=== PATIENT | male | born 1945 | race Caucasian/White ===

== ENCOUNTER 2019-07-27 07:09 | Outpatient (CLI) | payer MEDICARE, SELFPAY ==
[2019-07-27 08:20] LABS: Cholesterol 162 mg/dL (0-200); HDL Direct 44 mg/dL; Triglycerides 95 mg/dL (<150)
[2019-07-27 08:30] LABS: LDL Cholesterol Direct 104 mg/dL
== END 2019-07-27 07:10 | disposition home or self-care (01) ==
PROVIDERS: PCP Internal Medicine; Visit Provider Internal Medicine Cardiovascular Disease
DX: E78.5 Hyperlipidemia, unspecified (principal)
CPT/HCPCS: 36415; 80061

== ENCOUNTER 2019-10-23 09:53 | Outpatient (CLI) | payer MEDICARE, SELFPAY ==
[2019-10-23 10:44] LABS: Alanine Aminotransferase 23 U/L (4-50); Albumin Level 4.2 g/dL (3.5-5.1); Alkaline Phosphatase 78 U/L (38-126); Aspartate Amino Transferase 39 U/L (17-59); Bilirubin,Total 0.5 mg/dL (0.2-1.3); Blood Urea Nitrogen 16 mg/dL (9-20); Calcium 8.9 mg/dL (8.4-10.2); Carbon Dioxide 30 mmol/L (22-30); Chloride 102 mmol/L (98-107); Estimated Glomerular Filt Rate 54; Glucose 103 mg/dL (75-110); Magnesium 2.2 mg/dL (1.6-2.3); Potassium 4.5 mmol/L (3.4-5.0); Sodium 138 mmol/L (137-145)
== END 2019-10-23 09:54 | disposition home or self-care (01) ==
PROVIDERS: PCP Internal Medicine; Visit Provider Internal Medicine Cardiovascular Disease
DX: E78.5 Hyperlipidemia, unspecified (principal)
CPT/HCPCS: 36415; 80053; 83735

== ENCOUNTER 2019-11-17 07:47 | Outpatient (CLI) | payer MEDICARE, SELFPAY ==
[2019-11-17 08:24] LABS: Blood Urea Nitrogen 26 mg/dL (9-20); Calcium 8.9 mg/dL (8.4-10.2); Carbon Dioxide 27 mmol/L (22-30); Chloride 102 mmol/L (98-107); Estimated Glomerular Filt Rate 49; Glucose 110 mg/dL (75-110); Potassium 5.4 mmol/L (3.4-5.0); Sodium 136 mmol/L (137-145)
== END 2019-11-17 07:48 | disposition home or self-care (01) ==
PROVIDERS: PCP Physician Assistant; Visit Provider Physician Assistant
DX: R25.2 Cramp and spasm (principal)
CPT/HCPCS: 36415; 80048

== ENCOUNTER 2020-01-12 08:05 | Outpatient (CLI) | payer MEDICARE, SELFPAY ==
--- NOTE | ~2020-01-12 | XR_ITS ---
EXAMINATION: XR hip BI wo pelvis DATE: 01/12/2020 08:45 INDICATION: Bilateral hip pain. TECHNIQUE: 3 views of right hip and 3 views of left hip were obtained. COMPARISON: Right hip radiographs 09/24/2019, left hip radiographs 05/30/2011 FINDINGS: There are bilateral total hip arthroplasties in near-anatomic alignment. No asymmetric line r wear. No periprosthetic lucency to suggest loosening or infection. No fracture. IMPRESSION: 1. Bilateral total hip arthroplasties in near-anatomic alignment. Reviewed, dictated and finalized at location A.
== END 2020-01-12 08:06 | disposition home or self-care (01) ==
LOC: CHSIMG 08:09
PROVIDERS: PCP Internal Medicine; Visit Provider Orthopaedic Surgery
DX: Z96.643 Presence of artificial hip joint, bilateral (principal)
CPT/HCPCS: 73521

== ENCOUNTER 2020-03-16 08:51 | Outpatient (CLI) | payer MEDICARE, SELFPAY ==
[2020-03-16 10:26] LABS: Free T4 Free Thyroxine 1.12 ng/mL (0.78-2.19)
== END 2020-03-16 08:52 | disposition home or self-care (01) ==
PROVIDERS: PCP Physician Assistant; Visit Provider Physician Assistant
DX: E03.9 Hypothyroidism, unspecified (principal)
CPT/HCPCS: 36415; 84439; 84443

== ENCOUNTER 2020-06-15 09:53 | Outpatient (CLI) | payer MEDICARE, SELFPAY ==
[2020-06-15 10:16] LABS: Anion Gap 5 mmol/L (8-16); Blood Urea Nitrogen 16 mg/dL (9-20); Calcium 9.1 mg/dL (8.4-10.2); Carbon Dioxide 31 mmol/L (22-30); Chloride 102 mmol/L (98-107); Estimated Glomerular Filt Rate 49; Glucose 103 mg/dL (75-110); Magnesium 1.9 mg/dL (1.6-2.3); Potassium 4.4 mmol/L (3.4-5.0); Sodium 138 mmol/L (137-145)
== END 2020-06-15 09:54 | disposition home or self-care (01) ==
PROVIDERS: PCP Physician Assistant; Visit Provider Internal Medicine Cardiovascular Disease
DX: R60.0 Localized edema (principal)
CPT/HCPCS: 36415; 80048; 83735

== ENCOUNTER 2020-07-28 11:14 | Outpatient (CLI) | payer MEDICARE, SELFPAY | END 2020-07-28 11:15 | disposition home or self-care (01) | LOC: ANHCOVIDVC 11:14 | PROVIDERS: PCP Internal Medicine | DX: Z23 Encounter for immunization (principal) | CPT/HCPCS: 0001A; 91300 ==

== ENCOUNTER 2020-08-15 08:54 | Outpatient (CLI) | payer MEDICARE, SELFPAY ==
[2020-08-15 09:30] LABS: Cholesterol 150 mg/dL (0-200); HDL Direct 40 mg/dL; Triglycerides 122 mg/dL (<150)
[2020-08-15 09:40] LABS: LDL Cholesterol Direct 86 mg/dL
== END 2020-08-15 08:55 | disposition home or self-care (01) ==
PROVIDERS: PCP Internal Medicine; Visit Provider Internal Medicine Cardiovascular Disease
DX: E78.5 Hyperlipidemia, unspecified (principal)
CPT/HCPCS: 36415; 80061

== ENCOUNTER 2020-08-18 10:52 | Outpatient (CLI) | payer MEDICARE, SELFPAY | END 2020-08-18 10:53 | disposition home or self-care (01) | LOC: ANHCOVIDVC 10:52 | PROVIDERS: PCP Internal Medicine | DX: Z23 Encounter for immunization (principal) | CPT/HCPCS: 0002A; 91300 ==

== ENCOUNTER 2020-09-16 14:07 | Outpatient (CLI) | payer MEDICARE, SELFPAY ==
--- NOTE | ~2020-09-16 | CT_ITS ---
EXAMINATION: CT chest high resolution wo tn DATE: 09/16/2020 14:32 INDICATION: Cough and dyspnea TECHNIQUE: Computed tomography (CT) of the chest was performed without intravenous contrast. The dose -length product was 906.05 mGy-cm. Automated exposure control and iterative reconstruction technique were employed. COMPARISON: CT dated 03/18/2016 FINDINGS: No significant pleural or pericardial effusion. No thoracic lymphadenopathy. There is ather osclerosis of the aorta and coronary arteries. Heart size is normal. There is left renal atrophy. The re are scattered calcified granulomas. Stable 4 mm benign left fissural nodule, image 73. Scattered g roundglass opacification is noted, likely small airway disease. No new suspicious pulmonary nodules o r masses. Stable sclerotic lesion right fourth rib, consistent with bone island. Mild thoracic spondy losis with accentuated kyphosis. IMPRESSION: 1. Patchy groundglass opacities, likely related to small airway disease. 2: Stable benign-appearing bilateral pulmonary nodules, consistent with granulomatous disease. Reviewed, dictated and finalized at location A. IMPRESSION: 1. Patchy groundglass opacities, likely related to small airway disease. 2: Stable benign-appearing bilateral pulmonary nodules, consistent with granulo matous disease.
== END 2020-09-16 14:08 | disposition home or self-care (01) ==
LOC: ANHIMG 14:14
PROVIDERS: PCP Physician Assistant; Visit Provider Physician Assistant
DX: R05 Cough (principal); R91.8 Other nonspecific abnormal finding of lung field
CPT/HCPCS: 71250

== ENCOUNTER 2021-02-10 06:57 | Outpatient (CLI) | payer MEDICARE, SELFPAY ==
[2021-02-10 08:07] LABS: Anion Gap 6 mmol/L (8-16); Blood Urea Nitrogen 32 mg/dL (9-20); Carbon Dioxide 32 mmol/L (22-30); Chloride 96 mmol/L (98-107); Estimated Glomerular Filt Rate 37; Glucose 120 mg/dL (65-110); Magnesium 2.1 mg/dL (1.6-2.3); Potassium 4.7 mmol/L (3.4-5.0); Sodium 134 mmol/L (137-145)
== END 2021-02-10 06:58 | disposition home or self-care (01) ==
PROVIDERS: PCP Physician Assistant; Visit Provider Internal Medicine Cardiovascular Disease
DX: R60.0 Localized edema (principal)
CPT/HCPCS: 36415; 80048; 83735

== ENCOUNTER 2021-04-11 06:44 | Outpatient (CLI) | payer MEDICARE, SELFPAY ==
[2021-04-11 07:22] LABS: Basophils Percent Auto 0.6 % (0.2-1.2); Eosinophils Absolute Auto 0.2 K/mm3 (0-0.3); Eosinophils Percent Auto 3.4 % (0-4.4); Hematocrit 39.2 % (42.0-52.0); Hemoglobin 12.6 g/dL (14.0-18.0); Immature Granulocyte Absolute 0.03 K/mm3 (0.00-0.031); Immature Granulocyte Percent A 0.6 % (0-0.5); Lymphocytes Absolute Auto 1.11 K/mm3 (0.9-3.2); Lymphocytes Percent Auto 23.5 % (18.3-44.2); Mean Corpuscular HGB Conc 32.1 g/dl (32-36); Mean Corpuscular Hemoglobin 32.9 pg (26-34); Mean Corpuscular Volume 102.3 fl (80-100); Mean Platelet Volume 9.8 fl (7.4-10.4); Monocytes Absolute Auto 0.7 K/mm3 (0.1-0.6); Monocytes Percent Auto 14.8 % (2.6-8.5); Neutrophils Absolute Auto 2.7 K/mm3 (1.3-6.7); Neutrophils Percent Auto 57.1 % (45.5-73.1); Platelet Count Result 175 k/mm3 (150-375); Red Blood Count 3.83 M/mm3 (4.6-6.20); Red Cell Distribution Width 14.5 % (11.5-14.5); White Blood Count 4.7 K/mm3 (4.5-10.0)
[2021-04-11 07:34] LABS: Alanine Aminotransferase 21 U/L (4-50); Albumin Level 4.1 g/dL (3.5-5.1); Alkaline Phosphatase 63 U/L (38-126); Anion Gap 5 mmol/L (8-16); Aspartate Amino Transferase 29 U/L (17-59); Bilirubin,Total 0.6 mg/dL (0.2-1.3); Blood Urea Nitrogen 20 mg/dL (9-20); Carbon Dioxide 31 mmol/L (22-30); Chloride 100 mmol/L (98-107); Cholesterol 172 mg/dL (0-200); Estimated Glomerular Filt Rate 42; Glucose 106 mg/dL (65-110); HDL Direct 37 mg/dL; Magnesium 2.1 mg/dL (1.6-2.3); Potassium 4.4 mmol/L (3.4-5.0); Sodium 136 mmol/L (137-145); Triglycerides 123 mg/dL (<150)
[2021-04-11 07:46] LABS: LDL Cholesterol Direct 98 mg/dL
[2021-04-11 07:49] LABS: Free T4 Free Thyroxine 1.23 ng/mL (0.78-2.19)
[2021-04-11 08:05] LABS: Prostate Specific Antigen 4.1 ng/mL (< OR = 4.0)
[2021-04-11 08:40] LABS: Folic Acid 14.1 ng/mL (2.76->20)
== END 2021-04-11 06:45 | disposition home or self-care (01) ==
LOC: ANHLAB 06:49
PROVIDERS: PCP Physician Assistant; Visit Provider Physician Assistant
DX: R53.83 Other fatigue (principal); E78.5 Hyperlipidemia, unspecified; I10 Essential (primary) hypertension; E03.9 Hypothyroidism, unspecified; Z12.5 Encounter for screening for malignant neoplasm of prostate
CPT/HCPCS: 36415; 80053; 80061; 82607; 82746; 83735; 84153; 84439; 84443; 85025; G0103

== ENCOUNTER 2021-05-12 06:38 | Outpatient (CLI) | payer MEDICARE, SELFPAY ==
[2021-05-12 10:05] LABS: Prostate Specific Antigen 4.9 ng/mL (< OR = 4.0)
== END 2021-05-12 06:39 | disposition home or self-care (01) ==
LOC: ANHLAB 06:43
PROVIDERS: PCP Physician Assistant; Visit Provider Physician Assistant
DX: R97.20 Elevated prostate specific antigen [PSA] (principal)
CPT/HCPCS: 36415; 84153

== ENCOUNTER 2021-05-30 09:44 | Outpatient (CLI) | payer OTHER, SELFPAY ==
[2021-05-30 10:29] LABS: Anion Gap 10 mmol/L (8-16); Blood Urea Nitrogen 30 mg/dL (9-20); Calcium 8.9 mg/dL (8.4-10.2); Carbon Dioxide 28 mmol/L (22-30); Chloride 99 mmol/L (98-107); Estimated Glomerular Filt Rate 37; Glucose 130 mg/dL (65-110); Magnesium 2.3 mg/dL (1.6-2.3); Potassium 4.4 mmol/L (3.4-5.0); Sodium 137 mmol/L (137-145)
== END 2021-05-30 09:45 | disposition home or self-care (01) ==
PROVIDERS: PCP Physician Assistant; Visit Provider Internal Medicine Cardiovascular Disease
DX: R60.0 Localized edema (principal)
CPT/HCPCS: 36415; 80048; 83735

== ENCOUNTER 2021-07-14 11:25 | Outpatient (CLI) | payer OTHER, SELFPAY ==
[2021-07-14 11:52] LABS: Basophils Absolute Auto 0.1 K/mm3 (0.0-0.1); Basophils Percent Auto 0.6 % (0.2-1.2); Eosinophils Absolute Auto 0.1 K/mm3 (0-0.3); Eosinophils Percent Auto 1.4 % (0-4.4); Hematocrit 24.9 % (42.0-52.0); Hemoglobin 8.1 g/dL (14.0-18.0); Immature Granulocyte Absolute 0.14 K/mm3 (0.00-0.031); Immature Granulocyte Percent A 1.4 % (0-0.5); Lymphocytes Absolute Auto 0.86 K/mm3 (0.9-3.2); Lymphocytes Percent Auto 8.5 % (18.3-44.2); Mean Corpuscular HGB Conc 32.5 g/dl (32-36); Mean Corpuscular Hemoglobin 31.8 pg (26-34); Mean Corpuscular Volume 97.6 fl (80-100); Mean Platelet Volume 9.8 fl (7.4-10.4); Monocytes Absolute Auto 1.1 K/mm3 (0.1-0.6); Monocytes Percent Auto 10.9 % (2.6-8.5); Neutrophils Absolute Auto 7.8 K/mm3 (1.3-6.7); Neutrophils Percent Auto 77.2 % (45.5-73.1); Nucleated Red Blood Cells Perc 0.4 % (0.0-0.2); Platelet Count Result 329 k/mm3 (150-375); Red Blood Count 2.55 M/mm3 (4.6-6.20); Red Cell Distribution Width 13.9 % (11.5-14.5); White Blood Count 10.1 K/mm3 (4.5-10.0)
[2021-07-14 12:08] LABS: Lipase 186 U/L (23-300)
[2021-07-14 14:32] LABS: Iron 31 ug/dL (49-181)
[2021-07-14 14:41] LABS: Percent Iron Saturation 10 % (20-50)
== END 2021-07-14 11:26 | disposition home or self-care (01) ==
PROVIDERS: PCP Physician Assistant; Visit Provider Physician Assistant
DX: D64.9 Anemia, unspecified (principal); R10.9 Unspecified abdominal pain
CPT/HCPCS: 36415; 83540; 83550; 83690; 85025

== ENCOUNTER 2021-07-14 14:51 | Inpatient (IN) | payer OTHER, SELFPAY ==
[2021-07-14] VITALS (7 sets, daily range): BP systolic 130–137; BP diastolic 55–80; PULSE 95–105; RESP 18–25; TEMP 36.5–36.8; O2SAT 94–99; BMI 37.5
--- NOTE | ~2021-07-14 | CT_ITS ---
EXAMINATION: CT brain wo con EXAM DATE: 07/17/2021 00:27 INDICATION: altered mental status TECHNIQUE: Spiral CT of the head was performed without contrast. Axial, coronal and sagittal images were reviewed. The dose-length product (DLP) for this examination was 756.67 mGy-cm. The exposure w as tailored according to patient size, and iterative reconstruction (ASIR) was used as additional dos e reduction technique. There is no prior study for comparison. FINDINGS: There is no acute intraparenchymal hemorrhage. No evidence of intraparenchymal brain mass lesion. No evidence of acute infarction. Please note that initial head CT has limited sensitivity f or small or acute infarctions. There is mild to moderate periventricular and subcortical hypodensity, nonspecific but probably related to small vessel ischemic disease. There is ventricular prominence out of proportion to sulci which is suspected most likely central atrophy rather than hydrocephalus. Normal pressure hydrocephalus cannot be excluded (clinical triad ataxia/gait disturbance, dementia, urinary incontinence). There is intracranial carotid arteriosclerosis. There are no extra-axial c ollections. There is no mass effect or midline shift. Patient has had bilateral ocular lens surgery . Soft tissue is unremarkable. The visualized sinuses and mastoid air cells are well aerated. IMPRESSION: 1. No acute intracranial findings. 2. Chronic age related findings. Reviewed, dictated and finalized at location A. H SCIENCE TECHNICAL OFFICER
--- NOTE | ~2021-07-14 | XR_ITS ---
EXAMINATION: XR barium swallow modified DATE: 07/24/2021 15:18 INDICATION: Dysphagia. TECHNIQUE: The patient was given barium-containing material of multiple consistencies to swallow by t wanda speech pathologist while I performed fluoroscopy. Fluoroscopy exposure time was 2.0 minutes. The n umber of fluoroscopy images saved to the PACS was 1. Dose-area product was 3.921 Gy-cm^2. FINDINGS: There is mild vallecular residue. No residual penetration or aspiration. IMPRESSION: 1. No laryngeal penetration or aspiration. 2. Please refer to the speech therapy report for recommendations. Reviewed, dictated and finalized at location A. ESSOR OF BIOLOGY
--- NOTE | ~2021-07-14 | CT_ITS ---
EXAMINATION: CT abdomen pelvis wo con DATE: 07/14/2021 16:26 INDICATION: Epigastric abdominal pain, diminished hemoglobin level. History of ulcer. TECHNIQUE: Computed tomography (CT) of the abdomen and pelvis was performed without intravenous contr ast. Automated exposure control and iterative reconstruction technique were employed. Exam dose: 141 9.00 mGy-cm total exam DLP. COMPARISON: None. FINDINGS: There is mild mosaic attenuation of the included lower lung zones which may be due to obstr uctive airways disease, occlusive vascular disease, acute or subacute infections. There is mild disco id atelectasis or scarring at the lung bases. Small right and minimal left pleural effusions. Heart size is within normal range. Coronary artery calcification. There is 4.5 cm diameter of the ascending aorta and some calcifications at the region of the aortic v alve. Mitral annulus calcification. No hepatic, splenic, pancreatic, adrenal or renal space-occupying mass lesion is evident. There is pr ominent diffuse left renal atrophy. No urinary tract calculus or hydroureteronephrosis. There is thickening of the wall of the gastroduodenal area with surrounding fat infiltration, suggest ing inflammatory change, possibly related to ulcer, less likely perforated tumor; endoscopic correlat ion is recommended. No evidence of appendicitis. There are numerous diverticula of the left and right colon; no evidence of diverticulitis. Normal caliber of the abdominal aorta. No intraperitoneal or retroperitoneal or pelvic mass lesion o r lymphadenopathy or ascites is detected. Status post bilateral total hip arthroplasty, with considerable streak artifact obscuring portions of the pelvis. 2.8 cm wide fat containing umbilical hernia. Degenerative changes of the thoracic and lumbar spine. IMPRESSION: Soft tissue thickening and surrounding fat infiltration of the gastroduodenal area, sugg esting peptic ulcer disease, less likely perforated tumor; consider endoscopic correlation Diverticulosis of the colon; no evidence of diverticulitis Bilateral total hip arthroplasty Reviewed, dictated and finalized at Location A. Reviewed, dictated and finalized at location B. LIATE MANAGER IMPRESSION: Soft tissue thickening and surrounding fat infiltration of the gas troduodenal area, suggesting peptic ulcer disease, less likely perforated tumor ; consider endoscopic correlation Diverticulosis of the colon; no evidence of diverticulitis Bilateral total hip arthroplasty
--- NOTE | ~2021-07-14 | US_ITS ---
EXAMINATION: US renal BI DATE: 07/17/2021 09:18 INDICATION: Acute renal insufficiency TECHNIQUE: Multiple ultrasound grayscale images of the kidneys were obtained. COMPARISON: CT dated 07/14/2021 FINDINGS: The right kidney measures 9.6 x 5.9 x 5.5 cm. The left kidney measures 8.0 x 4.3 x 4.9 with diffuse c ortical thinning. The kidneys demonstrate normal echogenicity. There is no hydronephrosis in either k idney. No stones identified. The bladder is decompressed around a Disla catheter which limits evalua tion. IMPRESSION: 1. Normal right kidney and moderate left renal atrophy without hydronephrosis. Reviewed, dictated and finalized at location A. OR UNDERWRITER
--- NOTE | ~2021-07-14 | XR_ITS ---
EXAMINATION: XR chest 1V portable DATE: 07/19/2021 09:45 INDICATION: Septic shock TECHNIQUE: frontal view of the chest was obtained. COMPARISON: Chest radiograph dated 07/16/2021 FINDINGS: A few small calcified pulmonary nodules consistent with old granulomatous disease. Mild left basilar atelectasis. No pulmonary edema, pleural effusion or pneumothorax. Normal heart size. Enlargement of the central pulmonary arteries consistent with pulmonary arterial hypertension. IMPRESSION: 1. Mild left basilar atelectasis. 2. Enlargement of the central pulmonary arteries consistent with pulmonary arterial hypertension. Reviewed, dictated and finalized at location A. OSIVES MIXER OPERATOR IMPRESSION: 1. Mild left basilar atelectasis. 2. Enlargement of the central pulmonary arteries consistent with pulmonary oralia rial hypertension.
--- NOTE | ~2021-07-14 | XR_ITS ---
EXAMINATION: XR chest 2V DATE: 07/23/2021 13:33 INDICATION: Shortness of breath TECHNIQUE: AP and lateral views of the chest are obtained. COMPARISON: 07/19/2021 FINDINGS: There are stable left basilar airspace opacities. There are small pleural effusions. The ca rdiomediastinal silhouette is normal. There is mild thoracic spondylosis. IMPRESSION: 1. Small pleural effusions. 2. Left basilar airspace opacities, likely atelectasis. Reviewed, dictated and finalized at location F. FACTURING AREA MANAGER
--- NOTE | ~2021-07-14 | XR_ITS ---
EXAMINATION: XR chest 1V portable DATE: 07/16/2021 21:07 INDICATION: Shortness of breath TECHNIQUE: frontal view of the chest was obtained. COMPARISON: Chest radiograph dated 11/03/2018 FINDINGS: Subtle opacities in the bilateral mid lung zones. There is also some perihilar bronchial wall thicken ing. No pleural effusion or pneumothorax. The cardiomediastinal silhouette is within normal limits fo r AP technique. IMPRESSION: 1. Bronchial wall thickening with mild opacities in the bilateral mid lung zones which could represen t bronchitis and developing pneumonia or pulmonary edema. Reviewed, dictated and finalized at location A. RACT ASSOCIATE MANAGER IMPRESSION: 1. Bronchial wall thickening with mild opacities in the bilateral mid lung zone s which could represent bronchitis and developing pneumonia or pulmonary edema.
--- NOTE | 2021-07-14 14:57 | ECG_ITS ---
Measurements Intervals [place] Rate: 104 P: 52 SD: 185 QRS: -61 QRSD: 113 T: 66 QT: 349 QTc: 461 Interpretive Statements SINUS TACHYCARDIA ATRIAL COUPLETS AND ATRIAL PREMATURE COMPLEXES LOW QRS VOLTAGE IN PRECORDIAL LEADS LEFT ANTERIOR FASCICULAR BLOCK BORDERLINE ST-T WAVE ABNORMALITY- HIGH LATERAL LEADS BASELINE ARTIFACT- I, II, III, AVR, AVL, AVF, V1-V6 ABNORMAL ECG Electronically Signed On 07-14-2021 15:21:54 [employer] INFANTRYMAN by Kody Mart D.O.
[2021-07-14 15:21] LABS: Basophils Absolute Auto 0.1 K/mm3 (0.0-0.1); Basophils Percent Auto 0.6 % (0.2-1.2); Eosinophils Absolute Auto 0.1 K/mm3 (0-0.3); Eosinophils Percent Auto 0.8 % (0-4.4); Hematocrit 25.9 % (42.0-52.0); Hemoglobin 8.3 g/dL (14.0-18.0); Immature Granulocyte Absolute 0.15 K/mm3 (0.00-0.031); Immature Granulocyte Percent A 1.4 % (0-0.5); Lymphocytes Absolute Auto 0.83 K/mm3 (0.9-3.2); Lymphocytes Percent Auto 7.5 % (18.3-44.2); Mean Corpuscular Hemoglobin 31.8 pg (26-34); Mean Corpuscular Volume 99.2 fl (80-100); Monocytes Absolute Auto 1.1 K/mm3 (0.1-0.6); Monocytes Percent Auto 10.1 % (2.6-8.5); Neutrophils Absolute Auto 8.8 K/mm3 (1.3-6.7); Neutrophils Percent Auto 79.6 % (45.5-73.1); Nucleated Red Blood Cells Absolute Auto 0.1 K/mm3 (0.0-0.012); Nucleated Red Blood Cells Perc 0.5 % (0.0-0.2); Platelet Count Result 343 k/mm3 (150-375); Red Blood Count 2.61 M/mm3 (4.6-6.20); Red Cell Distribution Width 14.1 % (11.5-14.5); White Blood Count 11.1 K/mm3 (4.5-10.0)
[2021-07-14 15:29] LABS: INR 1.3; Prothrombin Time 15.9 Seconds (11.1-14.7)
[2021-07-14 15:30] LABS: Partial Thromboplastin Time 30.2 SECONDS (22.3-36.8)
[2021-07-14 15:48] LABS: Alanine Aminotransferase 20 U/L (4-50); Albumin Level 3.3 g/dL (3.5-5.1); Alkaline Phosphatase 69 U/L (38-126); Anion Gap 9 mmol/L (8-16); Aspartate Amino Transferase 36 U/L (17-59); Bilirubin,Total 0.4 mg/dL (0.2-1.3); Blood Urea Nitrogen 21 mg/dL (9-20); Calcium 9.1 mg/dL (8.4-10.2); Carbon Dioxide 25 mmol/L (22-30); Chloride 101 mmol/L (98-107); Estimated CRCL calculation 61 ml/min; Estimated Glomerular Filt Rate > 60; Glucose 127 mg/dL (65-110); Lipase 225 U/L (23-300); Potassium 3.9 mmol/L (3.4-5.0); Sodium 135 mmol/L (137-145)
--- NOTE | 2021-07-14 15:57 | ED.RECABL ---
HPI - Recheck/Abnormal Lab/Rx General Chief Complaint: Recheck/Abnormal Lab/Rx Stated Complaint: low hemoglobin Time Seen by Provider: 07/14/21 15:20 Source: patient History of Present Illness HPI narrative: Patient presents with chest pain and epigastric pain reports has had pain for the past 2 days was seen by his primary care doctor I blood work drawn and was told his hemoglobin is low and is referred to the ER for evaluation. Which is primary concern is his chest pain reports a history of peptic ulcer disease and unsure if this is related. Denies any fevers, chills, nausea, vomiting. Related Data Home Medications Medication Instructions Recorded Confirmed aoxluvdy-pjn-wzqla acid 300 1 tablet PO DAILY 04/20/19 07/14/21 mcg-lycopene 600 mcg-lutein 300 mcg tablet Allergies Allergy/AdvReac Type Severity Reaction Status Date / Time Iodinated Contrast Media Allergy Unknown itching Verified 07/14/21 15:14 tramadol Allergy Unknown Itching Verified 07/14/21 15:14 (moderate to severe) Review of Systems Review of Systems: CONSTITUTIONAL: Denies fever, chills, or sweats. EYES: Denies visual changes, redness, or discharge. ENT: Denies rhinorrhea, congestion, sore throat, or otalgia. CARDIOVASCULAR: Denies palpitations, or edema. RESPIRATORY: Denies cough or dyspnea. GASTROINTESTINAL: Denies abdominal pain, nausea, vomiting, or diarrhea. GENITOURINARY: Denies dysuria or hematuria. SKIN: Denies rash or itching. MUSCULOSKELETAL: Denies back pain, joint pain, or myalgia. NEUROLOGIC: Denies headache, numbness, dizziness, or weakness. PSYCHIATRIC: Denies anxiety or depression. All systems reviewed & are unremarkable except as noted in HPI and below [facility] Past Medical History Medical History Arthritis Asthma Surgical History Surgical History History of hip replacement History of left hip replacement History of right hip replacement Family History Family History Mother Carcinoma of colon Sibling Family history of learning disability Father FH myocardial infarction male first degree age known Other Family history of arthritis Family history of cardiovascular disease Social History Social History Smoking status: Never smoker Smokeless tobacco user: chewing tobacco Second hand tobacco smoke exposure: No Alcohol intake: current Drinks per week: 10 Substance use: never Exam Narrative: GENERAL: Well-appearing, well-nourished, and in no acute distress. HEAD: Normocephalic, atraumatic. EYES: PERRLA and EOMI. ENT: Nares clear, no rhinorrhea or epistaxis. Mucous membranes moist. NECK: Supple. No masses. No JVD CHEST: Clear to auscultation. No respiratory distress. No wheezes rales or rhonchi HEART: Regular rate and rhythm. No murmur heard. Normal peripheral pulses. ABDOMEN: Soft, nontender, nondistended, normal active bowel sounds. EXTREMITIES: Normal range of motion. No edema. SKIN: Warm, dry, no rash. NEURO: No focal deficits. Alert and oriented x3. PSYCH: Normal mood and affect. Course Reevaluation(s) Reevaluation #1: Patient is clinically stable vital signs are reassuring given lab abnormalities patient will be admitted to the hospitalist team with cardiology and GI following along. Date: 07/14/21 Time: 17:09 Vital Signs Vital signs: Vital Signs Temperature 36.5 C 07/14/21 14:57 Pulse Rate 99 07/14/21 14:57 Respiratory Rate 18 07/14/21 14:57 Blood Pressure 137/79 07/14/21 14:57 Pulse Oximetry 99 07/14/21 14:57 Temperature 36.5 C 07/14/21 14:57 Pulse Rate 100 07/14/21 18:21 Respiratory Rate 25 H 07/14/21 18:21 Blood Pressure 135/55 L 07/14/21 18:21 Pulse Oximetry 98 07/14/21 18:21 MDM - Recheck/Abnormal Lab/Rx MDM N
[2021-07-14 16:03] LABS: Troponin I 0.043 ng/mL (0.000-0.034)
[2021-07-14] MEDS: LIDOCAINE HCL 2% VISC SOLN 15 ML UDC 20 ML PO (16:07)
[2021-07-14] MEDS: MAG HYDROX/AL HYDROX/SIMETH 30 ML UDC PO (16:07)
[2021-07-14 17:44] LABS: SARS-CoV-2 RNA PCR Negative
[2021-07-14] MEDS: PANTOPRAZOLE SODIUM IV 40 MG VIAL 80 MG IV PUSH (17:49)
[2021-07-14] MEDS: SODIUM CHLORIDE 0.9% IV 1,000 ML 125 ML IV CONT (18:17)
[2021-07-14 18:29] LABS: Troponin I 0.052 ng/mL (0.000-0.034)
--- NOTE | 2021-07-14 21:59 | PM.IMHP ---
H&P: HPI History of Present Illness Date/Time: 07/14/21 21:59 Chief Complaint: Abnormal blood work Narrative: This is a 75-year-old male with past medical history significant for COPD/asthma, type 2 diabetes mellitus, peripheral diabetic neuropathy, hypertension, hypothyroidism, GERD. Patient presents to the emergency room after he went to visit his primary care physician and blood work was abnormal for low hemoglobin upon further questioning patient is states that he had black stools for 3 days or so, denies any bright red blood per rectum or hematemesis or coffee-ground emesis, no nausea, no vomiting, had cramping abdominal pain, patient fell dizzy, lightheaded, short of breath. Preliminary workup was significant for hemoglobin of 8. Patient is being admitted for further evaluation management and treatment. Review of Systems Review of Systems: Black stools, dizziness, shortness of breath. Constitutional: Constitutional: Denies chills, Reports fatigue, Denies fever(s), Denies malaise, Denies night sweats and Denies weakness Eyes: Eyes: Denies change in vision ENT: Denies dysphagia, Denies vertigo, Denies dizziness, Denies nasal congestion, Denies nasal discharge, Denies nasal obstruction and Denies odynophagia Cardiovascular: Cardiovascular: Denies rapid heart rate, Denies pedal edema, Denies claudication, Reports leg ulcers, Denies leg edema, Denies radiating jaw, neck or arm pain, Denies palpitations, Denies dyspnea on exertion and Denies orthopnea Respiratory: Respiratory: Denies cough, Denies dyspnea and Denies wheezing Gastrointestinal: Gastrointestinal: Denies abdominal pain, Reports melena, Denies hematochezia, Denies coffee ground emesis, Denies dyspepsia, Denies heartburn, Denies nausea and Denies vomiting Genitourinary: Genitourinary: Reports no additional male genitourinary complaints, Reports as per HPI and Denies dysuria Musculoskeletal: Musculoskeletal: Denies arthralgias and Denies joint swelling Integumentary/Breasts: Skin/Breast: Denies rash Neurologic: Denies focal weakness and Denies Sensory deficit (Neuro) Psychiatric: Psychiatric: Reports no additional psychiatric complaints and Reports as per HPI Hematologic/Lymphatic: Hematologic/Lymphatic: Reports no additional hematologic/lymphatic complaints and Reports as per HPI Allergic/Immunologic: Allergic/Immunologic: Reports no additional allergic/immunologic complaints and Reports as per HPI [facility] Past Medical History Medical History Arthritis Asthma Surgical History Surgical History History of hip replacement History of left hip replacement History of right hip replacement Family History Family History (Updated 07/14/21 @ 22:52 by Odilia Hernandez RN) Mother Liver cancer Sibling S/P CABG x 3 Father FH myocardial infarction male first degree age known Family history of cardiovascular disease S/P CABG x 4 Sibling Family history of cardiovascular disease Sibling Family history of cardiovascular disease Other Family history of arthritis Social History Social History Smoking status: Never smoker Smokeless tobacco user: chewing tobacco Second hand tobacco smoke exposure: No Additional smoking assessment comments: 55-60 years using chewing tobacco Alcohol intake: former Drinks per week: 21 Substance use: never Last use: hasn't been drinking since May Spiritual care concerns: No Meds Home Medications and Allergies Home Medications Medication Instructions Recorded Confirmed Type imjjpouw-wbf-mdpan acid 300 1 tablet PO DAILY 04/20/19 07/14/21 History mcg-lycopene 600 mcg-lutein 300 mcg tablet albuterol sulfate 90 mcg/actuation 2 puff INHALATION Q4-6H PRN #8.5 g 09/13/20 07/14/21 Rx aerosol inhaler trazodone 50 mg tablet 50 mg PO
[2021-07-14 22:31] LABS: Troponin I 0.063 ng/mL (0.000-0.034)
[2021-07-15] VITALS (18 sets, daily range): BP systolic 91–138; BP diastolic 55–99; PULSE 73–126; RESP 16–22; TEMP 35.8–37.1; O2SAT 92–98
[2021-07-15] MEDS: traZODone HCL 50 MG TABLET PO ×2 (00:56→21:03)
[2021-07-15] MEDS: GABAPENTIN 300 MG CAPSULE 600 MG PO ×4 (00:56→18:13)
--- NOTE | 2021-07-15 03:11 | PC.NURSE ---
This patient, Seferino Cano, was admitted to IMU Room 202-. Patient/family oriented to hospital policies and general routines including ID bracelet, bed and alarms, visiting hours, pain management, procedures, bathroom and other care routines, personal items, smoking policy, room service/diet, and visiting hours. Patient/Family are encouraged to report perceived risks to care and to ask questions if they do not understand what they are told or what they should do.
[2021-07-15] MEDS: LEVOTHYROXINE SODIUM 50 MCG TABLET PO (09:31)
[2021-07-15] MEDS: OPTI-GEN TAB 1 TABLET PO (09:31)
[2021-07-15] MEDS: lisinopriL 2.5 MG TABLET PO (09:32)
[2021-07-15] MEDS: PANTOPRAZOLE 40 MG TABLET PO (09:32)
[2021-07-15] MEDS: FENOFIBRATE NANOCRYSTALLIZED 145 MG TABLET PO (09:32)
[2021-07-15] MEDS: METOPROLOL TARTRATE 25 MG TABLET PO ×2 (09:32→21:03)
--- NOTE | 2021-07-15 12:20 | PM.CNCAR ---
Assessment and Plan Assessment and plan (1) Elevated troponin: Code(s): R77.8 - Other specified abnormalities of plasma proteins Status: Acute Assessment and Plan: His troponins are insignificant and at likely secondary to severe anemia. They are not secondary to acute plaque rupture. (2) Paroxysmal atrial flutter: Code(s): I48.92 - Unspecified atrial flutter Status: Acute Assessment and Plan: Currently in sinus rhythm with frequent PACs. Hold Eliquis for now given apparent GI bleed (3) Chronic anticoagulation: Code(s): Z79.01 - terminal supervisor (current) use of anticoagulants Status: Acute Assessment and Plan: Hold Eliquis (4) Acute on chronic diastolic heart failure: Code(s): I50.33 - Acute on chronic diastolic (congestive) heart failure Status: Acute Assessment and Plan: His significant edema above his lower extremity wrapped legs as well as dyspnea and crackles on examination. Will continue metoprolol tartrate 25 mg p.o. b.i.d.. Start furosemide 40 mg IV q.12 hours. Basic metabolic panel morning. (5) Anemia: Code(s): D64.9 - Anemia, unspecified Status: Acute Assessment and Plan: GI workup pending (6) DEMETRI (obstructive sleep apnea): Code(s): G47.33 - Obstructive sleep apnea (adult) (pediatric) Status: Acute Assessment and Plan: Need sleep apnea treatment. A significant portion of his problems are related untreated sleep apnea History of Present Illness History of Present Illness Consult date/time: 07/15/21 12:20 Requesting physician: Armando Rodriguez MD Consult reason: Other (Elevated troponin) Reason For Visit: chest pain Narrative: Reason consultation: Elevated troponin Requesting provider: Dr. Rodriguez Date of service 07/15/2021 History patient is a 75-year-old male patient Dr. Mart who is on vacation at this point. We are covering. The patient was recently admitted due to lower extremity cellulitis at [facility]. He was also diuresing given antibiotics. He was admitted to this hospital because of some epigastric discomfort and abnormal labs. He was found to be significantly anemic. In the process of workup, he had a troponin drawn which was minimally elevated. Cardiology consultation was therefore requested. Patient has been having black stools for at least 3 days. He has epigastric and sternal pain after eating and with eating. He does have dyspnea with most any activity. He denies any syncope, presyncope, palpitations. Does have lower extremity edema and sleeps poorly. He undoubtedly has sleep apnea but this is not being treated. Review of Systems Review of Systems: All systems reviewed & are unremarkable except as noted in HPI and below Constitutional: Constitutional: Reports weakness Eyes: Eyes: Denies blurry vision ENT: Reports Normal hearing present Cardiovascular: Cardiovascular: Denies chest pain and Reports leg edema Respiratory: Respiratory: Reports dyspnea on exertion Gastrointestinal: Gastrointestinal: Reports melena Genitourinary: Genitourinary: Denies dysuria Musculoskeletal: Musculoskeletal: Denies neck pain Integumentary/Breasts: Comments: Bilateral lower extremity cellulitis Neurologic: Denies headache(s) Psychiatric: Psychiatric: Denies anxiety Endocrine: Endocrine: Denies fatigue and Denies flushing Hematologic/Lymphatic: Hematologic/Lymphatic: Denies easy bleeding Allergic/Immunologic: Allergic/Immunologic: Denies GI upset with certain foods and Denies lip swelling PMFSH Past Medical History Medical History (Updated 07/15/21 @ 12:26 by Dawson Lopez MD) Arthritis Asthma Chronic anticoagulation Paroxysmal atrial flutter Surgical History Surgical History History of hip replacement History of left hip replacement History of right hip replacement Family History Family Hi
--- NOTE | 2021-07-15 12:52 | PM.IMPN ---
Progress Note: A&P Assessment and Plan (1) GI bleed: Qualifiers: GI bleed type/associated pathology: unspecified gastrointestinal hemorrhage type Qualified Code(s): K92.2 - Gastrointestinal hemorrhage, unspecified Code(s): K92.2 - Gastrointestinal hemorrhage, unspecified Status: Acute Assessment and Plan: With melena Supportive care Protonix drip GI consult Continue to monitor Serial H&H Baseline hemoglobin 12 last year apparently 8. Monitor H&H transfuse to keep hemoglobin more than 7 CT abdomen was soft tissue thickening and surrounding fat infiltration and out the gastroduodenal area suggesting peptic ulcer disease less likely perforated tumor consider on DOS COVID correlation. Diverticulosis of the colon no evidence of diverticulitis bilateral total hip arthroplasty Eliquis on hold due to GI bleed (2) Anemia: Qualifiers: Anemia type: unspecified type Qualified Code(s): D64.9 - Anemia, unspecified Code(s): D64.9 - Anemia, unspecified Status: Acute Assessment and Plan: Likely secondary to GI bleed Transfuse as needed (3) DEMETRI (obstructive sleep apnea): Code(s): G47.33 - Obstructive sleep apnea (adult) (pediatric) Status: Acute Assessment and Plan: CPAP at nighttime (4) COPD (chronic obstructive pulmonary disease): Code(s): J44.9 - Chronic obstructive pulmonary disease, unspecified Status: Acute Assessment and Plan: Continue home meds No acute exacerbation (5) CKD (chronic kidney disease) stage 3, GFR 30-59 ml/min: Code(s): N18.3 - Chronic kidney disease, stage 3 (moderate) Status: Acute Assessment and Plan: BUN and creatinine at patient's baseline Continue to monitor (6) Edema of both legs: Code(s): R60.0 - Localized edema Status: Acute Assessment and Plan: Bhaskar wraps on Supportive care diuresis started (7) Diastolic dysfunction: Code(s): I51.89 - Other ill-defined heart diseases Status: Acute Assessment and Plan: Patient appears euvolemic Continue to monitor (8) Morbid obesity with BMI of 40.0-44.9, adult: Code(s): E66.01 - Morbid (severe) obesity due to excess calories; Z68.41 - Body mass index [BMI] 40.0-44.9, adult Status: Acute Assessment and Plan: Unchanged (9) Elevated troponin: Code(s): R77.8 - Other specified abnormalities of plasma proteins Status: Acute Assessment and Plan: Mild with flat trajectory Subjective Date/time seen: 07/15/21 12:52 Interval history: HPI:This is a 75-year-old male with past medical history significant for COPD/asthma, type 2 diabetes mellitus, peripheral diabetic neuropathy, hypertension, hypothyroidism, GERD. Patient presents to the emergency room after he went to visit his primary care physician and blood work was abnormal for low hemoglobin upon further questioning patient is states that he had black stools for 3 days or so, denies any bright red blood per rectum or hematemesis or coffee-ground emesis, no nausea, no vomiting, had cramping abdominal pain, patient fell dizzy, lightheaded, short of breath. Preliminary workup was significant for hemoglobin of 8. Patient is being admitted for further evaluation management and treatment. 07/15/2021 patient reports pain in his upper abdomen sharp quality. Ongoing since past few days. No nausea or vomiting. Denies any shortness of breath chest pain. He also has lower extremity pain which has been chronic. He regularly sees wound care as outpatient basis and gets his legs wrapped Review of Systems Review of Systems: All systems reviewed & are unremarkable except as noted in HPI and below (HPI) Exam Narrative: GENERAL: The patient is well developed, not in acute distress HEENT: Nonicteric sclerae, PERRLA, EOMI. Oropharynx clear. Moist mucous membranes. Conjunctivae appear well perfused. CHEST: Chest wall is nontender. HEART: R
--- NOTE | 2021-07-15 13:12 | WPDGICN ---
Assessment and Plan Additional Plan GI Consultation Dr. Romero June, This is a 75 year old male patient with a history of COPD, T2DM, neuropathy, PVD with cellulitis, HTN, hypothyroidism, GERD, OA, bilateral THR who now presents for evaluation of melena. Patient is seen at the request of the Hospitalist service to evaluate for same. The patient?s primary care provider is SALMA Lanza. Patient is seen with his , Liliam, present for the entire visit. Patient complains of one week of intermittent epigastric pain that is non-radiating and not related to po or BM. He has poor appetite and has lost 20-30 pounds over three weeks. He denies nausea or vomiting, trouble swallowing, bloating, early satiety, heartburn (on Protonix), diarrhea or constipation, rectal bleeding. Patient denies fever, jaundice, scleral icterus, dark urine, light stool, itching, hot or cold intolerance, chest pain, shortness of breath at rest, hematuria, dysuria, new cough or visual changes, easy bruising, tingling of the skin, bone pain or tremors. No history of endocarditis, rheumatic fever, dental prophylaxis, heart valve surgery, bleeding disorder. Allergies: Iodine, Tramodol Medications: see list but include Eliquis, Aleve and Protonix. No aspirin. Social history: nonsmoker, quit drinking last month. Family history: negative for GI malignancy. Last colonoscopy was five years ago in [place] with polyps. Physical exam: No lower extremity edema, jaundice, spider angioma, palmar erythema. Skull is normocephalic atraumatic. Sclera are non-icteric. Oropharynx is clear. Neck is supple without thyromegaly. Lungs are clear. Heart is rate and rhythm regular. S1 and S2 normal. Normal active bowel sounds. Non-tender, non-rigid, non-distended without hepatosplenomegaly or masses. No guarding. Rectal is deferred. Neuro is conscious and alert ?3. Labs: Hgb 8, Hct 26, MCV 99, PTL 343, INR 1.3, LFT's normal. Lipase 225. TT peak 0.063 04/11/2021 B12 382, folate 14, Fe 31, TIBC 315, %sat 10 Imaging: CT with wall thickening in gastroduodenal area c/w ulcer and colonic diverticulosis. Assessment and plan: A. Iron deficiency anemia with melena in patient on Eliquis and Aleve and abnormal imaging-digestive: - CT suggests PUD - No active bleed; follow H+H and transfuse prn - Protonix-> IV BID - IV iron -> po as OP - Consider dose of Epo - No aspirin, NSAIDS or anticoagulants - EGD when stable; would prefer Saturday to give chance for medical optimization and effect of anticoagulants to wear off B. Epigastric pain and weight loss likely due to above. C. GERD: PPI. D. Abnormal imaging-digestive: colonic diverticulosis; observe. E. Personal history of colon polyps: consider colonoscopy per [facility]. The procedure of upper endoscopy, its indications, alternatives of barium studies and risks including perforation, bleeding, infection, reaction to medication as well as the possible need for blood or surgery were discussed with the patient. Patient voices understanding, agrees to proceed and provides informed consent. Thank you very much for allowing me to share in the care of your patient. Sung Romero M.D. (c) [phone] Cc: SALMA Lanza GI Consult Note Consult date/time: 07/15/21 13:12 HPI: Seferino Cano is a 75 year old male [facility] Past Medical History Medical History (Updated 07/15/21 @ 12:26 by Dawson Lopez MD) Arthritis Asthma Chronic anticoagulation Paroxysmal atrial flutter Surgical History Surgical History History of hip replacement History of left hip replacement History of right hip replacement Family History Family History Mother Liver cancer Sibling S/P CABG x 3 Father FH myocardial infarction male first degree age known Family history of cardiovascular disease S/P CABG x 4 Sibling Famil
[2021-07-15] MEDS: traMADol HCL (*CRX) 50 MG TABLET PO (15:28)
[2021-07-15] MEDS: FUROSEMIDE INJ 40 MG/4 ML VIAL IV PUSH (18:13)
[2021-07-15] MEDS: ALBUTEROL SULFATE (*SP) AEROSOL 1 PUFF 2 PUFF INHALATION (21:27)
[2021-07-16] VITALS (17 sets, daily range): BP systolic 99–152; BP diastolic 53–96; PULSE 54–84; RESP 14–20; TEMP 35.8–36.6; O2SAT 93–98
[2021-07-16 05:02] LABS: Basophils Absolute Auto 0.1 K/mm3 (0.0-0.1); Basophils Percent Auto 0.8 % (0.2-1.2); Eosinophils Absolute Auto 0.4 K/mm3 (0-0.3); Eosinophils Percent Auto 4.5 % (0-4.4); Hematocrit 25.9 % (42.0-52.0); Hemoglobin 7.5 g/dL (14.0-18.0); Immature Granulocyte Absolute 0.11 K/mm3 (0.00-0.031); Immature Granulocyte Percent A 1.4 % (0-0.5); Lymphocytes Absolute Auto 0.89 K/mm3 (0.9-3.2); Lymphocytes Percent Auto 11.4 % (18.3-44.2); Mean Corpuscular Hemoglobin 31.5 pg (26-34); Mean Corpuscular Volume 108.8 fl (80-100); Mean Platelet Volume 10.1 fl (7.4-10.4); Monocytes Percent Auto 12.9 % (2.6-8.5); Neutrophils Absolute Auto 5.4 K/mm3 (1.3-6.7); Nucleated Red Blood Cells Perc 0.3 % (0.0-0.2); Platelet Count Result 250 k/mm3 (150-375); Red Blood Count 2.38 M/mm3 (4.6-6.20); Red Cell Distribution Width 14.6 % (11.5-14.5); White Blood Count 7.8 K/mm3 (4.5-10.0)
[2021-07-16 05:15] LABS: Alanine Aminotransferase 19 U/L (4-50); Albumin Level 3.3 g/dL (3.5-5.1); Alkaline Phosphatase 61 U/L (38-126); Anion Gap 9 mmol/L (8-16); Aspartate Amino Transferase 42 U/L (17-59); Bilirubin,Total 0.5 mg/dL (0.2-1.3); Blood Urea Nitrogen 23 mg/dL (9-20); Calcium 8.1 mg/dL (8.4-10.2); Carbon Dioxide 19 mmol/L (22-30); Chloride 98 mmol/L (98-107); Estimated CRCL calculation 29 ml/min; Estimated Glomerular Filt Rate 26; Glucose 117 mg/dL (65-110); Potassium 3.5 mmol/L (3.4-5.0); Sodium 126 mmol/L (137-145)
[2021-07-16] MEDS: LEVOTHYROXINE SODIUM 50 MCG TABLET PO (05:54)
[2021-07-16] MEDS: OPTI-GEN TAB 1 TABLET PO (08:15)
[2021-07-16] MEDS: GABAPENTIN 300 MG CAPSULE 600 MG PO ×3 (08:15→15:59)
[2021-07-16] MEDS: METOPROLOL TARTRATE 25 MG TABLET PO (08:16)
[2021-07-16] MEDS: FENOFIBRATE NANOCRYSTALLIZED 145 MG TABLET PO (08:16)
[2021-07-16] MEDS: SODIUM CHLORIDE 0.9% IV 1,000 ML 100 ML IV CONT ×2 (08:23→21:22)
--- NOTE | 2021-07-16 08:26 | PM.IMPN ---
Progress Note: A&P Assessment and Plan (1) GI bleed: Qualifiers: GI bleed type/associated pathology: unspecified gastrointestinal hemorrhage type Qualified Code(s): K92.2 - Gastrointestinal hemorrhage, unspecified Code(s): K92.2 - Gastrointestinal hemorrhage, unspecified Status: Acute Assessment and Plan: With melena Supportive care Protonix drip GI consulted Serial H&H Baseline hemoglobin 12 last year apparently 8. Monitor H&H transfuse to keep hemoglobin more than [address] abdomen was soft tissue thickening and surrounding fat infiltration and out the gastroduodenal area suggesting peptic ulcer disease less likely perforated tumor consider on DOS COVID correlation. Diverticulosis of the colon no evidence of diverticulitis bilateral total hip arthroplasty Eliquis on hold due to GI bleed (2) Anemia: Qualifiers: Anemia type: unspecified type Qualified Code(s): D64.9 - Anemia, unspecified Code(s): D64.9 - Anemia, unspecified Status: Acute Assessment and Plan: Likely secondary to GI bleed Transfuse as needed to keep hb > 7 (3) DEMETRI (obstructive sleep apnea): Code(s): G47.33 - Obstructive sleep apnea (adult) (pediatric) Status: Acute Assessment and Plan: CPAP at nighttime (4) COPD (chronic obstructive pulmonary disease): Code(s): J44.9 - Chronic obstructive pulmonary disease, unspecified Status: Acute Assessment and Plan: Continue home meds No acute exacerbation (5) CKD (chronic kidney disease) stage 3, GFR 30-59 ml/min: Code(s): N18.3 - Chronic kidney disease, stage 3 (moderate) Status: Acute Assessment and Plan: BUN and creatinine at patient's baseline on admission. JASON today with cr bumped up to 2.4. will hold lisinopril and lasix. give gentle fluid , recheck bmp in evening, bladder scan. monitor renal function. (6) Edema of both legs: Code(s): R60.0 - Localized edema Status: Acute Assessment and Plan: Bhaskar wraps on Supportive care diuresis started but will hold due to jason (7) Diastolic dysfunction: Code(s): I51.89 - Other ill-defined heart diseases Status: Acute Assessment and Plan: Patient appears euvolemic Continue to monitor (8) Morbid obesity with BMI of 40.0-44.9, adult: Code(s): E66.01 - Morbid (severe) obesity due to excess calories; Z68.41 - Body mass index [BMI] 40.0-44.9, adult Status: Acute Assessment and Plan: Unchanged (9) Elevated troponin: Code(s): R77.8 - Other specified abnormalities of plasma proteins Status: Acute Assessment and Plan: Mild with flat trajectory (10) JASON (acute kidney injury): Code(s): N17.9 - Acute kidney failure, unspecified Status: Acute Assessment and Plan: cr bumped to 2.4. gentle hydration. hold lisinopril and lasix (11) Hyponatremia: Code(s): E87.1 - Hypo-osmolality and hyponatremia Status: Acute Assessment and Plan: na level 127. down from 134 yesterday. will add ns. recheck bmp in evening. Subjective Date/time seen: 07/16/21 08:26 Interval history: HPI:This is a 75-year-old male with past medical history significant for COPD/asthma, type 2 diabetes mellitus, peripheral diabetic neuropathy, hypertension, hypothyroidism, GERD. Patient presents to the emergency room after he went to visit his primary care physician and blood work was abnormal for low hemoglobin upon further questioning patient is states that he had black stools for 3 days or so, denies any bright red blood per rectum or hematemesis or coffee-ground emesis, no nausea, no vomiting, had cramping abdominal pain, patient fell dizzy, lightheaded, short of breath. Preliminary workup was significant for hemoglobin of 8. Patient is being admitted for further evaluation management and treatment. 07/15/2021 patient reports pain in his upper abdomen sharp quality.
[2021-07-16] MEDS: ACETAMINOPHEN 325 MG TABLET 650 MG PO ×2 (08:41→21:21)
--- NOTE | 2021-07-16 10:56 | PM.PNCARD ---
Progress Note: A&P Assessment and Plan (1) Elevated troponin: Code(s): R77.8 - Other specified abnormalities of plasma proteins Status: Acute Assessment and Plan: His troponins are insignificant and at likely secondary to severe anemia. They are not secondary to acute plaque rupture. (2) Paroxysmal atrial flutter: Code(s): I48.92 - Unspecified atrial flutter Status: Acute Assessment and Plan: Currently in sinus rhythm with frequent PACs. 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 Will continue metoprolol tartrate 25 mg p.o. b.i.d.. Holding furosemide because of acute renal failure. Also holding lisinopril (5) Anemia: Code(s): D64.9 - Anemia, unspecified Status: Acute Assessment and Plan: GI workup pending. Plan for endoscopy tomorrow (6) DEMETRI (obstructive sleep apnea): Code(s): G47.33 - Obstructive sleep apnea (adult) (pediatric) Status: Acute Assessment and Plan: Need sleep apnea treatment. A significant portion of his problems are related untreated sleep apnea (7) JASON (acute kidney injury): Code(s): N17.9 - Acute kidney failure, unspecified Status: Acute Assessment and Plan: Holding lisinopril, furosemide. Nephrology to see Subjective Date/time seen: 07/16/21 10:56 Interval history: HPI:This is a 75-year-old male with past medical history significant for COPD/asthma, type 2 diabetes mellitus, peripheral diabetic neuropathy, hypertension, hypothyroidism, GERD. Patient presents to the emergency room after he went to visit his primary care physician and blood work was abnormal for low hemoglobin upon further questioning patient is states that he had black stools for 3 days or so, denies any bright red blood per rectum or hematemesis or coffee-ground emesis, no nausea, no vomiting, had cramping abdominal pain, patient fell dizzy, lightheaded, short of breath. Preliminary workup was significant for hemoglobin of 8. Patient is being admitted for further evaluation management and treatment. Date of service 07/16/2021: He denies any chest pain. No shortness of breath. Swelling seems a little bit better. Review of Systems Review of Systems: All systems reviewed & are unremarkable except as noted in HPI and below Constitutional: Constitutional: Denies fatigue, Denies headache(s) and Reports weakness Eyes: Eyes: Denies blurry vision ENT: Reports Normal hearing present, Denies headache(s), Denies lip swelling and Denies neck pain Cardiovascular: Cardiovascular: Denies chest pain, Reports leg edema and Reports dyspnea on exertion Respiratory: Respiratory: Reports dyspnea on exertion Gastrointestinal: Gastrointestinal: Reports melena Genitourinary: Genitourinary: Denies dysuria Musculoskeletal: Musculoskeletal: Denies neck pain Neurologic: Reports Normal hearing present, Denies headache(s) and Reports weakness Psychiatric: Psychiatric: Denies anxiety Endocrine: Endocrine: Denies fatigue and Denies flushing Hematologic/Lymphatic: Hematologic/Lymphatic: Denies easy bleeding Allergic/Immunologic: Allergic/Immunologic: Denies GI upset with certain foods and Denies lip swelling Exam Narrative: Awake alert. Appears stated age Const: General: comfortable and no acute distress HENMT: General nose exam: Normal nares present and no epistaxis Mouth: Yes moist mucous membranes Eyes: Sclera: sclerae normal Neck: Neck: supple and no JVD Chest: Other: No reproducible chest wall pa
--- NOTE | 2021-07-16 11:40 | WPDGIPROGNO ---
Progress Note: A&P Additional Plan GI Nick 16 Jul 2021 Liliam at bedside. Denies AP, N, V. No BM since admit VSS protuberent. NT Hct 25. MCV 109. Cr 2.5 Assessment and plan: A. Iron deficiency anemia with melena in patient on Eliquis and Aleve and abnormal imaging-digestive: - CT suggests PUD - No active bleed; follow H+H and transfuse prn - Protonix-> IV BID - IV iron -> po as OP - Consider dose of Epo - No aspirin, NSAIDS or anticoagulants - EGD when stable; would prefer Saturday to give chance for medical optimization and effect of anticoagulants to wear off B. Epigastric pain and weight loss likely due to above. C. GERD: PPI. D. Abnormal imaging-digestive: colonic diverticulosis; observe. E. Personal history of colon polyps: consider colonoscopy per [facility]. F. Constipation: gently laxative G. Macrocytosis: - Likely due to alcohol - B12/folate normal 03/2021 - Would re-check B12/folate in am Further recommendations after EGD tomorrow by [facility] Thanks, ABCezar [phone] Subjective Date/time seen: 07/16/21 11:40 Objective Data Vital Signs Vital Signs: Vital Signs - 24 hr 07/15/21 12:00 07/15/21 14:00 07/15/21 14:02 Temperature 36.8 C Pulse Rate 87 81 Respiratory Rate 20 Blood Pressure 99/59 L Pulse Oximetry 92 95 07/15/21 16:00 07/15/21 18:00 07/15/21 20:00 Temperature 36.7 C Pulse Rate 95 77 76 Respiratory Rate 20 Blood Pressure 91/55 L Pulse Oximetry 93 07/15/21 20:02 07/15/21 21:03 07/15/21 21:28 Temperature 36.2 C L Pulse Rate 87 73 Respiratory Rate 22 H Blood Pressure 128/97 H Pulse Oximetry 97 97 07/15/21 23:33 07/15/21 23:35 07/16/21 00:00 Temperature 36.5 C Pulse Rate 126 H 64 Respiratory Rate 22 H Blood Pressure 138/99 H 110/64 Pulse Oximetry 98 07/16/21 03:44 07/16/21 04:00 07/16/21 06:59 Temperature 36.4 C L 36.2 C L Pulse Rate 54 L 60 78 Respiratory Rate 20 20 Blood Pressure 144/94 H 131/88 Pulse Oximetry 98 93 07/16/21 08:00 07/16/21 08:16 Temperature Pulse Rate 68 73 Respiratory Rate Blood Pressure Pulse Oximetry Intake/Output Intake/Output: Intake & Output 07/13/21 07/14/21 07/15/21 07/16/21 23:59 23:59 23:59 23:59 Intake Total 2700 940 Output Total 825 250 Balance 1878 690 Meds/Results Medications: Active Medications Generic Name Dose Route Start Last Admin Trade Name Freq PRN Reason Stop Dose Admin Acetaminophen 650 mg 07/16/21 08:33 07/16/21 08:41 Acetaminophen 325 Mg Tablet PO 650 mg Q6H PRN Administration Mild Pain (1-3) or Fever Albuterol 2 puff 07/15/21 06:50 07/15/21 21:27 Albuterol Sulfate (*Sp) Aerosol 1 Puff INHALATION 2 puff Q4-6H PRN Administration shortness of breath or wheezing Fenofibrate 145 mg 07/15/21 09:00 07/16/21 08:16 Fenofibrate Nanocrystallized 145 Mg Tablet PO 145 mg DAILY MARY Administration Furosemide 40 mg 07/15/21 17:00 07/15/21 18:13 Furosemide Inj 40 Mg/4 Ml Vial IV PUSH 40 mg BID MARY Administration Gabapentin 600 mg 07/15/21 09:00 07/16/21 08:15 Gabapentin 300 Mg Capsule PO 600 mg TID MARY Administration Pantoprazole Sodium 80 mg/ 500 mls @ 50 mls/hr 07/14/21 18:00 07/16/21 11:15 Dextrose IV CONT 07/17/21 17:59 Not Given .Q10H MARY Sodium Chloride 1,000 mls @ 100 mls/hr 07/16/21 08:20 07/16/21 08:23 Normal Saline Iv IV CONT 100 mls/hr .Q10H MARY Administration Levothyroxine Sodium 50 mcg 07/16/21 06:30 07/16/21 05:54 Levothyroxine Sodium 50 Mcg Tablet PO 50 mcg DAILY@0630 MARY Administration Lisinopril 2.5 mg 07/15/21 09:00 07/15/21 09:32 Lisinopril 2.5 Mg Tablet PO 2.5 mg DAILY MARY Administration Metoprolol Tartrate 25 mg 07/15/21 09:00 07/16/21 08:16 Metoprolol Tartrate 25 Mg Tablet PO 25 mg Q12HR MARY Administration Morphine Sulfate 2 mg 07/15/21 13:44 Morphine Sulfate (*Crx) 2 Mg/Ml Inj IV PUSH Q4H PRN
[2021-07-16 12:20] LABS: Hematocrit 21.4 % (42.0-52.0)
[2021-07-16 12:27] LABS: Hemoglobin 6.7 g/dL (14.0-18.0)
[2021-07-16] MEDS: traMADol HCL (*CRX) 50 MG TABLET PO (14:16)
[2021-07-16] MEDS: SODIUM CHLORIDE 0.9% IV 250 ML 30 ML IV CONT (15:32)
[2021-07-16] MEDS: MORPHINE SULFATE (*CRX) 2 MG/ML INJ IV PUSH (15:53)
[2021-07-16 19:08] LABS: Hematocrit 25.9 % (42.0-52.0); Hemoglobin 8.2 g/dL (14.0-18.0)
[2021-07-16 19:25] LABS: Anion Gap 11 mmol/L (8-16); Blood Urea Nitrogen 26 mg/dL (9-20); Carbon Dioxide 20 mmol/L (22-30); Chloride 96 mmol/L (98-107); Estimated CRCL calculation 19 ml/min; Estimated Glomerular Filt Rate 17; Glucose 98 mg/dL (65-110); Potassium 3.8 mmol/L (3.4-5.0); Sodium 127 mmol/L (137-145)
[2021-07-16 21:05] LABS: Alveolar/Arterial O2 Gradient 27.2 mmHg; Base Excess ABG -7.6 mEq/l (+/-2.0); Carboxyhemoglobin 0.3 % THb (0-2.0); Device ROOM AIR; Fractional Inspired Oxygen 21 %; Methemoglobin ABG 0.5 %THb (0-1.5); Oxygen Content ABG 11.6 %vol (16.0-22.0); Oxygen Saturation ABG 94.7 % (95.0-100.0); Oxyhemoglobin 92.8 % THb (90.0-100.0); PCO2 ABG 36.5 mmHg (35.0-45.0); PO2 ABG 78.8 mmHg (80.0-100.0); PO2 FiO2 Ratio Arterial Blood 3.75 %; Reduced Hemoglobin 6.4 %THb (0-5.0); Site Drawn RIGHT BRACHIAL; Total Hemoglobin 8.8 g/dL (12.0-18.0)
[2021-07-17] VITALS (20 sets, daily range): BP systolic 77–146; BP diastolic 31–111; PULSE 54–114; RESP 14–27; TEMP 36–36.7; O2SAT 94–100
--- NOTE | 2021-07-17 03:29 | ECG_ITS ---
Measurements Intervals [place] Rate: 72 P: 52 NH: 194 QRS: -52 QRSD: 121 T: 119 QT: 435 QTc: 478 Interpretive Statements SINUS RHYTHM FREQUENT ATRIAL PREMATURE COMPLEXES INCOMPLETE RIGHT BUNDLE BRANCH BLOCK LEFT ANTERIOR FASCICULAR BLOCK BORDERLINE ST-T WAVE ABNORMALITY- HIGH LATERAL LEADS BASELINE ARTIFACT- I, II, III, AVL, AVF, V1-V6 ABNORMAL ECG Electronically Signed On 07-17-2021 13:00:40 SKILL TRAINING PROGRAM COORDINATOR by Kody Mart D.O.
[2021-07-17 04:39] LABS: Basophils Percent Auto 0.5 % (0.2-1.2); Eosinophils Absolute Auto 0.3 K/mm3 (0-0.3); Eosinophils Percent Auto 3.7 % (0-4.4); Hematocrit 25.9 % (42.0-52.0); Hemoglobin 7.9 g/dL (14.0-18.0); Immature Granulocyte Percent A 1.3 % (0-0.5); Lymphocytes Absolute Auto 1.02 K/mm3 (0.9-3.2); Lymphocytes Percent Auto 13.3 % (18.3-44.2); Mean Corpuscular HGB Conc 30.5 g/dl (32-36); Mean Corpuscular Volume 104.9 fl (80-100); Mean Platelet Volume 10.2 fl (7.4-10.4); Monocytes Absolute Auto 0.8 K/mm3 (0.1-0.6); Monocytes Percent Auto 10.8 % (2.6-8.5); Neutrophils Absolute Auto 5.4 K/mm3 (1.3-6.7); Neutrophils Percent Auto 70.4 % (45.5-73.1); Platelet Count Result 263 k/mm3 (150-375); Red Blood Count 2.47 M/mm3 (4.6-6.20); Red Cell Distribution Width 14.7 % (11.5-14.5); White Blood Count 7.7 K/mm3 (4.5-10.0)
[2021-07-17 04:54] LABS: Alanine Aminotransferase 36 U/L (4-50); Alkaline Phosphatase 66 U/L (38-126); Anion Gap 7 mmol/L (8-16); Aspartate Amino Transferase 125 U/L (17-59); Bilirubin,Total 0.4 mg/dL (0.2-1.3); Blood Urea Nitrogen 28 mg/dL (9-20); Calcium 7.7 mg/dL (8.4-10.2); Carbon Dioxide 20 mmol/L (22-30); Chloride 97 mmol/L (98-107); Estimated CRCL calculation 17 ml/min; Estimated Glomerular Filt Rate 14; Glucose 102 mg/dL (65-110); Magnesium 2.2 mg/dL (1.6-2.3); Potassium 3.8 mmol/L (3.4-5.0); Sodium 124 mmol/L (137-145)
[2021-07-17 05:19] LABS: Troponin I 0.112 ng/mL (0.000-0.034)
[2021-07-17 06:49] LABS: Creatinine Urine 201.5 mg/dL; Sodium Urine Random 11 meq/L
[2021-07-17 06:55] LABS: Urea Random Urine 393 MG/DL
[2021-07-17] MEDS: FENOFIBRATE NANOCRYSTALLIZED 145 MG TABLET PO (08:04)
[2021-07-17] MEDS: OPTI-GEN TAB 1 TABLET PO (08:04)
[2021-07-17] MEDS: GABAPENTIN 300 MG CAPSULE 600 MG PO (08:04)
[2021-07-17] MEDS: METOPROLOL TARTRATE 25 MG TABLET PO ×2 (08:11→21:02)
--- NOTE | 2021-07-17 08:49 | P.CDI_ITS ---
CDI Query Clarification Request -Anemia, unspecified acuity and likely secondary to GI bleed have been documented -07/14 H&H 8.1/24.9 2 H&H 6.7/21.4 07/17 H&H 7.9/25.9 -One unit of blood transfused Please further specify acuity of anemia secondary to GI bleed: * Acute blood loss anemia * Chronic blood loss anemia * Acute on chronic blood loss anemia * Other * Unable to determine
--- NOTE | 2021-07-17 08:49 | WPDCDIQUERY2 ---
CDI Query Clarification Request -Anemia, unspecified acuity and likely secondary to GI bleed have been documented -07/14 H&H 8.1/24.9 2 H&H 6.7/21.4 07/17 H&H 7.9/25.9 -One unit of blood transfused Please further specify acuity of anemia secondary to GI bleed: Acute blood loss anemia Chronic blood loss anemia Acute on chronic blood loss anemia Other Unable to determine
--- NOTE | 2021-07-17 08:59 | PCPTNOTE ---
attempted to see patient for physical therapy evaluation at 900AM. He was leaving the room for a test.
[2021-07-17 10:51] LABS: Base Excess ABG -6.1 mEq/l (+/-2.0); Device ROOM AIR; Fractional Inspired Oxygen 21 %; Modified Allen's Test Pass; Oxygen Saturation ABG 98.6 % (95.0-100.0); PCO2 ABG 30.5 mmHg (35.0-45.0); PO2 ABG 128.3 mmHg (80.0-100.0); PO2 FiO2 Ratio Arterial Blood 6.11 %; Site Drawn LEFT RADIAL; Total Hemoglobin 8.6 g/dL (12.0-18.0)
--- NOTE | 2021-07-17 12:21 | PM.CNNEP ---
Assessment and Plan Assessment and plan (1) JASON (acute kidney injury): Code(s): N17.9 - Acute kidney failure, unspecified Status: Acute Assessment and Plan: several issues/factors: fluctuating hemodynamics anemia/low H&H JUAN FRANCISCO-I and diuretics HEEL SANDER prerenal factors evaluation to date: renal ultrasound c/w CKD; no acute changes urine electrolytes suggest prerenal azotemia CPK pending holding lisinopril and diuretics follow trend of repeat labs and UOP (2) Chronic kidney disease, stage 3: Code(s): N18.30 - Chronic kidney disease, stage 3 unspecified Status: Acute Assessment and Plan: baseline creatinine runs around 1.1 - 1.5mg/dl (but has been as high as 1.8mg/d) presumably due to HTN, vascular disease, and possibly DEMETRI (3) Hyponatremia: Code(s): E87.1 - Hypo-osmolality and hyponatremia Status: Acute Assessment and Plan: most likely due to JASON/ARF prerenal factors likely playing a role as well follow trend of sodium (4) GI bleed: Qualifiers: GI bleed type/associated pathology: unspecified gastrointestinal hemorrhage type Qualified Code(s): K92.2 - Gastrointestinal hemorrhage, unspecified Code(s): K92.2 - Gastrointestinal hemorrhage, unspecified Status: Acute Assessment and Plan: Gastroenterology following EGD planned for today follow H/H PRBC transfusion per protocol (5) Altered mental status: Code(s): R41.82 - Altered mental status, unspecified Status: Acute Assessment and Plan: due to JASON versus hyponatremia or both versus something else(?) CT of head noted follow mentation (6) Atrial fibrillation and flutter: Code(s): I48.91 - Unspecified atrial fibrillation; I48.92 - Unspecified atrial flutter Status: Chronic Assessment and Plan: continue rate control strategy off anticoagulation due to concerns of GI bleed Will continue to follow. History of Present Illness Reason for Consult Consult date: 07/17/21 Reason for consult: acute renal failure (on chronic kidney disease) Chief Complaint Chief complaint: chest pain History of Present Illness Narrative: Most of the information I have obtained is from review of the electronic medical record as well as discussion with the physicians/nurses involved the patient's care S the patient appears to be somewhat confused at the time of my visit. The patient is a 75-year-old male with an extensive past medical history as outlined below who presented to [facility] Emergency room at the behest of his primary care physician after routine blood test demonstrated a low hemoglobin/anemia. Upon further questioning of the patient, he did state that he had noticed black tarry stools for the last 3-4 days prior to his evaluation by his primary care physician. He denies any bright red blood per rectum or hematemesis or coffee-ground emesis. He also denied nausea, vomiting, or diarrhea. He did mention some cramping abdominal pain and has stated that he has had issues and problems with dizziness and lightheadedness in association with some shortness of breath. Workup and evaluation in the emergency room demonstrated the patient to be somewhat hypotensive but in no acute distress. Routine testing demonstrated a hemoglobin of 8.0 Upon further questions, he stated that the abdominal pain that he had was localized to the epigastric area, was nonradiating, and was unrelated to oral intake or bowel movements. He also states that he has had a poor appetite and has lost 20-30 lb over last month or so. Furthermore, he also reported NSAID use in conjunction with his current use of Eliquis. Given these symptoms, he had a CT scan of his abdomen/pelvis which demonstrated soft tissue thickening and surrounding fat infiltration of the gastroduodenal area, suggesting peptic ulcer disease. Given his constellation of symptoms and la
--- NOTE | 2021-07-17 12:21 | P.CONNP_ITS ---
Assessment and Plan Assessment and plan (1) JASON (acute kidney injury): Code(s): N17.9 - Acute kidney failure, unspecified Status: Acute Assessment and Plan: * several issues/factors: * fluctuating hemodynamics * anemia/low H&H * JUAN FRANCISCO-I and diuretics [employer] * prerenal factors * evaluation to date: * renal ultrasound c/w CKD; no acute changes * urine electrolytes suggest prerenal azotemia * CPK pending * holding lisinopril and diuretics * follow trend of repeat labs and UOP (2) Chronic kidney disease, stage 3: Code(s): N18.30 - Chronic kidney disease, stage 3 unspecified Status: Acute Assessment and Plan: * baseline creatinine runs around 1.1 - 1.5mg/dl (but has been as high as 1.8mg/d) * presumably due to HTN, vascular disease, and possibly DEMETRI (3) Hyponatremia: Code(s): E87.1 - Hypo-osmolality and hyponatremia Status: Acute Assessment and Plan: * most likely due to JASON/ARF * prerenal factors likely playing a role as well * follow trend of sodium (4) GI bleed: Qualifiers: GI bleed type/associated pathology: unspecified gastrointestinal hemorrhage type Qualified Code(s): K92.2 - Gastrointestinal hemorrhage, unspecified Code(s): K92.2 - Gastrointestinal hemorrhage, unspecified Status: Acute Assessment and Plan: * Gastroenterology following * EGD planned for today * follow H/H * PRBC transfusion per protocol (5) Altered mental status: Code(s): R41.82 - Altered mental status, unspecified Status: Acute Assessment and Plan: * due to JASON versus hyponatremia or both versus something else(?) * CT of head noted * follow mentation (6) Atrial fibrillation and flutter: Code(s): I48.91 - Unspecified atrial fibrillation; I48.92 - Unspecified atrial flutter Status: Chronic Assessment and Plan: * continue rate control strategy * off anticoagulation due to concerns of GI bleed Will continue to follow. History of Present Illness Reason for Consult Consult date: 07/17/21 Reason for consult: acute renal failure (on chronic kidney disease) Chief Complaint Chief complaint: chest pain History of Present Illness Narrative: Most of the information I have obtained is from review of the electronic medical record as well as discussion with the physicians/nurses involved the patient's care S the patient appears to be somewhat confused at the time of my visit. The patient is a 75-year-old male with an extensive past medical history as outlined below who presented to [facility] Emergency room at the behest of his primary care physician after routine blood test demonstrated a low hemoglobin/anemia. Upon further questioning of the patient, he did state that he had noticed black tarry stools for the last 3-4 days prior to his evaluation by his primary care physician. He denies any bright red blood per rectum or hematemesis or coffee- ground emesis. He also denied nausea, vomiting, or diarrhea. He did mention some cramping abdominal pain and has stated that he has had issues and problems with dizziness and lightheadedness in association with some shortness of breath. Workup and evaluation in the emergency room demonstrated the patient to be somewhat hypotensive but in no acute distress. Routine testing demonstrated a hemoglobin of 8.0 Upon further questions, he stated that the abdominal pain that he had was localized to the epigastric area, was nonradiating, and was unrelated to oral intake or bowel movements.
[2021-07-17 13:00] LABS: Hemoglobin 7.4 g/dL (14.0-18.0)
[2021-07-17] MEDS: SODIUM CHLORIDE 0.9% IV 1,000 ML 60 ML IV CONT (13:01)
[2021-07-17] MEDS: EUCERIN CREAM 120 GM JAR 1 APPLIC TOPICAL ×2 (13:10→18:45)
--- NOTE | 2021-07-17 13:13 | PC.NURSE ---
1315-pt going to GI lab with GI RN. pt was sleeping comfortably.
--- NOTE | 2021-07-17 13:32 | PCPTNOTE ---
Attempted PT Evaluation, Per RN, patient off the floor for testing.
[2021-07-17] MEDS: LACTATED RINGERS 1,000 ML 150 ML IV CONT (13:34)
--- NOTE | 2021-07-17 14:00 | WPDANESEPPF ---
Anes - Initial Pre Proc Eval Procedure: Operation Date: 07/17/21 14:45 Proposed Procedures p Esophagogastroduodenoscopy - Luigi Krueger MD Date/Time: 07/17/21 14:00 Surgeon: Delaney Mariano MD Pre Op Diagnosis: chest pain Patient Data Age: 75 Gender: M Height: 1.73 m Weight: 112.2 kg Last Vital Signs Temp 36.6 C 07/17/21 13:38 Pulse 64 07/17/21 13:38 Resp 20 07/17/21 13:38 BP 137/111 H 07/17/21 13:38 Pulse Ox 98 07/17/21 13:38 Allergies Allergy/AdvReac Type Severity Reaction Status Date / Time Iodinated Contrast Media Allergy Unknown itching Verified 07/17/21 13:36 tramadol Allergy Unknown Itching Verified 07/17/21 13:36 (moderate to severe) Home Medications Medication Instructions Recorded Confirmed Type wyvwtafn-gbs-uatnl acid 300 1 tablet PO DAILY 04/20/19 07/14/21 History mcg-lycopene 600 mcg-lutein 300 mcg tablet albuterol sulfate 90 mcg/actuation 2 puff INHALATION Q4-6H PRN #8.5 g 09/13/20 07/14/21 Rx aerosol inhaler trazodone 50 mg tablet 50 mg PO .QHS #90 tablet 01/10/21 07/14/21 Rx fenofibrate nanocrystallized 145 145 mg PO DAILY #90 tablet 01/25/21 07/14/21 Rx mg tablet furosemide 40 mg tablet 40 mg PO BID #60 tablet 02/02/21 07/14/21 Rx gabapentin 600 mg tablet 600 mg PO TID #90 tablet 05/30/21 07/14/21 Rx metoprolol tartrate 25 mg tablet 25 mg PO BID #60 tablet 05/30/21 07/14/21 Rx apixaban [Eliquis] 5 mg PO BID 07/14/21 07/14/21 History levothyroxine [Euthyrox] 50 mcg PO DAILY 07/14/21 07/14/21 History lisinopril 2.5 mg PO DAILY 07/14/21 07/14/21 History pantoprazole 40 mg tablet,delayed 40 mg PO QAM #90 tablet 07/14/21 07/14/21 Rx release Laboratory Tests 07/16/21 07/16/21 07/16/21 13:13 18:57 18:57 WBC RBC Hgb 8.2 g/dL L g/dL (14.0-18.0) Hct 25.9 % L % (42.0-52.0) MCV MCH MCHC RDW Plt Count MPV Immature Gran % (Auto) Neut % (Auto) Lymph % (Auto) [place] % (Auto) Eos % (Auto) Baso % (Auto) Lymph # (Auto) [place] # (Auto) Eos # (Auto) Baso # (Auto) Abs Immat Gran (auto) Absolute Neuts (auto) Absolute Nucleated RBC Nucleated RBC % Puncture Site ABG pH ABG pCO2 ABG pO2 ABG PO2/FiO2 Ratio ABG HCO3 ABG O2 Saturation ABG O2 Content ABG Base Excess A-a Gradient Oxyhemoglobin Carboxyhemoglobin Methemoglobin Reduced Hemoglobin Total Hemoglobin O2 Delivery Device O2 Liters/Min FiO2 Sodium 127 mmol/L L mmol/L (137-145) Potassium 3.8 mmol/L mmol/L (3.4-5.0) Chloride 96 mmol/L L mmol/L (98-107) Carbon Dioxide 20 mmol/L L mmol/L (22-30) Anion Gap 11 mmol/L mmol/L (8-16) BUN 26 mg/dL H mg/dL (9-20) Creatinine 3.60 mg/dL H mg/dL (0.7-1.3) Estim Creat Clear Calc 19 ml/min ml/min Estimated GFR 17 L (59 - ) Glucose 98 mg/dL mg/dL (65-110) Calcium 8.0 mg/dL L mg/dL (8.4-10.2) Magnesium Total Bilirubin AST ALT Alkaline Phosphatase Troponin I Total Protein Albumin Ur Random Sodium Ur Random Urea Urine Creatinine Blood Type O Positive Antibody Screen Negative Crossmatch See Detail 07/16/21 07/17/21 07/17/21 20:52 04:05 04:05 WBC 7.7 K/mm3 K/mm3 (4.5-10.0) RBC 2.47 M/mm3 L M/mm3 (4.6-6.20) Hgb 7.9 g/dL L g/dL (
[2021-07-17] MEDS: BENZOCAINE (*SP) 60 ML SPRAY CAN (HURRICAINE) 1 SPRAY MUCOUS MEM (14:16)
[2021-07-17 17:18] LABS: Creatinine Urine 172.6 mg/dL
--- NOTE | 2021-07-17 17:29 | PM.IMPN ---
Progress Note: A&P Assessment and Plan (1) GI bleed: Qualifiers: GI bleed type/associated pathology: unspecified gastrointestinal hemorrhage type Qualified Code(s): K92.2 - Gastrointestinal hemorrhage, unspecified Code(s): K92.2 - Gastrointestinal hemorrhage, unspecified Status: Acute Assessment and Plan: Patient presents with anemia and history of melena. He was started on Protonix drip. Serial H&H was performed he was transfused [address] of the abdomen pelvis showed the soft tissues thickening of the gastric duodenal area concerning for peptic ulcer disease. GI was consulted and he underwent EGD today which showed esophageal and gastric ulcers. These are most likely etiologies of his GI bleed and acute blood loss anemia. Will resume Protonix. (2) JASON (acute kidney injury): Code(s): N17.9 - Acute kidney failure, unspecified Status: Acute Assessment and Plan: Cr 1.1 on admission but jumped quickly to 4.2 today. Lisinopril and lasix held. Disla secured. Renal US showing normal right kidney and moderate left renal atrophy without hydronephrosis. IV fluids started. Nephrology consult and workup started. Appreciate thier input. Check total CK given the elevated AST. Check UA. (3) Altered mental status: Code(s): R41.82 - Altered mental status, unspecified Status: Acute Assessment and Plan: Patient is alert but confused. CT of the brain showing no acute findings. TSH and B12 levels were normal last March. Will repeat for tomorrow. Mental status could be related to acute kidney injury. Will check ammonia level as well. (4) Anemia: Qualifiers: Anemia type: unspecified type Qualified Code(s): D64.9 - Anemia, unspecified Code(s): D64.9 - Anemia, unspecified Status: Inactive Assessment and Plan: Hgb 12.6 last March which is probably baseline. hgb 8.1 on admission and dropped to 6.7. Likely Acute blood loss anemia secondary to GI bleed. He does have iron deficiency noted. Patient received 1 unit packed red blood cells on 07/16/2021. Hemoglobin climbed to 7-8 range and has been stable. Continue to monitor. Transfuse as necessary (5) Elevated troponin: Code(s): R77.8 - Other specified abnormalities of plasma proteins Status: Acute Assessment and Plan: Troponin elevated on admission climbing to 0.112 today. No CP per patient. EKG showing PACs, iRBBB, [place] ST-T wave changes in the high lateral leads (no change from EKG on admission). Check Echo. Hold on ASA at this time. Continue metoprolol with parameters. (6) DEMETRI (obstructive sleep apnea): Code(s): G47.33 - Obstructive sleep apnea (adult) (pediatric) Status: Inactive Assessment and Plan: ABG showing 7.39/30/128 on room air. Order CPAP at nighttime. (7) COPD (chronic obstructive pulmonary disease): Code(s): J44.9 - Chronic obstructive pulmonary disease, unspecified Status: Acute Assessment and Plan: Stable. No wheezing. No acute exacerbation. Albuterol available prn (8) CKD (chronic kidney disease) stage 3, GFR 30-59 ml/min: Code(s): N18.3 - Chronic kidney disease, stage 3 (moderate) Status: Inactive Assessment and Plan: Baseline creatinine 1.3-1.8 past 2 years. As above. (9) Edema of both legs: Code(s): R60.0 - Localized edema Status: Acute Assessment and Plan: No SOB but hx unreliable. CXR showing mild opacities c/w edema. Hold diuretics due to JASON. Continue supportive care. Check BNP (10) Diastolic dysfunction: Code(s): I51.89 - Other ill-defined heart diseases Status: Acute Assessment and Plan: Patient appears euvolemic. No Echo listed. Will continue to monitor. Check Echo (11) Hyponatremia: Code(s): E87.1 - Hypo-osmolality and hyponatremia Status: Inactive Assessment and Plan: Na l
[2021-07-17 17:34] LABS: Sodium Urine Random 45 meq/L
[2021-07-17 17:43] LABS: Eosinophil Urine Rare % (None Seen)
[2021-07-17 18:28] LABS: Total Protein Urine Random > 600 mg/dL
[2021-07-17 20:15] LABS: Hematocrit 23.1 % (42.0-52.0); Hemoglobin 7.5 g/dL (14.0-18.0)
[2021-07-17] MEDS: PANTOPRAZOLE SODIUM IV 40 MG VIAL IV PUSH (21:02)
[2021-07-17] MEDS: traZODone HCL 50 MG TABLET PO (21:03)
[2021-07-18] VITALS (26 sets, daily range): BP systolic 76–145; BP diastolic 36–111; PULSE 59–75; RESP 15–23; TEMP 36.4–37.3; O2SAT 90–100
--- NOTE | 2021-07-18 | ECHO_ITS ---
Patient Info Name: Seferino Cano Age: 75 years : 1945 Gender: Male Ht: 68 in Wt: 247 lbs BSA: 2.37 m2 HR: 74 bpm BP: 136 / 71 mmHg Heart Rhythm: Sinus Rhythm Technical Quality: Fair Exam Date: 07/18/2021 7:23 AM Exam Location: [facility] Patient Status: Inpatient Admit Date: 07/15/2021 Staff Ordering Physician: Chace Jordan MD Bull Bucker: Yolie Hutchinson RDCS Attending Provider: Delaney Mariano MD Exam Type: CA echo dop color flow w con Study Info Indications - diast dysfunction Complete two-dimensional, color flow and Doppler transthoracic echocardiogram is performed with contrast to opacify the left ventricle and to improve the deliniation of the left ventricle endocardial borders. Summary 1. Left ventricular chamber dimension is normal. 2. Definity contrast administered improved wall motion interpretation. 3. Left ventricular systolic function is hyperdynamic, estimated at >70%. 4. There is mildly increased left ventricular wall thickness. 5. The left ventricular diastolic function is grade IV diastolic dysfunction. 6. E/e' 20 is elevated. 7. Right ventricular chamber dimension is moderately enlarged. 8. Right ventricular systolic function is mildly reduced. 9. Left atrial chamber dimension is mildly enlarged. 10. There is mild aortic valve sclerosis. 11. The mitral valve has moderately calcified annulus. 12. There is moderate tricuspid valve regurgitation. 13. Moderate pulmonary hypertension, estimated pulmonary arterial systolic pressure is 58 mmHg. Left Ventricle Definity contrast administered improved wall motion interpretation. E/e' 20 is elevated. Left ventricular chamber dimension is normal. Left ventricular systolic function is hyperdynamic, estimated at >70%. There is mildly increased left ventricular wall thickness. The left ventricular diastolic function is grade IV diastolic dysfunction. Right Ventricle Right ventricular chamber dimension is moderately enlarged. Right ventricular systolic function is mildly reduced. Left Atria Left atrial chamber dimension is mildly enlarged. Right Atria Right atrial chamber dimension is normal. Aortic Valve The aortic valve is trileaflet. There is mild aortic valve sclerosis. There is no aortic valve stenosis. There is no aortic valve regurgitation. Pulmonic Valve There is no pulmonic regurgitation. Mitral Valve The mitral valve has moderately calcified annulus. There is no mitral valve stenosis. There is no mitral valve regurgitation. Tricuspid Valve There is moderate tricuspid valve regurgitation. Moderate pulmonary hypertension, estimated pulmonary arterial systolic pressure is 58 mmHg. Pericardium/Pleural There is no pericardial effusion. Inferior Vena Cava Normal inferior vena cava with >50% collapse upon inspiration consistent with normal right atrial pressure, 5 mmHg. Aorta The aortic root size at the sinus of Valsalva is normal. Left Ventricular Outflow Tract Name Value Normal LVOT 2D LVOT Diameter 2.03 cm LVOT Doppler LVOT Peak Gradient 5 mmHg LVOT
[2021-07-18 04:56] LABS: Basophils Percent Auto 0.4 % (0.2-1.2); Eosinophils Absolute Auto 0.2 K/mm3 (0-0.3); Hematocrit 21.5 % (42.0-52.0); Immature Granulocyte Absolute 0.07 K/mm3 (0.00-0.031); Immature Granulocyte Percent A 0.8 % (0-0.5); Lymphocytes Absolute Auto 0.73 K/mm3 (0.9-3.2); Lymphocytes Percent Auto 8.6 % (18.3-44.2); Mean Corpuscular HGB Conc 32.1 g/dl (32-36); Mean Corpuscular Hemoglobin 31.4 pg (26-34); Mean Corpuscular Volume 97.7 fl (80-100); Mean Platelet Volume 9.2 fl (7.4-10.4); Monocytes Absolute Auto 0.8 K/mm3 (0.1-0.6); Monocytes Percent Auto 9.6 % (2.6-8.5); Neutrophils Absolute Auto 6.7 K/mm3 (1.3-6.7); Neutrophils Percent Auto 78.6 % (45.5-73.1); Platelet Count Result 250 k/mm3 (150-375); Red Cell Distribution Width 14.4 % (11.5-14.5); White Blood Count 8.5 K/mm3 (4.5-10.0)
[2021-07-18 05:03] LABS: Ammonia 21 umol/L (9-30)
[2021-07-18 05:04] LABS: Hemoglobin 6.9 g/dL (14.0-18.0)
[2021-07-18 05:10] LABS: Alanine Aminotransferase 29 U/L (4-50); Albumin Level 2.7 g/dL (3.5-5.1); Alkaline Phosphatase 62 U/L (38-126); Anion Gap 9 mmol/L (8-16); Aspartate Amino Transferase 71 U/L (17-59); Bilirubin,Total 0.4 mg/dL (0.2-1.3); Blood Urea Nitrogen 35 mg/dL (9-20); Calcium 7.5 mg/dL (8.4-10.2); Carbon Dioxide 18 mmol/L (22-30); Chloride 98 mmol/L (98-107); Creatine Kinase 887 U/L (55-170); Estimated CRCL calculation 13 ml/min; Estimated Glomerular Filt Rate 10; Glucose 96 mg/dL (65-110); Magnesium 2.1 mg/dL (1.6-2.3); Phosphorus 7.3 mg/dL (2.5-4.5); Potassium 3.8 mmol/L (3.4-5.0); Sodium 125 mmol/L (137-145)
[2021-07-18 05:24] LABS: NT Pro B Type Natriuretic Pept 6370 pg/mL (5-100); Troponin I 0.097 ng/mL (0.000-0.034)
[2021-07-18] MEDS: LEVOTHYROXINE SODIUM 50 MCG TABLET PO (06:24)
[2021-07-18 06:41] LABS: Folic Acid 13.8 ng/mL (2.76->20); Vitamin B12 > 1000.0 pg/mL (239-931)
--- NOTE | 2021-07-18 06:47 | WPDANESPN ---
Anes - Prog Note Post-Op Date/Time: 07/18/21 06:47 Cardiovascular status: normal Respiratory status: normal Airway patency: baseline Mental status: baseline Post-Op hydration status: normal Vital Signs: Last Vital Signs Temp 98 F 07/18/21 04:00 Pulse 74 07/18/21 06:00 Resp 22 H 07/18/21 04:00 BP 136/71 07/18/21 04:00 Pulse Ox 93 07/18/21 04:00 Pain Score (VAS): 0 I/O: Intake & Output 07/17/21 07/17/21 07/18/21 15:59 23:59 07:59 Intake Total 400 750 0 Output Total 150 100 Balance 400 600 -100 Laboratory Tests 07/18/21 04:47 07/18/21 04:47 07/17/21 07/17/21 07/17/21 06:25 06:25 06:25 WBC RBC Hgb Hct MCV MCH MCHC RDW Plt Count MPV Immature Gran % (Auto) Neut % (Auto) Lymph % (Auto) [place] % (Auto) Eos % (Auto) Baso % (Auto) Lymph # (Auto) [place] # (Auto) Eos # (Auto) Baso # (Auto) Abs Immat Gran (auto) Absolute Neuts (auto) Absolute Nucleated RBC Nucleated RBC % Puncture Site ABG pH ABG pCO2 ABG pO2 ABG PO2/FiO2 Ratio ABG HCO3 ABG O2 Saturation ABG O2 Content ABG Base Excess A-a Gradient Oxyhemoglobin Total Hemoglobin O2 Delivery Device O2 Liters/Min FiO2 Sodium Potassium Chloride Carbon Dioxide Anion Gap BUN Creatinine Estim Creat Clear Calc Estimated GFR Glucose Calcium Phosphorus Magnesium Total Bilirubin AST ALT Alkaline Phosphatase Ammonia Total Creatine Kinase Troponin I NT-Pro-B Natriuret Pep Total Protein Albumin Vitamin B12 Folate TSH (Reflex) Urine Color Urine Appearance Urine pH Ur Specific [place] Urine Protein Urine Glucose (UA) Urine Ketones Ur Blood (Man) Urine Nitrate Urine Bilirubin Urine Urobilinogen Leukocyte Esterase Rfl Urine Eosinophils Urine Myoglobin Ur Random Creatinine U Random Total Protein Ur Random Sodium 11 Ur Random Chloride U Random Chloride/Creat Ur Random Urea 393 Urine Creatinine 201.5 Protein/Creat Ratio 2 07/17/21 07/17/21 07/17/21 10:36 12:50 15:30 WBC RBC Hgb 7.4 L Hct 23.0 L MCV MCH MCHC RDW Plt Count MPV Immature Gran % (Auto) Neut % (Auto) Lymph % (Auto) [place] % (Auto) Eos % (Auto) Baso % (Auto) Lymph # (Auto) [place] # (Auto) Eos # (Auto) Baso # (Auto) Abs Immat Gran (auto) Absolute Neuts (auto) Absolute Nucleated RBC Nucleated RBC % Puncture Site Left radial ABG pH 7.390 ABG pCO2 30.5 L ABG pO2 128.3 H ABG PO2/FiO2 Ratio 6.11 ABG HCO3 18.0 L ABG O2 Saturation 98.6 ABG O2 Content 12.0 L ABG Base Excess -6.1 A-a Gradient 500.0 Oxyhemoglobin 97.0 Total Hemoglobin 8.6 L O2 Delivery Device Room air O2 Liters/Min Not Reportable FiO2 21 Sodium Potassium Chloride Carbon Dioxide Anion Gap BUN Creatinine Estim Creat Clear Calc Estimated GFR Glucose Calcium Phosphorus Magnesium Total Bilirubin AST ALT Alkaline Phosphatase Ammonia Total Creatine Kinase Troponin I NT-Pro-B Natriuret Pep Total Protein Albumin Vitamin B12 Folate TSH (Reflex) Urine Color Pending Urine Appearance Pending Urine pH Pending Ur Specific [place] Pending Urine Protein Pending Urine Glucose (UA) Pending Urine Ketones Pending Ur Blood (Man) Pending Urine Nitrate Pending Urine Bilirubin Pending Urine Urobilinogen Pending Leukocyte Esterase Rfl Pending Urine Eosinophils Urine Myoglobin Ur Random Creatinine U Random Total Protein Ur Random Sodium Ur Random Chloride U Random Chloride/Creat Ur Random Urea Urine Creatinine Protein/Creat Ratio 2 07/17/21 07/17/21 07/17/21
--- NOTE | 2021-07-18 07:43 | WPDGIPROGNO ---
Progress Note: A&P Assessment and Plan (1) GI bleed: Qualifiers: GI bleed type/associated pathology: unspecified gastrointestinal hemorrhage type Qualified Code(s): K92.2 - Gastrointestinal hemorrhage, unspecified Code(s): K92.2 - Gastrointestinal hemorrhage, unspecified Status: Acute Assessment and Plan: after transfusion his counts did come up but now have dropped again, from 7.5 last night to 6.9 this morning. We will continue to observe his counts and of course keep him off the anticoagulant (2) JAOSN (acute kidney injury): Code(s): N17.9 - Acute kidney failure, unspecified Status: Acute Assessment and Plan: nephrology has been consulted. Surprisingly his BUN did not increase as much as is creatinine did. (3) Altered mental status: Code(s): R41.82 - Altered mental status, unspecified Status: Acute Assessment and Plan: He is much more lucid today. It took him quite a while to become alert after his procedure yesterday (4) Abdominal pain: Code(s): R10.9 - Unspecified abdominal pain Status: Acute Assessment and Plan: he states that he has pain all the time primarily in the mid abdomen. He points to his mid abdomen indicating that he was diagnosed with an ulcer there 35 years ago treated with goat's milk (5) Gastric ulcer due to nonsteroidal antiinflammatory drug (NSAID) therapy: Code(s): K25.9 - Gastric ulcer, unspecified as acute or chronic, without hemorrhage or perforation; T39.395A - Adverse effect of other nonsteroidal anti-inflammatory drugs [NSAID], initial encounter Status: Acute Assessment and Plan: he had multiple antral ulcers consistent with NSAID use. The large ulcer in pre-pyloric area was likely the source of bleeding although I could not identify a visible vessel or a spot amenable to cautery. This also will take a few months to heal. We will keep him on PPI. Nephrology may want him to have a lower dose. The plan will be to repeat EGD in about 2 months to assess healing, and to keep him off of NSAIDs. I will advance him to full liquid diet. If his counts drop further, we may need to consider repeating EGD. (6) Chronic anticoagulation: Code(s): Z79.01 - long term care administrator (current) use of anticoagulants Status: Acute Assessment and Plan: We will need to keep him off Eliquis for at least 7 more days if agreeable with the team. Subjective Date/time seen: 07/18/21 07:43 the patient is more alert today. He thinks that he had a bowel movement during the night. I did speak to his nurse, Qing, who states that he has NOT had a bowel movement since admission. Nevertheless his blood counts did drop, which is worrisome. He denies abdominal pain. He has at present time undergoing an echocardiogram Review of Systems Review of Systems: All systems reviewed & are unremarkable except as noted in HPI and below Exam Const: General: alert Orientation/consciousness: patient oriented x3 Resp: Auscultation: clear to auscultation bilaterally Cardio: Rhythm: regular rhythm GI: GI Palp: Yes Soft to palpation, No Tenderness to palpation present (GI) and Yes No hepatosplenomegaly present Auscultation: normal bowel sounds Neuro: General: patient oriented x3 Objective Data Vital Signs Vital Signs: Vital Signs - 24 hr 07/17/21 08:00 07/17/21 08:11 07/17/21 08:54 Temperature 36.0 C L Pulse Rate 65 54 L 69 Respiratory Rate 14 Blood Pressure 103/54 L Pulse Oximetry 95 07/17/21 10:00 07/17/21 12:00 07/17/21 13:38 Temperature 36.1 C L 36.6 C Pulse Rate 55 L 54 L 64 Respiratory Rate 16 20 Blood Pressure 146/84 H 137/111 H Pulse Oximetry 97 98 07/17/21 14:00 07/17/21 14:29 07/17/21 14:39 Temperature Pulse Rate 65 62 67 Respiratory Rate 27 H 24 H Blood Pressure 83/47 L 77/31 L Pulse Oximetry 100 100 07/17/21 14:46 07/17/21 15:00 07/17/21 16:00 Temperature
[2021-07-18] MEDS: PERFLUTREN LIPID MICROSPHERES 1.5 ML VIAL DILUTED TO 10 ML TOTAL VOLUME IV PUSH (08:18)
--- NOTE | 2021-07-18 08:20 | IVDEFINITY ---
Prior to administration of IV Definity the patient was educated on the risks and benefits of the imaging enhancing agent including potential adverse side effects. The patient verbalized understanding. Allergies were verified. No exclusion criteria were identified and at least one of the following inclusion criteria were met: 1) physician request, 2) patient technically difficult to image (per the [place] [employer] guidelines of two or more segments not discernable within the apical view), or 3) questionable left ventricular function. ?
[2021-07-18] MEDS: METOPROLOL TARTRATE 25 MG TABLET PO (09:16)
[2021-07-18] MEDS: OPTI-GEN TAB 1 TABLET PO (09:16)
[2021-07-18] MEDS: PANTOPRAZOLE SODIUM IV 40 MG VIAL IV PUSH ×2 (09:16→20:10)
--- NOTE | 2021-07-18 09:17 | PCPTNOTE ---
Per RAND Grigsg, Pts hemoglobin is too low to tolerate therapy at this time. Will check back in the afternoon.
[2021-07-18] MEDS: EUCERIN CREAM 120 GM JAR 1 APPLIC TOPICAL ×2 (09:18→17:51)
[2021-07-18] MEDS: SODIUM CHLORIDE 0.9% IV 250 ML 30 ML IV CONT (10:18)
[2021-07-18] MEDS: TUBING, BLOOD PLUM PUMP TUBING 1 EACH XX (10:18)
[2021-07-18] MEDS: SODIUM CHLORIDE 0.9% IV 1,000 ML 60 ML IV CONT (10:26)
--- NOTE | 2021-07-18 10:30 | PM.PNNEP ---
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 evaluation to date: renal ultrasound c/w CKD; no acute changes urine electrolytes suggest prerenal azotemia CPK elevated but not high enough to cause renal dysfunction holding lisinopril and diuretics follow trend of repeat labs and UOP (2) Chronic kidney disease, stage 3: Code(s): N18.30 - Chronic kidney disease, stage 3 unspecified Status: Acute Assessment and Plan: baseline creatinine runs around 1.1 - 1.5mg/dl (but has been as high as 1.8mg/d) presumably due to HTN, vascular disease, and possibly DEMETRI (3) Hyponatremia: Code(s): E87.1 - Hypo-osmolality and hyponatremia Status: Acute Assessment and Plan: stable if not improved most likely due to JASON/ARF prerenal factors likely playing a role as well follow trend of sodium (4) GI bleed: Qualifiers: GI bleed type/associated pathology: unspecified gastrointestinal hemorrhage type Qualified Code(s): K92.2 - Gastrointestinal hemorrhage, unspecified Code(s): K92.2 - Gastrointestinal hemorrhage, unspecified Status: Acute Assessment and Plan: Gastroenterology following s/p EGD with findings of showed esophageal and gastric ulcers on PPI follow trend H/H PRBC transfusion per protocol (5) Altered mental status: Code(s): R41.82 - Altered mental status, unspecified Status: Acute Assessment and Plan: due to JASON versus hyponatremia or both versus something else(?) CT of head noted follow mentation - seems better (6) Atrial fibrillation and flutter: Code(s): I48.91 - Unspecified atrial fibrillation; I48.92 - Unspecified atrial flutter Status: Chronic Assessment and Plan: continue rate control strategy off anticoagulation due to concerns of GI bleed Will continue to follow. Subjective Date/time seen: 07/18/21 10:30 Seems a bit more awake in comparison to when I saw him yesterday but still appears confused; no apparent distress voiced; he states he is making urine (although his I/Os argue this is minimal); renal function continues to deteriorate with decline in urine output noted as well; PRBC transfusion given AM labs (Hgb 6.9); tolerated EGD yesterday with results noted. Exam Narrative: General: WD/WN male in NAD but confused Heart: normal S1 and S2; no rub Lungs: decreased at bases Abdomen: soft, nontender, nondistended, positive bowel sounds Extremities: no cyanosis or clubbing; JUAN FRANCISCO wraps noted Skin: warm and dry Objective Data Vital Signs Vital Signs: Vital Signs Temp Pulse Resp BP Pulse Ox 07/18/21 10:18 37.1 C 66 18 95/45 L 99 07/18/21 09:16 75 07/18/21 08:00 36.8 C 68 20 130/64 98 07/18/21 06:00 74 07/18/21 04:00 36.6 C 67 22 H 136/71 93 07/18/21 02:00 65 07/18/21 00:00 36.7 C 59 L 20 140/72 94 07/17/21 22:00 60 07/17/21 21:02 65 07/17/21 20:00 36.7 C 66 22 H 142/69 H 97 07/17/21 18:00 64 07/17/21 16:00 36.3 C L 114 H 20 107/47 L 95 07/17/21 15:00 76 19 140/87 94 07/17/21 14:46 64 19 98/50 L 100 07/17/21 14:39 67 24 H 77/31 L 100 07/17/21 14:29 62 27 H 83/47 L 100 07/17/21 14:00 65 07/17/21 13:38 36.6 C 64 20 137/111 H 98 07/17/21 12:00 36.1 C L 54 L 16 146/84 H 97 Intake/Output Intake/Output: Intake & Output 07/15/21 07/16/21 07/17/21 07/18/21 23:59 23:59 23:59 23:59 Intake Total 2700 3747 1350 1000 Output Total 825 1000 250 100 Balance 1875 2747 1100 900 Meds/Results Medications: Active Medications Generic Name Dose Route Start Last Admin Trade Name Freq PRN Reason
--- NOTE | 2021-07-18 10:30 | P.PNNP_ITS ---
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 * prerenal factors * evaluation to date: * renal ultrasound c/w CKD; no acute changes * urine electrolytes suggest prerenal azotemia * CPK elevated but not high enough to cause renal dysfunction * holding lisinopril and diuretics * follow trend of repeat labs and UOP (2) Chronic kidney disease, stage 3: Code(s): N18.30 - Chronic kidney disease, stage 3 unspecified Status: Acute Assessment and Plan: * baseline creatinine runs around 1.1 - 1.5mg/dl (but has been as high as 1.8mg/d) * presumably due to HTN, vascular disease, and possibly DEMETRI (3) Hyponatremia: Code(s): E87.1 - Hypo-osmolality and hyponatremia Status: Acute Assessment and Plan: * stable if not improved * most likely due to JASON/ARF * prerenal factors likely playing a role as well * follow trend of sodium (4) GI bleed: Qualifiers: GI bleed type/associated pathology: unspecified gastrointestinal hemorrhage type Qualified Code(s): K92.2 - Gastrointestinal hemorrhage, unspecified Code(s): K92.2 - Gastrointestinal hemorrhage, unspecified Status: Acute Assessment and Plan: * Gastroenterology following * s/p EGD with findings of showed esophageal and gastric ulcers * on PPI * follow trend H/H * PRBC transfusion per protocol (5) Altered mental status: Code(s): R41.82 - Altered mental status, unspecified Status: Acute Assessment and Plan: * due to JASON versus hyponatremia or both versus something else(?) * CT of head noted * follow mentation - seems better (6) Atrial fibrillation and flutter: Code(s): I48.91 - Unspecified atrial fibrillation; I48.92 - Unspecified atrial flutter Status: Chronic Assessment and Plan: * continue rate control strategy * off anticoagulation due to concerns of GI bleed Will continue to follow. Subjective Date/time seen: 07/18/21 10:30 Seems a bit more awake in comparison to when I saw him yesterday but still appears confused; no apparent distress voiced; he states he is making urine (although his I/Os argue this is minimal); renal function continues to deteriorate with decline in urine output noted as well; PRBC transfusion given AM labs (Hgb 6.9); tolerated EGD yesterday with results noted. Exam Narrative: General: WD/WN male in NAD but confused Heart: normal S1 and S2; no rub Lungs: decreased at bases Abdomen: soft, nontender, nondistended, positive bowel sounds Extremities: no cyanosis or clubbing; JUAN FRANCISCO wraps noted Skin: warm and dry Objective Data Vital Signs Vital Signs: Vital Signs Temp Pulse Resp BP Pulse Ox 07/18/21 10:18 37.1 C 66 18 95/45 L 99 07/18/21 09:16 75 07/18/21 08:00 36.8 C 68 20 130/64 98 07/18/21 06:00 74 07/18/21 04:00 36.6 C 67 22 H 136/71 93 07/18/21 02:00 65 07/18/21 00:00 36.7 C 59 L 20 140/72 94 07/17/21 22:00 60 07/17/21 21:02 65 07/17/21 20:00 36.7 C 66 22 H 142/69 H 97 07/17/21 18:00 64 07/17/21 16:00 36
--- NOTE | 2021-07-18 12:21 | PM.PNCARD ---
Progress Note: A&P Assessment and Plan (1) Gastric ulcer due to nonsteroidal antiinflammatory drug (NSAID) therapy: Code(s): K25.9 - Gastric ulcer, unspecified as acute or chronic, without hemorrhage or perforation; T39.395A - Adverse effect of other nonsteroidal anti-inflammatory drugs [NSAID], initial encounter Status: Acute Assessment and Plan: GI following. (2) GI bleed: Qualifiers: GI bleed type/associated pathology: unspecified gastrointestinal hemorrhage type Qualified Code(s): K92.2 - Gastrointestinal hemorrhage, unspecified Code(s): K92.2 - Gastrointestinal hemorrhage, unspecified Status: Acute Assessment and Plan: GI following. (3) Elevated troponin: Code(s): R77.8 - Other specified abnormalities of plasma proteins Status: Acute Assessment and Plan: Doubt ACS. Probably due to GI bleed and ARF. (4) Paroxysmal atrial flutter: Code(s): I48.92 - Unspecified atrial flutter Status: Acute Assessment and Plan: [id number] 3. Currently in sinus rhythm. Holding Eliquis due to GI bleed. Resume when OK with GI service. (5) JASON (acute kidney injury): Code(s): N17.9 - Acute kidney failure, unspecified Status: Acute Assessment and Plan: Nephrology following. (6) Diastolic dysfunction: Code(s): I51.89 - Other ill-defined heart diseases Status: Acute Assessment and Plan: Stage IV. Chronic. Euvolemic. Diuretics on hold due to ARF. Echo 07/18/21 shows EF >70%, mild LVH, grade IV diastolic dysfunction (E/e' 20), mild LAe, mod RVE/hypokinesis, mod TR. (7) COPD (chronic obstructive pulmonary disease): Code(s): J44.9 - Chronic obstructive pulmonary disease, unspecified Status: Acute (8) Edema of both legs: Code(s): R60.0 - Localized edema Status: Acute Assessment and Plan: Stable. Subjective Date/time seen: 07/18/21 12:21 Patient is arousable, but sleepy. Patient's is at bedside. No chest pain or sob. He is receiving blood transfusion. Exam Const: General: well developed and other (Sleepy) Resp: Auscultation: clear to auscultation bilaterally, no crackles, no rales, no rhonchi and no wheezes Cardio: Jugular venous distension: no JVD Rate: regular rate Rhythm: regular rhythm Heart sounds: no murmurs Peripheral pulses: dorsalis pedis present GI: GI Palp: Yes Soft to palpation Extrem: Right upper extremity: no edema Left upper extremity: no edema Objective Data Vital Signs Vital Signs: Vital Signs - 24 hr 07/17/21 13:38 07/17/21 14:00 07/17/21 14:29 Temperature 98 F Pulse Rate 64 65 62 Respiratory Rate 20 27 H Blood Pressure 137/111 H 83/47 L Pulse Oximetry 98 100 07/17/21 14:39 07/17/21 14:46 07/17/21 15:00 Temperature Pulse Rate 67 64 76 Respiratory Rate 24 H 19 19 Blood Pressure 77/31 L 98/50 L 140/87 Pulse Oximetry 100 100 94 07/17/21 16:00 07/17/21 18:00 07/17/21 20:00 Temperature 97.4 F L 98.1 F Pulse Rate 114 H 64 66 Respiratory Rate 20 22 H Blood Pressure 107/47 L 142/69 H Pulse Oximetry 95 97 07/17/21 21:02 07/17/21 22:00 07/18/21 00:00 Temperature 98.1 F Pulse Rate 65 60 59 L Respiratory Rate 20 Blood Pressure 140/72 Pulse Oximetry 94 07/18/21 02:00 07/18/21 04:00 07/18/21 06:00 Temperature 98 F Pulse Rate 65 67 74 Respiratory Rate 22 H Blood Pressure 136/71 Pulse Oximetry 93 07/18/21 08:00 07/18/21 09:16 07/18/21 10:18 Temperature 98.3 F 98.7 F Pulse Rate 68 75 66 Respiratory Rate 20 18 Blood Pressure 130/64 95/45 L Pulse Oximetry 98 99 07/18/21 10:33 07/18/21 11:33 07/18/21 12:00 Temperature 99.1 F 98.0 F 98.0 F Pulse Rate 65 64 64 Respiratory Rate 16 18 20 Blood Pressure 81/37 L 76/36 L 76/36 L Pulse Oximetry 100 99 97 Intake/Output Intake/Output: Intake & Output 07/15/21 07/16/21 07/17/21 07/18/21 23:59 23:59 23:59 23:59 Intake Total 4824 7702 468
--- NOTE | 2021-07-18 13:04 | PM.IMPN ---
Progress Note: A&P Assessment and Plan (1) Hypotension: Code(s): I95.9 - Hypotension, unspecified Status: Acute Assessment and Plan: Spoke with RN about the low BP. BP has been low for about 2 hours before I was contacted at 144pm. She stated that the patietn was not fluid responsive. He has finished the blood transfusion. Currently on NS. Midodrine ordered and albumin once as well as a fluid bolus. No change otherwise in the patient's condition. Spoke with intensive care unit nurse so he is aware. He will evaluate patient. No PICC line given that he may need HD. (2) GI bleed: Qualifiers: GI bleed type/associated pathology: unspecified gastrointestinal hemorrhage type Qualified Code(s): K92.2 - Gastrointestinal hemorrhage, unspecified Code(s): K92.2 - Gastrointestinal hemorrhage, unspecified Status: Acute Assessment and Plan: Patient presents with anemia and history of melena. He was started on Protonix drip. Serial H&H was performed and he was transfused 1 unit PRBC 07/16. CT of the abdomen pelvis showed the soft tissues thickening of the gastric duodenal area concerning for peptic ulcer disease. GI was consulted and he underwent EGD 07/17 which showed esophageal and gastric ulcers. These are most likely etiologies of his GI bleed and acute blood loss anemia. Continue Protonix. Transfuse as necessary. (3) JASON (acute kidney injury): Code(s): N17.9 - Acute kidney failure, unspecified Status: Acute Assessment and Plan: Cr 1.1 on admission but jumped quickly to 5.5today. Lisinopril and lasix held. Disla secured. Renal US showing normal right kidney and moderate left renal atrophy without hydronephrosis. IV fluids started. TCK 887 but not felt to be the etiology of the JASON. Potassium okay but metabolic acidosis noted. Nephrology consulted and workup started. Appreciate their input. UA pending. Check BCx. Hold on abx. (4) Altered mental status: Code(s): R41.82 - Altered mental status, unspecified Status: Acute Assessment and Plan: Patient is alert but confused. CT of the brain showing no acute findings. Ammonia, TSH, Folate and B12 levels are normal. Mental status could be related to acute kidney injury. Follow. (5) Anemia: Qualifiers: Anemia type: unspecified type Qualified Code(s): D64.9 - Anemia, unspecified Code(s): D64.9 - Anemia, unspecified Status: Inactive Assessment and Plan: Hgb 12.6 last March which is probably baseline. Hgb 8.1 on admission and dropped to 6.7. Acute blood loss anemia secondary to GI bleed. He does have iron deficiency noted. Patient received 1 unit packed red blood cells on 07/16/2021. Hemoglobin climbed to 7-8 range but dropped to 6.9 today. Transfuse 1U PRBC. Continue to monitor. Transfuse as necessary (6) Elevated troponin: Code(s): R77.8 - Other specified abnormalities of plasma proteins Status: Acute Assessment and Plan: Troponin elevated on admission climbing to 0.112 today. No CP per patient. EKG showing PACs, iRBBB, borderline ST-T wave changes in the high lateral leads (no change from EKG on admission). Echo as mentioned below. Hold on ASA at this time. Continue metoprolol with parameters. (7) DEMETRI (obstructive sleep apnea): Code(s): G47.33 - Obstructive sleep apnea (adult) (pediatric) Status: Inactive Assessment and Plan: ABG showing 7.39/30/128 on room air. Continue CPAP at nighttime. (8) COPD (chronic obstructive pulmonary disease): Code(s): J44.9 - Chronic obstructive pulmonary disease, unspecified Status: Acute Assessment and Plan: Stable. No wheezing. No acute exacerbation. Albuterol available prn (9) CKD (chronic kidney disease) stage 3, GFR 30-59 ml/min: Code(s): N18.3 - Chronic kidney disease, stage 3 (moderate) Status: Inactive Assessment and Plan: Baseline creatinine 1.3-1.8
--- NOTE | 2021-07-18 13:21 | PC.NURSE ---
Cheetah preformed at 1321 for hypotension. SVI -4.5%. (not fluid responsive).
--- NOTE | 2021-07-18 13:34 | PCPTNOTE ---
Attempted PT eval, Per RN, patient hypotensive and should be held for today. Will continue to follow as patient can tolerate.
--- NOTE | 2021-07-18 13:46 | PC.NURSE ---
Spoke with Dr. Jordan at 1346 about CHEETAH results and continued hypotension. New orders placed per .
[2021-07-18] MEDS: SODIUM CHLORIDE 0.9% IV 250 ML 100 ML IV CONT (14:09)
[2021-07-18] MEDS: BISACODYL 10 MG SUPPOSITORY RECTAL (14:43)
[2021-07-18] MEDS: ALBUMIN HUMAN 25% 25 GM/100 ML 100 ML IVPB ×2 (15:06→20:10)
--- NOTE | 2021-07-18 15:56 | PC.NURSE ---
Patient transferred to ICU 7 at 1545. Patient oriented to room policies and procedures. All patient's belogings brought with patient to receiving unit. Bedside report given to RAND Howard.
--- NOTE | 2021-07-18 17:20 | WPDPROCEDUR ---
Procedures Central Line Placement Right Femoral: Central Line Date: 07/18/21 Central Line Time: 17:00 Discussed w/ the patient/family/POA,the placement of a central venous catheter, including its clinical necessity/indication & associated potential risks, benifits and alternatives.: Yes The patient/family/POA understand(s) and acknowledge(s) the need to proceed with central venous catheter insertion as an important element of the patient's clinical management.: Yes Time Out Performed: Yes Patient Position: supine Patient placed on monitor/pulse ox: Yes Provider Prep: mask, sterile gown, sterile gloves, Max. sterile barrier precautions, cap and hand hygiene with conventional soap/water or alcohol based hand rub Central line prep: 2% Chlorhexidine scrub Local anesthesia used: lidocaine 1% Amount of anesthesia used (ml): 5 Sterile US Technique with sterile gel/sterile probe covers: Yes Central line lumen inserted: triple Georgian: 7 Length (cm): 20 Post Procedure: sutured in place, good blood return, all ports aspirated, flushed, capped, transparent dressing, antimicrobial product and aseptic technique maintained throughout procedure Post procedure x-ray: other (n/a with femoral placement) Patient tolerated procedure: well Complications: none
[2021-07-18 17:39] LABS: Basophils Percent Auto 0.4 % (0.2-1.2); Eosinophils Absolute Auto 0.1 K/mm3 (0-0.3); Eosinophils Percent Auto 1.6 % (0-4.4); Hematocrit 22.5 % (42.0-52.0); Hemoglobin 7.3 g/dL (14.0-18.0); Immature Granulocyte Absolute 0.06 K/mm3 (0.00-0.031); Immature Granulocyte Percent A 0.7 % (0-0.5); Lymphocytes Absolute Auto 0.81 K/mm3 (0.9-3.2); Lymphocytes Percent Auto 9.7 % (18.3-44.2); Mean Corpuscular HGB Conc 32.4 g/dl (32-36); Mean Corpuscular Hemoglobin 31.3 pg (26-34); Mean Corpuscular Volume 96.6 fl (80-100); Mean Platelet Volume 9.7 fl (7.4-10.4); Monocytes Absolute Auto 0.9 K/mm3 (0.1-0.6); Monocytes Percent Auto 10.8 % (2.6-8.5); Neutrophils Absolute Auto 6.4 K/mm3 (1.3-6.7); Neutrophils Percent Auto 76.8 % (45.5-73.1); Platelet Count Result 239 k/mm3 (150-375); Red Blood Count 2.33 M/mm3 (4.6-6.20); Red Cell Distribution Width 15.8 % (11.5-14.5); White Blood Count 8.4 K/mm3 (4.5-10.0)
[2021-07-18] MEDS: MIDODRINE HCL 10 MG TABLET PO (17:43)
[2021-07-18] MEDS: CENTRAL LINE FLUSH 10 ML IV PUSH ×2 (17:44→18:08)
[2021-07-18 17:49] LABS: Lactic Acid Reflex 0.6 mmol/L (0.7-2.1)
[2021-07-18 17:50] LABS: Ammonia < 9 umol/L (9-30)
[2021-07-18 17:58] LABS: Alanine Aminotransferase 26 U/L (4-50); Albumin Level 2.9 g/dL (3.5-5.1); Alkaline Phosphatase 61 U/L (38-126); Anion Gap 8 mmol/L (8-16); Aspartate Amino Transferase 54 U/L (17-59); Bilirubin,Total 0.8 mg/dL (0.2-1.3); Blood Urea Nitrogen 40 mg/dL (9-20); Calcium 7.2 mg/dL (8.4-10.2); Carbon Dioxide 19 mmol/L (22-30); Chloride 98 mmol/L (98-107); Creatine Kinase 584 U/L (55-170); Estimated CRCL calculation 12 ml/min; Estimated Glomerular Filt Rate 9; Glucose 94 mg/dL (65-110); Magnesium 2.2 mg/dL (1.6-2.3); Phosphorus 7.4 mg/dL (2.5-4.5); Potassium 3.9 mmol/L (3.4-5.0); Sodium 125 mmol/L (137-145)
[2021-07-18 18:02] LABS: INR 1.5; Prothrombin Time 17.7 Seconds (11.1-14.7)
[2021-07-18 18:03] LABS: Partial Thromboplastin Time 36.5 SECONDS (22.3-36.8)
[2021-07-18 18:06] LABS: CRP 13.2 mg/dL (<1.0)
[2021-07-18] MEDS: NOREPINEPHRINE 8 MG/D5W 250 ML 8 MG/250 ML BAG 9.38 MG IV CONT (19:51)
[2021-07-18 23:42] LABS: Add Urine Microscopic? YES; Appearance Urine Cloudy (Clear); Bacteria Urine Trace /hpf; Bilirubin Urine Negative (Negative); Blood Urine 3+ (Negative); Color Urine Yellow (Yellow); Glucose Urine UA Negative (Negative); Ketones Urine Negative (Negative); Leukocyte Esterase Ur 1+ LEU/UL (Negative); Mucus Urine Rare /lpf; Nitrate Urine Negative (Negative); Protein Urine 2+ mg/dL (Negative); RBC Urine 51-75 /hpf (0-2); Specific Grav Ur 1.013 (1.001-1.035); Squamous Epithelial Cell Urine Rare /hpf (Few); Urobilinogen Urine Negative mg/dL (<2.0)
[2021-07-19] VITALS (19 sets, daily range): BP systolic 93–142; BP diastolic 60–98; PULSE 60–119; RESP 15–27; TEMP 36.4–36.8; O2SAT 93–100
[2021-07-19] MEDS: ALBUMIN HUMAN 25% 25 GM/100 ML 100 ML IVPB ×3 (02:41→16:43)
[2021-07-19 04:49] LABS: Basophils Percent Auto 0.2 % (0.2-1.2); Eosinophils Absolute Auto 0.2 K/mm3 (0-0.3); Eosinophils Percent Auto 2.2 % (0-4.4); Hematocrit 24.6 % (42.0-52.0); Hemoglobin 7.9 g/dL (14.0-18.0); Immature Granulocyte Absolute 0.14 K/mm3 (0.00-0.031); Immature Granulocyte Percent A 1.7 % (0-0.5); Lymphocytes Absolute Auto 0.67 K/mm3 (0.9-3.2); Lymphocytes Percent Auto 8.1 % (18.3-44.2); Mean Corpuscular HGB Conc 32.1 g/dl (32-36); Mean Corpuscular Volume 96.5 fl (80-100); Mean Platelet Volume 9.5 fl (7.4-10.4); Monocytes Absolute Auto 0.7 K/mm3 (0.1-0.6); Monocytes Percent Auto 8.4 % (2.6-8.5); Neutrophils Absolute Auto 6.6 K/mm3 (1.3-6.7); Neutrophils Percent Auto 79.4 % (45.5-73.1); Platelet Count Result 263 k/mm3 (150-375); Red Blood Count 2.55 M/mm3 (4.6-6.20); Red Cell Distribution Width 15.9 % (11.5-14.5); White Blood Count 8.3 K/mm3 (4.5-10.0)
[2021-07-19 05:07] LABS: Alanine Aminotransferase 25 U/L (4-50); Albumin Level 3.4 g/dL (3.5-5.1); Alkaline Phosphatase 61 U/L (38-126); Anion Gap 12 mmol/L (8-16); Aspartate Amino Transferase 44 U/L (17-59); Bilirubin,Total 0.7 mg/dL (0.2-1.3); Blood Urea Nitrogen 41 mg/dL (9-20); Calcium 7.4 mg/dL (8.4-10.2); Carbon Dioxide 18 mmol/L (22-30); Chloride 99 mmol/L (98-107); Estimated CRCL calculation 13 ml/min; Estimated Glomerular Filt Rate 11; Glucose 128 mg/dL (65-110); Magnesium 2.2 mg/dL (1.6-2.3); Phosphorus 7.1 mg/dL (2.5-4.5); Potassium 3.7 mmol/L (3.4-5.0); Sodium 129 mmol/L (137-145)
[2021-07-19] MEDS: CENTRAL LINE FLUSH 10 ML IV PUSH ×4 (05:36→21:36)
[2021-07-19] MEDS: LEVOTHYROXINE SODIUM 50 MCG TABLET PO (06:00)
--- NOTE | 2021-07-19 07:36 | PM.PNCARD ---
Progress Note: A&P Assessment and Plan (1) Gastric ulcer due to nonsteroidal antiinflammatory drug (NSAID) therapy: Code(s): K25.9 - Gastric ulcer, unspecified as acute or chronic, without hemorrhage or perforation; T39.395A - Adverse effect of other nonsteroidal anti-inflammatory drugs [NSAID], initial encounter Status: Acute Assessment and Plan: GI following. (2) GI bleed: Qualifiers: GI bleed type/associated pathology: unspecified gastrointestinal hemorrhage type Qualified Code(s): K92.2 - Gastrointestinal hemorrhage, unspecified Code(s): K92.2 - Gastrointestinal hemorrhage, unspecified Status: Acute Assessment and Plan: GI following. (3) Elevated troponin: Code(s): R77.8 - Other specified abnormalities of plasma proteins Status: Acute Assessment and Plan: Doubt ACS. Probably due to GI bleed and ARF. (4) Paroxysmal atrial flutter: Code(s): I48.92 - Unspecified atrial flutter Status: Acute Assessment and Plan: [id number] 3. Currently in sinus rhythm. Holding Eliquis due to GI bleed. Resume when OK with GI service. (5) JASON (acute kidney injury): Code(s): N17.9 - Acute kidney failure, unspecified Status: Acute Assessment and Plan: Nephrology following. (6) Diastolic dysfunction: Code(s): I51.89 - Other ill-defined heart diseases Status: Acute Assessment and Plan: Stage IV. Chronic. Euvolemic. Diuretics on hold due to ARF. Echo 07/18/21 shows EF >70%, mild LVH, grade IV diastolic dysfunction (E/e' 20), mild LAe, mod RVE/hypokinesis, mod TR. (7) COPD (chronic obstructive pulmonary disease): Code(s): J44.9 - Chronic obstructive pulmonary disease, unspecified Status: Acute (8) Edema of both legs: Code(s): R60.0 - Localized edema Status: Acute Assessment and Plan: Stable. (9) Hypotension: Code(s): I95.9 - Hypotension, unspecified Status: Acute Assessment and Plan: Probably related to GI bleed/anemia. On Levophed drip. Followed by co founder and cto. Subjective Date/time seen: 07/19/21 07:36 Has some cough. No chest pains. Exam Const: General: well developed and other (Sleepy) Resp: Auscultation: clear to auscultation bilaterally, no crackles, no rales, no rhonchi and no wheezes Cardio: Jugular venous distension: no JVD Rate: regular rate Rhythm: abnormal rhythm Heart sounds: no murmurs Peripheral pulses: dorsalis pedis present GI: GI Palp: Yes Soft to palpation Extrem: Right upper extremity: no edema Left upper extremity: no edema Objective Data Vital Signs Vital Signs: Vital Signs - 24 hr 07/18/21 08:00 07/18/21 09:16 07/18/21 10:00 Temperature 98.3 F Pulse Rate 67 75 69 Respiratory Rate 20 Blood Pressure 130/64 Pulse Oximetry 98 07/18/21 10:18 07/18/21 10:33 07/18/21 11:33 Temperature 98.7 F 99.1 F 98.0 F Pulse Rate 66 65 64 Respiratory Rate 18 16 18 Blood Pressure 95/45 L 81/37 L 76/36 L Pulse Oximetry 99 100 99 07/18/21 12:00 07/18/21 12:33 07/18/21 14:00 Temperature 98.0 F 97.5 F L Pulse Rate 64 71 68 Respiratory Rate 20 23 H Blood Pressure 76/36 L 89/52 L Pulse Oximetry 97 95 07/18/21 14:06 07/18/21 14:48 07/18/21 15:29 Temperature Pulse Rate Respiratory Rate Blood Pressure 91/46 L 76/40 L 82/48 L Pulse Oximetry 07/18/21 15:31 07/18/21 16:00 07/18/21 18:00 Temperature 98.0 F Pulse Rate 65 70 71 Respiratory Rate 19 Blood Pressure 87/41 L Pulse Oximetry 92 07/18/21 19:51 07/18/21 20:00 07/18/21 20:52 Temperature 98.1 F Pulse Rate 68 66 64 Respiratory Rate 15 Blood Pressure 98/65 L 106/62 145/111 H Pulse Oximetry 94 07/18/21 22:00 07/18/21 22:20 07/18/21 23:40 Temperature Pulse Rate 63 61 60 Respiratory Rate Blood Pressure 99/56 L 101/60 Pulse Oximetry 07/18/21 23:54 07/19/21 00:00 07/19/21 00:39 Temperature 97.6 F Puls
--- NOTE | 2021-07-19 09:01 | WPDCNINT ---
Assessment and Plan Assessment and plan (1) Shock: Code(s): R57.9 - Shock, unspecified Status: Acute Assessment and Plan: Shock could be related to anemia, GI bleed, says infection cardiogenic -unlikely, -on 07/18/2021: Patient was hypotensive with systolic blood pressures in the 70s and 80s -transfer the ICU on 07/18, central line was inserted in the right femoral on the same day and was started on Levophed, will maintain mean arterial pressures greater than 70 mmHg for a systolic greater than 110 mmHg for better end organ perfusion -patient definitely more awake, alert and oriented x3 this morning as compared compared to 07/18. -patient has been started on vanc and Zosyn on 07/18 -07/18: blood and urine cultures have been obtained and pending -patient did drop his hemoglobin to 6.9 05/28/2021 was transfused 1 unit of packed RBCs (2) GI bleed: Qualifiers: GI bleed type/associated pathology: unspecified gastrointestinal hemorrhage type Qualified Code(s): K92.2 - Gastrointestinal hemorrhage, unspecified Code(s): K92.2 - Gastrointestinal hemorrhage, unspecified Status: Acute Assessment and Plan: Patient presents with anemia and history of melena. -hemoglobin dropped to 6.7 on 07/16 and was transfused 1 unit of packed RBCs - EGD on 07/17/2021 which showed multiple esophageal ulcers in the mid esophagus and in the distal esophagus. A single deep chronic ulcer was visualized in the pre-pyloric region. The ulcer was clean based without signs of bleeding. Biopsy was performed. Multiple created benign ulcers were also visualized in the antrum. No ulcers or masses were seen in the bowel more the 2nd portion of the duodenum -on 07/18 patient hemoglobin was 6.9 and was transfused 1 unit of packed RBCs -patient on Protonix IV Q12H -GI is following the patient (3) JASON (acute kidney injury): Code(s): N17.9 - Acute kidney failure, unspecified Status: Acute Assessment and Plan: Acute on chronic kidney disease stage 3 -creatinine on admission was 1.10 and has been increasingly worsening and peaked at 5.90 on 07/18.- - Renal ultrasound 07/17/2021: Shows normal right kidney and moderate left renal atrophy without hydronephrosis. CT brain on 07/17/2021 with no acute intracranial findings -appreciate Nephrology following the patient -patient started on albumin and sodium bicarb infusion (4) Acute on chronic diastolic heart failure: Code(s): I50.33 - Acute on chronic diastolic (congestive) heart failure Status: Acute Assessment and Plan: Patient has grade 4 diastolic dysfunction Echocardiogram [id number]: Showed LV systolic function is hyperdynamic with estimated EF of 70%, LV chamber dimension is normal, patient does have grade 4 diastolic dysfunction, right ventricular systolic function is mildly reduced, moderate tricuspid valve regurg, moderate pulmonary hypertension with RVSP of 58 mmHg -cardiology following the patient -patient currently on Levophed -will monitor respiratory status and chest x-ray -cautious IV fluids (5) Anemia: Code(s): D64.9 - Anemia, unspecified Status: Acute Assessment and Plan: Anemia most likely related to GI bleed, -patient has been transfused 1 unit of packed RBC on 07/16 and in 1 unit of packed RBC on 07/18 -continue to monitor hemoglobin -transfuse as need (6) Elevated troponin: Code(s): R77.8 - Other specified abnormalities of plasma proteins Status: Acute Assessment and Plan: Elevated troponin on admission was slightly thought to be secondary to GI bleed and anemia -the echocardiogram as above -Cardiology following the patient -aspirin is on hold due to GI bleed, -hold metoprolol and the antihypertensive medications due to patient being on pressors (7) Paroxysmal atrial flutter: Code(s): I48.92 - Unspecified atrial flutter Status: Acute Assessment and Plan: Patient in AFib/fl
[2021-07-19] MEDS: SODIUM BICARBONATE 8.4% 150 MEQ in DEXTROSE 5% 1,000 ML 950 ML 50 MEQ IV CONT (09:51)
[2021-07-19] MEDS: EUCERIN CREAM 120 GM JAR 1 APPLIC TOPICAL ×2 (09:52→16:49)
[2021-07-19] MEDS: MIDODRINE HCL 10 MG TABLET PO ×2 (09:52→16:49)
[2021-07-19] MEDS: PANTOPRAZOLE SODIUM IV 40 MG VIAL IV PUSH ×2 (10:48→21:35)
[2021-07-19] MEDS: OPTI-GEN TAB 1 TABLET PO (10:48)
--- NOTE | 2021-07-19 12:38 | PCPTNOTE ---
Attempted PT evaluation this morning: Per medical chart patient had a central line placed in R femoral. Per Jeannine Counts, patient is not able to sit 90 degrees due to the central line placement. Patient not medical stable to participate in skilled therapy at this time. Please reorder once line is removed.
--- NOTE | 2021-07-19 12:58 | P.PNNP_ITS ---
Progress Note: A&P Assessment and Plan (1) JASON (acute kidney injury): Code(s): N17.9 - Acute kidney failure, unspecified Status: Acute Assessment and Plan: * worse today but not surprisng given events in the last 24 hours * several issues/factors: * fluctuating hemodynamics/relative hypotension/shock * anemia/low H&H * JUAN FRANCISCO-I and diuretics [employer] * prerenal factors * evaluation to date: * renal ultrasound c/w CKD; no acute changes * urine electrolytes suggest prerenal azotemia * CPK elevated but not high enough to cause renal dysfunction * holding lisinopril and diuretics * follow trend of repeat labs and UOP (2) Chronic kidney disease, stage 3: Code(s): N18.30 - Chronic kidney disease, stage 3 unspecified Status: Acute Assessment and Plan: * baseline creatinine runs around 1.1 - 1.5mg/dl (but has been as high as 1.8mg/d) * presumably due to HTN, vascular disease, and possibly DEMETRI (3) Shock: Code(s): R57.9 - Shock, unspecified Status: Acute Assessment and Plan: * suspect due issues related to anemia and GI bleed * on vasopressor therapy to maintain MAP * follow culture data - empirically on antibiotics * follow trend of hemodynamics (4) Hyponatremia: Code(s): E87.1 - Hypo-osmolality and hyponatremia Status: Acute Assessment and Plan: * stable if not improving * most likely due to JASON/ARF * prerenal factors likely playing a role as well * follow trend of sodium (5) GI bleed: Qualifiers: GI bleed type/associated pathology: unspecified gastrointestinal hemorrhage type Qualified Code(s): K92.2 - Gastrointestinal hemorrhage, unspecified Code(s): K92.2 - Gastrointestinal hemorrhage, unspecified Status: Acute Assessment and Plan: * Gastroenterology following * s/p EGD with findings of showed esophageal and gastric ulcers * on PPI * follow trend H/H * PRBC transfusion per protocol (6) Altered mental status: Code(s): R41.82 - Altered mental status, unspecified Status: Acute Assessment and Plan: * due to JASON versus hyponatremia or both versus something else(?) * CT of head noted * follow mentation - seems better (7) Atrial fibrillation and flutter: Code(s): I48.91 - Unspecified atrial fibrillation; I48.92 - Unspecified atrial flutter Status: Chronic Assessment and Plan: * continue rate control strategy * off anticoagulation due to concerns of GI bleed Will continue to follow. Subjective Date/time seen: 07/19/21 12:58 Events noted yesterday afternoon -- persistent hypotension unresponsive to IVFs; central line placed and started on vasopressor therapy with subsequent transfer to ICU for closer monitoring; mentation seems to be doing better at this time; renal function/creatinine a bit worse but better urine output noted in the last 24 hours. Exam Narrative: General: WD/WN male in NAD but confused (at times) Heart: normal S1 and S2; no rub Lungs: decreased at bases Abdomen: soft, nontender, nondistended, positive bowel sounds Extremities: no cyanosis or clubbing; trace edema Skin: warm and dry Objective Data Vital Signs Vital Signs: Vital Signs Temp Pulse Resp BP Pulse Ox 07/19/21 12:00 36.8 C 100 23 H 142/75 H 96 07/19/21 10:00 92 20 131/81 96 07/19/21 08:00 36.6 C 95 22 H 9
--- NOTE | 2021-07-19 12:58 | PM.PNNEP ---
Progress Note: A&P Assessment and Plan (1) JASON (acute kidney injury): Code(s): N17.9 - Acute kidney failure, unspecified Status: Acute Assessment and Plan: worse today but not surprisng given events in the last 24 hours several issues/factors: fluctuating hemodynamics/relative hypotension/shock anemia/low H&H JUAN FRANCISCO-I and diuretics [employer] prerenal factors evaluation to date: renal ultrasound c/w CKD; no acute changes urine electrolytes suggest prerenal azotemia CPK elevated but not high enough to cause renal dysfunction holding lisinopril and diuretics follow trend of repeat labs and UOP (2) Chronic kidney disease, stage 3: Code(s): N18.30 - Chronic kidney disease, stage 3 unspecified Status: Acute Assessment and Plan: baseline creatinine runs around 1.1 - 1.5mg/dl (but has been as high as 1.8mg/d) presumably due to HTN, vascular disease, and possibly DEMETRI (3) Shock: Code(s): R57.9 - Shock, unspecified Status: Acute Assessment and Plan: suspect due issues related to anemia and GI bleed on vasopressor therapy to maintain MAP follow culture data - empirically on antibiotics follow trend of hemodynamics (4) Hyponatremia: Code(s): E87.1 - Hypo-osmolality and hyponatremia Status: Acute Assessment and Plan: stable if not improving most likely due to JASON/ARF prerenal factors likely playing a role as well follow trend of sodium (5) GI bleed: Qualifiers: GI bleed type/associated pathology: unspecified gastrointestinal hemorrhage type Qualified Code(s): K92.2 - Gastrointestinal hemorrhage, unspecified Code(s): K92.2 - Gastrointestinal hemorrhage, unspecified Status: Acute Assessment and Plan: Gastroenterology following s/p EGD with findings of showed esophageal and gastric ulcers on PPI follow trend H/H PRBC transfusion per protocol (6) Altered mental status: Code(s): R41.82 - Altered mental status, unspecified Status: Acute Assessment and Plan: due to JASON versus hyponatremia or both versus something else(?) CT of head noted follow mentation - seems better (7) Atrial fibrillation and flutter: Code(s): I48.91 - Unspecified atrial fibrillation; I48.92 - Unspecified atrial flutter Status: Chronic Assessment and Plan: continue rate control strategy off anticoagulation due to concerns of GI bleed Will continue to follow. Subjective Date/time seen: 07/19/21 12:58 Events noted yesterday afternoon -- persistent hypotension unresponsive to IVFs; central line placed and started on vasopressor therapy with subsequent transfer to ICU for closer monitoring; mentation seems to be doing better at this time; renal function/creatinine a bit worse but better urine output noted in the last 24 hours. Exam Narrative: General: WD/WN male in NAD but confused (at times) Heart: normal S1 and S2; no rub Lungs: decreased at bases Abdomen: soft, nontender, nondistended, positive bowel sounds Extremities: no cyanosis or clubbing; trace edema Skin: warm and dry Objective Data Vital Signs Vital Signs: Vital Signs Temp Pulse Resp BP Pulse Ox 07/19/21 12:00 36.8 C 100 23 H 142/75 H 96 07/19/21 10:00 92 20 131/81 96 07/19/21 08:00 36.6 C 95 22 H 95/60 L 93 07/19/21 06:00 104 H 07/19/21 05:57 112 H 134/98 H 07/19/21 04:36 96 126/77 07/19/21 04:00 36.5 C 112 H 16 125/73 100 07/19/21 03:41 103 H 133/72 07/19/21 02:32 116/62 07/19/21 02:00 60 07/19/21 01:37 62 127/65 07/19/21 00:39 63 93/74 L 07/19/21 00:00 36.4 C 61 17 100/67 98 07/18/21 23:54 98 07/18/21 23:40 60 101/60 07/18/21 22:20 61 99/56 L 07/18/21 22:00 63 07/18/21 20:52 64 145/111 H 07/18/21 20:00 36.7 C 66 15 106/62 94 07/18/21 19:51 68 98/65 L Intake/Output I
--- NOTE | 2021-07-19 14:36 | WPDGIPROGNO ---
Progress Note: A&P Assessment and Plan (1) GI bleed: Qualifiers: GI bleed type/associated pathology: unspecified gastrointestinal hemorrhage type Qualified Code(s): K92.2 - Gastrointestinal hemorrhage, unspecified Code(s): K92.2 - Gastrointestinal hemorrhage, unspecified Status: Acute Assessment and Plan: 07/18 after transfusion his counts did come up but now have dropped again, from 7.5 last night to 6.9 this morning. We will continue to observe his counts and of course keep him off the anticoagulant 07/19 The hemoglobin is 7.9 because he received 1 unit of blood. No evidence no active bleeding (2) JASON (acute kidney injury): Code(s): N17.9 - Acute kidney failure, unspecified Status: Acute Assessment and Plan: nephrology has been consulted. Surprisingly his BUN did not increase as much as is creatinine did. creatinine now 5.9 (3) Altered mental status: Code(s): R41.82 - Altered mental status, unspecified Status: Acute Assessment and Plan: 07/18 He is much more lucid today. It took him quite a while to become alert after his procedure yesterday07/19 Apparently he was confused when hypertensive but he is lucid again today (4) Abdominal pain: Code(s): R10.9 - Unspecified abdominal pain Status: Acute Assessment and Plan: he states that he has pain all the time primarily in the mid abdomen. He points to his mid abdomen indicating that he was diagnosed with an ulcer there 35 years ago treated with goat's milk (5) Gastric ulcer due to nonsteroidal antiinflammatory drug (NSAID) therapy: Code(s): K25.9 - Gastric ulcer, unspecified as acute or chronic, without hemorrhage or perforation; T39.395A - Adverse effect of other nonsteroidal anti-inflammatory drugs [NSAID], initial encounter Status: Acute Assessment and Plan: he had multiple antral ulcers consistent with NSAID use. The large ulcer in pre-pyloric area was likely the source of bleeding although I could not identify a visible vessel or a spot amenable to cautery. This also will take a few months to heal. We will keep him on PPI. Nephrology may want him to have a lower dose. The plan will be to repeat EGD in about 2 months to assess healing, and to keep him off of NSAIDs. I will advance him to full liquid diet. If his counts drop further, we may need to consider repeating EGD. (6) Chronic anticoagulation: Code(s): Z79.01 - care home (current) use of anticoagulants Status: Acute Assessment and Plan: We will need to keep him off Eliquis for at least 7 more days if agreeable with the team. (7) Shock: Code(s): R57.9 - Shock, unspecified Status: Acute Assessment and Plan: 07/19 he was found to be hypotensive on the floor. He was transferred to Intensive Care, given a bolus of fluids, he was given intravenous albumin and then started on norepinephrine which continues. Subjective Date/time seen: 07/19/21 14:36 Interval history: 75yo male with hx of COPD/asthma, DM, HTN, and GERD here for anemia and black stools for 3 days. he states he is comfortable. He is having a very difficult time swallowing even pills and clear liquids are comfortable for him to swallow. We found severe erosive esophagitis on endoscopy. So further seems to be no recurrence of bleeding from his gastric ulcers 1 of which was quite large. on 07/18/2021: Patient was hypotensive with systolic blood pressures in the 70s and 80s -transfer the ICU on 07/18, central line was inserted in the right femoral on the same day and was started on Levophed, will maintain mean arterial pressures greater than 70 mmHg for a systolic greater than 110 mmHg for better end organ perfusion -patient definitely more awake, alert and oriented x3 this morning as compared compared to 07/18. -patient has been started on vanc and Zosyn on 07/18 -07/18: blood and urine cultures have been obtained and rickie
--- NOTE | 2021-07-19 14:49 | PM.IMPN ---
Progress Note: A&P Assessment and Plan (1) Hypotension: Code(s): I95.9 - Hypotension, unspecified Status: Acute Assessment and Plan: Patient developed HoTN afternoon of 07/18. RN stated that the patient was not fluid responsive. He had finished the blood transfusion earlier that day. He was given Midodrine, Albumin and a fluid bolus. Some improvement but then dropped again so moved to IVC and central line placed. He was started on Levophed. He has improved pressures and his UOP has improved. 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 (2) GI bleed: Qualifiers: GI bleed type/associated pathology: unspecified gastrointestinal hemorrhage type Qualified Code(s): K92.2 - Gastrointestinal hemorrhage, unspecified Code(s): K92.2 - Gastrointestinal hemorrhage, unspecified Status: Acute Assessment and Plan: Patient presents with anemia and history of melena. He was started on Protonix drip. Serial H&H was performed and he was transfused 1 unit PRBC 07/16. CT of the abdomen pelvis showed the soft tissues thickening of the gastric duodenal area concerning for peptic ulcer disease. GI was consulted and he underwent EGD 07/17 which showed esophageal and gastric ulcers. These are most likely etiologies of his GI bleed and acute blood loss anemia. Continue to hold Eliquis. Continue Protonix. Transfuse as necessary. (3) JASON (acute kidney injury): Code(s): N17.9 - Acute kidney failure, unspecified Status: Acute Assessment and Plan: Cr 1.1 on admission but jumped quickly to 5.9 yesterday. Lisinopril and lasix were held. Disla secured. Renal US showing normal right kidney and moderate left renal atrophy without hydronephrosis (old per ). IV fluids started. TCK 887 but not felt to be the etiology of the JASON. Potassium okay but metabolic nongap acidosis noted. Pressors to ensure adequate renal perfusion. Nephrology consulted and workup started. UA showing WBC and protein. Ueos are rare. UOP much better today at 1865mL so far. Post-ATN diuresis vs AIN. He is on abx but started after urine eos collected. Continue IVF with bicarb. Appreciate Nephrology input. Follow renal function and UOP. (4) Altered mental status: Code(s): R41.82 - Altered mental status, unspecified Status: Acute Assessment and Plan: Patient is alert but confused. CT of the brain showing no acute findings. Ammonia, TSH, Folate and B12 levels are normal. Mental status could be related to acute kidney injury. Symptoms better today. Follow. (5) Anemia: Qualifiers: Anemia type: unspecified type Qualified Code(s): D64.9 - Anemia, unspecified Code(s): D64.9 - Anemia, unspecified Status: Inactive Assessment and Plan: Hgb 12.6 last March which is probably baseline. Hgb 8.1 on admission and dropped to 6.7. Acute blood loss anemia secondary to GI bleed. He does have iron deficiency noted. Patient received 1 unit packed red blood cells on 07/16/21. Hemoglobin climbed to 7-8 range but dropped to 6.9 yesterday so a 2nd unit transfused. hgb up to 7.9 today Continue to monitor. Transfuse as necessary. (6) Elevated troponin: Code(s): R77.8 - Other specified abnormalities of plasma proteins Status: Acute Assessment and Plan: Troponin elevated on admission and peaking at 0.112. No CP per patient. EKG showing PACs, iRBBB, borderline ST-T wave changes in the high lateral leads (no change from EKG on admission). Echo as mentioned below. Hold on ASA at this time. Metoprolol also on hold. Repeat EKG to verify AFib. Cardiology following. (7) DEMETRI (obstructive sleep apnea): Code(s): G47.33 - Obstructive sleep apnea (adult) (pediatric) Status: Inactive Assessment and Plan: ABG showing 7.39/30/128 on room air. Patient intolerant to CPAP. (8) COPD (chronic obstructive pulmonary disease): Code(s): J44.9 - Chronic obstructive pulmonary diseas
--- NOTE | 2021-07-19 16:49 | PCOTNOTE ---
Pt. had femoral line placed. Hold therapy services until safe to resume.
[2021-07-19] MEDS: LIDOCAINE HCL 2% VISC SOLN 15 ML UDC PO (17:33)
[2021-07-19] MEDS: NOREPINEPHRINE 8 MG/D5W 250 ML 8 MG/250 ML BAG 7.5 MG IV CONT (17:33)
[2021-07-19 22:25] LABS: Glucose Point of Care 164 mg/dl (65-105)
[2021-07-20] VITALS (17 sets, daily range): BP systolic 101–133; BP diastolic 61–76; PULSE 66–99; RESP 16–23; TEMP 36.6–36.8; O2SAT 92–96; BMI 39.4
[2021-07-20] MEDS: SODIUM BICARBONATE 8.4% 150 MEQ in DEXTROSE 5% 1,000 ML 950 ML 50 MEQ IV CONT (06:23)
[2021-07-20] MEDS: LEVOTHYROXINE SODIUM 50 MCG TABLET PO (06:24)
[2021-07-20 06:56] LABS: Basophils Percent Auto 0.2 % (0.2-1.2); Eosinophils Absolute Auto 0.1 K/mm3 (0-0.3); Eosinophils Percent Auto 1.2 % (0-4.4); Hemoglobin 8.3 g/dL (14.0-18.0); Immature Granulocyte Absolute 0.08 K/mm3 (0.00-0.031); Immature Granulocyte Percent A 0.7 % (0-0.5); Lymphocytes Percent Auto 4.2 % (18.3-44.2); Mean Corpuscular HGB Conc 33.2 g/dl (32-36); Mean Corpuscular Hemoglobin 30.5 pg (26-34); Mean Corpuscular Volume 91.9 fl (80-100); Mean Platelet Volume 9.4 fl (7.4-10.4); Monocytes Absolute Auto 0.9 K/mm3 (0.1-0.6); Monocytes Percent Auto 7.1 % (2.6-8.5); Neutrophils Absolute Auto 10.4 K/mm3 (1.3-6.7); Neutrophils Percent Auto 86.6 % (45.5-73.1); Platelet Count Result 310 k/mm3 (150-375); Red Blood Count 2.72 M/mm3 (4.6-6.20); Red Cell Distribution Width 15.7 % (11.5-14.5)
--- NOTE | 2021-07-20 07:00 | ECG_ITS ---
Measurements Intervals [place] Rate: 74 P: AR: 0 QRS: -59 QRSD: 121 T: 51 QT: 416 QTc: 462 Interpretive Statements ATRIAL FLUTTER/TACHYCARDIA LEFT ANTERIOR FASCICULAR BLOCK BASELINE ARTIFACT- v4 ABNORMAL ECG Electronically Signed On 07-20-2021 9:51:14 SALES PLANNING ANALYST by Kody Mart D.O.
--- NOTE | 2021-07-20 07:10 | PM.PNCARD ---
Progress Note: A&P Assessment and Plan (1) Gastric ulcer due to nonsteroidal antiinflammatory drug (NSAID) therapy: Code(s): K25.9 - Gastric ulcer, unspecified as acute or chronic, without hemorrhage or perforation; T39.395A - Adverse effect of other nonsteroidal anti-inflammatory drugs [NSAID], initial encounter Status: Acute Assessment and Plan: GI following. (2) GI bleed: Qualifiers: GI bleed type/associated pathology: unspecified gastrointestinal hemorrhage type Qualified Code(s): K92.2 - Gastrointestinal hemorrhage, unspecified Code(s): K92.2 - Gastrointestinal hemorrhage, unspecified Status: Acute Assessment and Plan: GI following. (3) Elevated troponin: Code(s): R77.8 - Other specified abnormalities of plasma proteins Status: Acute Assessment and Plan: Doubt ACS. Probably due to GI bleed and ARF. (4) Paroxysmal atrial flutter: Code(s): I48.92 - Unspecified atrial flutter Status: Acute Assessment and Plan: [id number] 3. Currently back in atrial fib/flutter. Holding Eliquis due to GI bleed. Resume when OK with GI service. (5) JASON (acute kidney injury): Code(s): N17.9 - Acute kidney failure, unspecified Status: Acute Assessment and Plan: Nephrology following. (6) Diastolic dysfunction: Code(s): I51.89 - Other ill-defined heart diseases Status: Acute Assessment and Plan: Stage IV. Chronic. Euvolemic. Diuretics on hold due to ARF. Echo 07/18/21 shows EF >70%, mild LVH, grade IV diastolic dysfunction (E/e' 20), mild LAE, mod RVE/hypokinesis, mod TR. (7) COPD (chronic obstructive pulmonary disease): Code(s): J44.9 - Chronic obstructive pulmonary disease, unspecified Status: Acute (8) Edema of both legs: Code(s): R60.0 - Localized edema Status: Acute Assessment and Plan: Stable. (9) Hypotension: Code(s): I95.9 - Hypotension, unspecified Status: Acute Assessment and Plan: Probably related to GI bleed/anemia. On Levophed drip. Followed by rail bonder. Subjective Date/time seen: 07/20/21 07:10 He is alert and oriented currently but gets confused and pulling off his lines. No chest pain or sob. Has cough. Exam Const: General: well developed and other (Sleepy) Resp: Auscultation: clear to auscultation bilaterally, no crackles, no rales, no rhonchi and no wheezes Cardio: Jugular venous distension: no JVD Rate: tachycardic Rhythm: abnormal rhythm Heart sounds: no murmurs Peripheral pulses: dorsalis pedis present GI: GI Palp: Yes Soft to palpation Extrem: Right upper extremity: no edema Left upper extremity: no edema Objective Data Vital Signs Vital Signs: Vital Signs - 24 hr 07/19/21 08:00 07/19/21 10:00 07/19/21 12:00 Temperature 97.8 F 98.3 F Pulse Rate 95 92 100 Respiratory Rate 22 H 20 23 H Blood Pressure 95/60 L 131/81 142/75 H Pulse Oximetry 93 96 96 07/19/21 14:00 07/19/21 16:00 07/19/21 17:33 Temperature Pulse Rate 86 119 H 110 H Respiratory Rate 17 19 Blood Pressure 125/94 H 108/69 115/78 Pulse Oximetry 94 96 07/19/21 17:46 07/19/21 20:00 07/19/21 22:00 Temperature 98 F Pulse Rate 102 H 64 94 Respiratory Rate 15 Blood Pressure 136/86 Pulse Oximetry 96 07/20/21 00:00 07/20/21 02:00 07/20/21 04:00 Temperature 98.1 F 98.0 F Pulse Rate 91 68 66 Respiratory Rate 16 19 Blood Pressure 126/65 101/66 Pulse Oximetry 96 96 07/20/21 06:00 Temperature Pulse Rate 86 Respiratory Rate Blood Pressure Pulse Oximetry Intake/Output Intake/Output: Intake & Output 07/17/21 07/18/21 07/19/21 07/20/21 23:59 23:59 23:59 23:59 Intake Total 1350 3070 1545 1915 Output Total 179 956 5149 1800 Balance 1100 2760 -1720 115 Meds/Results Medications: Active Medications Generic Name Dose Route Start Last Admin Trade Name Freq PRN Reason Stop Dose Admin Acetaminophen 650 mg
[2021-07-20 07:14] LABS: Lactic Acid Reflex 1.1 mmol/L (0.7-2.1)
[2021-07-20 07:41] LABS: Alanine Aminotransferase 21 U/L (4-50); Albumin Level 3.4 g/dL (3.5-5.1); Alkaline Phosphatase 66 U/L (38-126); Anion Gap 9 mmol/L (8-16); Aspartate Amino Transferase 31 U/L (17-59); Bilirubin,Total 0.7 mg/dL (0.2-1.3); Blood Urea Nitrogen 31 mg/dL (9-20); CRP 12.7 mg/dL (<1.0); Carbon Dioxide 25 mmol/L (22-30); Chloride 104 mmol/L (98-107); Estimated CRCL calculation 27 ml/min; Estimated Glomerular Filt Rate 24; Glucose 143 mg/dL (65-110); Lipase 191 U/L (23-300); Magnesium 2.3 mg/dL (1.6-2.3); Phosphorus 3.8 mg/dL (2.5-4.5); Potassium 3.7 mmol/L (3.4-5.0); Sodium 138 mmol/L (137-145)
[2021-07-20] MEDS: MIDODRINE HCL 10 MG TABLET PO ×3 (09:14→17:09)
[2021-07-20] MEDS: PANTOPRAZOLE SODIUM IV 40 MG VIAL IV PUSH ×2 (09:14→22:21)
[2021-07-20] MEDS: OPTI-GEN TAB 1 TABLET PO (09:14)
[2021-07-20] MEDS: CENTRAL LINE FLUSH 10 ML IV PUSH ×4 (09:14→22:22)
[2021-07-20] MEDS: EUCERIN CREAM 120 GM JAR 1 APPLIC TOPICAL ×2 (09:15→17:10)
--- NOTE | 2021-07-20 12:05 | P.PNNP_ITS ---
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 factors * evaluation to date: * renal ultrasound c/w CKD; no acute changes * urine electrolytes suggest prerenal azotemia * CPK elevated but not high enough to cause renal dysfunction * holding lisinopril and diuretics * follow trend of repeat labs and UOP (2) Chronic kidney disease, stage 3: Code(s): N18.30 - Chronic kidney disease, stage 3 unspecified Status: Acute Assessment and Plan: * baseline creatinine runs around 1.1 - 1.5mg/dl (but has been as high as 1.8mg/d) * presumably due to HTN, vascular disease, and possibly DEMETRI (3) Shock: Code(s): R57.9 - Shock, unspecified Status: Acute Assessment and Plan: * suspect due issues related to anemia and GI bleed * on vasopressor therapy to maintain MAP - wean as tolerated * follow culture data - empirically on antibiotics * follow trend of hemodynamics (4) Hyponatremia: Code(s): E87.1 - Hypo-osmolality and hyponatremia Status: Acute Assessment and Plan: * corrected with supportive therapy * most likely due to JASON/ARF * prerenal factors likely playing a role as well * follow trend of sodium (5) GI bleed: Qualifiers: GI bleed type/associated pathology: unspecified gastrointestinal hemorrh age type Qualified Code(s): K92.2 - Gastrointestinal hemorrhage, unspecified Code(s): K92.2 - Gastrointestinal hemorrhage, unspecified Status: Acute Assessment and Plan: * Gastroenterology following * s/p EGD with findings of showed esophageal and gastric ulcers * on PPI * follow trend H/H * PRBC transfusion per protocol (6) Altered mental status: Code(s): R41.82 - Altered mental status, unspecified Status: Acute Assessment and Plan: * due to JASON versus hyponatremia or both versus something else(?) * CT of head noted * follow mentation - seems better (7) Atrial fibrillation and flutter: Code(s): I48.91 - Unspecified atrial fibrillation; I48.92 - Unspecified atrial flutter Status: Chronic Assessment and Plan: * continue rate control strategy * off anticoagulation due to concerns of GI bleed Will continue to follow. Subjective Date/time seen: 07/20/21 12:05 Remains on low dose levophed at this time; no apparent distress voiced during my visit; H/H relatively stable but still having melanotic stools; creatinine has improved remarkably with an increase in urine output as well; no other acute issues/events overnight or earlier this AM. Exam Narrative: General: WD/WN male in NAD but confused (at times) Heart: normal S1 and S2; no rub Lungs: decreased at bases Abdomen: soft, nontender, nondistended, positive bowel sounds Extremities: no cyanosis or clubbing; trace edema Skin: no rash Objective Data Vital Signs Vital Signs: Vital Signs Temp Pulse Resp BP Pulse Ox 07/20/21 12:00 36.8 C 69 22 H 121/61 92 07/20/21 11:31 78 117/73 07/20/21 10:00 87 07/20/21 09:04 82 123/76 07/20/21 08:00 36.8 C 99 23 H 121/65 96
--- NOTE | 2021-07-20 12:05 | PM.PNNEP ---
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 evaluation to date: renal ultrasound c/w CKD; no acute changes urine electrolytes suggest prerenal azotemia CPK elevated but not high enough to cause renal dysfunction holding lisinopril and diuretics follow trend of repeat labs and UOP (2) Chronic kidney disease, stage 3: Code(s): N18.30 - Chronic kidney disease, stage 3 unspecified Status: Acute Assessment and Plan: baseline creatinine runs around 1.1 - 1.5mg/dl (but has been as high as 1.8mg/d) presumably due to HTN, vascular disease, and possibly DEMETRI (3) Shock: Code(s): R57.9 - Shock, unspecified Status: Acute Assessment and Plan: suspect due issues related to anemia and GI bleed on vasopressor therapy to maintain MAP - wean as tolerated follow culture data - empirically on antibiotics follow trend of hemodynamics (4) Hyponatremia: Code(s): E87.1 - Hypo-osmolality and hyponatremia Status: Acute Assessment and Plan: corrected with supportive therapy most likely due to JASON/ARF prerenal factors likely playing a role as well follow trend of sodium (5) GI bleed: Qualifiers: GI bleed type/associated pathology: unspecified gastrointestinal hemorrhage type Qualified Code(s): K92.2 - Gastrointestinal hemorrhage, unspecified Code(s): K92.2 - Gastrointestinal hemorrhage, unspecified Status: Acute Assessment and Plan: Gastroenterology following s/p EGD with findings of showed esophageal and gastric ulcers on PPI follow trend H/H PRBC transfusion per protocol (6) Altered mental status: Code(s): R41.82 - Altered mental status, unspecified Status: Acute Assessment and Plan: due to JASON versus hyponatremia or both versus something else(?) CT of head noted follow mentation - seems better (7) Atrial fibrillation and flutter: Code(s): I48.91 - Unspecified atrial fibrillation; I48.92 - Unspecified atrial flutter Status: Chronic Assessment and Plan: continue rate control strategy off anticoagulation due to concerns of GI bleed Will continue to follow. Subjective Date/time seen: 07/20/21 12:05 Remains on low dose levophed at this time; no apparent distress voiced during my visit; H/H relatively stable but still having melanotic stools; creatinine has improved remarkably with an increase in urine output as well; no other acute issues/events overnight or earlier this AM. Exam Narrative: General: WD/WN male in NAD but confused (at times) Heart: normal S1 and S2; no rub Lungs: decreased at bases Abdomen: soft, nontender, nondistended, positive bowel sounds Extremities: no cyanosis or clubbing; trace edema Skin: no rash Objective Data Vital Signs Vital Signs: Vital Signs Temp Pulse Resp BP Pulse Ox 07/20/21 12:00 36.8 C 69 22 H 121/61 92 07/20/21 11:31 78 117/73 07/20/21 10:00 87 07/20/21 09:04 82 123/76 07/20/21 08:00 36.8 C 99 23 H 121/65 96 07/20/21 06:00 86 07/20/21 04:00 36.7 C 66 19 101/66 96 07/20/21 02:00 68 07/20/21 00:00 36.7 C 91 16 126/65 96 07/19/21 22:00 94 07/19/21 20:00 36.6 C 64 15 136/86 96 07/19/21 17:46 102 H 07/19/21 17:33 110 H 115/78 07/19/21 16:00 119 H 19 108/69 96 Intake/Output Intake/Output: Intake & Output 07/17/21 07/18/21 07/19/21 07/20/21 23:59 23:59 23:59 23:59 Intake Total 1350 3070 1545 2705 Output Total 350 710 2725 2300 Balance 1100 2760 -1720 405 Meds/Results Medications: Active Medications Generic Name Dose Route Start Last A
[2021-07-20 12:30] LABS: Glucose Point of Care 164 mg/dl (65-105)
--- NOTE | 2021-07-20 12:44 | PCSTNOTE ---
Please refer to the Bedside Swallow Evaluation in the EMR. Please note, silent aspiration cannot be ruled out at bedside.
--- NOTE | 2021-07-20 15:21 | PM.IMPN ---
Progress Note: A&P Assessment and Plan (1) Hypotension: Code(s): I95.9 - Hypotension, unspecified Status: Acute Assessment and Plan: Patient developed HoTN afternoon of 07/18. RN stated that the patient was not fluid responsive. He had finished the blood transfusion earlier that day. He was given Midodrine, Albumin and a fluid bolus. Some improvement but then dropped again so moved to IVC and central line placed. He was started on Levophed. He has improved pressures and his UOP has improved. Appreciate client account specialist input. Start PT/OT once central line removed. (2) GI bleed: Qualifiers: GI bleed type/associated pathology: unspecified gastrointestinal hemorrhage type Qualified Code(s): K92.2 - Gastrointestinal hemorrhage, unspecified Code(s): K92.2 - Gastrointestinal hemorrhage, unspecified Status: Acute Assessment and Plan: Patient presents with anemia and history of melena. He was started on Protonix drip. Serial H&H was performed and he was transfused 1 unit PRBC 07/16. CT of the abdomen pelvis showed the soft tissues thickening of the gastric duodenal area concerning for peptic ulcer disease. GI was consulted and he underwent EGD 07/17 which showed esophageal and gastric ulcers. These are most likely etiologies of his GI bleed and acute blood loss anemia. Still having black stools but suspect this is old blood in the GI tract and not new bleeding. Continue to hold Eliquis. Continue Protonix. Transfuse as necessary. (3) JASON (acute kidney injury): Code(s): N17.9 - Acute kidney failure, unspecified Status: Acute Assessment and Plan: Cr 1.1 on admission but jumped quickly to 5.9 on 07/18. Lisinopril and lasix were held. Disla secured. Renal US showing normal right kidney and moderate left renal atrophy without hydronephrosis (old per ). IV fluids started. TCK 887 but not felt to be the etiology of the JASON. Pressors started to ensure adequate renal perfusion. Nephrology consulted and workup started. UA showing WBC and protein. Ueos are rare. UOP much better today at 3265mL yesterday and 2200mL so far today. Cr down to 2.6 today. Most likely Post-ATN diuresis. He is on abx but started after urine eos collected. Pressors stopped. Continue IVF with bicarb. Appreciate Nephrology input. Follow renal function and UOP. (4) Altered mental status: Code(s): R41.82 - Altered mental status, unspecified Status: Acute Assessment and Plan: Patient is alert but still mildly confused. CT of the brain showing no acute findings. Ammonia, TSH, Folate and B12 levels are normal. Mental status could be related to acute kidney injury. Symptoms better overall. Follow. (5) Anemia: Qualifiers: Anemia type: unspecified type Qualified Code(s): D64.9 - Anemia, unspecified Code(s): D64.9 - Anemia, unspecified Status: Inactive Assessment and Plan: Hgb 12.6 last March which is probably baseline. Hgb 8.1 on admission and dropped to 6.7. Acute blood loss anemia secondary to GI bleed. He does have iron deficiency noted. Patient received 1 unit packed red blood cells on 07/16/21. Hemoglobin climbed to 7-8 range but dropped to 6.9 so a 2nd unit transfused 07/18. Hgb up to 8.3 today probably related to the diuresis. Continue to monitor. Transfuse as necessary. (6) Elevated troponin: Code(s): R77.8 - Other specified abnormalities of plasma proteins Status: Acute Assessment and Plan: Troponin elevated on admission and peaking at 0.112. No CP per patient. EKG showing PACs, iRBBB, borderline ST-T wave changes in the high lateral leads (no change from EKG on admission). Echo as mentioned below. Related to the CHF? or JASON? Hold on ASA at this time. Metoprolol also on hold. EKG verifies AFib. Cardiology following. (7) DEMETRI (obstructive sleep apnea): Code(s): G47.33 - Obstructive sleep apnea (adult) (pediatric) Status: In
--- NOTE | 2021-07-20 16:33 | WPDINTPN ---
Progress Note: A&P Assessment and Plan (1) Shock: Code(s): R57.9 - Shock, unspecified Status: Acute Assessment and Plan: Shock could be related to anemia, GI bleed, possible infection cardiogenic -unlikely, -on 07/18/2021: Patient was hypotensive with systolic blood pressures in the 70s and 80s -transferred the ICU on 07/18, central line was inserted in the right femoral on the same day and was started on Levophed, will maintain mean arterial pressures greater than 70 mmHg for a systolic greater than 110 mmHg for better end organ perfusion -patient definitely more awake, alert and oriented x3 this morning as compared compared to 07/18. -patient has been started on vanc and Zosyn on 07/18 -07/18: blood and urine cultures have been obtained and pending -patient did drop his hemoglobin to 6.9 05/28/2021 was transfused 1 unit of packed RBCs -hemoglobin stable and improved -creatinine much improved with very good urine output (2) GI bleed: Qualifiers: GI bleed type/associated pathology: unspecified gastrointestinal hemorrhage type Qualified Code(s): K92.2 - Gastrointestinal hemorrhage, unspecified Code(s): K92.2 - Gastrointestinal hemorrhage, unspecified Status: Acute Assessment and Plan: Patient presents with anemia and history of melena. -hemoglobin dropped to 6.7 on 07/16 and was transfused 1 unit of packed RBCs - EGD on 07/17/2021 which showed multiple esophageal ulcers in the mid esophagus and in the distal esophagus. A single deep chronic ulcer was visualized in the pre-pyloric region. The ulcer was clean based without signs of bleeding. Biopsy was performed. Multiple created benign ulcers were also visualized in the antrum. No ulcers or masses were seen in the bowel more the 2nd portion of the duodenum -on 07/18 patient hemoglobin was 6.9 and was transfused 1 unit of packed RBCs -patient on Protonix IV Q12H -GI is following the patient -viscous lidocaine was ordered as patient was having pain on swallowing. Now is able to tolerate full liquid diet (3) JASON (acute kidney injury): Code(s): N17.9 - Acute kidney failure, unspecified Status: Acute Assessment and Plan: Acute on chronic kidney disease stage 3 -creatinine on admission was 1.10 and has been increasingly worsening and peaked at 5.90 on 07/18.- - Renal ultrasound 07/17/2021: Shows normal right kidney and moderate left renal atrophy without hydronephrosis. CT brain on 07/17/2021 with no acute intracranial findings -appreciate Nephrology following the patient -continue sodium bicarb infusion today (4) Acute on chronic diastolic heart failure: Code(s): I50.33 - Acute on chronic diastolic (congestive) heart failure Status: Acute Assessment and Plan: Patient has grade 4 diastolic dysfunction Echocardiogram [id number]: Showed LV systolic function is hyperdynamic with estimated EF of 70%, LV chamber dimension is normal, patient does have grade 4 diastolic dysfunction, right ventricular systolic function is mildly reduced, moderate tricuspid valve regurg, moderate pulmonary hypertension with RVSP of 58 mmHg -cardiology following the patient -patient currently on Levophed -will monitor respiratory status and chest x-ray -cautious IV fluids (5) Anemia: Code(s): D64.9 - Anemia, unspecified Status: Acute Assessment and Plan: Anemia most likely related to GI bleed, -patient has been transfused 1 unit of packed RBC on 07/16 and in 1 unit of packed RBC on 07/18 -hemoglobin stable, continue to monitor -transfuse as needed (6) Elevated troponin: Code(s): R77.8 - Other specified abnormalities of plasma proteins Status: Acute Assessment and Plan: Elevated troponin on admission was slightly thought to be secondary to GI bleed and anemia -the echocardiogram as above -Cardiology following the patient -aspirin is on hold due to GI bleed, -hold metoprolol and the antihypertensi
[2021-07-21] VITALS (9 sets, daily range): BP systolic 115–134; BP diastolic 64–74; PULSE 72–109; RESP 18–23; TEMP 36.4–37.1; O2SAT 92–99
[2021-07-21] MEDS: CENTRAL LINE FLUSH 10 ML IV PUSH (06:29)
[2021-07-21] MEDS: LEVOTHYROXINE SODIUM 50 MCG TABLET PO (06:29)
--- NOTE | 2021-07-21 07:17 | WPDGIPROGNO ---
Progress Note: A&P Assessment and Plan (1) GI bleed: Qualifiers: GI bleed type/associated pathology: unspecified gastrointestinal hemorrhage type Qualified Code(s): K92.2 - Gastrointestinal hemorrhage, unspecified Code(s): K92.2 - Gastrointestinal hemorrhage, unspecified Status: Acute Assessment and Plan: 07/18 after transfusion his counts did come up but now have dropped again, from 7.5 last night to 6.9 this morning. We will continue to observe his counts and of course keep him off the anticoagulant 07/19 The hemoglobin is 7.9 because he received 1 unit of blood. No evidence no active bleeding 07/21 He states that he is doing much better. He has only mild discomfort when he swallows full liquids and pills. He is not certain that he is ready to start regular diet as of yet. I encouraged him to continue drinking his nutritional supplements which he states he is receiving (2) JASON (acute kidney injury): Code(s): N17.9 - Acute kidney failure, unspecified Status: Acute Assessment and Plan: nephrology has been consulted. Surprisingly his BUN did not increase as much as is creatinine did. creatinine now down from 5.9 to 2.6. (3) Altered mental status: Code(s): R41.82 - Altered mental status, unspecified Status: Acute Assessment and Plan: 07/18 He is much more lucid today. It took him quite a while to become alert after his procedure yesterday07/19 Apparently he was confused when hypertensive but he is lucid again today 07/21 Alert and oriented today (4) Abdominal pain: Code(s): R10.9 - Unspecified abdominal pain Status: Acute Assessment and Plan: he states that he has pain all the time primarily in the mid abdomen. He points to his mid abdomen indicating that he was diagnosed with an ulcer there 35 years ago treated with goat's milk (5) Gastric ulcer due to nonsteroidal antiinflammatory drug (NSAID) therapy: Code(s): K25.9 - Gastric ulcer, unspecified as acute or chronic, without hemorrhage or perforation; T39.395A - Adverse effect of other nonsteroidal anti-inflammatory drugs [NSAID], initial encounter Status: Acute Assessment and Plan: he had multiple antral ulcers consistent with NSAID use. The large ulcer in pre-pyloric area was likely the source of bleeding although I could not identify a visible vessel or a spot amenable to cautery. This also will take a few months to heal. We will keep him on PPI. Nephrology may want him to have a lower dose. The plan will be to repeat EGD in about 2 months to assess healing, and to keep him off of NSAIDs. I will advance him to full liquid diet. If his counts drop further, we may need to consider repeating EGD. (6) Chronic anticoagulation: Code(s): Z79.01 - snf (current) use of anticoagulants Status: Acute Assessment and Plan: We will need to keep him off Eliquis for at least 7 more days if agreeable with the team. (7) Shock: Code(s): R57.9 - Shock, unspecified Status: Acute Assessment and Plan: 07/19 he was found to be hypotensive on the floor. He was transferred to Intensive Care, given a bolus of fluids, he was given intravenous albumin and then started on norepinephrine which continues. 07/21 blood pressure has been stable, systolics between 103 and 133 Subjective Date/time seen: 07/21/21 07:17 He states his swallowing is much better since we started him on xylocaine viscous. He can still feel it when he swallows and is not yet wanting to eat solid food. No evidence of rebleeding from his ulcers so far. Dr. Garzon will be covering for me from now on until next Saturday Review of Systems Review of Systems: All systems reviewed & are unremarkable except as noted in HPI and below Exam Const: General: alert Nutritional Appearance: obese Orientation/consciousness: patient oriented x3 Resp: Auscultation: clear to ausc
--- NOTE | 2021-07-21 07:58 | PM.PNCARD ---
Progress Note: A&P Assessment and Plan (1) Gastric ulcer due to nonsteroidal antiinflammatory drug (NSAID) therapy: Code(s): K25.9 - Gastric ulcer, unspecified as acute or chronic, without hemorrhage or perforation; T39.395A - Adverse effect of other nonsteroidal anti-inflammatory drugs [NSAID], initial encounter Status: Acute Assessment and Plan: GI following. (2) GI bleed: Qualifiers: GI bleed type/associated pathology: unspecified gastrointestinal hemorrhage type Qualified Code(s): K92.2 - Gastrointestinal hemorrhage, unspecified Code(s): K92.2 - Gastrointestinal hemorrhage, unspecified Status: Acute Assessment and Plan: GI following. (3) Elevated troponin: Code(s): R77.8 - Other specified abnormalities of plasma proteins Status: Acute Assessment and Plan: Doubt ACS. Probably due to GI bleed and ARF. (4) Paroxysmal atrial flutter: Code(s): I48.92 - Unspecified atrial flutter Status: Acute Assessment and Plan: [id number] 3. Currently back in atrial fib/flutter. Holding Eliquis due to GI bleed. Resume when OK with GI service. (5) JASON (acute kidney injury): Code(s): N17.9 - Acute kidney failure, unspecified Status: Acute Assessment and Plan: Nephrology following. (6) Diastolic dysfunction: Code(s): I51.89 - Other ill-defined heart diseases Status: Acute Assessment and Plan: Stage IV. Chronic. Euvolemic. Diuretics on hold due to ARF. Echo 07/18/21 shows EF >70%, mild LVH, grade IV diastolic dysfunction (E/e' 20), mild LAE, mod RVE/hypokinesis, mod TR. (7) COPD (chronic obstructive pulmonary disease): Code(s): J44.9 - Chronic obstructive pulmonary disease, unspecified Status: Acute (8) Edema of both legs: Code(s): R60.0 - Localized edema Status: Acute Assessment and Plan: Stable. (9) Hypotension: Code(s): I95.9 - Hypotension, unspecified Status: Acute Assessment and Plan: Probably related to GI bleed/anemia. On Levophed drip. 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 Subjective Date/time seen: 07/21/21 07:58 Denies chest pain or sob. Less coughing. Exam Const: General: well developed and other (Sleepy) Resp: Auscultation: clear to auscultation bilaterally, no crackles, no rales, no rhonchi and no wheezes Cardio: Jugular venous distension: no JVD Rate: regular rate Rhythm: abnormal rhythm Heart sounds: no murmurs Peripheral pulses: dorsalis pedis present GI: GI Palp: Yes Soft to palpation Extrem: Right upper extremity: no edema Left upper extremity: no edema Objective Data Vital Signs Vital Signs: Vital Signs - 24 hr 07/20/21 08:00 07/20/21 09:04 07/20/21 10:00 Temperature 98.3 F Pulse Rate 99 82 87 Respiratory Rate 23 H Blood Pressure 121/65 123/76 Pulse Oximetry 96 07/20/21 11:31 07/20/21 12:00 07/20/21 12:32 Temperature 98.2 F Pulse Rate 78 72 Respiratory Rate 22 H Blood Pressure 117/73 121/61 116/70 Pulse Oximetry 92 07/20/21 13:03 07/20/21 14:00 07/20/21 16:00 Temperature 98.3 F Pulse Rate 73 81 Respiratory Rate 20 Blood Pressure 103/62 Pulse Oximetry 93 93 07/20/21 18:00 07/20/21 20:00 07/20/21 22:00 Temperature 97.8 F Pulse Rate 71 81 86 Respiratory Rate 20 Blood Pressure 133/62 Pulse Oximetry 93 07/20/21 23:58 07/21/21 00:00 07/21/21 01:56 Temperature 97.6 F Pulse Rate 80 80 72 Respiratory Rate 22 H Blood Pressure 115/64 Pulse Oximetry 98 07/21/21 04:00 07/21/21 06:00 Temperature 98.1 F Pulse Rate 76 72 Respiratory Rate 20 Blood Pressure 116/69 Pulse Oximetry 98 Intake/Output Intake/Output: Intake & Output 07/18/21 07/19/21 07/20/21 07/21/21 23:59 23:59 23:59 23:59 Intake Total 3070 1545 3305 390 Output Total 310 9765 2445 1000 Balance 1705 -1434 089 -436 Meds/Results Medications: Active Medications Generic Name Dose Route S
[2021-07-21] MEDS: PANTOPRAZOLE SODIUM IV 40 MG VIAL IV PUSH ×2 (08:34→21:08)
[2021-07-21] MEDS: EUCERIN CREAM 120 GM JAR 1 APPLIC TOPICAL ×2 (08:34→17:52)
[2021-07-21] MEDS: MIDODRINE HCL 10 MG TABLET PO ×2 (08:34→17:52)
[2021-07-21] MEDS: ACETAMINOPHEN 325 MG TABLET 650 MG PO (08:40)
[2021-07-21] MEDS: OPTI-GEN TAB 1 TABLET PO (08:57)
[2021-07-21] MEDS: LACTATED RINGERS 1,000 ML 50 ML (09:00)
[2021-07-21 09:04] LABS: Glucose Point of Care 126 mg/dl (65-105)
[2021-07-21 09:14] LABS: Basophils Percent Auto 0.4 % (0.2-1.2); Eosinophils Absolute Auto 0.2 K/mm3 (0-0.3); Eosinophils Percent Auto 2.7 % (0-4.4); Hematocrit 25.1 % (42.0-52.0); Immature Granulocyte Absolute 0.06 K/mm3 (0.00-0.031); Immature Granulocyte Percent A 0.7 % (0-0.5); Lymphocytes Absolute Auto 0.71 K/mm3 (0.9-3.2); Lymphocytes Percent Auto 8.3 % (18.3-44.2); Mean Corpuscular HGB Conc 31.9 g/dl (32-36); Mean Corpuscular Hemoglobin 30.3 pg (26-34); Mean Corpuscular Volume 95.1 fl (80-100); Mean Platelet Volume 9.2 fl (7.4-10.4); Monocytes Absolute Auto 0.7 K/mm3 (0.1-0.6); Monocytes Percent Auto 8.2 % (2.6-8.5); Neutrophils Absolute Auto 6.8 K/mm3 (1.3-6.7); Neutrophils Percent Auto 79.7 % (45.5-73.1); Platelet Count Result 295 k/mm3 (150-375); Red Blood Count 2.64 M/mm3 (4.6-6.20); Red Cell Distribution Width 15.7 % (11.5-14.5); White Blood Count 8.6 K/mm3 (4.5-10.0)
[2021-07-21 09:28] LABS: Alanine Aminotransferase 19 U/L (4-50); Albumin Level 3.2 g/dL (3.5-5.1); Alkaline Phosphatase 75 U/L (38-126); Anion Gap 6 mmol/L (8-16); Aspartate Amino Transferase 26 U/L (17-59); Bilirubin,Total 0.7 mg/dL (0.2-1.3); Blood Urea Nitrogen 21 mg/dL (9-20); Calcium 8.1 mg/dL (8.4-10.2); Carbon Dioxide 30 mmol/L (22-30); Chloride 102 mmol/L (98-107); Estimated CRCL calculation 46 ml/min; Estimated Glomerular Filt Rate 45; Glucose 136 mg/dL (65-110); Magnesium 2.2 mg/dL (1.6-2.3); Phosphorus 2.5 mg/dL (2.5-4.5); Potassium 3.5 mmol/L (3.4-5.0); Sodium 138 mmol/L (137-145)
--- NOTE | 2021-07-21 11:46 | PCNFU ---
Nutrition Follow-Up Complete: Swallowing Difficulties as related to noted erosive esophagitis as evidenced by modified diet recommendation. Goal: Adequate Intake of at least 75% of meals/supplement Patient is progressing towards goal. We will continue current goal. Pt current nutrition is Full liquids, Mildly Thick, Level 2 with Ensure compact BID Last recorded weight is 114.6 kg, down from 117.6 kg on admit. Bowel Motility:+BM reported 07/20 Labs Reviewed:Cr 1.5, BUN 21, GFR 45, Glu 136, Hgb 8.0,Hct 25.0 Meds Noted:Synthroid, Protonix, Vancomycin, Ocuvite, Sodium Bicarbonate. Skin: WNL Additional Notes: Patient seen today. He states to tolerating full liquids with Mildly Thick, level 2. Ensure compact BID is providing an additional 220 kcals and 9 gms protein. He did drink his ensure today. Spoke with Dakota Ghosh today regarding diet advancement. He will speak with GI in regards to any diet upgrades. Monitoring: RD will monitor every 3 days.
--- NOTE | 2021-07-21 11:49 | PM.PNNEP ---
Progress Note: A&P Assessment and Plan (1) JASON (acute kidney injury): Code(s): N17.9 - Acute kidney failure, unspecified Status: Acute Assessment and Plan: continues to improve due to several issues/factors: fluctuating hemodynamics/relative hypotension/shock anemia/low H&H JUAN FRANCISCO-I and diuretics COMB TENDER prerenal factors evaluation to date: renal ultrasound c/w CKD; no acute changes urine electrolytes suggest prerenal azotemia CPK elevated but not high enough to cause renal dysfunction holding lisinopril and diuretics follow trend of repeat labs and UOP (2) Chronic kidney disease, stage 3: Code(s): N18.30 - Chronic kidney disease, stage 3 unspecified Status: Acute Assessment and Plan: baseline creatinine runs around 1.1 - 1.5mg/dl (but has been as high as 1.8mg/d) presumably due to HTN, vascular disease, and possibly DEMETRI (3) Shock: Code(s): R57.9 - Shock, unspecified Status: Acute Assessment and Plan: suspect due issues related to anemia and GI bleed on vasopressor therapy to maintain MAP - wean as tolerated follow culture data - empirically on antibiotics follow trend of hemodynamics (4) GI bleed: Qualifiers: GI bleed type/associated pathology: unspecified gastrointestinal hemorrhage type Qualified Code(s): K92.2 - Gastrointestinal hemorrhage, unspecified Code(s): K92.2 - Gastrointestinal hemorrhage, unspecified Status: Acute Assessment and Plan: Gastroenterology following s/p EGD with findings of showed esophageal and gastric ulcers on PPI follow trend H/H PRBC transfusion per protocol (5) Altered mental status: Code(s): R41.82 - Altered mental status, unspecified Status: Acute Assessment and Plan: due to JASON versus hyponatremia or both versus something else(?) CT of head noted follow mentation - seems better (6) Atrial fibrillation and flutter: Code(s): I48.91 - Unspecified atrial fibrillation; I48.92 - Unspecified atrial flutter Status: Chronic Assessment and Plan: continue rate control strategy off anticoagulation due to concerns of GI bleed Will continue to follow. Subjective Date/time seen: 07/21/21 11:49 Mentation continues to improve if not stabilize (presumably back to baseline); remains hemodynamically stable off vasopressor therapy; renal function/creatinine continues to improve as well with reasonably urine output; no apparent distress voiced at this time. Exam Narrative: General: WD/WN male in NAD Heart: normal S1 and S2; no rub Lungs: decreased at bases Abdomen: soft, nontender, nondistended, positive bowel sounds Extremities: no cyanosis or clubbing; trace edema Skin: no nodules Objective Data Vital Signs Vital Signs: Vital Signs - 24 hr 07/20/21 13:03 07/20/21 14:00 07/20/21 16:00 Temperature 36.8 C Pulse Rate 73 81 Respiratory Rate 20 Blood Pressure 103/62 Pulse Oximetry 93 93 07/20/21 18:00 07/20/21 20:00 07/20/21 22:00 Temperature 36.6 C Pulse Rate 71 81 86 Respiratory Rate 20 Blood Pressure 133/62 Pulse Oximetry 93 07/20/21 23:58 07/21/21 00:00 07/21/21 01:56 Temperature 36.4 C Pulse Rate 80 80 72 Respiratory Rate 22 H Blood Pressure 115/64 Pulse Oximetry 98 07/21/21 04:00 07/21/21 06:00 07/21/21 08:00 Temperature 36.7 C Pulse Rate 76 72 81 Respiratory Rate 20 23 H Blood Pressure 116/69 134/72 Pulse Oximetry 98 99 Intake/Output Intake/Output: Intake & Output 07/18/21 07/19/21 07/20/21 07/21/21 23:59 23:59 23:59 23:59 Intake Total 3070 1545 3305 390 Output Total 310 3265 2675 1000 Balance 9229 -9532 630 -136 Meds/Results Medications: Active Medications Generic Name Dose Route Start Last Admin Trade Name Jacey PRN Reason Stop Dose Admin Acetaminophen 650 mg 07/16/21 08:33 07/21/21 08:40 Acetaminophen 325 Mg Tablet PO 650 mg
--- NOTE | 2021-07-21 11:49 | P.PNNP_ITS ---
Progress Note: A&P Assessment and Plan (1) JASON (acute kidney injury): Code(s): N17.9 - Acute kidney failure, unspecified Status: Acute Assessment and Plan: * continues to improve * due to several issues/factors: * fluctuating hemodynamics/relative hypotension/shock * anemia/low H&H * JUAN FRANCISCO-I and diuretics SAW MAN * prerenal factors * evaluation to date: * renal ultrasound c/w CKD; no acute changes * urine electrolytes suggest prerenal azotemia * CPK elevated but not high enough to cause renal dysfunction * holding lisinopril and diuretics * follow trend of repeat labs and UOP (2) Chronic kidney disease, stage 3: Code(s): N18.30 - Chronic kidney disease, stage 3 unspecified Status: Acute Assessment and Plan: * baseline creatinine runs around 1.1 - 1.5mg/dl (but has been as high as 1.8mg/d) * presumably due to HTN, vascular disease, and possibly DEMETRI (3) Shock: Code(s): R57.9 - Shock, unspecified Status: Acute Assessment and Plan: * suspect due issues related to anemia and GI bleed * on vasopressor therapy to maintain MAP - wean as tolerated * follow culture data - empirically on antibiotics * follow trend of hemodynamics (4) GI bleed: Qualifiers: GI bleed type/associated pathology: unspecified gastrointestinal hemorrhage type Qualified Code(s): K92.2 - Gastrointestinal hemorrhage, unspecified Code(s): K92.2 - Gastrointestinal hemorrhage, unspecified Status: Acute Assessment and Plan: * Gastroenterology following * s/p EGD with findings of showed esophageal and gastric ulcers * on PPI * follow trend H/H * PRBC transfusion per protocol (5) Altered mental status: Code(s): R41.82 - Altered mental status, unspecified Status: Acute Assessment and Plan: * due to JASON versus hyponatremia or both versus something else(?) * CT of head noted * follow mentation - seems better (6) Atrial fibrillation and flutter: Code(s): I48.91 - Unspecified atrial fibrillation; I48.92 - Unspecified atrial flutter Status: Chronic Assessment and Plan: * continue rate control strategy * off anticoagulation due to concerns of GI bleed Will continue to follow. Subjective Date/time seen: 07/21/21 11:49 Mentation continues to improve if not stabilize (presumably back to baseline); remains hemodynamically stable off vasopressor therapy; renal function/creatinine continues to improve as well with reasonably urine output; no apparent distress voiced at this time. Exam Narrative: General: WD/WN male in NAD Heart: normal S1 and S2; no rub Lungs: decreased at bases Abdomen: soft, nontender, nondistended, positive bowel sounds Extremities: no cyanosis or clubbing; trace edema Skin: no nodules Objective Data Vital Signs Vital Signs: Vital Signs - 24 hr 07/20/21 13:03 07/20/21 14:00 07/20/21 16:00 Temperature 36.8 C Pulse Rate 73 81 Respiratory Rate 20 Blood Pressure 103/62 Pulse Oximetry 93 93 07/20/21 18:00 07/20/21 20:00 07/20/21 22:00 Temperature 36.6 C Pulse Rate 71 81 86 Respiratory Rate 20 Blood Pressure 133/62 Pulse Oximetry 93 07/20/21 23:58 07/21/21 00:00 07/21/21 01:56 Temperature 36.4 C Pulse Rate 80 80 72
--- NOTE | 2021-07-21 12:01 | WPDINTPN ---
Progress Note: A&P Assessment and Plan (1) Shock: Code(s): R57.9 - Shock, unspecified Status: Acute Assessment and Plan: Shock could be related to anemia, GI bleed, possible infection cardiogenic -unlikely, -on 07/18/2021: Patient was hypotensive with systolic blood pressures in the 70s and 80s -transferred the ICU on 07/18, central line was inserted in the right femoral on the same day and was started on Levophed -patient has been vasopressors since the afternoon of 07/20 -patient definitely more awake, alert and oriented x3 this morning as compared compared to 07/18. -continue vanc and Zosyn on 07/18 for a total of 5 days -07/18: blood and urine cultures have been negative so far -patient did drop his hemoglobin to 6.9 05/28/2021 was transfused 1 unit of packed RBCs -hemoglobin stable, we continues to have some melena -creatinine much improved with very good urine output (2) GI bleed: Qualifiers: GI bleed type/associated pathology: unspecified gastrointestinal hemorrhage type Qualified Code(s): K92.2 - Gastrointestinal hemorrhage, unspecified Code(s): K92.2 - Gastrointestinal hemorrhage, unspecified Status: Acute Assessment and Plan: Patient presents with anemia and history of melena. -hemoglobin dropped to 6.7 on 07/16 and was transfused 1 unit of packed RBCs - EGD on 07/17/2021 which showed multiple esophageal ulcers in the mid esophagus and in the distal esophagus. A single deep chronic ulcer was visualized in the pre-pyloric region. The ulcer was clean based without signs of bleeding. Biopsy was performed. Multiple created benign ulcers were also visualized in the antrum. No ulcers or masses were seen in the bowel more the 2nd portion of the duodenum -on 07/18 patient hemoglobin was 6.9 and was transfused 1 unit of packed RBCs -hemoglobin stable, no patient continues to have melena -patient on Protonix IV Q12H -GI is following the patient -viscous lidocaine was ordered as patient was having pain on swallowing. Now is able to tolerate full liquid diet (3) JASON (acute kidney injury): Code(s): N17.9 - Acute kidney failure, unspecified Status: Acute Assessment and Plan: Acute on chronic kidney disease stage 3 -creatinine on admission was 1.10 and has been increasingly worsening and peaked at 5.90 on 07/18.- - Renal ultrasound 07/17/2021: Shows normal right kidney and moderate left renal atrophy without hydronephrosis. -appreciate Nephrology following the patient -discontinue sodium bicarb infusion -BUN/creatinine have improved significantly, 16/06.5. (4) Acute on chronic diastolic heart failure: Code(s): I50.33 - Acute on chronic diastolic (congestive) heart failure Status: Acute Assessment and Plan: Patient has grade 4 diastolic dysfunction Echocardiogram [id number]: Showed LV systolic function is hyperdynamic with estimated EF of 70%, LV chamber dimension is normal, patient does have grade 4 diastolic dysfunction, right ventricular systolic function is mildly reduced, moderate tricuspid valve regurg, moderate pulmonary hypertension with RVSP of 58 mmHg -cardiology following the patient -off vasopressors -will monitor respiratory status and chest x-ray -cautious IV fluids (5) Anemia: Code(s): D64.9 - Anemia, unspecified Status: Acute Assessment and Plan: Anemia most likely related to GI bleed, -patient has been transfused 1 unit of packed RBC on 07/16 and in 1 unit of packed RBC on 07/18 -hemoglobin stable, continue to monitor -transfuse as needed (6) Elevated troponin: Code(s): R77.8 - Other specified abnormalities of plasma proteins Status: Acute Assessment and Plan: Elevated troponin on admission was slightly thought to be secondary to GI bleed and anemia -the echocardiogram as above -Cardiology following the patient -aspirin is on hold due to GI bleed, -hold metoprolol and the antihypertensive medicatio
--- NOTE | 2021-07-21 14:04 | PC.NURSE ---
This patient, Seferino Cano, was received from ICU on 07/21/21 at 1404. Patient/family oriented to unit policies and routines
--- NOTE | 2021-07-21 14:05 | PM.IMPN ---
Progress Note: A&P Assessment and Plan (1) Hypotension: Code(s): I95.9 - Hypotension, unspecified Status: Acute Assessment and Plan: Patient developed HoTN afternoon of 07/18. RN stated that the patient was not fluid responsive. He had finished the blood transfusion earlier that day. He was given Midodrine, Albumin and a fluid bolus. Some improvement but then dropped again so moved to IVC and central line placed on 07/18. He was started on Levophed. BP and UOP has improved. Pressors able to be weaned off. 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 Central line removed. Start PT/OT (2) JASON (acute kidney injury): Code(s): N17.9 - Acute kidney failure, unspecified Status: Acute Assessment and Plan: Cr 1.1 on admission but jumped quickly to 5.9 on 07/18. Lisinopril and lasix were held. Disla secured. Renal US showing normal right kidney and moderate left renal atrophy without hydronephrosis (old per ). IV fluids started. TCK 887 but not felt to be the etiology of the JASON. Pressors started to ensure adequate renal perfusion. Nephrology consulted and workup started. UA showing WBC and protein. Ueos are rare. UOP much better today at 2575mL yesterday and 1000mL so far today. Cr down to 1.5 today. Most likely ATN from the anemia and HoTN and now with post-ATN diuresis. He is on abx but started after urine eos collected. Pressors stopped. IVF stopped. Appreciate Nephrology input. Follow renal function and UOP. (3) GI bleed: Qualifiers: GI bleed type/associated pathology: unspecified gastrointestinal hemorrhage type Qualified Code(s): K92.2 - Gastrointestinal hemorrhage, unspecified Code(s): K92.2 - Gastrointestinal hemorrhage, unspecified Status: Acute Assessment and Plan: Patient presents with anemia and history of melena. He was started on Protonix drip. Serial H&H was performed and he was transfused 1 unit PRBC 07/16. CT of the abdomen pelvis showed the soft tissue thickening of the gastric duodenal area concerning for peptic ulcer disease. GI was consulted and he underwent EGD 07/17 which showed esophageal and gastric ulcers. This is most likely the etiology of his GI bleed and acute blood loss anemia. Still having black stools but suspect this is old blood in the GI tract and not new bleeding. Hgb stable. Continue to hold Eliquis. Continue Protonix. Transfuse as necessary. (4) Altered mental status: Code(s): R41.82 - Altered mental status, unspecified Status: Acute Assessment and Plan: Patient is alert but still mildly confused. CT of the brain showing no acute findings. Ammonia, TSH, Folate and B12 levels are normal. Mental status could be related to acute kidney injury. Symptoms better overall. Follow. (5) Anemia: Qualifiers: Anemia type: unspecified type Qualified Code(s): D64.9 - Anemia, unspecified Code(s): D64.9 - Anemia, unspecified Status: Inactive Assessment and Plan: Hgb 12.6 last March which is probably baseline. Hgb 8.1 on admission and dropped to 6.7. Acute blood loss anemia secondary to GI bleed. He does have iron deficiency noted. Patient received 1 unit packed red blood cells on 07/16/21. Hemoglobin climbed to 7-8 range but dropped to 6.9 so a 2nd unit transfused 07/18. Hgb up to 8 range and remaining stable. Continue to monitor. Transfuse as necessary. (6) Elevated troponin: Code(s): R77.8 - Other specified abnormalities of plasma proteins Status: Acute Assessment and Plan: Troponin elevated on admission and peaking at 0.112. No CP per patient. EKG showing PACs, iRBBB, borderline ST-T wave changes in the high lateral leads (no change from EKG on admission). Echo as mentioned below. Related to the CHF? or JASON? Hold on ASA at this time. Metoprolol also on hold. EKG verifies AFib. Cardiology following. (7) DEMETRI (obstructive sleep apnea): Code(s): G47.33 - Obstructive sleep apnea (adult
--- NOTE | 2021-07-21 15:31 | PC.NURSE ---
Central line dressing removed on 07/21/21 at 1300. Peripheral IV placed in right hand for new access. Receiving nurse Jazmín yo. Patient transported off the unit at approximately 1340 pm.
[2021-07-21 20:39] LABS: Vancomycin Trough 11.1 ug/mL (10.0-20.0)
[2021-07-22] VITALS (25 sets, daily range): BP systolic 131–154; BP diastolic 68–87; PULSE 76–106; RESP 16–24; TEMP 36.1–36.8; O2SAT 93–100
[2021-07-22 05:47] LABS: Basophils Percent Auto 0.4 % (0.2-1.2); Eosinophils Absolute Auto 0.3 K/mm3 (0-0.3); Eosinophils Percent Auto 3.2 % (0-4.4); Hematocrit 26.5 % (42.0-52.0); Hemoglobin 8.4 g/dL (14.0-18.0); Immature Granulocyte Absolute 0.06 K/mm3 (0.00-0.031); Immature Granulocyte Percent A 0.6 % (0-0.5); Lymphocytes Absolute Auto 0.85 K/mm3 (0.9-3.2); Lymphocytes Percent Auto 9.2 % (18.3-44.2); Mean Corpuscular HGB Conc 31.7 g/dl (32-36); Mean Corpuscular Hemoglobin 30.5 pg (26-34); Mean Corpuscular Volume 96.4 fl (80-100); Mean Platelet Volume 9.4 fl (7.4-10.4); Monocytes Absolute Auto 0.9 K/mm3 (0.1-0.6); Monocytes Percent Auto 9.4 % (2.6-8.5); Neutrophils Absolute Auto 7.1 K/mm3 (1.3-6.7); Neutrophils Percent Auto 77.2 % (45.5-73.1); Platelet Count Result 313 k/mm3 (150-375); Red Blood Count 2.75 M/mm3 (4.6-6.20); Red Cell Distribution Width 15.5 % (11.5-14.5); White Blood Count 9.2 K/mm3 (4.5-10.0)
[2021-07-22] MEDS: LEVOTHYROXINE SODIUM 50 MCG TABLET PO (05:55)
[2021-07-22 06:05] LABS: Alanine Aminotransferase 20 U/L (4-50); Albumin Level 3.2 g/dL (3.5-5.1); Alkaline Phosphatase 87 U/L (38-126); Anion Gap 5 mmol/L (8-16); Aspartate Amino Transferase 28 U/L (17-59); Bilirubin,Total 0.6 mg/dL (0.2-1.3); Blood Urea Nitrogen 16 mg/dL (9-20); Calcium 8.1 mg/dL (8.4-10.2); Carbon Dioxide 31 mmol/L (22-30); Chloride 104 mmol/L (98-107); Estimated CRCL calculation 53 ml/min; Estimated Glomerular Filt Rate 54; Glucose 122 mg/dL (65-110); Phosphorus 2.5 mg/dL (2.5-4.5); Potassium 3.5 mmol/L (3.4-5.0); Sodium 140 mmol/L (137-145)
--- NOTE | 2021-07-22 06:55 | PM.PNCARD ---
Progress Note: A&P Assessment and Plan (1) Gastric ulcer due to nonsteroidal antiinflammatory drug (NSAID) therapy: Code(s): K25.9 - Gastric ulcer, unspecified as acute or chronic, without hemorrhage or perforation; T39.395A - Adverse effect of other nonsteroidal anti-inflammatory drugs [NSAID], initial encounter Status: Acute Assessment and Plan: GI following. (2) GI bleed: Qualifiers: GI bleed type/associated pathology: unspecified gastrointestinal hemorrhage type Qualified Code(s): K92.2 - Gastrointestinal hemorrhage, unspecified Code(s): K92.2 - Gastrointestinal hemorrhage, unspecified Status: Acute Assessment and Plan: GI following. (3) Elevated troponin: Code(s): R77.8 - Other specified abnormalities of plasma proteins Status: Acute Assessment and Plan: Doubt ACS. Probably due to GI bleed and ARF. (4) Paroxysmal atrial flutter: Code(s): I48.92 - Unspecified atrial flutter Status: Acute Assessment and Plan: [id number] 3. Currently back in atrial fib/flutter. Holding Eliquis due to GI bleed. Resume when OK with GI service. Tachycardic. Resume Metoprolol Tartate 25 mg BID. (5) JASON (acute kidney injury): Code(s): N17.9 - Acute kidney failure, unspecified Status: Acute Assessment and Plan: Renal function much improved. Nephrology following. (6) Diastolic dysfunction: Code(s): I51.89 - Other ill-defined heart diseases Status: Acute Assessment and Plan: Stage IV. Chronic. Euvolemic. Diuretics on hold due to ARF. Echo 07/18/21 shows EF >70%, mild LVH, grade IV diastolic dysfunction (E/e' 20), mild LAE, mod RVE/hypokinesis, mod TR. (7) COPD (chronic obstructive pulmonary disease): Code(s): J44.9 - Chronic obstructive pulmonary disease, unspecified Status: Acute (8) Edema of both legs: Code(s): R60.0 - Localized edema Status: Acute Assessment and Plan: Mild. Consider restarting Furosemide but need to monitor kidney function. (9) Hypotension: Code(s): I95.9 - Hypotension, unspecified Status: Acute Assessment and Plan: Resolved. Probably related to GI bleed/anemia. Was on Levophed drip in ICU. Levophed off. BP is now high. Stop Midodrine. Subjective Date/time seen: 07/22/21 06:55 Patient is alert but oriented only to name. He is confused thinking he is at home. No chest pain or sob. Exam Const: General: cooperative and well developed Orientation/consciousness: oriented to person, No oriented to place, No oriented to time and confusion Resp: Auscultation: clear to auscultation bilaterally, no crackles, no rales, no rhonchi and no wheezes Cardio: Jugular venous distension: no JVD Rate: tachycardic Rhythm: abnormal rhythm Heart sounds: no murmurs Peripheral pulses: dorsalis pedis present GI: GI Palp: Yes Soft to palpation Extrem: Right lower extremity: edema Left lower extremity: edema Other: Mild edema of both legs with abrasions and erythema Objective Data Vital Signs Vital Signs: Vital Signs - 24 hr 07/21/21 08:00 07/21/21 14:00 07/21/21 16:00 Temperature 98.5 F Pulse Rate 81 73 109 H Respiratory Rate 23 H 18 Blood Pressure 134/72 125/73 Pulse Oximetry 99 92 07/21/21 18:00 07/21/21 20:00 07/22/21 00:00 Temperature 98.7 F 98.5 F 98.3 F Pulse Rate 75 84 86 Respiratory Rate 18 20 20 Blood Pressure 123/64 134/74 143/68 H Pulse Oximetry 98 95 93 07/22/21 03:28 07/22/21 04:00 07/22/21 04:25 Temperature 97.9 F 97 F L Pulse Rate 105 H 101 H 98 Respiratory Rate 22 H 24 H Blood Pressure 148/70 H 154/87 H Pulse Oximetry 93 99 07/22/21 04:38 07/22/21 04:48 Temperature Pulse Rate 97 99 Respiratory Rate 20 18 Blood Pressure Pulse Oximetry Intake/Output Intake/Output: Intake & Output 07/19/21 07/20/21 07/21/21 07/22/21 23:59 23:59 23:59 23:59 Intake Total 1545 3305 1760 50 Output Total 3265 2
[2021-07-22] MEDS: IPRATROPIUM BR 0.02% INH SOLN 0.5 MG/2.5 ML VIAL INHALATION ×3 (08:38→20:07)
[2021-07-22] MEDS: EUCERIN CREAM 120 GM JAR 1 APPLIC TOPICAL ×2 (08:53→17:36)
[2021-07-22] MEDS: OPTI-GEN TAB 1 TABLET PO (08:53)
[2021-07-22] MEDS: METOPROLOL TARTRATE 25 MG TABLET PO ×2 (08:53→19:56)
[2021-07-22] MEDS: PANTOPRAZOLE SODIUM IV 40 MG VIAL IV PUSH ×2 (08:53→19:55)
--- NOTE | 2021-07-22 12:23 | P.PNNP_ITS ---
Progress Note: A&P Assessment and Plan (1) JASON (acute kidney injury): Code(s): N17.9 - Acute kidney failure, unspecified Status: Acute Assessment and Plan: * resolved/if not back to baseline * due to several issues/factors: * fluctuating hemodynamics/relative hypotension/shock * anemia/low H&H * JUAN FRANCISCO-I and diuretics [employer]CIM[employer] BOSS * prerenal factors * evaluation to date: * renal ultrasound c/w CKD; no acute changes * urine electrolytes suggest prerenal azotemia * CPK elevated but not high enough to cause renal dysfunction * holding lisinopril and diuretics * follow trend of repeat labs and UOP (2) Chronic kidney disease, stage 3: Code(s): N18.30 - Chronic kidney disease, stage 3 unspecified Status: Acute Assessment and Plan: * baseline creatinine runs around 1.1 - 1.5mg/dl (but has been as high as 1.8mg/d) * presumably due to HTN, vascular disease, and possibly DEMETRI (3) Shock: Code(s): R57.9 - Shock, unspecified Status: Resolved Assessment and Plan: * suspect due issues related to anemia and GI bleed * follow trend of hemodynamics (4) GI bleed: Qualifiers: GI bleed type/associated pathology: unspecified gastrointestinal hemorrhage type Qualified Code(s): K92.2 - Gastrointestinal hemorrhage, unspecified Code(s): K92.2 - Gastrointestinal hemorrhage, unspecified Status: Acute Assessment and Plan: * Gastroenterology following * s/p EGD with findings of showed esophageal and gastric ulcers * on PPI * follow trend H/H * PRBC transfusion per protocol (5) Altered mental status: Code(s): R41.82 - Altered mental status, unspecified Status: Acute Assessment and Plan: * doing better as well * due to JASON versus hyponatremia or both versus something else(?) * follow mentation (6) Atrial fibrillation and flutter: Code(s): I48.91 - Unspecified atrial fibrillation; I48.92 - Unspecified atrial flutter Status: Chronic Assessment and Plan: * continue rate control strategy * off anticoagulation due to concerns of GI bleed Will continue to follow. Subjective Date/time seen: 07/22/21 12:23 Transferred out of ICU and remains hemodynamically stable without the need for vasopressor therapy; his mental status continues to wax and wane at this time; H/H relatively stable by AM labs; no apparent issues/events overnight or earlier this morning. Exam Narrative: General: WD/WN male in NAD Heart: normal S1 and S2; no rub Lungs: decreased at bases Abdomen: soft, nontender, nondistended, positive bowel sounds Extremities: no cyanosis or clubbing; trace edema Skin: warm and intact Objective Data Vital Signs Vital Signs: Vital Signs Temp Pulse Resp BP Pulse Ox 07/22/21 12:00 90 07/22/21 09:00 76 16 100 07/22/21 08:53 76 07/22/21 08:52 36.6 C 93 16 131/76 100 07/22/21 08:47 80 18 07/22/21 08:39 81 18 07/22/21 08:37 81 94 07/22/21 08:00 85 07/22/21 04:48 99 18 07/22/21 04:38 97 20 07/22/21 04:25 36.1 C L 98 24 H 154/87 H 99 07/22/21 04:00 101 H 07/22/21 03:28 36.6 C 105 H 22 H 148/70 H 93 07/22/21 00:00 36.8 C 86 20 143/68 H 93 07/21/21 20:00 36.9 C 84 20 134/74 95 02
--- NOTE | 2021-07-22 12:23 | PM.PNNEP ---
Progress Note: A&P Assessment and Plan (1) JASON (acute kidney injury): Code(s): N17.9 - Acute kidney failure, unspecified Status: Acute Assessment and Plan: resolved/if not back to baseline due to several issues/factors: fluctuating hemodynamics/relative hypotension/shock anemia/low H&H JUAN FRANCISCO-I and diuretics [employer] prerenal factors evaluation to date: renal ultrasound c/w CKD; no acute changes urine electrolytes suggest prerenal azotemia CPK elevated but not high enough to cause renal dysfunction holding lisinopril and diuretics follow trend of repeat labs and UOP (2) Chronic kidney disease, stage 3: Code(s): N18.30 - Chronic kidney disease, stage 3 unspecified Status: Acute Assessment and Plan: baseline creatinine runs around 1.1 - 1.5mg/dl (but has been as high as 1.8mg/d) presumably due to HTN, vascular disease, and possibly DEMETRI (3) Shock: Code(s): R57.9 - Shock, unspecified Status: Resolved Assessment and Plan: suspect due issues related to anemia and GI bleed follow trend of hemodynamics (4) GI bleed: Qualifiers: GI bleed type/associated pathology: unspecified gastrointestinal hemorrhage type Qualified Code(s): K92.2 - Gastrointestinal hemorrhage, unspecified Code(s): K92.2 - Gastrointestinal hemorrhage, unspecified Status: Acute Assessment and Plan: Gastroenterology following s/p EGD with findings of showed esophageal and gastric ulcers on PPI follow trend H/H PRBC transfusion per protocol (5) Altered mental status: Code(s): R41.82 - Altered mental status, unspecified Status: Acute Assessment and Plan: doing better as well due to JASON versus hyponatremia or both versus something else(?) follow mentation (6) Atrial fibrillation and flutter: Code(s): I48.91 - Unspecified atrial fibrillation; I48.92 - Unspecified atrial flutter Status: Chronic Assessment and Plan: continue rate control strategy off anticoagulation due to concerns of GI bleed Will continue to follow. Subjective Date/time seen: 07/22/21 12:23 Transferred out of ICU and remains hemodynamically stable without the need for vasopressor therapy; his mental status continues to wax and wane at this time; H/H relatively stable by AM labs; no apparent issues/events overnight or earlier this morning. Exam Narrative: General: WD/WN male in NAD Heart: normal S1 and S2; no rub Lungs: decreased at bases Abdomen: soft, nontender, nondistended, positive bowel sounds Extremities: no cyanosis or clubbing; trace edema Skin: warm and intact Objective Data Vital Signs Vital Signs: Vital Signs Temp Pulse Resp BP Pulse Ox 07/22/21 12:00 90 07/22/21 09:00 76 16 100 07/22/21 08:53 76 07/22/21 08:52 36.6 C 93 16 131/76 100 07/22/21 08:47 80 18 07/22/21 08:39 81 18 07/22/21 08:37 81 94 07/22/21 08:00 85 07/22/21 04:48 99 18 07/22/21 04:38 97 20 07/22/21 04:25 36.1 C L 98 24 H 154/87 H 99 07/22/21 04:00 101 H 07/22/21 03:28 36.6 C 105 H 22 H 148/70 H 93 07/22/21 00:00 36.8 C 86 20 143/68 H 93 07/21/21 20:00 36.9 C 84 20 134/74 95 07/21/21 18:00 37.1 C 75 18 123/64 98 07/21/21 16:00 109 H Intake/Output Intake/Output: Intake & Output 07/19/21 07/20/21 07/21/21 07/22/21 23:59 23:59 23:59 23:59 Intake Total 1545 3305 1760 100 Output Total 3265 2675 1400 400 Balance -1720 630 360 -300 Meds/Results Medications: Active Medications Generic Name Dose Route Start Last Admin Trade Name Freq PRN Reason Stop Dose Admin Acetaminophen 650 mg 07/16/21 08:33 07/21/21 08:40 Acetaminophen 325 Mg Tablet PO 650 mg Q6H PRN Administration Mild Pain (1-3) or Fever Albuterol 2 puff 07/15/21 06:50 07/15/21 21:27 Albuterol Sulfate (*Sp) Aerosol 1 Puff INHALATION 2
--- NOTE | 2021-07-22 12:25 | PM.IMPN ---
Progress Note: A&P Assessment and Plan (1) Hypotension: Code(s): I95.9 - Hypotension, unspecified Status: Acute Assessment and Plan: Interval history:History of hypotension was on vasopressors in ICU. 07/22 Continue to watch BPs. (2) JASON (acute kidney injury): Code(s): N17.9 - Acute kidney failure, unspecified Status: Acute Assessment and Plan: Interval history: Cr 1.1 on admission but jumped quickly to 5.9 on 07/18. Lisinopril and lasix were held. Disla secured. Renal US showing normal right kidney and moderate left renal atrophy without hydronephrosis (old per ). IV fluids started. TCK 887 but not felt to be the etiology of the JASON. Pressors started to ensure adequate renal perfusion. Nephrology consulted and workup started. UA showing WBC and protein. 07/22 Most likely cause beileved to be ATN. Creat improved to 1.3 today.continue to follow BMP (3) GI bleed: Qualifiers: GI bleed type/associated pathology: unspecified gastrointestinal hemorrhage type Qualified Code(s): K92.2 - Gastrointestinal hemorrhage, unspecified Code(s): K92.2 - Gastrointestinal hemorrhage, unspecified Status: Acute Assessment and Plan: Interval history : Patient presents with anemia and history of melena. He was started on Protonix drip. Serial H&H was performed and he was transfused 1 unit PRBC 07/16. CT of the abdomen pelvis showed the soft tissue thickening of the gastric duodenal area concerning for peptic ulcer disease. GI was consulted and he underwent EGD 07/17 which showed esophageal and gastric ulcers. This is most likely the etiology of his GI bleed and acute blood loss anemia. Still having black stools but suspect this is old blood in the GI tract and not new bleeding. Hgb stable. Continue to hold Eliquis. Continue Protonix. Transfuse as necessary. (4) Altered mental status: Code(s): R41.82 - Altered mental status, unspecified Status: Acute Assessment and Plan: Interval history:Patient is alert but still mildly confused. CT of the brain showing no acute findings. Ammonia, TSH, Folate and B12 levels are normal. Mental status could be related to acute kidney injury. 07/22/2021 Continue PT/ OT (5) Anemia: Qualifiers: Anemia type: unspecified type Qualified Code(s): D64.9 - Anemia, unspecified Code(s): D64.9 - Anemia, unspecified Status: Inactive Assessment and Plan: Hgb 12.6 last March which is probably baseline. Hgb 8.1 on admission and dropped to 6.7. Acute blood loss anemia secondary to GI bleed. He does have iron deficiency noted. Patient received 1 unit packed red blood cells on 07/16/21. Hemoglobin climbed to 7-8 range but dropped to 6.9 so a 2nd unit transfused 07/18. Hgb up to 8 range and remaining stable. 06/28// 07/22/2021 Continue to monitor Hb levels (6) Elevated troponin: Code(s): R77.8 - Other specified abnormalities of plasma proteins Status: Acute Assessment and Plan: Interval history: Troponin elevated on admission and peaking at 0.112. No CP per patient. EKG showing PACs, iRBBB, borderline ST-T wave changes in the high lateral leads (no change from EKG on admission). Echo as mentioned below. Related to the CHF? or JASON? Hold on ASA at this time. Metoprolol also on hold. EKG verifies AFib. Cardiology following. (7) DEMETRI (obstructive sleep apnea): Code(s): G47.33 - Obstructive sleep apnea (adult) (pediatric) Status: Inactive Assessment and Plan: Interval history :. Patient intolerant to CPAP. (8) Diastolic CHF: Code(s): I50.30 - Unspecified diastolic (congestive) heart failure Status: Acute Assessment and Plan: Interval history: CXR showing mild opacities c/w edema. BNP 6370. Echo showing EF 70% with Grade IV diastolic dysfunction with RVH and decreased RV systolic function. [place] he has acute on chronic diastolic CHF. Will continu
--- NOTE | 2021-07-22 14:44 | WPDGIPROGNO ---
Progress Note: A&P Assessment and Plan (1) Gastric ulcer due to nonsteroidal antiinflammatory drug (NSAID) therapy: Code(s): K25.9 - Gastric ulcer, unspecified as acute or chronic, without hemorrhage or perforation; T39.395A - Adverse effect of other nonsteroidal anti-inflammatory drugs [NSAID], initial encounter Status: Acute Assessment and Plan: EGD revealed multiple antral ulcers consistent with NSAID use, also large ulcer in pre-pyloric area but did not required intervention. On arrival required blood transfusion and he also was in shock- all resolved. he was transferred to floor continue with protonix bid, advance diet as tolerated hb low but stable mid 8 Dr Krueger is planning to do EGD in 2 months to assess healing (2) GI bleed: Qualifiers: GI bleed type/associated pathology: unspecified gastrointestinal hemorrhage type Qualified Code(s): K92.2 - Gastrointestinal hemorrhage, unspecified Code(s): K92.2 - Gastrointestinal hemorrhage, unspecified Status: Acute Assessment and Plan: from egd findings on ppi (3) Acute on chronic blood loss anemia: Code(s): D62 - Acute posthemorrhagic anemia Status: Acute Assessment and Plan: h/h stable, continue to monitor (4) Chronic anticoagulation: Code(s): Z79.01 - shelter (current) use of anticoagulants Status: Acute Assessment and Plan: hold eliquis for another 7 days (h/o afib) (5) JASON (acute kidney injury): Code(s): N17.9 - Acute kidney failure, unspecified Status: Acute Assessment and Plan: resolved (6) Shock: Code(s): R57.9 - Shock, unspecified Status: Acute Assessment and Plan: resolved (7) Altered mental status: Code(s): R41.82 - Altered mental status, unspecified Status: Acute Assessment and Plan: improved and back to his baseline sitter at bedside (8) Paroxysmal atrial flutter: Code(s): I48.92 - Unspecified atrial flutter Status: Acute Subjective Date/time seen: 07/22/21 14:44 Interval history: he was transferred to floor and no incidents. He is comfortable, denies pain. He has a sitter because normally gets confused. Review of Systems Review of Systems: All systems reviewed & are unremarkable except as noted in HPI and below Exam Const: General: comfortable and no acute distress HENMT: General nose exam: Normal nares present Eyes: Sclera: sclerae normal Neck: Neck: supple Resp: Auscultation: clear to auscultation bilaterally Cardio: Rhythm: abnormal rhythm regularly irregular GI: GI Palp: Yes Soft to palpation, No Tenderness to palpation present (GI) and No Guarding due to palpation present (GI) Auscultation: normal bowel sounds Skin: General skin exam: no rashes or lesions noted Neuro: Speech: normal speech Other: awake and alert x2 Extrem: General: normal to inspection Psych: Affect: Anxious affect present Objective Data Vital Signs Vital Signs: Vital Signs - 24 hr 07/21/21 16:00 07/21/21 18:00 07/21/21 20:00 Temperature 98.7 F 98.5 F Pulse Rate 109 H 75 84 Respiratory Rate 18 20 Blood Pressure 123/64 134/74 Pulse Oximetry 98 95 07/22/21 00:00 07/22/21 03:28 07/22/21 04:00 Temperature 98.3 F 97.9 F Pulse Rate 86 105 H 101 H Respiratory Rate 20 22 H Blood Pressure 143/68 H 148/70 H Pulse Oximetry 93 93 07/22/21 04:25 07/22/21 04:38 07/22/21 04:48 Temperature 97 F L Pulse Rate 98 97 99 Respiratory Rate 24 H 20 18 Blood Pressure 154/87 H Pulse Oximetry 99 07/22/21 08:00 07/22/21 08:37 07/22/21 08:39 Temperature Pulse Rate 85 81 81 Respiratory Rate 18 Blood Pressure Pulse Oximetry 94 07/22/21 08:47 07/22/21 08:52 07/22/21 08:53 Temperature 97.8 F Pulse Rate 80 93 76 Respiratory Rate 18 16 Blood Pressure 131/76 Pulse Oximetry 100 07/22/21 09:00 07/22/21 12:00 07/22/21 13:45 Temperature 98 F Pulse Rate 7
[2021-07-23] VITALS (18 sets, daily range): BP systolic 130–147; BP diastolic 71–81; PULSE 80–102; RESP 16–24; TEMP 36.4–36.8; O2SAT 93–100
[2021-07-23] MEDS: IPRATROPIUM BR 0.02% INH SOLN 0.5 MG/2.5 ML VIAL INHALATION ×4 (01:49→19:44)
[2021-07-23] MEDS: LEVOTHYROXINE SODIUM 50 MCG TABLET PO (05:17)
[2021-07-23 05:51] LABS: Basophils Percent Auto 0.5 % (0.2-1.2); Eosinophils Absolute Auto 0.3 K/mm3 (0-0.3); Eosinophils Percent Auto 3.4 % (0-4.4); Hematocrit 25.9 % (42.0-52.0); Hemoglobin 8.1 g/dL (14.0-18.0); Immature Granulocyte Absolute 0.04 K/mm3 (0.00-0.031); Immature Granulocyte Percent A 0.5 % (0-0.5); Lymphocytes Absolute Auto 0.79 K/mm3 (0.9-3.2); Lymphocytes Percent Auto 10.4 % (18.3-44.2); Mean Corpuscular HGB Conc 31.3 g/dl (32-36); Mean Corpuscular Hemoglobin 30.1 pg (26-34); Mean Corpuscular Volume 96.3 fl (80-100); Mean Platelet Volume 8.9 fl (7.4-10.4); Monocytes Absolute Auto 0.7 K/mm3 (0.1-0.6); Monocytes Percent Auto 9.1 % (2.6-8.5); Neutrophils Absolute Auto 5.8 K/mm3 (1.3-6.7); Neutrophils Percent Auto 76.1 % (45.5-73.1); Platelet Count Result 290 k/mm3 (150-375); Red Blood Count 2.69 M/mm3 (4.6-6.20); Red Cell Distribution Width 15.4 % (11.5-14.5); White Blood Count 7.6 K/mm3 (4.5-10.0)
[2021-07-23 06:01] LABS: Alanine Aminotransferase 19 U/L (4-50); Albumin Level 3.3 g/dL (3.5-5.1); Alkaline Phosphatase 74 U/L (38-126); Anion Gap 5 mmol/L (8-16); Aspartate Amino Transferase 27 U/L (17-59); Bilirubin,Total 0.7 mg/dL (0.2-1.3); Blood Urea Nitrogen 14 mg/dL (9-20); Calcium 8.2 mg/dL (8.4-10.2); Carbon Dioxide 32 mmol/L (22-30); Chloride 104 mmol/L (98-107); Estimated CRCL calculation 53 ml/min; Estimated Glomerular Filt Rate 54; Glucose 119 mg/dL (65-110); Magnesium 1.9 mg/dL (1.6-2.3); Phosphorus 3.1 mg/dL (2.5-4.5); Potassium 3.8 mmol/L (3.4-5.0); Sodium 141 mmol/L (137-145)
--- NOTE | 2021-07-23 07:50 | PM.PNCARD ---
Progress Note: A&P Assessment and Plan (1) Gastric ulcer due to nonsteroidal antiinflammatory drug (NSAID) therapy: Code(s): K25.9 - Gastric ulcer, unspecified as acute or chronic, without hemorrhage or perforation; T39.395A - Adverse effect of other nonsteroidal anti-inflammatory drugs [NSAID], initial encounter Status: Acute Assessment and Plan: GI following. (2) GI bleed: Qualifiers: GI bleed type/associated pathology: unspecified gastrointestinal hemorrhage type Qualified Code(s): K92.2 - Gastrointestinal hemorrhage, unspecified Code(s): K92.2 - Gastrointestinal hemorrhage, unspecified Status: Acute Assessment and Plan: GI following. (3) Elevated troponin: Code(s): R77.8 - Other specified abnormalities of plasma proteins Status: Acute Assessment and Plan: Doubt ACS. Probably due to GI bleed and ARF. (4) Paroxysmal atrial flutter: Code(s): I48.92 - Unspecified atrial flutter Status: Acute Assessment and Plan: [id number] 3. Currently back in atrial fib/flutter. Holding Eliquis due to GI bleed. Resume when OK with GI service. Tachycardia is better controlled on Metoprolol Tartate 25 mg BID. (5) JASON (acute kidney injury): Code(s): N17.9 - Acute kidney failure, unspecified Status: Acute Assessment and Plan: Renal function much improved. Nephrology following. (6) Diastolic dysfunction: Code(s): I51.89 - Other ill-defined heart diseases Status: Acute Assessment and Plan: Stage IV. Chronic. Euvolemic. Diuretics on hold due to ARF. Echo 07/18/21 shows EF >70%, mild LVH, grade IV diastolic dysfunction (E/e' 20), mild LAE, mod RVE/hypokinesis, mod TR. Given sob, probably related to some volume overload and/or COPD. Restart Furosemide 40 mg daily and neb treatments. Monitor kidney function. Obtain CXR. (7) COPD (chronic obstructive pulmonary disease): Code(s): J44.9 - Chronic obstructive pulmonary disease, unspecified Status: Acute (8) Edema of both legs: Code(s): R60.0 - Localized edema Status: Acute Assessment and Plan: Trace. Consider restarting Furosemide but need to monitor kidney function. (9) Hypotension: Code(s): I95.9 - Hypotension, unspecified Status: Acute Assessment and Plan: Resolved. Probably related to GI bleed/anemia. Was on Levophed drip in ICU. Levophed off. BP is now high. Stop Midodrine. Subjective Date/time seen: 07/23/21 07:50 He is currently sob. No chest pains. Less confused today. Exam Const: General: cooperative and well developed Orientation/consciousness: oriented to person, oriented to place, oriented to time and confusion Resp: Auscultation: clear to auscultation bilaterally, no crackles, no rales, no rhonchi and no wheezes Cardio: Jugular venous distension: no JVD Rate: regular rate Rhythm: abnormal rhythm Heart sounds: no murmurs Peripheral pulses: dorsalis pedis present GI: GI Palp: Yes Soft to palpation Extrem: Right lower extremity: edema Left lower extremity: edema Other: Trace edema of both legs with abrasions and erythema Objective Data Vital Signs Vital Signs: Vital Signs - 24 hr 07/22/21 08:00 07/22/21 08:37 07/22/21 08:39 Temperature Pulse Rate 85 81 81 Respiratory Rate 18 Blood Pressure Pulse Oximetry 94 07/22/21 08:47 07/22/21 08:52 07/22/21 08:53 Temperature 97.8 F Pulse Rate 80 93 76 Respiratory Rate 18 16 Blood Pressure 131/76 Pulse Oximetry 100 07/22/21 09:00 07/22/21 12:00 07/22/21 13:45 Temperature 98 F Pulse Rate 76 90 85 Respiratory Rate 16 20 Blood Pressure 135/75 Pulse Oximetry 100 100 07/22/21 14:02 07/22/21 14:10 07/22/21 16:00 Temperature Pulse Rate 95 92 106 H Respiratory Rate 18 18 Blood Pressure Pulse Oximetry 07/22/21 18:05 07/22/21 19:56 07/22/21 20:00 Temperature 97.8 F Pulse Rate 85 85 86 Respiratory
[2021-07-23] MEDS: METOPROLOL TARTRATE 25 MG TABLET PO ×2 (09:04→20:49)
[2021-07-23] MEDS: PANTOPRAZOLE SODIUM IV 40 MG VIAL IV PUSH ×2 (09:09→20:49)
[2021-07-23] MEDS: FUROSEMIDE 40 MG TABLET PO (09:09)
[2021-07-23] MEDS: OPTI-GEN TAB 1 TABLET PO (09:09)
[2021-07-23] MEDS: EUCERIN CREAM 120 GM JAR 1 APPLIC TOPICAL ×2 (09:11→17:45)
--- NOTE | 2021-07-23 10:07 | WPDGIPROGNO ---
Progress Note: A&P Assessment and Plan (1) Gastric ulcer due to nonsteroidal antiinflammatory drug (NSAID) therapy: Code(s): K25.9 - Gastric ulcer, unspecified as acute or chronic, without hemorrhage or perforation; T39.395A - Adverse effect of other nonsteroidal anti-inflammatory drugs [NSAID], initial encounter Status: Acute Assessment and Plan: EGD revealed multiple antral ulcers consistent with NSAID use, also large ulcer in pre-pyloric area but did not require intervention. continue with protonix bid, will advance diet hb low but stable mid 8 EGD in 2 months to assess healing (2) GI bleed: Qualifiers: GI bleed type/associated pathology: unspecified gastrointestinal hemorrhage type Qualified Code(s): K92.2 - Gastrointestinal hemorrhage, unspecified Code(s): K92.2 - Gastrointestinal hemorrhage, unspecified Status: Acute Assessment and Plan: from egd findings resolved continue with ppi (3) Acute on chronic blood loss anemia: Code(s): D62 - Acute posthemorrhagic anemia Status: Acute Assessment and Plan: h/h stable, continue to monitor (4) Chronic anticoagulation: Code(s): Z79.01 - detention (current) use of anticoagulants Status: Acute Assessment and Plan: hold eliquis for another 6 days (h/o afib) (5) JASON (acute kidney injury): Code(s): N17.9 - Acute kidney failure, unspecified Status: Acute Assessment and Plan: resolved, creatinine improved (6) Shock: Code(s): R57.9 - Shock, unspecified Status: Acute Assessment and Plan: resolved (7) Altered mental status: Code(s): R41.82 - Altered mental status, unspecified Status: Acute Assessment and Plan: back to his baseline (8) Paroxysmal atrial flutter: Code(s): I48.92 - Unspecified atrial flutter Status: Acute Subjective Date/time seen: 07/23/21 10:07 Interval history: no report of gib, he is comfortable watching TV Review of Systems Review of Systems: All systems reviewed & are unremarkable except as noted in HPI and below Exam Const: General: comfortable and no acute distress Other: awake and alert but gets confused (baseline) HENMT: General nose exam: Normal nares present Eyes: Sclera: sclerae normal Neck: Neck: supple Resp: Auscultation: clear to auscultation bilaterally Cardio: Rhythm: abnormal rhythm regularly irregular GI: GI Palp: Yes Soft to palpation, No Tenderness to palpation present (GI) and No Guarding due to palpation present (GI) Auscultation: normal bowel sounds Skin: General skin exam: no rashes or lesions noted Neuro: Speech: normal speech Other: awake and alert x2 Extrem: General: normal to inspection Psych: Affect: Anxious affect present Objective Data Vital Signs Vital Signs: Vital Signs - 24 hr 07/22/21 12:00 07/22/21 13:45 07/22/21 14:02 Temperature 98 F Pulse Rate 90 85 95 Respiratory Rate 20 18 Blood Pressure 135/75 Pulse Oximetry 100 07/22/21 14:10 07/22/21 16:00 07/22/21 18:05 Temperature 97.8 F Pulse Rate 92 106 H 85 Respiratory Rate 18 20 Blood Pressure 139/74 Pulse Oximetry 100 07/22/21 19:56 07/22/21 20:00 07/22/21 20:08 Temperature Pulse Rate 85 86 96 Respiratory Rate 18 Blood Pressure Pulse Oximetry 07/22/21 20:17 07/22/21 20:18 07/22/21 21:25 Temperature 97.8 F Pulse Rate 92 92 Respiratory Rate 18 18 Blood Pressure 132/76 Pulse Oximetry 94 98 07/23/21 00:00 07/23/21 01:09 07/23/21 01:50 Temperature 97.6 F Pulse Rate 87 86 89 Respiratory Rate 16 18 Blood Pressure 130/74 Pulse Oximetry 100 07/23/21 01:59 07/23/21 04:00 07/23/21 06:25 Temperature 98.1 F Pulse Rate 94 87 99 Respiratory Rate 18 17 24 H Blood Pressure 132/78 Pulse Oximetry 99 07/23/21 06:36 07/23/21 08:00 07/23/21 08:01 Temperature 97.9 F Pulse Rate 100 87 Respiratory Rate 24 H 18
--- NOTE | 2021-07-23 10:18 | PM.IMPN ---
Progress Note: A&P Assessment and Plan (1) Hypotension: Code(s): I95.9 - Hypotension, unspecified Status: Acute Assessment and Plan: monitor bp ok today (2) JASON (acute kidney injury): Code(s): N17.9 - Acute kidney failure, unspecified Status: Acute Assessment and Plan: monitor labs (3) GI bleed: Qualifiers: GI bleed type/associated pathology: unspecified gastrointestinal hemorrhage type Qualified Code(s): K92.2 - Gastrointestinal hemorrhage, unspecified Code(s): K92.2 - Gastrointestinal hemorrhage, unspecified Status: Acute Assessment and Plan: monitor labs sp egd shows ulcer will need fu gi as outpatient (4) Altered mental status: Code(s): R41.82 - Altered mental status, unspecified Status: Acute Assessment and Plan: improved, monitor (5) Anemia: Qualifiers: Anemia type: unspecified type Qualified Code(s): D64.9 - Anemia, unspecified Code(s): D64.9 - Anemia, unspecified Status: Inactive Assessment and Plan: monitor (6) Elevated troponin: Code(s): R77.8 - Other specified abnormalities of plasma proteins Status: Acute Assessment and Plan: no cp noted, cardiology managing (7) DEMETRI (obstructive sleep apnea): Code(s): G47.33 - Obstructive sleep apnea (adult) (pediatric) Status: Inactive Assessment and Plan: Interval history :. Patient intolerant to CPAP. (8) Diastolic CHF: Code(s): I50.30 - Unspecified diastolic (congestive) heart failure Status: Acute Assessment and Plan: will resume meds when able (9) COPD (chronic obstructive pulmonary disease): Code(s): J44.9 - Chronic obstructive pulmonary disease, unspecified Status: Acute Assessment and Plan: stable and chronic (10) CKD (chronic kidney disease) stage 3, GFR 30-59 ml/min: Code(s): N18.3 - Chronic kidney disease, stage 3 (moderate) Status: Inactive Assessment and Plan: monitor labs (11) Hyponatremia: Code(s): E87.1 - Hypo-osmolality and hyponatremia Status: Inactive Assessment and Plan: labs ok (12) Paroxysmal atrial flutter: Code(s): I48.92 - Unspecified atrial flutter Status: Acute Assessment and Plan: monitor rate Subjective Date/time seen: 07/23/21 10:18 no new complaints no bleeding Interval history: no report of gib, he is comfortable watching TV Exam Narrative: Gen - Anxious appearing Chest - clear CV - irregularly irregular S1/S2. in the 90s Abdo - soft, obese, NT - Disla in situ Ext - no pedal edema Neuro - Alert, oriented x4 Skin - warm and dry. Const: General: cooperative, comfortable, no acute distress, well developed, alert, awake, Physically active and ill appearing chronically Nutritional Appearance: overweight Orientation/consciousness: patient oriented x3 HENMT: Head: normal to inspection, normocephalic and atraumatic Ears: hearing grossly normal bilaterally General nose exam: Normal external nose present Face and sinus: normal facial exam Mouth: Yes Normal oral and palatal mucosa present Eyes: General: appearance normal, both eyes and all related structures Alignment and Position: alignment normal Sclera: sclerae normal Pupils: Equal, round and reactive pupils present EOM: EOMs intact bilaterally Neck: Neck: normal visual inspection, full ROM, no lymphadenopathy, supple and no JVD Thyroid: thyroid normal Lymphatic: no lymphadenopathy noted Resp: Effort & Inspection: normal respiratory effort and able to speak in complete sentences Auscultation: clear to auscultation bilaterally, no crackles, no rales, no rhonchi and no wheezes Cardio: Jugular venous distension: no JVD Rate: regular rate Rhythm: regular rhythm Heart sounds: S1 normal heart sound present and S2 normal heart sound present GI: Inspection: Pa
--- NOTE | 2021-07-23 12:55 | P.PNNP_ITS ---
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 * prerenal factors * evaluation to date: * renal ultrasound c/w CKD; no acute changes * urine electrolytes suggest prerenal azotemia * CPK elevated but not high enough to cause renal dysfunction * holding lisinopril and diuretics * follow trend of repeat labs and UOP (2) Chronic kidney disease, stage 3: Code(s): N18.30 - Chronic kidney disease, stage 3 unspecified Status: Acute Assessment and Plan: * baseline creatinine runs around 1.1 - 1.5mg/dl (but has been as high as 1.8mg/d) * presumably due to HTN, vascular disease, and possibly DEMETRI (3) Shock: Code(s): R57.9 - Shock, unspecified Status: Resolved Assessment and Plan: * suspect due issues related to anemia and GI bleed * follow trend of hemodynamics (4) GI bleed: Qualifiers: GI bleed type/associated pathology: unspecified gastrointestinal hemorrhage type Qualified Code(s): K92.2 - Gastrointestinal hemorrhage, unspecified Code(s): K92.2 - Gastrointestinal hemorrhage, unspecified Status: Acute Assessment and Plan: * Gastroenterology following * s/p EGD with findings of showed esophageal and gastric ulcers * on PPI * follow trend H/H * PRBC transfusion per protocol (5) Altered mental status: Code(s): R41.82 - Altered mental status, unspecified Status: Acute Assessment and Plan: * doing better as well * due to JASON versus hyponatremia or both versus something else(?) * follow mentation (6) Atrial fibrillation and flutter: Code(s): I48.91 - Unspecified atrial fibrillation; I48.92 - Unspecified atrial flutter Status: Chronic Assessment and Plan: * continue rate control strategy * off anticoagulation due to concerns of GI bleed Nothing else to really add at this time -- will continue to follow from a distance. Subjective Date/time seen: 07/23/21 12:55 Appears to be doing reasonably well at the time of my visit; no apparent distress noted; stable hemodynamics and H/H relatively stable; mentation seems back to baseline(?); no other issues/events overnight or earlier this morning. Exam Narrative: General: WD/WN male in NAD Heart: normal S1 and S2; no rub Lungs: decreased at bases Abdomen: soft, nontender, nondistended, positive bowel sounds Extremities: no cyanosis or clubbing; trace edema Skin: warm and intact Objective Data Vital Signs Vital Signs: Vital Signs Temp Pulse Resp BP Pulse Ox 07/23/21 12:00 36.8 C 102 H 18 131/79 100 07/23/21 09:04 88 07/23/21 08:01 93 07/23/21 08:00 36.6 C 87 18 134/81 98 07/23/21 06:36 100 24 H 07/23/21 06:25 99 24 H 07/23/21 04:00 36.7 C 87 17 132/78 99 07/23/21 01:59 94 18 07/23/21 01:50 89 18 07/23/21 01:09 36.4 C 86 16 130/74 100 07/23/21 00:00 87 07/22/21 21:25 36.6 C 92 18 132/76 98 07/22/21 20:18 94 07/22/21 20:17 92 18 07/22/21 20:08
--- NOTE | 2021-07-23 12:55 | PM.PNNEP ---
Progress Note: A&P Assessment and Plan (1) JASON (acute kidney injury): Code(s): N17.9 - Acute kidney failure, unspecified Status: Acute Assessment and Plan: resolved/if not back to baseline due to several issues/factors: fluctuating hemodynamics/relative hypotension/shock anemia/low H&H JUAN FRANCISCO-I and diuretics [employer]MENT [employer]IST prerenal factors evaluation to date: renal ultrasound c/w CKD; no acute changes urine electrolytes suggest prerenal azotemia CPK elevated but not high enough to cause renal dysfunction holding lisinopril and diuretics follow trend of repeat labs and UOP (2) Chronic kidney disease, stage 3: Code(s): N18.30 - Chronic kidney disease, stage 3 unspecified Status: Acute Assessment and Plan: baseline creatinine runs around 1.1 - 1.5mg/dl (but has been as high as 1.8mg/d) presumably due to HTN, vascular disease, and possibly DEMETRI (3) Shock: Code(s): R57.9 - Shock, unspecified Status: Resolved Assessment and Plan: suspect due issues related to anemia and GI bleed follow trend of hemodynamics (4) GI bleed: Qualifiers: GI bleed type/associated pathology: unspecified gastrointestinal hemorrhage type Qualified Code(s): K92.2 - Gastrointestinal hemorrhage, unspecified Code(s): K92.2 - Gastrointestinal hemorrhage, unspecified Status: Acute Assessment and Plan: Gastroenterology following s/p EGD with findings of showed esophageal and gastric ulcers on PPI follow trend H/H PRBC transfusion per protocol (5) Altered mental status: Code(s): R41.82 - Altered mental status, unspecified Status: Acute Assessment and Plan: doing better as well due to JAOSN versus hyponatremia or both versus something else(?) follow mentation (6) Atrial fibrillation and flutter: Code(s): I48.91 - Unspecified atrial fibrillation; I48.92 - Unspecified atrial flutter Status: Chronic Assessment and Plan: continue rate control strategy off anticoagulation due to concerns of GI bleed Nothing else to really add at this time -- will continue to follow from a distance. Subjective Date/time seen: 07/23/21 12:55 Appears to be doing reasonably well at the time of my visit; no apparent distress noted; stable hemodynamics and H/H relatively stable; mentation seems back to baseline(?); no other issues/events overnight or earlier this morning. Exam Narrative: General: WD/WN male in NAD Heart: normal S1 and S2; no rub Lungs: decreased at bases Abdomen: soft, nontender, nondistended, positive bowel sounds Extremities: no cyanosis or clubbing; trace edema Skin: warm and intact Objective Data Vital Signs Vital Signs: Vital Signs Temp Pulse Resp BP Pulse Ox 07/23/21 12:00 36.8 C 102 H 18 131/79 100 07/23/21 09:04 88 07/23/21 08:01 93 07/23/21 08:00 36.6 C 87 18 134/81 98 07/23/21 06:36 100 24 H 07/23/21 06:25 99 24 H 07/23/21 04:00 36.7 C 87 17 132/78 99 07/23/21 01:59 94 18 07/23/21 01:50 89 18 07/23/21 01:09 36.4 C 86 16 130/74 100 07/23/21 00:00 87 07/22/21 21:25 36.6 C 92 18 132/76 98 07/22/21 20:18 94 07/22/21 20:17 92 18 07/22/21 20:08 96 18 07/22/21 20:00 86 07/22/21 19:56 85 07/22/21 18:05 36.6 C 85 20 139/74 100 07/22/21 16:00 106 H 07/22/21 14:10 92 18 07/22/21 14:02 95 18 Intake/Output Intake/Output: Intake & Output 07/20/21 07/21/21 07/22/21 07/23/21 23:59 23:59 23:59 23:59 Intake Total 3305 5577 861 0581 Output Total 2675 1400 850 600 Balance 630 360 -700 450 Meds/Results Medications: Active Medications Generic Name Dose Route Start Last Admin Trade Name Freq PRN Reason Stop Dose Admin Acetaminophen 650 mg 07/16/21 08:33 07/21/21 08:40 Acetaminophen 325 Mg Tablet PO 650 mg Q6H PRN Administration Mild Pain
[2021-07-24] VITALS (19 sets, daily range): BP systolic 109–138; BP diastolic 65–87; PULSE 72–103; RESP 16–20; TEMP 36.2–36.8; O2SAT 87–99
[2021-07-24] MEDS: IPRATROPIUM BR 0.02% INH SOLN 0.5 MG/2.5 ML VIAL INHALATION ×4 (01:50→20:10)
[2021-07-24 05:29] LABS: Basophils Absolute Auto 0.1 K/mm3 (0.0-0.1); Basophils Percent Auto 0.9 % (0.2-1.2); Eosinophils Absolute Auto 0.3 K/mm3 (0-0.3); Eosinophils Percent Auto 4.2 % (0-4.4); Hematocrit 24.9 % (42.0-52.0); Hemoglobin 7.7 g/dL (14.0-18.0); Immature Granulocyte Absolute 0.03 K/mm3 (0.00-0.031); Immature Granulocyte Percent A 0.4 % (0-0.5); Lymphocytes Percent Auto 11.9 % (18.3-44.2); Mean Corpuscular HGB Conc 30.9 g/dl (32-36); Mean Corpuscular Hemoglobin 30.2 pg (26-34); Mean Corpuscular Volume 97.6 fl (80-100); Mean Platelet Volume 8.8 fl (7.4-10.4); Monocytes Absolute Auto 0.7 K/mm3 (0.1-0.6); Monocytes Percent Auto 9.8 % (2.6-8.5); Neutrophils Absolute Auto 4.9 K/mm3 (1.3-6.7); Neutrophils Percent Auto 72.8 % (45.5-73.1); Platelet Count Result 241 k/mm3 (150-375); Red Blood Count 2.55 M/mm3 (4.6-6.20); Red Cell Distribution Width 15.3 % (11.5-14.5); White Blood Count 6.7 K/mm3 (4.5-10.0)
[2021-07-24 05:43] LABS: Alanine Aminotransferase 18 U/L (4-50); Albumin Level 3.2 g/dL (3.5-5.1); Alkaline Phosphatase 70 U/L (38-126); Anion Gap 6 mmol/L (8-16); Aspartate Amino Transferase 33 U/L (17-59); Bilirubin,Total 0.6 mg/dL (0.2-1.3); Blood Urea Nitrogen 14 mg/dL (9-20); Calcium 8.2 mg/dL (8.4-10.2); Carbon Dioxide 34 mmol/L (22-30); Chloride 100 mmol/L (98-107); Estimated CRCL calculation 49 ml/min; Estimated Glomerular Filt Rate 49; Glucose 111 mg/dL (65-110); Magnesium 1.8 mg/dL (1.6-2.3); Phosphorus 3.2 mg/dL (2.5-4.5); Potassium 3.4 mmol/L (3.4-5.0); Sodium 140 mmol/L (137-145)
[2021-07-24] MEDS: LEVOTHYROXINE SODIUM 50 MCG TABLET PO (06:07)
--- NOTE | 2021-07-24 07:35 | PM.PNCARD ---
Progress Note: A&P Assessment and Plan (1) Gastric ulcer due to nonsteroidal antiinflammatory drug (NSAID) therapy: Code(s): K25.9 - Gastric ulcer, unspecified as acute or chronic, without hemorrhage or perforation; T39.395A - Adverse effect of other nonsteroidal anti-inflammatory drugs [NSAID], initial encounter Status: Acute Assessment and Plan: GI following. (2) GI bleed: Qualifiers: GI bleed type/associated pathology: unspecified gastrointestinal hemorrhage type Qualified Code(s): K92.2 - Gastrointestinal hemorrhage, unspecified Code(s): K92.2 - Gastrointestinal hemorrhage, unspecified Status: Acute Assessment and Plan: GI following. (3) Elevated troponin: Code(s): R77.8 - Other specified abnormalities of plasma proteins Status: Acute Assessment and Plan: Doubt ACS. Probably due to GI bleed and ARF. (4) Paroxysmal atrial flutter: Code(s): I48.92 - Unspecified atrial flutter Status: Acute Assessment and Plan: [id number] 3. Currently back in atrial fib/flutter. Holding Eliquis due to GI bleed. Resume when OK with GI service. Tachycardia is better controlled on Metoprolol Tartate 25 mg BID. He should be on DVT prophylaxis with sequential compression devices of legs or Lovenox. (5) JASON (acute kidney injury): Code(s): N17.9 - Acute kidney failure, unspecified Status: Acute Assessment and Plan: Renal function much improved. Nephrology following. (6) Diastolic dysfunction: Code(s): I51.89 - Other ill-defined heart diseases Status: Acute Assessment and Plan: Stage IV. Chronic. Euvolemic. Diuretics on hold due to ARF. Echo 07/18/21 shows EF >70%, mild LVH, grade IV diastolic dysfunction (E/e' 20), mild LAE, mod RVE/hypokinesis, mod TR. Given sob yesterday probably related to some volume overload and/or COPD. Gave one dose of Furosemide 40 mg and he is on neb treatments. SOB resolved. CXR showed small pleural effusions. (7) COPD (chronic obstructive pulmonary disease): Code(s): J44.9 - Chronic obstructive pulmonary disease, unspecified Status: Acute (8) Edema of both legs: Code(s): R60.0 - Localized edema Status: Acute Assessment and Plan: Trace. Consider restarting Furosemide but need to monitor kidney function. (9) Hypotension: Code(s): I95.9 - Hypotension, unspecified Status: Acute Assessment and Plan: Resolved. Probably related to GI bleed/anemia. Was on Levophed drip in ICU. Levophed off. BP is now high. Stop Midodrine. Subjective Date/time seen: 07/24/21 07:35 Denies chest pain or sob this morning. He is confused and alert and oriented x 1. Exam Const: General: cooperative and well developed Orientation/consciousness: oriented to person and confusion Resp: Auscultation: clear to auscultation bilaterally, no crackles, no rales, no rhonchi and no wheezes Cardio: Jugular venous distension: no JVD Rate: regular rate Rhythm: abnormal rhythm Heart sounds: no murmurs Peripheral pulses: dorsalis pedis present GI: GI Palp: Yes Soft to palpation Extrem: Right lower extremity: edema Left lower extremity: edema Other: Trace edema of both legs with abrasions and erythema Objective Data Vital Signs Vital Signs: Vital Signs - 24 hr 07/23/21 08:00 07/23/21 08:01 07/23/21 09:04 Temperature 97.9 F Pulse Rate 87 88 Respiratory Rate 18 Blood Pressure 134/81 Pulse Oximetry 98 93 07/23/21 12:00 07/23/21 13:40 07/23/21 13:48 Temperature 98.2 F Pulse Rate 102 H 89 94 Respiratory Rate 18 20 20 Blood Pressure 131/79 Pulse Oximetry 100 07/23/21 16:00 07/23/21 19:30 07/23/21 19:40 Temperature 97.7 F Pulse Rate 87 80 80 Respiratory Rate 18 20 20 Blood Pressure 132/74 Pulse Oximetry 100 97 07/23/21 20:00 07/23/21 20:49 07/24/21 00:00 Temperature 98.0 F 98.2 F Pulse Rate 88 96 88 Respiratory Rate 17 18 Blo
[2021-07-24] MEDS: PANTOPRAZOLE 40 MG TABLET PO ×2 (08:45→20:00)
[2021-07-24] MEDS: METOPROLOL TARTRATE 25 MG TABLET PO ×2 (08:45→20:00)
[2021-07-24] MEDS: OPTI-GEN TAB 1 TABLET PO (08:45)
[2021-07-24] MEDS: EUCERIN CREAM 120 GM JAR 1 APPLIC TOPICAL ×2 (08:46→17:08)
[2021-07-24] MEDS: FENOFIBRATE NANOCRYSTALLIZED 145 MG TABLET PO (09:15)
[2021-07-24] MEDS: GABAPENTIN 300 MG CAPSULE 600 MG PO ×3 (09:15→17:08)
--- NOTE | 2021-07-24 11:41 | PM.IMPN ---
Progress Note: A&P Assessment and Plan (1) Hypotension: Code(s): I95.9 - Hypotension, unspecified Status: Acute Assessment and Plan: Patient developed HoTN afternoon of 07/18. RN stated that the patient was not fluid responsive. He had finished the blood transfusion earlier that day. He was given Midodrine, Albumin and a fluid bolus. Some improvement but then dropped again so moved to IVC and central line placed on 07/18. He was started on Levophed. BP and UOP has improved. Pressors able to be weaned off. Midodrine has also been stopped. Appreciate aircraft maintenance engineer input. Central line removed. Continue PT/OT. Home in 1-2 days. (2) JASON (acute kidney injury): Code(s): N17.9 - Acute kidney failure, unspecified Status: Acute Assessment and Plan: Cr 1.1 on admission but jumped quickly to 5.9 on 07/18. Lisinopril and lasix were held. Disla secured. Renal US showing normal right kidney and moderate left renal atrophy without hydronephrosis (old per ). IV fluids started. TCK 887 but not felt to be the etiology of the JASON. Pressors started to ensure adequate renal perfusion. UA showing WBC and protein. Ueos are rare. Cr down to 1.4 today. Most likely ATN from the anemia and HoTN and now with post-ATN diuresis. Pressors stopped. IVF stopped. Appreciate Nephrology input. Resolved. Remove Disla (3) GI bleed: Qualifiers: GI bleed type/associated pathology: unspecified gastrointestinal hemorrhage type Qualified Code(s): K92.2 - Gastrointestinal hemorrhage, unspecified Code(s): K92.2 - Gastrointestinal hemorrhage, unspecified Status: Acute Assessment and Plan: Patient presents with anemia and history of melena. He was started on Protonix drip. Serial H&H was performed and he was transfused 1 unit PRBC 07/16. CT of the abdomen pelvis showed the soft tissue thickening of the gastric duodenal area concerning for peptic ulcer disease. GI was consulted and he underwent EGD 07/17 which showed esophageal and gastric ulcers. This is most likely the etiology of his GI bleed and acute blood loss anemia. Hgb stable. Continue to hold Eliquis. Continue Protonix. Transfuse as necessary. Add iron. (4) Altered mental status: Code(s): R41.82 - Altered mental status, unspecified Status: Acute Assessment and Plan: Patient was alert but confused. CT of the brain showing no acute findings. Ammonia, TSH, Folate and B12 levels are normal. Mental status could be related to acute kidney injury. Symptoms better overall. Follow. (5) Anemia: Qualifiers: Anemia type: unspecified type Qualified Code(s): D64.9 - Anemia, unspecified Code(s): D64.9 - Anemia, unspecified Status: Inactive Assessment and Plan: Hgb 12.6 last March which is probably baseline. Hgb 8.1 on admission and dropped to 6.7. Acute blood loss anemia secondary to GI bleed. He does have iron deficiency noted. Patient received 1 unit packed red blood cells on 07/16/21. Hemoglobin climbed to 7-8 range but dropped to 6.9 so a 2nd unit transfused 07/18. Hgb up to 7-8 range and remaining stable. Continue to monitor. Transfuse as necessary. (6) Elevated troponin: Code(s): R77.8 - Other specified abnormalities of plasma proteins Status: Acute Assessment and Plan: Troponin elevated on admission and peaking at 0.112. No CP per patient. EKG showing PACs, iRBBB, borderline ST-T wave changes in the high lateral leads (no change from EKG on admission). Echo as mentioned below. Related to the demand ischemia from the anemia. Cardiology following. (7) DEMETRI (obstructive sleep apnea): Code(s): G47.33 - Obstructive sleep apnea (adult) (pediatric) Status: Inactive Assessment and Plan: ABG showing 7.39/30/128 on room air. Patient intolerant to CPAP. (8) Diastolic CHF: Code(s): I50.30 - Unspecified diastolic (congestive) heart failure Status: Acute
--- NOTE | 2021-07-24 12:05 | PCNFU ---
Nutrition Follow-Up Complete: Swallowing Difficulties as related to noted erosive esophagitis as evidenced by modified diet recommendation. Goal: Adequate Intake of at least 75% of meals/supplement Patient is progressing towards goal. We will continue current goal. Pt current nutrition is Heart Healthy with Mild Thick liquids, Level 2 Last recorded weight is 117.6 kg-stable Bowel Motility:+BM reported 07/24 Labs Reviewed:Glu 111, GFR 49, Cr 1.4,Hct 24.9,Hgb 7.7 Meds Noted:Synthroid, Tricor, Atrovent, Xopenex, Lopressor, Ocuvite, Protonix. Skin: WNL Additional Notes: Patient seen today for nutrition follow up. He is drinking the thickened liquids but not eating any solids foods at this time. Per speech eval on 07/20 recommending Pureed diet order. Diet order has advanced to a heart healthy diet. Ensure compact BID remains providing an additional 220 kcals and 9 gms protein. PO intake was encouraged with patient and spouse. Monitoring: RD will monitor every 3 days.
--- NOTE | 2021-07-24 15:27 | PCSTNOTE ---
Please refer to the Modified Barium Swallow Evaluation in the EMR.
--- NOTE | 2021-07-24 15:47 | WPDGIPROGNO ---
Progress Note: A&P Assessment and Plan (1) Gastric ulcer due to nonsteroidal antiinflammatory drug (NSAID) therapy: Code(s): K25.9 - Gastric ulcer, unspecified as acute or chronic, without hemorrhage or perforation; T39.395A - Adverse effect of other nonsteroidal anti-inflammatory drugs [NSAID], initial encounter Status: Acute Assessment and Plan: EGD with multiple antral ulcers consistent with NSAID use, also large ulcer in pre-pyloric area but did not require intervention. he is using protonix bid and tolerating regular diet hb low but stable home in 1-2 days EGD as outpatient in 2 months to assess healing (2) GI bleed: Qualifiers: GI bleed type/associated pathology: unspecified gastrointestinal hemorrhage type Qualified Code(s): K92.2 - Gastrointestinal hemorrhage, unspecified Code(s): K92.2 - Gastrointestinal hemorrhage, unspecified Status: Acute Assessment and Plan: from egd findings resolved continue with ppi (3) Acute on chronic blood loss anemia: Code(s): D62 - Acute posthemorrhagic anemia Status: Acute Assessment and Plan: h/h stable (4) Chronic anticoagulation: Code(s): Z79.01 - intermodal customer service (current) use of anticoagulants Status: Acute Assessment and Plan: hold eliquis for another 5 days (h/o afib) (5) JASON (acute kidney injury): Code(s): N17.9 - Acute kidney failure, unspecified Status: Acute Assessment and Plan: resolved, creatinine improved (6) Paroxysmal atrial flutter: Code(s): I48.92 - Unspecified atrial flutter Status: Acute Subjective Date/time seen: 07/24/21 15:47 Interval history: tolerating regular diet, no signs of bleeding. Family member at bedside. Review of Systems Review of Systems: All systems reviewed & are unremarkable except as noted in HPI and below Exam Const: General: comfortable and no acute distress Other: awake and alert but gets confused (baseline) HENMT: General nose exam: Normal nares present Eyes: Sclera: sclerae normal Neck: Neck: supple Resp: Auscultation: clear to auscultation bilaterally Cardio: Rhythm: abnormal rhythm regularly irregular GI: GI Palp: Yes Soft to palpation, No Tenderness to palpation present (GI) and No Guarding due to palpation present (GI) Auscultation: normal bowel sounds Skin: General skin exam: no rashes or lesions noted Neuro: Speech: normal speech Other: awake and alert x2 Extrem: General: normal to inspection Psych: Affect: Anxious affect present Objective Data Vital Signs Vital Signs: Vital Signs - 24 hr 07/23/21 16:00 07/23/21 19:30 07/23/21 19:40 Temperature 97.7 F Pulse Rate 87 80 80 Respiratory Rate 18 20 20 Blood Pressure 132/74 Pulse Oximetry 100 97 07/23/21 20:00 07/23/21 20:49 07/24/21 00:00 Temperature 98.0 F 98.2 F Pulse Rate 88 96 88 Respiratory Rate 17 18 Blood Pressure 147/71 H 138/87 Pulse Oximetry 98 99 07/24/21 01:41 07/24/21 01:51 07/24/21 04:00 Temperature 98.0 F Pulse Rate 80 80 103 H Respiratory Rate 20 20 17 Blood Pressure 138/78 Pulse Oximetry 97 99 07/24/21 08:00 07/24/21 08:38 07/24/21 08:39 Temperature Pulse Rate 103 H 72 Respiratory Rate 20 Blood Pressure Pulse Oximetry 95 07/24/21 08:45 07/24/21 08:48 07/24/21 10:03 Temperature 98 F Pulse Rate 78 74 82 Respiratory Rate 20 20 Blood Pressure 109/65 Pulse Oximetry 95 95 07/24/21 12:00 07/24/21 13:45 07/24/21 13:53 Temperature Pulse Rate 90 76 76 Respiratory Rate 20 20 Blood Pressure Pulse Oximetry 07/24/21 14:00 Temperature 98.3 F Pulse Rate 89 Respiratory Rate 20 Blood Pressure 134/76 Pulse Oximetry 99 Intake/Output Intake/Output: Intake & Output 07/21/21 07/22/21 07/23/21 07/24/21 23:59 23:59 23:59 23:59 Intake Total 8433 324 2987 350 Output Total 5621 093 6230 800 Balance 360 700 -550 -450 Meds/Results Medications
[2021-07-24] MEDS: FERROUS SULFATE 324 MG TABLET PO (17:08)
[2021-07-24] MEDS: traZODone HCL 50 MG TABLET PO (20:00)
[2021-07-25] VITALS (16 sets, daily range): BP systolic 110–134; BP diastolic 68–76; PULSE 74–110; RESP 17–20; TEMP 36.2–36.6; O2SAT 93–100
[2021-07-25] MEDS: IPRATROPIUM BR 0.02% INH SOLN 0.5 MG/2.5 ML VIAL INHALATION ×2 (02:20→08:40)
[2021-07-25 05:21] LABS: Hematocrit 26.3 % (42.0-52.0); Hemoglobin 8.2 g/dL (14.0-18.0); Mean Corpuscular HGB Conc 31.2 g/dl (32-36); Mean Corpuscular Hemoglobin 30.7 pg (26-34); Mean Corpuscular Volume 98.5 fl (80-100); Mean Platelet Volume 9.8 fl (7.4-10.4); Platelet Count Result 260 k/mm3 (150-375); Red Blood Count 2.67 M/mm3 (4.6-6.20); Red Cell Distribution Width 15.5 % (11.5-14.5); White Blood Count 6.9 K/mm3 (4.5-10.0)
[2021-07-25 06:01] LABS: Anion Gap 4 mmol/L (8-16); Blood Urea Nitrogen 15 mg/dL (9-20); Calcium 8.1 mg/dL (8.4-10.2); Carbon Dioxide 34 mmol/L (22-30); Chloride 101 mmol/L (98-107); Estimated CRCL calculation 53 ml/min; Estimated Glomerular Filt Rate 54; Glucose 123 mg/dL (65-110); Potassium 3.4 mmol/L (3.4-5.0); Sodium 139 mmol/L (137-145)
[2021-07-25] MEDS: LEVOTHYROXINE SODIUM 50 MCG TABLET PO (06:22)
--- NOTE | 2021-07-25 07:55 | PM.PNCARD ---
Progress Note: A&P Assessment and Plan (1) Gastric ulcer due to nonsteroidal antiinflammatory drug (NSAID) therapy: Code(s): K25.9 - Gastric ulcer, unspecified as acute or chronic, without hemorrhage or perforation; T39.395A - Adverse effect of other nonsteroidal anti-inflammatory drugs [NSAID], initial encounter Status: Acute Assessment and Plan: GI following. (2) GI bleed: Qualifiers: GI bleed type/associated pathology: unspecified gastrointestinal hemorrhage type Qualified Code(s): K92.2 - Gastrointestinal hemorrhage, unspecified Code(s): K92.2 - Gastrointestinal hemorrhage, unspecified Status: Acute Assessment and Plan: GI following. (3) Elevated troponin: Code(s): R77.8 - Other specified abnormalities of plasma proteins Status: Acute Assessment and Plan: Doubt ACS. Probably due to GI bleed and ARF. (4) Paroxysmal atrial flutter: Code(s): I48.92 - Unspecified atrial flutter Status: Acute Assessment and Plan: [id number] 3. Currently back in atrial fib/flutter. Holding Eliquis due to GI bleed. Resume when OK with GI service. Tachycardia is better controlled on Metoprolol Tartate 25 mg BID. On DVT prophylaxis with sequential compression devices of legs. (5) JASON (acute kidney injury): Code(s): N17.9 - Acute kidney failure, unspecified Status: Acute Assessment and Plan: Renal function much improved. Nephrology following. (6) Diastolic dysfunction: Code(s): I51.89 - Other ill-defined heart diseases Status: Acute Assessment and Plan: Stage IV. Chronic. Euvolemic. Diuretics on hold due to ARF. Echo 07/18/21 shows EF >70%, mild LVH, grade IV diastolic dysfunction (E/e' 20), mild LAE, mod RVE/hypokinesis, mod TR. CXR showed small pleural effusions. Will start low dose Furosemide 20 mg PO daily with KCL 20 meq daily. (7) COPD (chronic obstructive pulmonary disease): Code(s): J44.9 - Chronic obstructive pulmonary disease, unspecified Status: Acute (8) Edema of both legs: Code(s): R60.0 - Localized edema Status: Acute Assessment and Plan: Trace. Consider restarting Furosemide but need to monitor kidney function. (9) Hypotension: Code(s): I95.9 - Hypotension, unspecified Status: Acute Assessment and Plan: Resolved. Probably related to GI bleed/anemia. Was on Levophed drip in ICU. Levophed off. BP is now high. Stop Midodrine. Subjective Date/time seen: 07/25/21 07:55 He is alert and oriented today and not confused. No chest pain or sob. Exam Const: General: cooperative, comfortable and well developed Orientation/consciousness: oriented to person, oriented to place and oriented to time Resp: Auscultation: clear to auscultation bilaterally, no crackles, no rales, no rhonchi and no wheezes Cardio: Jugular venous distension: no JVD Rate: regular rate Rhythm: abnormal rhythm Heart sounds: no murmurs Peripheral pulses: dorsalis pedis present GI: GI Palp: Yes Soft to palpation Extrem: Right lower extremity: edema Left lower extremity: edema Other: Trace edema of both legs with abrasions and erythema Objective Data Vital Signs Vital Signs: Vital Signs - 24 hr 07/24/21 08:00 07/24/21 08:38 07/24/21 08:39 Temperature Pulse Rate 103 H 72 Respiratory Rate 20 Blood Pressure Pulse Oximetry 95 07/24/21 08:45 07/24/21 08:48 07/24/21 10:03 Temperature 98 F Pulse Rate 78 74 82 Respiratory Rate 20 20 Blood Pressure 109/65 Pulse Oximetry 95 95 07/24/21 12:00 07/24/21 13:45 07/24/21 13:53 Temperature Pulse Rate 90 76 76 Respiratory Rate 20 20 Blood Pressure Pulse Oximetry 07/24/21 14:00 07/24/21 16:00 07/24/21 18:00 Temperature 98.3 F 97.4 F L Pulse Rate 89 74 90 Respiratory Rate 20 18 Blood Pressure 134/76 131/70 Pulse Oximetry 99 98 07/24/21 20:00 07/24/21 20:11 07/24/21 20:20 Temperatur
[2021-07-25] MEDS: FUROSEMIDE 20 MG TABLET PO (09:01)
[2021-07-25] MEDS: FERROUS SULFATE 324 MG TABLET PO ×2 (09:01→17:33)
[2021-07-25] MEDS: FENOFIBRATE NANOCRYSTALLIZED 145 MG TABLET PO (09:01)
[2021-07-25] MEDS: GABAPENTIN 300 MG CAPSULE 600 MG PO ×3 (09:02→17:33)
[2021-07-25] MEDS: POTASSIUM CHLORIDE 20 MEQ PACKET (FOR LIQUID) PO (09:02)
[2021-07-25] MEDS: PANTOPRAZOLE 40 MG TABLET PO ×2 (09:02→21:04)
[2021-07-25] MEDS: OPTI-GEN TAB 1 TABLET PO (09:02)
[2021-07-25] MEDS: EUCERIN CREAM 120 GM JAR 1 APPLIC TOPICAL ×2 (09:02→17:35)
[2021-07-25] MEDS: METOPROLOL TARTRATE 25 MG TABLET PO ×2 (09:04→21:04)
--- NOTE | 2021-07-25 10:59 | PM.IMPN ---
Progress Note: A&P Assessment and Plan (1) Hypotension: Code(s): I95.9 - Hypotension, unspecified Status: Acute Assessment and Plan: Patient developed HoTN afternoon of 07/18. He had finished the blood transfusion earlier that day. He was given Midodrine, Albumin and a fluid bolus. Some improvement but then BP dropped again so moved to IVC and central line placed on 07/18. He was started on Levophed. BP and UOP improved. Pressors able to be weaned off. Midodrine has also been stopped. Appreciate beauty school instructor input. Central line removed. Resolved. (2) JASON (acute kidney injury): Code(s): N17.9 - Acute kidney failure, unspecified Status: Acute Assessment and Plan: Cr 1.1 on admission but jumped quickly to 5.9 on 07/18. Lisinopril and lasix were held. Disla secured. Renal US showing normal right kidney and moderate left renal atrophy without hydronephrosis (old per ). IV fluids started. TCK 887 but not felt to be the etiology of the JASON. Pressors started to ensure adequate renal perfusion. UA showing WBC and protein. Ueos are rare. Cr down to 1.3 today. Most likely ATN from the anemia and HoTN. Pressors stopped. IVF stopped. Appreciate Nephrology input. Resolved. (3) GI bleed: Qualifiers: GI bleed type/associated pathology: unspecified gastrointestinal hemorrhage type Qualified Code(s): K92.2 - Gastrointestinal hemorrhage, unspecified Code(s): K92.2 - Gastrointestinal hemorrhage, unspecified Status: Acute Assessment and Plan: Patient presents with anemia and history of melena. He was started on Protonix drip. Serial H&H was performed and he was transfused 1 unit PRBC 07/16. CT of the abdomen pelvis showed the soft tissue thickening of the gastric duodenal area concerning for peptic ulcer disease. GI was consulted and he underwent EGD 07/17 which showed esophageal and gastric ulcers. This is most likely the etiology of his GI bleed and acute blood loss anemia. Hgb stable. Continue to hold Eliquis. Continue Protonix. Transfuse as necessary. Continue iron. Eliquis to resume on 07/29/2021 (4) Altered mental status: Code(s): R41.82 - Altered mental status, unspecified Status: Acute Assessment and Plan: Patient was alert but confused. CT of the brain showing no acute findings. Ammonia, TSH, Folate and B12 levels are normal. Mental status could be related to acute kidney injury and/or from the untreated DEMETRI. Symptoms better overall. ST to re-evaluate despite normal MBS given the issue with pills this morning. Follow. (5) Anemia: Qualifiers: Anemia type: unspecified type Qualified Code(s): D64.9 - Anemia, unspecified Code(s): D64.9 - Anemia, unspecified Status: Inactive Assessment and Plan: Hgb 12.6 last March which is probably baseline. Hgb 8.1 on admission and dropped to 6.7. Acute blood loss anemia secondary to GI bleed. He does have iron deficiency noted. Patient received 1 unit packed red blood cells on 07/16/21. Hemoglobin climbed to 7-8 range but dropped to 6.9 so a 2nd unit transfused 07/18. Hgb up to 7-8 range and remaining stable. Continue to monitor. Transfuse as necessary. (6) Elevated troponin: Code(s): R77.8 - Other specified abnormalities of plasma proteins Status: Acute Assessment and Plan: Troponin elevated on admission and peaking at 0.112. No CP per patient. EKG showing PACs, iRBBB, borderline ST-T wave changes in the high lateral leads (no change from EKG on admission). Echo as mentioned below. Related to the demand ischemia from the anemia and from the JASON. Cardiology following. (7) DEMETRI (obstructive sleep apnea): Code(s): G47.33 - Obstructive sleep apnea (adult) (pediatric) Status: Inactive Assessment and Plan: ABG showing 7.39/30/128 on room air. Patient intolerant to CPAP. Noted that he was hypoxic overnight. Hold on discharge today and perform ApneaL
[2021-07-25] MEDS: dilTIAZem HCL 30 MG TABLET PO ×2 (12:55→17:33)
--- NOTE | 2021-07-25 17:34 | WPDGIPROGNO ---
Progress Note: A&P Assessment and Plan (1) Gastric ulcer due to nonsteroidal antiinflammatory drug (NSAID) therapy: Code(s): K25.9 - Gastric ulcer, unspecified as acute or chronic, without hemorrhage or perforation; T39.395A - Adverse effect of other nonsteroidal anti-inflammatory drugs [NSAID], initial encounter Status: Acute Assessment and Plan: EGD with multiple antral ulcers consistent with NSAID use, also large ulcer in pre-pyloric area but did not require intervention. continue with protonix bid tolerating diet hb has been stable EGD as outpatient in 2 months to assess healing (2) GI bleed: Qualifiers: GI bleed type/associated pathology: unspecified gastrointestinal hemorrhage type Qualified Code(s): K92.2 - Gastrointestinal hemorrhage, unspecified Code(s): K92.2 - Gastrointestinal hemorrhage, unspecified Status: Acute Assessment and Plan: from egd findings resolved continue with ppi (3) Acute on chronic blood loss anemia: Code(s): D62 - Acute posthemorrhagic anemia Status: Acute (4) Chronic anticoagulation: Code(s): Z79.01 - [facility]CI (current) use of anticoagulants Status: Acute Assessment and Plan: hold eliquis for another 4 days (h/o afib) (5) JASON (acute kidney injury): Code(s): N17.9 - Acute kidney failure, unspecified Status: Acute (6) Paroxysmal atrial flutter: Code(s): I48.92 - Unspecified atrial flutter Status: Acute Subjective Date/time seen: 07/25/21 17:34 Interval history: he is resting in bed Review of Systems Review of Systems: All systems reviewed & are unremarkable except as noted in HPI and below Exam Const: General: comfortable and no acute distress Other: awake and alert but gets confused (baseline) HENMT: General nose exam: Normal nares present Eyes: Sclera: sclerae normal Neck: Neck: supple Resp: Auscultation: clear to auscultation bilaterally Cardio: Rhythm: abnormal rhythm regularly irregular GI: GI Palp: Yes Soft to palpation, No Tenderness to palpation present (GI) and No Guarding due to palpation present (GI) Auscultation: normal bowel sounds Skin: General skin exam: no rashes or lesions noted Neuro: Speech: normal speech Other: awake and alert x2 Extrem: General: normal to inspection Psych: Affect: Anxious affect present Objective Data Vital Signs Vital Signs: Vital Signs - 24 hr 07/24/21 18:00 07/24/21 20:00 07/24/21 20:11 Temperature 97.4 F L 97.1 F L Pulse Rate 90 85 79 Respiratory Rate 18 20 20 Blood Pressure 131/70 120/68 Pulse Oximetry 98 87 L 87 L 07/24/21 20:20 07/25/21 00:00 07/25/21 02:21 Temperature 97.1 F L Pulse Rate 77 85 84 Respiratory Rate 17 Blood Pressure 126/71 Pulse Oximetry 100 07/25/21 02:30 07/25/21 04:00 07/25/21 08:00 Temperature 97.2 F L Pulse Rate 80 91 101 H Respiratory Rate 17 Blood Pressure 134/76 Pulse Oximetry 100 07/25/21 08:40 07/25/21 08:45 07/25/21 09:04 Temperature Pulse Rate 81 81 74 Respiratory Rate Blood Pressure Pulse Oximetry 96 07/25/21 10:00 07/25/21 12:00 07/25/21 14:00 Temperature 97.4 F L 97.8 F Pulse Rate 87 92 90 Respiratory Rate 18 18 Blood Pressure 116/71 128/74 Pulse Oximetry 94 100 07/25/21 16:00 Temperature Pulse Rate 110 H Respiratory Rate Blood Pressure Pulse Oximetry Intake/Output Intake/Output: Intake & Output 07/22/21 07/23/21 07/24/21 07/25/21 23:59 23:59 23:59 23:59 Intake Total 150 3067 304 2456 Output Total 850 1600 1200 200 Balance -700 -550 -700 900 Meds/Results Medications: Active Medications Generic Name Dose Route Start Last Admin Trade Name Freq PRN Reason Stop Dose Admin Acetaminophen 650 mg 07/16/21 08:33 07/21/21 08:40 Acetaminophen 325 Mg Tablet PO 650 mg Q6H PRN Administration Mild Pain (1-3) or Fever Albuterol 2 puff 07/15/21 06:50 07/15/21 21:27 Alb
[2021-07-25] MEDS: FLUTICASONE/SALMETEROL 115-21 MCG INHALER 1 PUFF 2 PUFF INHALATION (20:28)
[2021-07-25] MEDS: traZODone HCL 50 MG TABLET PO (21:04)
[2021-07-26] VITALS (7 sets, daily range): BP systolic 102–121; BP diastolic 58–64; PULSE 71–89; RESP 18–20; TEMP 35.8–36.7; O2SAT 94–98
[2021-07-26] MEDS: dilTIAZem HCL 30 MG TABLET PO ×2 (00:21→06:12)
--- NOTE | 2021-07-26 02:34 | PCRCNOTE ---
Pt woke up at 219 and took off apnea link. RN needed to clean him up. Study stopped at 229.
[2021-07-26 06:12] LABS: Anion Gap 5 mmol/L (8-16); Blood Urea Nitrogen 18 mg/dL (9-20); Calcium 8.2 mg/dL (8.4-10.2); Carbon Dioxide 34 mmol/L (22-30); Chloride 101 mmol/L (98-107); Estimated CRCL calculation 46 ml/min; Estimated Glomerular Filt Rate 45; Glucose 109 mg/dL (65-110); Potassium 3.7 mmol/L (3.4-5.0); Sodium 140 mmol/L (137-145)
[2021-07-26] MEDS: LEVOTHYROXINE SODIUM 50 MCG TABLET PO (06:12)
--- NOTE | 2021-07-26 07:56 | PM.PNCARD ---
Progress Note: A&P Assessment and Plan (1) Gastric ulcer due to nonsteroidal antiinflammatory drug (NSAID) therapy: Code(s): K25.9 - Gastric ulcer, unspecified as acute or chronic, without hemorrhage or perforation; T39.395A - Adverse effect of other nonsteroidal anti-inflammatory drugs [NSAID], initial encounter Status: Acute Assessment and Plan: GI following. (2) GI bleed: Qualifiers: GI bleed type/associated pathology: unspecified gastrointestinal hemorrhage type Qualified Code(s): K92.2 - Gastrointestinal hemorrhage, unspecified Code(s): K92.2 - Gastrointestinal hemorrhage, unspecified Status: Acute Assessment and Plan: GI following. (3) Elevated troponin: Code(s): R77.8 - Other specified abnormalities of plasma proteins Status: Acute Assessment and Plan: Doubt ACS. Probably due to GI bleed and ARF. (4) Paroxysmal atrial flutter: Code(s): I48.92 - Unspecified atrial flutter Status: Acute Assessment and Plan: [id number] 3. Currently back in atrial fib/flutter. Holding Eliquis due to GI bleed. Resume when OK with GI service. Tachycardia is better controlled on Metoprolol Tartate 25 mg BID except when he is ambulating. He was started on Diltiazem 30 mg every 6 hours. Resting HR is controlled. Change Diltiazem 60 mg BID for ease of taking medication. On DVT prophylaxis with sequential compression devices of legs. (5) JASON (acute kidney injury): Code(s): N17.9 - Acute kidney failure, unspecified Status: Acute Assessment and Plan: Renal function much improved. Nephrology following. (6) Diastolic dysfunction: Code(s): I51.89 - Other ill-defined heart diseases Status: Acute Assessment and Plan: Stage IV. Chronic. Euvolemic. Diuretics on hold due to ARF. Echo 07/18/21 shows EF >70%, mild LVH, grade IV diastolic dysfunction (E/e' 20), mild LAE, mod RVE/hypokinesis, mod TR. CXR showed small pleural effusions. On Furosemide 20 mg PO daily with KCL 20 meq daily, but will change this to low dose Spironolactone 12.5 mg daily. (7) COPD (chronic obstructive pulmonary disease): Code(s): J44.9 - Chronic obstructive pulmonary disease, unspecified Status: Acute (8) Edema of both legs: Code(s): R60.0 - Localized edema Status: Acute Assessment and Plan: Resolved. (9) Hypotension: Code(s): I95.9 - Hypotension, unspecified Status: Acute Assessment and Plan: Resolved. Probably related to GI bleed/anemia. Was on Levophed drip in ICU. Levophed off. Stopped Midodrine. Subjective Date/time seen: 07/26/21 07:56 Denies chest pain or sob. Exam Const: General: cooperative, comfortable and well developed Orientation/consciousness: oriented to person, oriented to place and oriented to time Resp: Auscultation: clear to auscultation bilaterally, no crackles, no rales, no rhonchi and no wheezes Cardio: Jugular venous distension: no JVD Rate: regular rate Rhythm: abnormal rhythm Heart sounds: no murmurs Peripheral pulses: dorsalis pedis present GI: GI Palp: Yes Soft to palpation Extrem: Right lower extremity: no edema Left lower extremity: no edema Objective Data Vital Signs Vital Signs: Vital Signs - 24 hr 07/25/21 08:00 07/25/21 08:40 07/25/21 08:45 Temperature Pulse Rate 101 H 81 81 Respiratory Rate Blood Pressure Pulse Oximetry 96 07/25/21 09:04 07/25/21 10:00 07/25/21 12:00 Temperature 97.4 F L Pulse Rate 74 87 92 Respiratory Rate 18 Blood Pressure 116/71 Pulse Oximetry 94 07/25/21 14:00 07/25/21 16:00 07/25/21 18:00 Temperature 97.8 F 97.5 F L Pulse Rate 90 110 H 97 Respiratory Rate 18 18 Blood Pressure 128/74 113/68 Pulse Oximetry 100 94 07/25/21 20:00 07/25/21 20:32 07/25/21 21:04 Temperature 97.3 F L Pulse Rate 75 84 Respiratory Rate 20 Blood Pressure 110/76 Pulse Oximetry 98 93 07/26
[2021-07-26] MEDS: FERROUS SULFATE 324 MG TABLET PO (08:33)
[2021-07-26] MEDS: FENOFIBRATE NANOCRYSTALLIZED 145 MG TABLET PO (08:34)
[2021-07-26] MEDS: dilTIAZem HCL 60 MG TABLET PO (08:34)
[2021-07-26] MEDS: METOPROLOL TARTRATE 25 MG TABLET PO (08:34)
[2021-07-26] MEDS: GABAPENTIN 300 MG CAPSULE 600 MG PO ×2 (08:34→14:45)
[2021-07-26] MEDS: EUCERIN CREAM 120 GM JAR 1 APPLIC TOPICAL (08:36)
[2021-07-26] MEDS: OPTI-GEN TAB 1 TABLET PO (08:36)
[2021-07-26] MEDS: PANTOPRAZOLE 40 MG TABLET PO (08:37)
[2021-07-26] MEDS: SPIRONOLACTONE 12.5 MG TABLET PO (08:37)
[2021-07-26] MEDS: FLUTICASONE/SALMETEROL 115-21 MCG INHALER 1 PUFF 2 PUFF INHALATION (08:38)
[2021-07-26] MEDS: UMECLIDINIUM BROMIDE 62.5 MCG ELLIPTA 1 PUFF INHALATION (08:38)
--- NOTE | 2021-07-26 12:47 | PM.DS ---
DS: Admitting Diagnosis Discharge Date 07/26/21 Admitting Diagnosis Anemia DS: Discharge Diagnosis Discharge Diagnosis (1) GI bleed: Qualifiers: GI bleed type/associated pathology: unspecified gastrointestinal hemorrhage type Qualified Code(s): K92.2 - Gastrointestinal hemorrhage, unspecified Code(s): K92.2 - Gastrointestinal hemorrhage, unspecified Status: Acute Assessment and Plan: Patient presents with anemia and melena. He was started on Protonix drip. Serial H&H was performed and he was transfused 1 unit PRBC 07/16. CT of the abdomen pelvis showed the soft tissue thickening of the gastric duodenal area concerning for peptic ulcer disease. GI was consulted and he underwent EGD 07/17 which showed esophageal and gastric ulcers. This is most likely the etiology of his GI bleed and acute blood loss anemia. Hgb stabilized. We held his Eliquis. Per GI, Eliquis to resume on 07/30/2021 (2) Hypotension: Code(s): I95.9 - Hypotension, unspecified Status: Acute Assessment and Plan: Patient developed HoTN afternoon of 07/18. He had finished the blood transfusion earlier that day. He was given Midodrine, Albumin and a fluid bolus. Some improvement but then BP dropped again so he was moved to IVC and central line placed on 07/18. Etiology unclear but possibly related to his anemia and renal failure. BCx and UCx negative. He was started on Levophed. BP and UOP improved. Pressors able to be weaned off. Midodrine also was able to be stopped. Appreciate director of digital platforms input. Central line removed. Resolved. We were able to resume metoprolol which he handled well. (3) JASON (acute kidney injury): Code(s): N17.9 - Acute kidney failure, unspecified Status: Acute Assessment and Plan: Cr 1.1 on admission but jumped quickly to 5.9 on 07/18. Lisinopril and lasix were held. Disla secured. Renal US showing normal right kidney and moderate left renal atrophy without hydronephrosis (old per ). IV fluids started. TCK 887 but not felt to be the etiology of the JASON. Pressors started to ensure adequate renal perfusion. UA showing WBC and protein. Ueos are rare. He began to have increase in the UOP and Cr returned to baseline. Most likely ATN from the anemia and HoTN. Pressors stopped. IVF stopped. Appreciate Nephrology input. Resolved. (4) Altered mental status: Code(s): R41.82 - Altered mental status, unspecified Status: Acute Assessment and Plan: Patient was alert but confused. CT of the brain showing no acute findings. Ammonia, TSH, Folate and B12 levels are normal. Mental status could be related to acute kidney injury and/or from the untreated DEMETRI. Symptoms better overall. ST evaluated the patient with MBS and he did not require restrictions. He may have hypoxia overnight. Apnea link ordered but patient unable to tolerated this. Mental status did improve to baseline. (5) Paroxysmal atrial flutter: Code(s): I48.92 - Unspecified atrial flutter Status: Acute Assessment and Plan: Was in sinus rhythm on admission. On Eliquis on admission but held now. Metoprolol was held due to shock. Patient went back in AFib. We were able to resume his metoprolol. Added Diltiazem later in his hospital course. We did not advance his metoprolol given the patient continued to have wheezing. Heart rate became better controlled. Appreciate Cardiology input. (6) Anemia: Qualifiers: Anemia type: unspecified type Qualified Code(s): D64.9 - Anemia, unspecified Code(s): D64.9 - Anemia, unspecified Status: Inactive Assessment and Plan: Hgb 12.6 last March which is probably baseline. Hgb 8.1 on admission and dropped to 6.7. Acute blood loss anemia secondary to GI bleed. He does have iron deficiency noted. Patient received 1 unit packed red blood cells on 07/16/21. Hemoglobin climbed to 7-8 range but dropped to 6.9 so a 2nd unit transfused 2
== END 2021-07-26 14:47 | disposition home or self-care (01) | DRG 377 ==
LOC: ANHED 17:13 → ANHIMU 19:37 → ANH2MED 07-25 13:19 → ANHICU 07-27 10:34 → ANHIMU 07-27 10:34
PROVIDERS: Emergency Medicine; Internal Medicine; Internal Medicine Gastroenterology; Internal Medicine Nephrology; Admitting Provider Family Medicine; Emergency Provider Emergency Medicine; PCP Physician Assistant; Visit Provider Internal Medicine
PROC: 0DJ08ZZ Inspection of Upper Intestinal Tract, Via Natural or Artificial Opening Endoscopic (ICD-10-PCS; CPT 43235; principal; 2021-07-17 14:45)
DX: K25.4 Chronic or unspecified gastric ulcer with hemorrhage (principal); I50.33 Acute on chronic diastolic (congestive) heart failure; N17.0 Acute kidney failure with tubular necrosis; Z68.41 Body mass index [BMI] 40.0-44.9, adult; E87.1 Hypo-osmolality and hyponatremia; N17.9 Acute kidney failure, unspecified; D62 Acute posthemorrhagic anemia; I48.92 Unspecified atrial flutter; R57.9 Shock, unspecified; I13.0 Hypertensive heart and chronic kidney disease with heart failure and stage 1 through stage 4 chronic kidney disease, or unspecified chronic kidney disease; T39.395A Adverse effect of other nonsteroidal anti-inflammatory drugs [NSAID], initial encounter; Y92.9 Unspecified place or not applicable; K22.11 Ulcer of esophagus with bleeding; M19.90 Unspecified osteoarthritis, unspecified site; F17.220 Nicotine dependence, chewing tobacco, uncomplicated; J44.9 Chronic obstructive pulmonary disease, unspecified; E11.40 Type 2 diabetes mellitus with diabetic neuropathy, unspecified; E03.9 Hypothyroidism, unspecified; K21.9 Gastro-esophageal reflux disease without esophagitis; G47.33 Obstructive sleep apnea (adult) (pediatric); E11.22 Type 2 diabetes mellitus with diabetic chronic kidney disease; N18.30 Chronic kidney disease, stage 3 unspecified; E66.01 Morbid (severe) obesity due to excess calories; R77.8 Other specified abnormalities of plasma proteins; E66.9 Obesity, unspecified; Z68.39 Body mass index [BMI] 39.0-39.9, adult; I48.0 Paroxysmal atrial fibrillation; Z79.01 Long term (current) use of anticoagulants; E78.5 Hyperlipidemia, unspecified
CPT/HCPCS: 36415; 36430; 36600; 70450; 71045; 71046; 74176; 76775; 80048; 80053; 80069; 80202; 81001; 81050; 82140; 82375; 82550; 82570; 82607; 82746; 82805; 82948; 83050; 83540; 83550; 83605; 83690; 83735; 83880; 84100; 84156; 84300; 84443; 84484; 84540; 85014; 85018; 85025; 85027; 85610; 85730; 85999; 86140; 86850; 86900; 86901; 86920; 87040; 87081; 87086; 88305; 92526; 92610; 92611; 93005; 94640; 94762; 96361; 96366; 96368; 96374; 97110; 97116; 97161; 97166; 97530; 97535; 99285; A9270; C1751; C8929; C9113; C9803; G0378; J0131; J1940; J2270; J2543; J2704; J3370; J7030; J7050; J7060; J7070; J7120; P9016; P9047; Q9957; U0003; U0005

== ENCOUNTER 2021-08-02 07:25 | Outpatient (CLI) | payer OTHER, SELFPAY ==
[2021-08-02 12:52] LABS: Albumin Level 3.5 g/dL (3.5-5.1); Anion Gap 9 mmol/L (8-16); Blood Urea Nitrogen 20 mg/dL (9-20); Calcium 9.2 mg/dL (8.4-10.2); Carbon Dioxide 26 mmol/L (22-30); Chloride 105 mmol/L (98-107); Estimated Glomerular Filt Rate 39; Glucose 104 mg/dL (65-110); Phosphorus 4.5 mg/dL (2.5-4.5); Potassium 3.9 mmol/L (3.4-5.0); Sodium 140 mmol/L (137-145)
== END 2021-08-02 07:26 | disposition home or self-care (01) ==
LOC: ANHLAB 07:27
PROVIDERS: PCP Physician Assistant; Visit Provider Internal Medicine
DX: I50.30 Unspecified diastolic (congestive) heart failure (principal)
CPT/HCPCS: 36415; 80069

== ENCOUNTER 2021-08-10 07:05 | Outpatient (CLI) | payer OTHER, SELFPAY ==
[2021-08-10 08:30] LABS: Basophils Absolute Auto 0.1 K/mm3 (0.0-0.1); Basophils Percent Auto 0.7 % (0.2-1.2); Eosinophils Absolute Auto 0.3 K/mm3 (0-0.3); Eosinophils Percent Auto 4.2 % (0-4.4); Hematocrit 27.7 % (42.0-52.0); Hemoglobin 8.1 g/dL (14.0-18.0); Immature Granulocyte Absolute 0.04 K/mm3 (0.00-0.031); Immature Granulocyte Percent A 0.6 % (0-0.5); Lymphocytes Absolute Auto 0.85 K/mm3 (0.9-3.2); Lymphocytes Percent Auto 12.4 % (18.3-44.2); Mean Corpuscular HGB Conc 29.2 g/dl (32-36); Mean Corpuscular Hemoglobin 29.9 pg (26-34); Mean Corpuscular Volume 102.2 fl (80-100); Mean Platelet Volume 10.4 fl (7.4-10.4); Monocytes Absolute Auto 0.6 K/mm3 (0.1-0.6); Monocytes Percent Auto 9.4 % (2.6-8.5); Neutrophils Percent Auto 72.7 % (45.5-73.1); Platelet Count Result 288 k/mm3 (150-375); Red Blood Count 2.71 M/mm3 (4.6-6.20); Red Cell Distribution Width 16.7 % (11.5-14.5); White Blood Count 6.8 K/mm3 (4.5-10.0)
[2021-08-10 08:31] LABS: Alanine Aminotransferase 16 U/L (4-50); Albumin Level 3.7 g/dL (3.5-5.1); Alkaline Phosphatase 87 U/L (38-126); Anion Gap 8 mmol/L (8-16); Aspartate Amino Transferase 32 U/L (17-59); Bilirubin,Total 0.5 mg/dL (0.2-1.3); Blood Urea Nitrogen 22 mg/dL (9-20); Calcium 8.7 mg/dL (8.4-10.2); Carbon Dioxide 25 mmol/L (22-30); Chloride 106 mmol/L (98-107); Estimated Glomerular Filt Rate 42; Glucose 124 mg/dL (65-110); Potassium 4.4 mmol/L (3.4-5.0); Sodium 139 mmol/L (137-145)
[2021-08-10 08:33] LABS: Iron 56 ug/dL (49-181)
[2021-08-10 08:44] LABS: Percent Iron Saturation 14 % (20-50)
[2021-08-10 10:25] LABS: Immature Reticulocyte Fraction 25.6 % (3.0-15.9); Reticulocyte Hemoglobin Conten 29.7 pg (28.2-35.7); Reticulocyte Percent 2.71 % (0.7-4.3); Reticulocytes Absolute 0.07 B/L (32.2-175.7)
== END 2021-08-10 07:06 | disposition home or self-care (01) ==
PROVIDERS: PCP Physician Assistant; Visit Provider Physician Assistant
DX: D62 Acute posthemorrhagic anemia (principal)
CPT/HCPCS: 36415; 80053; 82728; 83540; 83550; 85025; 85046

== ENCOUNTER 2021-08-23 07:36 | Outpatient (CLI) | payer OTHER, SELFPAY ==
--- NOTE | 2021-08-23 09:37 | WPDSIXMINUTE ---
Six Minute Walk Procedure Procedure Performed Pulmonary Stress Test (6 min walk) Six Minute Walk This is a 6 minute walk test. The test was performed and interpreted in accordance with the 2014 ERS/ATS task force guidelines. Of note the patient was walking with a cane. Findings: The patient's resting room air oxygen saturation measured by pulse oximetry was 98% and heart rate was 107 bpm. Patient ambulated for 152 meters and oxygen saturation remained 93 to 98%. Heart rate at the end of the study was 107 bpm. The patient did not qualify for supplemental oxygen at rest or with ambulation. There are no prior studies for comparison.
== END 2021-08-23 07:37 | disposition home or self-care (01) ==
LOC: ANHPFT 07:37
PROVIDERS: PCP Physician Assistant; Visit Provider Physician Assistant
DX: R06.02 Shortness of breath (principal)
CPT/HCPCS: 94618

== ENCOUNTER 2021-09-12 07:54 | Outpatient (CLI) | payer OTHER, SELFPAY ==
--- NOTE | 2021-09-13 15:48 | WPDHOMESLEEP ---
Sleep Study - Home Unattended Date of Study: 09/12/21 Ordering Provider: Roc Lanza PA-C Interpreting Provider: Jeanie Ewing, DO Home Sleep Study Type: Apnea Link Air Height: 1.73 m Weight: 113.852 kg Body Mass Index: 38.1 Neck Circumference (inches): 23 Deloit: 12 Reason for Sleep Study Daytime hypersomnia Sleep History The patient is a 75-year-old male with anemia, asthma, stage 3 chronic kidney disease, dyslipidemia, hypertension, hypothyroidism, paroxysmal atrial flutter and recent upper GI ulcerations that had a home sleep test ordered by his primary care due to daytime hypersomnia. The patient is currently retired. He denies awakening from sleep short of breath. He occasionally awakens at night with heartburn, belching or cough. He constantly snores but it is rarely loudly enough that others complain. He occasionally has trouble sleeping when he has a cold. He denies waking up gasping for air throughout the night. He denies breathing problems at night observed by himself or others. He denies sweating excessively at night. He denies having heart palpitations or irregular heartbeats during the night. He constantly falls asleep during the day but never while driving. He denies sleep paralysis, cataplexy and hypnagogic / hypnopompic hallucinations. He denies having nightmares. He occasionally remembers his dreams. He occasionally has thoughts racing through his mind. He rarely feels sad or depressed. He occasionally has anxiety. He denies ever muscular tension. He denies noticing part of his body jerk. He denies kicking during the night. He occasionally has crawling and aching feelings in his legs as well as leg pain during the night. He denies grinding his teeth during sleep awakening with morning jaw pain. He frequently bothered by pain during the day and frequently awakened by pain during the night. He rarely wakes up feeling stiff in the morning. He rarely wakes up with sore achy muscles. He frequently wakes up with pain in the neck, spine and other joints. He goes to bed at 10:30 p.m. on weekdays and 11:00 p.m. on the weekends. He is unsure how long it takes him to fall asleep. He wakes up 3-4 times throughout the night to use the restroom. He is unable to fall asleep after that. He typically wakes up at 5:00 a.m. on weekdays and 6:00 a.m. on the weekends. He typically gets 2-3 hours of sleep per night. He will not stay in bed after waking up in the morning. He currently lives with his . He does not consume any caffeinated beverages within 2 hours of bedtime. He does not engage in physical exercise before bedtime. He will watch television before falling asleep. He will take naps in the afternoon or the evening and they are refreshing. He drinks 2-3 caffeinated beverages per day. He drinks 2 alcoholic beverages per day. He used to smoke cigarettes. He has been using chewing tobacco for 55-60 years. [facility] Past Medical History Medical History (Updated 09/13/21 @ 15:57 by Jeanie Ewing DO) Acute on chronic blood loss anemia Anemia Arthritis Asthma Chronic anticoagulation CKD (chronic kidney disease) stage 3, GFR 30-59 ml/min Dyslipidemia Hypertension Hyponatremia Hypothyroidism DEMETRI (obstructive sleep apnea) Paroxysmal atrial flutter Surgical History Surgical History History of hip replacement History of left hip replacement History of right hip replacement Family History Family History Mother Liver cancer Sibling S/P CABG x 3 Father FH myocardial infarction male first degree age known Family history of cardiovascular disease S/P CABG x 4 Sibling Family history of cardiovascular disease Sibling Family history of cardiovascular disease Other Family history of arthritis Social History Social History (Reviewed 09/13/21 @ 15:54 by Jeanie Mchugh
[2021-09-13 16:00] VITALS: BMI 38.1
--- NOTE | 2022-07-31 16:24 | SLEEP ---
new calls [id number]
== END 2021-09-13 12:17 | disposition home or self-care (01) ==
LOC: ANHCSM 07:56
PROVIDERS: PCP Physician Assistant; Visit Provider Physician Assistant
DX: G47.33 Obstructive sleep apnea (adult) (pediatric) (principal)
CPT/HCPCS: 95806

== ENCOUNTER 2021-09-12 08:26 | Outpatient (CLI) | payer OTHER, SELFPAY ==
[2021-09-12 08:51] LABS: Basophils Absolute Auto 0.1 K/mm3 (0.0-0.1); Basophils Percent Auto 0.8 % (0.2-1.2); Eosinophils Absolute Auto 0.3 K/mm3 (0-0.3); Eosinophils Percent Auto 4.3 % (0-4.4); Hematocrit 30.9 % (42.0-52.0); Hemoglobin 9.8 g/dL (14.0-18.0); Immature Granulocyte Absolute 0.03 K/mm3 (0.00-0.031); Immature Granulocyte Percent A 0.5 % (0-0.5); Immature Reticulocyte Fraction 17.3 % (3.0-15.9); Lymphocytes Absolute Auto 0.93 K/mm3 (0.9-3.2); Lymphocytes Percent Auto 14.9 % (18.3-44.2); Mean Corpuscular HGB Conc 31.7 g/dl (32-36); Mean Corpuscular Hemoglobin 30.6 pg (26-34); Mean Corpuscular Volume 96.6 fl (80-100); Mean Platelet Volume 9.3 fl (7.4-10.4); Monocytes Absolute Auto 0.7 K/mm3 (0.1-0.6); Monocytes Percent Auto 11.2 % (2.6-8.5); Neutrophils Absolute Auto 4.3 K/mm3 (1.3-6.7); Neutrophils Percent Auto 68.3 % (45.5-73.1); Platelet Count Result 244 k/mm3 (150-375); Red Cell Distribution Width 15.9 % (11.5-14.5); Reticulocyte Hemoglobin Conten 34.3 pg (28.2-35.7); Reticulocyte Percent 1.59 % (0.7-4.3); Reticulocytes Absolute 0.05 B/L (32.2-175.7); White Blood Count 6.2 K/mm3 (4.5-10.0)
[2021-09-12 09:40] LABS: Iron 53 ug/dL (49-181)
[2021-09-12 09:45] LABS: Alanine Aminotransferase 16 U/L (4-50); Albumin Level 3.6 g/dL (3.5-5.1); Alkaline Phosphatase 79 U/L (38-126); Anion Gap 5 mmol/L (8-16); Aspartate Amino Transferase 36 U/L (17-59); Bilirubin,Total 0.3 mg/dL (0.2-1.3); Blood Urea Nitrogen 13 mg/dL (9-20); Calcium 8.5 mg/dL (8.4-10.2); Carbon Dioxide 27 mmol/L (22-30); Chloride 106 mmol/L (98-107); Estimated Glomerular Filt Rate 49; Glucose 122 mg/dL (65-110); Potassium 4.2 mmol/L (3.4-5.0); Sodium 138 mmol/L (137-145)
[2021-09-12 09:53] LABS: Percent Iron Saturation 14 % (20-50)
[2021-09-12 10:14] LABS: Prostate Specific Antigen 2.9 ng/mL (< OR = 4.0)
[2021-09-12 10:53] LABS: Folic Acid 9.1 ng/mL (2.76->20)
== END 2021-09-12 08:27 | disposition home or self-care (01) ==
LOC: ANHLAB 08:27
PROVIDERS: PCP Physician Assistant; Visit Provider Physician Assistant
DX: N18.30 Chronic kidney disease, stage 3 unspecified (principal); R97.20 Elevated prostate specific antigen [PSA]; D62 Acute posthemorrhagic anemia
CPT/HCPCS: 36415; 80053; 82607; 82728; 82746; 83540; 83550; 84153; 85025; 85046

== ENCOUNTER 2021-09-13 00:45 | Day surgery (SDC) | payer OTHER, SELFPAY ==
[2021-09-05 14:31] VITALS: BMI 38.2
--- NOTE | 2021-09-12 16:27 | PM.HPGS ---
History of Present Illness History of Present Illness Consent: Risks, benefits, and alternatives have been discussed and questions answered. Patient agrees to proceed with procedure. Chief complaint: gastric ulcer, esophageal ulcer Narrative: Seferino Cano is a 75 year old male Who had been admitted in June with gastrointestinal bleeding. He was found have a large gastric antral ulcer and several smaller ulcers as well as multiple ulcerations in the esophagus. He has been taking pantoprazole 40 mg daily and despite going back on Eliquis, there has been no further bleeding. He returns today for follow-up of the ulcer is to assure healing Review of Systems Review of Systems: All systems reviewed & are unremarkable except as noted in HPI and below PMFSH Past Medical History Medical History Acute on chronic blood loss anemia Anemia Arthritis Asthma Chronic anticoagulation CKD (chronic kidney disease) stage 3, GFR 30-59 ml/min Dyslipidemia Hypertension Hyponatremia Hypothyroidism DEMETRI (obstructive sleep apnea) Paroxysmal atrial flutter Surgical History Surgical History History of hip replacement History of left hip replacement History of right hip replacement Family History Family History Mother Liver cancer Sibling S/P CABG x 3 Father FH myocardial infarction male first degree age known Family history of cardiovascular disease S/P CABG x 4 Sibling Family history of cardiovascular disease Sibling Family history of cardiovascular disease Other Family history of arthritis Social History Social History Smoking status: Never smoker Tobacco type: smokeless tobacco Smokeless tobacco user: chewing tobacco Second hand tobacco smoke exposure: No Additional smoking assessment comments: 55-60 YEARS OF CHEWING TOBACCO Alcohol intake: former Drinks per week: 21 Substance use: never Substance use type: does not use Last use: hasn't been drinking since May Living arrangements: with family Spiritual care concerns: No Meds Home Medications and Allergies Home Medications Medication Instructions Recorded Confirmed Type xsxnoisq-ryk-wbssy acid 300 1 tablet PO DAILY 04/20/19 09/05/21 History mcg-lycopene 600 mcg-lutein 300 mcg tablet albuterol sulfate 90 mcg/actuation 2 puff INHALATION Q4-6H PRN #8.5 g 09/13/20 09/05/21 Rx aerosol inhaler trazodone 50 mg tablet 50 mg PO .QHS #90 tablet 01/10/21 09/05/21 Rx fenofibrate nanocrystallized 145 145 mg PO DAILY #90 tablet 01/25/21 09/05/21 Rx mg tablet gabapentin 600 mg tablet 600 mg PO TID #90 tablet 05/30/21 09/05/21 Rx Eliquis 5 mg PO BID 07/14/21 09/13/21 History levothyroxine [Euthyrox] 50 mcg PO DAILY 07/14/21 09/05/21 History diltiazem HCl 60 mg PO Q12HR #60 tablet 07/26/21 09/05/21 Rx ferrous sulfate 324 mg PO BIDWM #60 tablet 07/26/21 09/05/21 Rx lanolin tcxgzwu-sb-x.pet-ceres 1 applic TOPICAL BID #113 g 07/26/21 09/05/21 Rx [Minerin Creme] spironolactone 25 mg tablet 25 mg PO BID #30 tablet 08/03/21 09/13/21 Rx metoprolol tartrate 50 mg tablet 50 mg PO BID #60 tablet 08/25/21 09/05/21 Rx pantoprazole 40 mg PO DAILY 09/04/21 09/05/21 History furosemide 40 mg PO DAILY 09/05/21 09/05/21 History Allergies Allergy/AdvReac Type Severity Reaction Status Date / Time Iodinated Contrast Media Allergy Unknown itching Verified 09/13/21 06:49 tramadol Allergy Unknown Itching Verified 09/13/21 06:49 (moderate to severe) Exam Const: General: alert Orientation/consciousness: patient oriented x3 Resp: Auscultation: clear to auscultation bilaterally Cardio: Rhythm: regular rhythm GI: GI Palp: Yes Soft to palpation and No Tenderness to palpation present (GI) Neuro: General: patient orien
[2021-09-13 06:52] VITALS: BP 110/74; PULSE 71; RESP 18; TEMP 36.8; O2SAT 99
[2021-09-13] MEDS: LACTATED RINGERS 1,000 ML 150 ML IV CONT (07:02)
--- NOTE | 2021-09-13 07:22 | WPDANESEPPF ---
Anes - Initial Pre Proc Eval Procedure: Operation Date: 09/13/21 08:00 Proposed Procedures p Esophagogastroduodenoscopy - Luigi Krueger MD Date/Time: 09/13/21 07:22 Surgeon: Luigi Krueger MD Pre Op Diagnosis: gastric ulcer, esophageal ulcer Patient Data Age: 75 Gender: M Height: 1.73 m Weight: 115.7 kg Last Vital Signs Temp 36.8 C 09/13/21 06:52 Pulse 71 09/13/21 06:52 Resp 18 09/13/21 06:52 BP 110/74 09/13/21 06:52 Pulse Ox 99 09/13/21 06:52 Allergies Allergy/AdvReac Type Severity Reaction Status Date / Time Iodinated Contrast Media Allergy Unknown itching Verified 09/13/21 06:49 tramadol Allergy Unknown Itching Verified 09/13/21 06:49 (moderate to severe) Home Medications Medication Instructions Recorded Confirmed Type dbqcylit-qmp-lruge acid 300 1 tablet PO DAILY 04/20/19 09/05/21 History mcg-lycopene 600 mcg-lutein 300 mcg tablet albuterol sulfate 90 mcg/actuation 2 puff INHALATION Q4-6H PRN #8.5 g 09/13/20 09/05/21 Rx aerosol inhaler trazodone 50 mg tablet 50 mg PO .QHS #90 tablet 01/10/21 09/05/21 Rx fenofibrate nanocrystallized 145 145 mg PO DAILY #90 tablet 01/25/21 09/05/21 Rx mg tablet gabapentin 600 mg tablet 600 mg PO TID #90 tablet 05/30/21 09/05/21 Rx Eliquis 5 mg PO BID 07/14/21 09/13/21 History levothyroxine [Euthyrox] 50 mcg PO DAILY 07/14/21 09/05/21 History diltiazem HCl 60 mg PO Q12HR #60 tablet 07/26/21 09/05/21 Rx ferrous sulfate 324 mg PO BIDWM #60 tablet 07/26/21 09/05/21 Rx lanolin ekjkpsk-kt-i.pet-ceres 1 applic TOPICAL BID #113 g 07/26/21 09/05/21 Rx [Minerin Creme] spironolactone 25 mg tablet 25 mg PO BID #30 tablet 08/03/21 09/13/21 Rx metoprolol tartrate 50 mg tablet 50 mg PO BID #60 tablet 08/25/21 09/05/21 Rx pantoprazole 40 mg PO DAILY 09/04/21 09/05/21 History furosemide 40 mg PO DAILY 09/05/21 09/05/21 History Patient hx anesthesia problems: none Family hx anesthesia problems: none Results Review: All pre-operative results and documents have been reviewed as part of the pre-operative evaluation. [facility] Past Medical History Medical History Acute on chronic blood loss anemia Anemia Arthritis Asthma Chronic anticoagulation CKD (chronic kidney disease) stage 3, GFR 30-59 ml/min Dyslipidemia Hypertension Hyponatremia Hypothyroidism DEMETRI (obstructive sleep apnea) Paroxysmal atrial flutter Surgical History Surgical History History of hip replacement History of left hip replacement History of right hip replacement Family History Family History Mother Liver cancer Sibling S/P CABG x 3 Father FH myocardial infarction male first degree age known Family history of cardiovascular disease S/P CABG x 4 Sibling Family history of cardiovascular disease Sibling Family history of cardiovascular disease Other Family history of arthritis Social History Social History Smoking status: Never smoker Tobacco type: smokeless tobacco Smokeless tobacco user: chewing tobacco Second hand tobacco smoke exposure: No Additional smoking assessment comments: 55-60 YEARS OF CHEWING TOBACCO Alcohol intake: former Drinks per week: 21 Substance use: never Substance use type: does not use Last use: hasn't been drinking since May Living arrangements: with family Spiritual care concerns: No Anes - Eval Final PreProcedure Day of Procedure 09/13/21 07:22 Patient weight: obese Heart: regular rate and rhythm Lungs: clear to auscultation and normal air movement Airway: Mallampati scale class II Neurological: alert and oriented Last oral intake: >/= 8 hours ASA classification: III Emergent: no Anesthetic plan: proceed Anesthesia type and monitoring: general GIVS Resul
[2021-09-13 08:12] VITALS: BP 110/70; PULSE 68; RESP 19; O2SAT 97
[2021-09-13 08:22] VITALS: BP 108/69; PULSE 67; RESP 23; O2SAT 95
[2021-09-13 08:32] VITALS: BP 114/72; PULSE 68; RESP 20; O2SAT 96
== END 2021-09-13 08:40 | disposition home or self-care (01) ==
PROVIDERS: PCP Physician Assistant; Visit Provider Internal Medicine Gastroenterology
PROC: 0DJ08ZZ Inspection of Upper Intestinal Tract, Via Natural or Artificial Opening Endoscopic (ICD-10-PCS; CPT 43235; principal; 2021-09-13 08:00)
DX: K25.9 Gastric ulcer, unspecified as acute or chronic, without hemorrhage or perforation (principal); K21.00 Gastro-esophageal reflux disease with esophagitis, without bleeding; K31.1 Adult hypertrophic pyloric stenosis; N18.30 Chronic kidney disease, stage 3 unspecified; D64.9 Anemia, unspecified; I48.0 Paroxysmal atrial fibrillation; G47.33 Obstructive sleep apnea (adult) (pediatric); E03.9 Hypothyroidism, unspecified; E78.5 Hyperlipidemia, unspecified; J45.909 Unspecified asthma, uncomplicated; F17.220 Nicotine dependence, chewing tobacco, uncomplicated; Z79.51 Long term (current) use of inhaled steroids; Z79.01 Long term (current) use of anticoagulants; E66.9 Obesity, unspecified; Z68.38 Body mass index [BMI] 38.0-38.9, adult
CPT/HCPCS: 43245; J2704; J7120

== ENCOUNTER 2021-10-04 14:18 | Outpatient (CLI) | payer OTHER, SELFPAY ==
[2021-10-04 14:40] LABS: Basophils Absolute Auto 0.1 K/mm3 (0.0-0.1); Basophils Percent Auto 0.8 % (0.2-1.2); Eosinophils Absolute Auto 0.3 K/mm3 (0-0.3); Eosinophils Percent Auto 3.9 % (0-4.4); Hematocrit 32.8 % (42.0-52.0); Hemoglobin 10.2 g/dL (14.0-18.0); Immature Granulocyte Absolute 0.02 K/mm3 (0.00-0.031); Immature Granulocyte Percent A 0.3 % (0-0.5); Lymphocytes Absolute Auto 1.14 K/mm3 (0.9-3.2); Lymphocytes Percent Auto 15.2 % (18.3-44.2); Mean Corpuscular HGB Conc 31.1 g/dl (32-36); Mean Corpuscular Hemoglobin 30.1 pg (26-34); Mean Corpuscular Volume 96.8 fl (80-100); Mean Platelet Volume 10.3 fl (7.4-10.4); Monocytes Absolute Auto 0.9 K/mm3 (0.1-0.6); Monocytes Percent Auto 11.7 % (2.6-8.5); Neutrophils Absolute Auto 5.1 K/mm3 (1.3-6.7); Neutrophils Percent Auto 68.1 % (45.5-73.1); Platelet Count Result 260 k/mm3 (150-375); Red Blood Count 3.39 M/mm3 (4.6-6.20); Red Cell Distribution Width 14.7 % (11.5-14.5); White Blood Count 7.5 K/mm3 (4.5-10.0)
[2021-10-04 14:51] LABS: Anion Gap 7 mmol/L (8-16); Blood Urea Nitrogen 27 mg/dL (9-20); Calcium 8.8 mg/dL (8.4-10.2); Carbon Dioxide 31 mmol/L (22-30); Chloride 101 mmol/L (98-107); Estimated Glomerular Filt Rate 39; Glucose 102 mg/dL (65-110); Sodium 139 mmol/L (137-145)
== END 2021-10-04 14:19 | disposition home or self-care (01) ==
LOC: ANHLAB 14:26
PROVIDERS: PCP Internal Medicine
DX: I10 Essential (primary) hypertension (principal); N28.9 Disorder of kidney and ureter, unspecified; N18.9 Chronic kidney disease, unspecified
CPT/HCPCS: 36415; 80048; 85025

== ENCOUNTER 2021-10-27 07:48 | Outpatient (CLI) | payer OTHER, SELFPAY ==
--- NOTE | 2021-11-23 08:55 | WPDSLEEPSTUD ---
Sleep Study Date of Study: 10/27/21 Ordering Provider: Roc Lanza PA-C Interpreting Physician: Nicolasa Sandoval MD Sleep Study Type: BiPAP Titration Height: 1.75 m Weight: 116.12 kg Body Mass Index: 37.8 Neck Circumference (inches): 19.5 [place]: 12 Reason for Sleep Study * 09/12/2021 home sleep test using [employer] AHI 35.8; consistent with severe sleep apnea, patient presents for a titration Sleep History Seferino Cano is a 75 year old retired man with severe obstructive sleep apnea on a home sleep test 09/15/2021. His medical co-morbidities include asthma, stage 3 chronic kidney disease, dyslipidemia, hypertension, hypothyroidism, and paroxysmal atrial flutter. He denies awakening from sleep short of breath.? He occasionally awakens at night with heartburn, belching or coughing.? He constantly snores but it is rarely loudly enough that others complain.? He occasionally has trouble sleeping when he has a cold.? He denies waking up gasping for air throughout the night.? He denies breathing problems at night observed by himself or others.? He denies sweating excessively at night.? He denies having heart palpitations or irregular heartbeats during the night.? He constantly falls asleep during the day but never while driving.? He denies sleep paralysis, cataplexy and hypnagogic / hypnopompic hallucinations.? He denies having nightmares.? He occasionally remembers his dreams.? He occasionally has thoughts racing through his mind.? He rarely feels sad or depressed.? He occasionally has anxiety.? He denies ever muscular tension.? He denies noticing part of his body jerk.? He denies kicking during the night.? He occasionally has crawling and aching feelings in his legs as well as leg pain during the night.? He denies grinding his teeth during sleep awakening with morning jaw pain.? He frequently bothered by pain during the day and frequently awakened by pain during the night.? He rarely wakes up feeling stiff in the morning.? He rarely wakes up with sore achy muscles.? He frequently wakes up with pain in the neck, spine and other joints.? He goes to bed at 10:30 p.m. on weekdays and 11:00 p.m. on the weekends.? He is unsure how long it takes him to fall asleep.? He wakes up 3-4 times throughout the night to use the restroom.? He is unable to fall asleep after that.? He typically wakes up at 5:00 a.m. on weekdays and 6:00 a.m. on the weekends.? He typically gets 2-3 hours of sleep per night.? He will not stay in bed after waking up in the morning.? He currently lives with his .? He does not consume any caffeinated beverages within 2 hours of bedtime.? He does not engage in physical exercise before bedtime.? He will watch television before falling asleep.? He will take naps in the afternoon or the evening and they are refreshing.? He drinks 2-3 caffeinated beverages per day.? He drinks 2 alcoholic beverages per day.? He used to smoke cigarettes. He has been using chewing tobacco for 55-60 years. [facility] Past Medical History Medical History Acute on chronic blood loss anemia Anemia Arthritis Asthma Chronic anticoagulation CKD (chronic kidney disease) stage 3, GFR 30-59 ml/min Dyslipidemia Hypertension Hyponatremia Hypothyroidism DEMETRI (obstructive sleep apnea) Paroxysmal atrial flutter Surgical History Surgical History History of hip replacement History of left hip replacement History of right hip replacement Family History Family History Mother Liver cancer Sibling S/P CABG x 3 Father FH myocardial infarction male first degree age known Family history of cardiovascular disease S/P CABG x 4 Sibling Family history of cardiovascular disease Sibling Family history of cardiovascular disease Other Family history of arthritis Social History Social History (Reviewed
[2021-11-23 09:32] VITALS: BMI 37.8
== END 2021-10-28 06:55 | disposition home or self-care (01) ==
LOC: ANHCSM 07:48
PROVIDERS: PCP Internal Medicine; Visit Provider Physician Assistant
DX: G47.33 Obstructive sleep apnea (adult) (pediatric) (principal); Z68.37 Body mass index [BMI] 37.0-37.9, adult
CPT/HCPCS: 95811

== ENCOUNTER 2022-02-09 00:35 | Day surgery (SDC) | payer OTHER, SELFPAY ==
[2022-02-05 14:30] VITALS: BMI 39.5
--- NOTE | 2022-02-08 10:00 | WPDANESEPPF ---
Anes - Initial Pre Proc Eval Procedure: Operation Date: 02/09/22 11:30 Proposed Procedures p Esophagogastroduodenoscopy - Luigi Krueger MD Date/Time: 02/08/22 10:00 Surgeon: Luigi Krueger MD Pre Op Diagnosis: gastric ulcer Patient Data Age: 76 Gender: M Height: 1.73 m Weight: 118 kg Allergies Allergy/AdvReac Type Severity Reaction Status Date / Time Iodinated Contrast Media Allergy Unknown itching Verified 02/09/22 10:12 tramadol Allergy Unknown Itching Verified 02/09/22 10:12 (moderate to severe) Home Medications Medication Instructions Recorded Confirmed Type fenofibrate nanocrystallized 145 145 mg PO DAILY #90 tabs 01/25/21 02/05/22 Rx mg tablet gabapentin 600 mg tablet 600 mg PO TID #90 tabs 05/30/21 02/05/22 Rx apixaban 5 mg tablet (Eliquis) 5 mg PO BID 07/14/21 02/05/22 History levothyroxine 50 mcg tablet 50 mcg PO DAILY 07/14/21 02/05/22 History (Euthyrox) metoprolol tartrate 50 mg tablet 50 mg PO BID #60 tabs 08/25/21 02/05/22 Rx pantoprazole 40 mg tablet,delayed 40 mg PO DAILY 09/04/21 02/05/22 History release ferrous sulfate 325 mg (65 mg 324 mg PO BIDWM #60 tabs 09/27/21 02/05/22 Rx iron) tablet zolpidem 10 mg tablet 10 mg PO ONCE #1 tablet 10/25/21 02/05/22 Rx acetaminophen 325 mg tablet 325 mg PO Q6H PRN Pain 10/27/21 02/05/22 History furosemide 40 mg tablet 40 mg PO BID 11/30/21 02/05/22 History spironolactone 25 mg tablet 25 mg PO .prn 11/30/21 02/05/22 History budesonide-formoterol HFA 160 2 puff inhalation Q12H #10.2 grams 01/22/22 02/05/22 Rx mcg-4.5 mcg/actuation aerosol inhaler (Symbicort) Patient hx anesthesia problems: none Family hx anesthesia problems: none Results Review: All pre-operative results and documents have been reviewed as part of the pre-operative evaluation. PMFSH Past Medical History Medical History (Updated 02/09/22 @ 10:56 by Pardeep Cagle DO) Acute on chronic blood loss anemia Anemia Arthritis Asthma Atrial fibrillation Chronic anticoagulation CKD (chronic kidney disease) stage 3, GFR 30-59 ml/min Diastolic CHF EF >70%, Grade IV diastolic dysfunction Dyslipidemia Hypertension Hyponatremia Hypothyroidism DEMETRI (obstructive sleep apnea) Paroxysmal atrial flutter Surgical History Surgical History History of hip replacement History of left hip replacement History of right hip replacement Family History Family History Mother Liver cancer Sibling S/P CABG x 3 Father FH myocardial infarction male first degree age known Family history of cardiovascular disease S/P CABG x 4 Sibling Family history of cardiovascular disease Sibling Family history of cardiovascular disease Other Family history of arthritis Social History Social History Smoking status: Never smoker Tobacco type: smokeless tobacco Smokeless tobacco user: chewing tobacco Second hand tobacco smoke exposure: No Additional smoking assessment comments: 55-60 YEARS OF CHEWING TOBACCO Alcohol intake: former Drinks per week: 21 Substance use: never Substance use type: does not use Last use: hasn't been drinking since May Living arrangements: with family Spiritual care concerns: No Anes - Eval Final PreProcedure Day of Procedure 02/08/22 10:00 Patient weight: obese Heart: regular rate and rhythm Lungs: clear to auscultation Airway: Mallampati scale class III Neurological: alert and oriented Last oral intake: >/= 8 hours ASA classification: IV Emergent: no Anesthetic plan: proceed Anesthesia type and monitoring: general GIVS and standard monitoring Results Review: All pre-operative results and documents have been reviewed as part of the pre-operative evaluation. Informed Consent: The patient's anesthetic plan and its atten
[2022-02-09 10:14] VITALS: BP 131/72; PULSE 57; RESP 20; TEMP 36.4; O2SAT 98
[2022-02-09] MEDS: LACTATED RINGERS 1,000 ML 150 ML IV CONT (10:25)
--- NOTE | 2022-02-09 10:55 | PM.HPGS ---
History of Present Illness History of Present Illness Consent: Risks, benefits, and alternatives have been discussed and questions answered. Patient agrees to proceed with procedure. Chief complaint: gastric ulcer Narrative: Seferino Cano is a 76 year old male who was found to have a large gastric ulcer when he was hospitalized with gastrointestinal bleeding earlier this year. Two months later follow-up EGD showed that the ulcer had only Partially healed. he does take Eliquis but has not seen blood lately. He remains on pantoprazole 40 mg per day. Review of Systems Review of Systems: All systems reviewed & are unremarkable except as noted in HPI and below PMFSH Past Medical History Medical History Acute on chronic blood loss anemia Anemia Arthritis Asthma Atrial fibrillation Chronic anticoagulation CKD (chronic kidney disease) stage 3, GFR 30-59 ml/min Diastolic CHF EF >70%, Grade IV diastolic dysfunction Dyslipidemia Hypertension Hyponatremia Hypothyroidism DEMETRI (obstructive sleep apnea) Paroxysmal atrial flutter Surgical History Surgical History History of hip replacement History of left hip replacement History of right hip replacement Family History Family History Mother Liver cancer Sibling S/P CABG x 3 Father FH myocardial infarction male first degree age known Family history of cardiovascular disease S/P CABG x 4 Sibling Family history of cardiovascular disease Sibling Family history of cardiovascular disease Other Family history of arthritis Social History Social History Smoking status: Never smoker Tobacco type: smokeless tobacco Smokeless tobacco user: chewing tobacco Second hand tobacco smoke exposure: No Additional smoking assessment comments: 55-60 YEARS OF CHEWING TOBACCO Alcohol intake: former Drinks per week: 21 Substance use: never Substance use type: does not use Last use: hasn't been drinking since May Living arrangements: with family Spiritual care concerns: No Meds Home Medications and Allergies Home Medications Medication Instructions Recorded Confirmed Type fenofibrate nanocrystallized 145 145 mg PO DAILY #90 tabs 01/25/21 02/05/22 Rx mg tablet gabapentin 600 mg tablet 600 mg PO TID #90 tabs 05/30/21 02/05/22 Rx apixaban 5 mg tablet (Eliquis) 5 mg PO BID 07/14/21 02/05/22 History levothyroxine 50 mcg tablet 50 mcg PO DAILY 07/14/21 02/09/22 History (Euthyrox) metoprolol tartrate 50 mg tablet 50 mg PO BID #60 tabs 08/25/21 02/09/22 Rx pantoprazole 40 mg tablet,delayed 40 mg PO DAILY 09/04/21 02/05/22 History release ferrous sulfate 325 mg (65 mg 324 mg PO BIDWM #60 tabs 09/27/21 02/05/22 Rx iron) tablet zolpidem 10 mg tablet 10 mg PO ONCE #1 tablet 10/25/21 02/05/22 Rx acetaminophen 325 mg tablet 325 mg PO Q6H PRN Pain 10/27/21 02/05/22 History furosemide 40 mg tablet 40 mg PO BID 11/30/21 02/05/22 History spironolactone 25 mg tablet 25 mg PO .prn 11/30/21 02/05/22 History budesonide-formoterol HFA 160 2 puff inhalation Q12H #10.2 grams 01/22/22 02/05/22 Rx mcg-4.5 mcg/actuation aerosol inhaler (Symbicort) Allergies Allergy/AdvReac Type Severity Reaction Status Date / Time Iodinated Contrast Media Allergy Unknown itching Verified 02/09/22 10:12 tramadol Allergy Unknown Itching Verified 02/09/22 10:12 (moderate to severe) Vital Signs Vital Signs - 24 hr 02/09/22 10:14 Temperature 36.4 C L Pulse Rate 57 L Respiratory Rate 20 Blood Pressure 131/72 Pulse Oximetry 98 Oxygen Delivery Room Air Exam Const: General: alert Orientation/consciousness: patient oriented x3 Resp: Auscultation: clear to auscultation bilaterally Cardio: Rhythm: regular rhythm GI: GI Palp
[2022-02-09 11:39] VITALS: BP 111/60; PULSE 59; RESP 16; O2SAT 100
[2022-02-09 11:49] VITALS: BP 117/70; PULSE 56; RESP 20; O2SAT 98
[2022-02-09 11:59] VITALS: BP 120/84; PULSE 61; RESP 19; O2SAT 100
== END 2022-02-09 12:21 | disposition home or self-care (01) ==
PROVIDERS: PCP Internal Medicine; Visit Provider Internal Medicine Gastroenterology
PROC: 0DJ08ZZ Inspection of Upper Intestinal Tract, Via Natural or Artificial Opening Endoscopic (ICD-10-PCS; CPT 43235; principal; 2022-02-09 11:30)
DX: Z09 Encounter for follow-up examination after completed treatment for conditions other than malignant neoplasm (principal); Z87.11 Personal history of peptic ulcer disease; K21.9 Gastro-esophageal reflux disease without esophagitis; K31.89 Other diseases of stomach and duodenum; G47.33 Obstructive sleep apnea (adult) (pediatric); E03.9 Hypothyroidism, unspecified; I48.92 Unspecified atrial flutter; I48.91 Unspecified atrial fibrillation; E78.5 Hyperlipidemia, unspecified; M19.90 Unspecified osteoarthritis, unspecified site; I13.0 Hypertensive heart and chronic kidney disease with heart failure and stage 1 through stage 4 chronic kidney disease, or unspecified chronic kidney disease; I50.30 Unspecified diastolic (congestive) heart failure; N18.30 Chronic kidney disease, stage 3 unspecified; E87.1 Hypo-osmolality and hyponatremia; Z87.891 Personal history of nicotine dependence; Z79.01 Long term (current) use of anticoagulants; E66.9 Obesity, unspecified; Z68.39 Body mass index [BMI] 39.0-39.9, adult
CPT/HCPCS: 43235; J2704; J7120

== ENCOUNTER 2022-03-12 13:04 | Outpatient (CLI) | payer OTHER, SELFPAY ==
--- NOTE | ~2022-03-12 | XR_ITS ---
EXAMINATION: XR cervical spine 4-5V DATE: 03/12/2022 13:47 INDICATION: Chronic neck pain. TECHNIQUE: 4 views of cervical spine on 5 radiographs were obtained. COMPARISON: None. FINDINGS: There is 10 degrees levoscoliosis of cervicothoracic spine. Vertebral body heights are norm al. There is moderately decreased disc height at C2-C3, severely decreased disc height at C3-C4, and moderately decreased disc height at C4-C5 and C5-C6. There is multilevel mild to moderate facet joint osteoarthritis. There is mild central canal stenosis at C3-C4, C4-C5, and C5-C6. No prevertebral sof t tissue swelling. IMPRESSION: 1. Severe cervical spondylosis. 2. Cervicothoracic levoscoliosis. Reviewed, dictated and finalized at location B.
--- NOTE | ~2022-03-12 | XR_ITS ---
EXAM: XR shoulder RT min 2V, XR shoulder LT min 2V DATE: 03/12/2022 13:48 HISTORY: CHRONIC PAIN, NO INJURY . COMPARISON: CT chest 09/16/2020. FINDINGS: Normal mineralization. No fracture or dislocation. No lytic or blastic lesion. Mild left a nd moderate right AC joint degenerative change. Mild bilateral glenohumeral degenerative change. No e rosion or periosteal change. Soft tissues within normal limits. IMPRESSION: Mild left and moderate AC joint hypertrophy. Mild bilateral glenohumeral osteoarthritis. Reviewed, dictated and finalized at location K. IMPRESSION: Mild left and moderate AC joint hypertrophy. Mild bilateral glenohu meral osteoarthritis.
== END 2022-03-12 13:05 | disposition home or self-care (01) ==
PROVIDERS: PCP Internal Medicine; Visit Provider Physician Assistant
DX: M25.512 Pain in left shoulder (principal); M25.511 Pain in right shoulder; M47.812 Spondylosis without myelopathy or radiculopathy, cervical region; M41.83 Other forms of scoliosis, cervicothoracic region; M19.012 Primary osteoarthritis, left shoulder; M19.011 Primary osteoarthritis, right shoulder
CPT/HCPCS: 72050; 73030

== ENCOUNTER → 2022-04-18 11:24 | Outpatient (CLI) | payer OTHER, SELFPAY ==
--- NOTE | ~2022-04-18 | MR_ITS ---
EXAMINATION: MR cervical spine wo con DATE: 04/18/2022 12:15 INDICATION: Cervical radiculopathy TECHNIQUE: Magnetic resonance imaging (MRI) of the cervical spine was performed without intravenous c ontrast. Sequences included sagittal T2-weighted FSE, sagittal fluid sensitive FSE STIR, sagittal T1- weighted FSE, axial MERGE and axial T2-weighted FSE. COMPARISON: None FINDINGS: Bone alignment is normal. Vertebral body heights are normal. Bone marrow signal intensity is normal . . Disc height loss at and C3-C4 and C5-C6, moderate disc height loss at C2-C3, C4-C5 and mild at C7 -T1. There is normal cord signal on the non fat saturated T2-weighted axial and sagittal images. Ther e is a small focus of right anterior paramedian increased cord T2 signal at the level of C3 near a ce ntral C2-C3 disc protrusion which is evident only on the axial T2* MERGE images. Assessment on the sa gittal STIR images is limited by increased signal noise in the region of the cervical spine which may be related to inability to use the anterior cervical coil due to patient body habitus. No other defi nitive cord lesions identified. Cervical soft tissues are unremarkable. The following disc levels are specifically discussed: C2-C3: Central disc protrusion which indents the ventral surface of the cord. There is mild right and moderate left uncovertebral joint osteoarthritis. There is mild to moderate bilateral facet joint os teoarthritis. There is no neural foraminal stenosis. There is mild central canal stenosis. C3-C4: Eccentric to the left disc bulge which indents the left ventral surface of the cord. There is moderate right and severe left uncovertebral joint osteoarthritis. There is mild right and moderate l eft facet joint osteoarthritis. There is moderate right and moderate left neural foraminal stenosis. There is mild central canal stenosis. C4-C5: Eccentric to the right disc bulge which indents the right ventral surface of the cord. There i s left and severe right uncovertebral joint osteoarthritis. There is mild left and moderate right fac et joint osteoarthritis. There is mild left and moderate right neural foraminal stenosis. There is mi ld central canal stenosis. C5-C6: Disc is mildly bulging. There is severe bilateral uncovertebral joint osteoarthritis. There is mild bilateral facet joint osteoarthritis. There is mild left and moderate right neural foraminal st enosis. There is mild central canal stenosis. C6-C7: Eccentric to the left mild disc bulge. There is right and moderate left uncovertebral joint os teoarthritis. There is mild bilateral facet joint osteoarthritis. There is mild left neural foraminal stenosis. There is mild central canal stenosis. C7-T1: The disc does not extend beyond the endplate margin. There is no uncovertebral joint osteoarth ritis. There is mild bilateral facet joint osteoarthritis. There is no neural foraminal stenosis. The re is no central canal stenosis. IMPRESSION: 1. Moderate to severe cervical spondylosis. 2. Small lesion at the right anterior paramedian cord seen only a single T2*weighted merge image at t he level of C3 which given the small size and proximity to the disc protrusion at C2-C3 likely repres ent focal myelomalacia. Differential would include demyelinating disease such as multiple sclerosis, neuromyelitis optica or acute disseminating encephalomyelitis. No evident mass effect to suggest abhi gnancy although the lesion is relatively small in size. The relatively small extent would also argue against transverse myelitis or ischemia. Reviewed, dictated and finalized at location A. [employer] IMPRESSION: 1. Moderate to severe cervical spondylosis. 2. Small lesion at the right anterior paramedian cord seen only a single T2*tena peres
== END ==
PROVIDERS: PCP Internal Medicine; Visit Provider Nurse Practitioner Family
DX: M54.12 Radiculopathy, cervical region (principal); M43.02 Spondylolysis, cervical region
CPT/HCPCS: 72141

== ENCOUNTER 2022-05-18 14:41 | Inpatient (IN) | payer OTHER, SELFPAY ==
[2022-05-18] VITALS (16 sets, daily range): BP systolic 114–165; BP diastolic 45–75; PULSE 70–87; RESP 14–39; TEMP 36.8–37.8; O2SAT 94–98; BMI 39.4
--- NOTE | ~2022-05-18 | XR_ITS ---
Portable chest x-ray Comparison: 05/22/2022 Clinical History: Respiratory failure Findings: Endotracheal tube, NG tube, and right IJ line are in satisfactory positions. Extensive gab undglass pulmonary disease again present. Cardiomediastinal silhouette is stable. Bones and soft tis sues are unremarkable. Impression: Stable extensive pulmonary disease. Correlate for pulmonary edema versus pneumonia. Stable support tubes. Reviewed, dictated and finalized at [facility]. ITY PIPE LAYER Impression: Stable extensive pulmonary disease. Correlate for pulmonary edema versus pneumo magda. Stable support tubes.
--- NOTE | ~2022-05-18 | XR_ITS ---
Portable chest x-ray Comparison: 05/21/2022 Clinical History: Respiratory failure Findings: Endotracheal tube, NG tube, and right IJ line are in place. Probable mild pulmonary edema pattern and small left pleural effusion. Cardiomediastinal silhouette is stable. Bones and soft tiss ues are unremarkable. Impression: Probable mild pulmonary edema pattern with small left pleural effusion. Support tubes, as above. Reviewed, dictated and finalized at [facility]. S REPRESENTATIVE DOOR TO DOOR Impression: Probable mild pulmonary edema pattern with small left pleural effusion. Support tubes, as above.
--- NOTE | ~2022-05-18 | XR_ITS ---
EXAMINATION: XR chest 1V portable DATE: 05/20/2022 05:58 INDICATION: Respiratory failure TECHNIQUE: frontal view of the chest was obtained. COMPARISON: Chest radiograph dated 05/19/2022 FINDINGS: Endotracheal tube tip 3.5 cm above the sophie. Nasogastric tube extends below the left hemidiaphragm with distal tip collimated off the study. Right internal jugular central venous catheter with distal tip at the caudal superior vena cava. Persistent airspace opacities in the left mid to lower and right lower lung zones. Possible small lef t pleural effusion. No pneumothorax. Mild cardiomegaly. IMPRESSION: 1. Unchanged airspace opacities in the left mid to lower and right lower lung zones which could repre sent atelectasis and/or pneumonia. 2. Possible small left pleural effusion. 3. Cardiomegaly. Reviewed, dictated and finalized at location A. INSTRUCTOR IMPRESSION: 1. Unchanged airspace opacities in the left mid to lower and right lower lung z ones which could represent atelectasis and/or pneumonia. 2. Possible small left pleural effusion. 3. Cardiomegaly.
--- NOTE | ~2022-05-18 | XR_ITS ---
EXAMINATION: XR chest 1V portable DATE: 05/26/2022 06:34 INDICATION: Respiratory failure. TECHNIQUE: A single frontal view of the chest was obtained. COMPARISON: Chest single view 05/25/2022, chest CT 05/19/2022 FINDINGS: There are airspace opacities in left lower lobe. No pleural effusion or pneumothorax. Cardi omegaly is noted. The endotracheal tube tip is 4.2 cm above the sophie. A right internal jugular cent ral venous catheter is seen with tip in the superior vena cava. The nasogastric tube tip is beyond th e inferior margin of the radiograph, but at least to the stomach. IMPRESSION: 1. Improved airspace opacities in left lower lobe, consistent with atelectasis versus pneumonia. 2. Cardiomegaly. Reviewed, dictated and finalized at location A. CH CUTTER
--- NOTE | ~2022-05-18 | XR_ITS ---
IMPRESSION: Worsening left and new right lower lung airspace disease, which may reflect wor sening infection and/or edema. Possible small left pleural effusion. EXAMINATION: XR chest 1V portable Exam Date/Time: 05/19/2022 15:00 NARCOTICS DETECTIVE HISTORY: resp distress Comparison: 03/18/2022. RESULT: Lines, tubes, and devices: None. Lungs and pleura: Worsening left lower lung airspace disease. New patchy right lower lung airspace d isease. Left costophrenic angle blunting. Cardiomediastinal silhouette: Stable. Other: No acute osseous or upper abdominal finding. IMPRESSION: Worsening left and new right lower lung airspace disease, which may reflect worsening infection and/o r edema. Possible small left pleural effusion. Reviewed, dictated and finalized at location K. OTICS DETECTIVE
--- NOTE | ~2022-05-18 | XR_ITS ---
EXAMINATION: XR chest ET placement Exam Date/Time: 05/19/2022 20:52 INVENTORY CONTROL ASSISTANT HISTORY: After intubation to confirm ET placement Comparison: In more on steatosis is. RESULT: Lines, tubes, and devices: Endotracheal tube tip terminates at the opening of the right mainstem bro nchus. NG tube, poorly visualized. Lungs and pleura: Unchanged pulmonary opacities. Cardiomediastinal silhouette: Stable. Other: No acute osseous or upper abdominal finding. IMPRESSION: Right mainstem bronchus intubation consider retracting 3-4 cm. Stable pulmonary opacities. Results reported telephonically to Pushpa Lao RN by Dr. Maldonado at 9:13 PM on 05/19/2022. Reviewed, dictated and finalized at location K. NTORY CONTROL ASSISTANT
--- NOTE | ~2022-05-18 | XR_ITS ---
EXAMINATION: XR abdomen NG/feed tube insert DATE: 05/26/2022 21:51 INDICATION: Nasogastric tube placement. TECHNIQUE: A semierect view of the abdomen was obtained. COMPARISON: Abdomen radiographs 05/22/2022 FINDINGS: The lower abdomen is excluded. There are no dilated loops of bowel. The nasogastric tube ti p is in the stomach. IMPRESSION: 1. Nasogastric tube tip in the stomach. Reviewed, dictated and finalized at location A. RNATIONAL MANAGER
--- NOTE | ~2022-05-18 | XR_ITS ---
EXAMINATION: XR abdomen NG/feed tube insert DATE: 05/21/2022 10:22 INDICATION: Orogastric tube placement TECHNIQUE: A supine view of the abdomen and lower chest was obtained for evaluation of feeding tube placement. COMPARISON: Chest radiograph dated 05/21/2022 at 5:13 AM FINDINGS: Orogastric tube in the stomach with distal tip near the pylorus and with proximal side-port in the di stal body of the stomach. Endotracheal tube tip 1.3 cm above the sophie. Right internal jugular centr al venous catheter tip at the cephalad superior vena cava. No dilated loops of gas-filled bowel to suggest obstruction. Opacities in the lower lung zones, left greater than right which could represent atelectasis or pneumonia. Cardiomegaly. IMPRESSION: 1. Orogastric tube tip and the stomach near the pylorus. Consider withdrawal by [address] the tip at the distal body of the stomach 2. Opacities in the bilateral lower lung zones, left greater than right which could represent atelect asis and/or pneumonia. 3. Cardiomegaly. Reviewed, dictated and finalized at location A. EY RESEARCH MANAGER IMPRESSION: 1. Orogastric tube tip and the stomach near the pylorus. Consider withdrawal by [address] the tip at the distal body of the stomach 2. Opacities in the bilateral lower lung zones, left greater than right which c ould represent atelectasis and/or pneumonia. 3. Cardiomegaly.
--- NOTE | ~2022-05-18 | CT_ITS ---
EXAMINATION: CT diagnostic chest wo con DATE: 05/19/2022 22:03 INDICATION: Respiratory failure TECHNIQUE: Computed tomography (CT) of the chest was performed without intravenous contrast. Automate d exposure control and iterative reconstruction technique were employed. The dose-length product was 905.45 mGy-cm. COMPARISON: 09/16/2020, x-ray chest 05/19/2022. FINDINGS: CHEST: Thoracic aorta: Mild arch calcification. Moderate ectasia. Lung parenchyma and airways: Subsegmental and segmental areas of bilateral upper and lower lobe perip heral, medial basal, and dependent consolidation, with air bronchograms. The endotracheal tube termin ates 1.2 cm above the sophie. Thoracic inlet, axillae and chest wall: No thyroid or soft tissue mass. No axillary lymphadenopathy. Mediastinum: Severe central pulmonary artery dilation as can be seen with pulmonary arterial hyperten giselle. Mediastinal and bilateral hilar lymphadenopathy. Heart and pericardium: Mild cardiomegaly. Aortic and mitral calcification. Coronary artery calcifications: Moderate. Pleura: Trace bilateral pleural fluid. Upper abdomen: Nasogastric tube terminates in the distal pylorus. Thoracic bones: No acute osseous finding in the chest. IMPRESSION: Pulmonary opacities most consistent with pneumonia. Mediastinal and bilateral hilar lymphadenopathy. Low positioned endotracheal tube and nasogastric tube, correlate with tube function. Reviewed, dictated and finalized at location K. DDED FILLER MACHINE WRAPPER LAYER IMPRESSION: Pulmonary opacities most consistent with pneumonia. Mediastinal and bilateral h ilar lymphadenopathy. Low positioned endotracheal tube and nasogastric tube, co rrelate with tube function.
--- NOTE | ~2022-05-18 | XR_ITS ---
Portable chest x-ray Comparison: 05/24/2022 Clinical History: Respiratory failure Findings: Endotracheal tube, NG tube, and right IJ line are unchanged. Mild pulmonary edema pattern is present, similar to prior exams. No definite pleural effusion. Cardiomediastinal silhouette is st able. Bones and soft tissues are unremarkable. Impression: Mild pulmonary edema pattern, essentially unchanged. Stable support tubes. Reviewed, dictated and finalized at location . R MAKING SUPERVISOR Impression: Mild pulmonary edema pattern, essentially unchanged. Stable support tubes.
--- NOTE | ~2022-05-18 | XR_ITS ---
Supine and upright views of the abdomen Clinical history: Abdominal distention Findings: NG tube in satisfactory position. Bowel gas pattern is nonspecific. No evidence for obstruc tion or free air. No abnormal mass lesion or calcification is seen. Bilateral hip arthroplasties are noted. Impression: Nonspecific bowel gas pattern, with NG tube in place. Bilateral hip arthroplasties. Reviewed, dictated and finalized at [facility]. DELIVERY Impression: Nonspecific bowel gas pattern, with NG tube in place. Bilateral hip arthroplasties.
--- NOTE | ~2022-05-18 | XR_ITS ---
EXAMINATION: XR chest 1V DATE: 05/18/2022 15:23 INDICATION: One week of cough, weakness and fever TECHNIQUE: frontal view of the chest was obtained. COMPARISON: Chest radiograph dated 07/23/2021 FINDINGS: Patchy airspace opacities in the left lower lung zone. Right lung is clear. No pleural effusion or pn eumothorax. The cardiomediastinal silhouette is normal. IMPRESSION: 1. Patchy airspace opacities in the left lower lung zone which could represent pneumonia or atelectas is. Reviewed, dictated and finalized at location A. GY CONSERVATION REPRESENTATIVE IMPRESSION: 1. Patchy airspace opacities in the left lower lung zone which could represent pneumonia or atelectasis.
--- NOTE | ~2022-05-18 | CT_ITS ---
EXAMINATION: CT brain wo con DATE: 05/18/2022 15:16 INDICATION: Fall with weakness TECHNIQUE: Computed tomography (CT) of the head was performed without intravenous contrast. Sagittal and coronal reconstructions were performed. The mA was adjusted according to patient size. Iterative reconstruction technique was employed. The dose-length product was 605.33 mGy-cm. COMPARISON: head CT dated 07/17/21 FINDINGS: Small right parietal scalp hematoma. No fracture. No acute intracranial hemorrhage, acute infarction or abnormal extra axial fluid collection. There is right scattered white matter hypoattenuation consi stent with chronic small vessel ischemic disease. No significant change in symmetric increased promin ence of the ventricles which is disproportionate to the sulci. No mass/mass effect. Changes of bilat eral intraocular lens replacement. The orbits, paranasal sinuses and mastoid air cells are normal. IMPRESSION: 1. No fracture or acute intracranial process. 2. Unchanged with symmetric increased prominence of ventricles which is disproportionate to the sulci most likely related to central predominant atrophy although differential would include normal pressu re hydrocephalus (NPH: clinical triad ataxia/gait disturbance, dementia, urinary incontinence). 3. Mild scattered white matter hypoattenuation consistent with chronic small vessel ischemic disease. Reviewed, dictated and finalized at location A. WORKER IMPRESSION: 1. No fracture or acute intracranial process. 2. Unchanged with symmetric increased prominence of ventricles which is disprop ortionate to the sulci most likely related to central predominant atrophy altho ugh differential would include normal pressure hydrocephalus (NPH: clinical tri ad ataxia/gait disturbance, dementia, urinary incontinence). 3. Mild scattered white matter hypoattenuation consistent with chronic small ve ssel ischemic disease.
--- NOTE | ~2022-05-18 | XR_ITS ---
Portable chest x-ray Comparison: 05/23/2022 Clinical History: Respiratory failure Findings: Endotracheal tube, NG tube, and right IJ line remain in place. Mild pulmonary edema patter n persists. Possible minimal left pleural effusion. Cardiomediastinal silhouette is stable. Bones an d soft tissues are unremarkable. Impression: Stable pulmonary edema pattern with possible minimal left pleural effusion. Correlate clinically for pneumonia. Stable support tubes. Reviewed, dictated and finalized at [facility]. ARY ASSISTANT Impression: Stable pulmonary edema pattern with possible minimal left pleural effusion. Cor relate clinically for pneumonia. Stable support tubes.
--- NOTE | ~2022-05-18 | XR_ITS ---
EXAMINATION: XR chest port-a-cath/central DATE: 05/19/2022 23:54 INDICATION: Respiratory failure TECHNIQUE: frontal view of the chest was obtained. COMPARISON: Chest radiograph and CT dated 05/19/2022 FINDINGS: Endotracheal tube tip 3.1 cm above the sophie. There is a gastric tube tip projects over the region o f the gastric pylorus. Right internal jugular central venous catheter with distal tip at the midsuper ior vena cava. Opacities in the bilateral lower lung zones with appearance on CT suggesting combination of atelectas is and pneumonia. Small left pleural effusion with blunting at the costophrenic angle. No pneumothora x. Cardiomegaly. IMPRESSION: 1. Opacities in the bilateral lower lung zones likely combination of atelectasis and pneumonia. 2. Small left pleural effusion. 3. Cardiomegaly. 4. Nasogastric tube tip near the gastric pylorus. Consider withdrawal by [address] the distal tip at the gastric antrum/distal body. Reviewed, dictated and finalized at location A. FITTER GAS PIPE IMPRESSION: 1. Opacities in the bilateral lower lung zones likely combination of atelectasi s and pneumonia. 2. Small left pleural effusion. 3. Cardiomegaly. 4. Nasogastric tube tip near the gastric pylorus. Consider withdrawal by [address] the distal tip at the gastric antrum/distal body.
--- NOTE | ~2022-05-18 | XR_ITS ---
EXAMINATION: XR chest 1V portable DATE: 05/28/2022 06:17 INDICATION: Respiratory failure. TECHNIQUE: A single frontal view of the chest was obtained. COMPARISON: Chest single view 05/27/2022, chest CT 05/19/22 FINDINGS: There are airspace opacities in the lower lung zones. There is a small left pleural effusio n. No pneumothorax. Cardiomegaly is noted. The endotracheal tube tip is 4.1 cm above the sophie. The nasogastric tube tip is beyond the inferior margin of the radiograph, but at least to the stomach. A right internal jugular central venous catheter is seen with tip in the superior vena cava. IMPRESSION: 1. Airspace opacities in the lower lung zones with slight improvement, consistent with pneumonia. 2. Small left pleural effusion. 3. Cardiomegaly. Reviewed, dictated and finalized at location A. ST AND REPERTOIRE MANAGER IMPRESSION: 1. Airspace opacities in the lower lung zones with slight improvement, consiste nt with pneumonia. 2. Small left pleural effusion. 3. Cardiomegaly.
--- NOTE | ~2022-05-18 | US_ITS ---
EXAMINATION: US renal BI DATE: 05/24/2022 15:33 INDICATION: Acute kidney injury. TECHNIQUE: Multiple ultrasound grayscale images of the kidneys were obtained. COMPARISON: Ultrasound 07/17/2021, CT abdomen and pelvis 07/14/2021 FINDINGS: The right kidney measures 11.8 x 6.8 x 7.7 cm. The left kidney measures 8.5 x 4.9 x 5.7 cm. The kidne ys demonstrate normal parenchymal echogenicity. There is no hydronephrosis. The bladder is decompress ed by a Disla catheter. IMPRESSION: 1. Mild atrophy of left kidney. No hydronephrosis. Sensitivity is decreased by obesity. Reviewed, dictated and finalized at location A. OR GL ACCOUNTANT
--- NOTE | ~2022-05-18 | XR_ITS ---
Portable chest x-ray Comparison: 05/28/2022 Clinical History: Tube placement Findings: Endotracheal tube, NG tube, and right IJ line are in satisfactory positions. Possible mini mal pulmonary edema pattern. Cardiomediastinal silhouette is stable. Bones and soft tissues are unre markable. Impression: Support tubes, as above. Possible minimal pulmonary edema. Reviewed, dictated and finalized at [facility]. SHOP MANAGER Impression: Support tubes, as above. Possible minimal pulmonary edema.
--- NOTE | ~2022-05-18 | XR_ITS ---
EXAMINATION: XR chest 1V portable DATE: 05/27/2022 08:06 INDICATION: Respiratory failure. TECHNIQUE: A single frontal view of the chest was obtained. COMPARISON: Chest single view 05/26/2022 FINDINGS: There are airspace opacities in the lower lung zones. No pleural effusion or pneumothorax. Cardiomegaly is noted. The endotracheal tube tip is 3.0 cm above the sophie. A right internal jugular central venous catheter is seen with tip in the superior vena cava. The nasogastric tube tip is beyo nd the inferior margin of the radiograph, but at least to the stomach. IMPRESSION: 1. Worsened airspace opacities in the lower lung zones, consistent with atelectasis versus pneumonia. 2. Cardiomegaly. Reviewed, dictated and finalized at location A. ITURE SALES ASSOCIATE IMPRESSION: 1. Worsened airspace opacities in the lower lung zones, consistent with atelect asis versus pneumonia. 2. Cardiomegaly.
--- NOTE | ~2022-05-18 | XR_ITS ---
EXAMINATION: XR chest 1V portable DATE: 05/21/2022 05:46 INDICATION: Respiratory failure TECHNIQUE: frontal view of the chest was obtained. COMPARISON: Chest radiograph dated 05/20/2022 FINDINGS: Endotracheal tube tip 1.0 cm above the sophie. Right internal jugular central venous catheter with di stal tip at the cephalad superior vena cava. Nasogastric tube which is seen extending to the level of the cervicothoracic junction which is no longer visualized, unclear whether this represents the dist al tip over the more distal catheter is obscured by the superimposed spine and underpenetration. Improving aeration the lower lung zones with decreasing mild opacities in the medial right lower lung zone as well as of more dense retrocardiac opacities at the left lower lung zone. No pneumothorax or definitive pleural effusion. Mild cardiomegaly. IMPRESSION: 1. The nasogastric tube can only be followed to the level the cervicothoracic junction, unclear wheth er this where it terminates or whether the more distal catheter is obscured. Consider repeat radiogra ph of the chest or upper abdomen. 2. Improving opacities in the lower lung zones which are minimally more prominent on the left and cou ld represent atelectasis or pneumonia. 3. Cardiomegaly. Reviewed, dictated and finalized at location A. ION COORDINATOR IMPRESSION: 1. The nasogastric tube can only be followed to the level the cervicothoracic j unction, unclear whether this where it terminates or whether the more distal ca theter is obscured. Consider repeat radiograph of the chest or upper abdomen. 2. Improving opacities in the lower lung zones which are minimally more promine nt on the left and could represent atelectasis or pneumonia. 3. Cardiomegaly.
--- NOTE | 2022-05-18 14:45 | ECG_ITS ---
Measurements Intervals [place] Rate: 84 P: -5 TN: 205 QRS: -82 QRSD: 114 T: 34 QT: 367 QTc: 434 Interpretive Statements SINUS RHYTHM LEFT ANTERIOR FASCICULAR BLOCK [QRS AXIS <= -45, QR IN I, RS IN II] COMPARED TO ECG 07/20/2021 09:39:09 SINUS RHYTHM REPLACES ATRIAL FIBRILLATION Electronically Signed On 05-18-2022 20:08:23 NET DEVELOPER ARCHITECT by Yusuf Meehan M.D.
--- NOTE | 2022-05-18 14:56 | ED.GENADULT ---
HPI - General Adult General Chief complaint: Weakness Stated complaint: hypoxic Source: RN notes reviewed History of Present Illness HPI narrative: Patient presents emergency department from home via EMS for weakness. Patient states has been feeling weak for the past 3 days with subjective fevers. States that he has had a mild feeling of shortness of breath with the symptoms and a cough this been nonproductive. He states that he has had no chest pain he denies any abdominal pain nausea or vomiting did have a loose bowel movement in the ED which she states is his first bowel movement patient does have a history of CHF but did not take his Lasix this morning states he has not taken any Tylenol today Related Data Home Medications Medication Instructions Recorded Confirmed cholecalciferol (vitamin D3) 25 25 mcg PO DAILY 02/13/22 03/01/22 mcg (1,000 unit) capsule mecobalamin (vitamin B12) 1,000 1,000 mcg PO DAILY 02/13/22 03/01/22 mcg lozenges multivitamin (Daily Multi-Vitamin 1 tablet PO DAILY 02/13/22 03/01/22 tablet) spironolactone 25 mg tablet 25 mg PO .prn 03/01/22 03/01/22 Allergies Allergy/AdvReac Type Severity Reaction Status Date / Time Iodinated Contrast Media Allergy Unknown itching Verified 03/01/22 09:08 tramadol Allergy Unknown Itching Verified 03/01/22 09:08 (moderate to severe) Review of Systems Review of Systems: Gen.: Worse fever ENT: Denies congestion Respiratory: Denies shortness of breath or cough CV: Denies chest pain or palpitations GI: Denies abdominal pain nausea, emesis reports 1 episode of loose bowel movement today Musculoskeletal: Denies back pain or muscle pain Neuro: Reports weakness Skin: Denies rash Except as documented, all other systems reviewed and negative [facility] Past Medical History Medical History Acute on chronic blood loss anemia Anemia Arthritis Asthma Atrial fibrillation Chronic anticoagulation CKD (chronic kidney disease) stage 3, GFR 30-59 ml/min Diastolic CHF EF >70%, Grade IV diastolic dysfunction Dyslipidemia Hypertension Hyponatremia Hypothyroidism DEMETRI (obstructive sleep apnea) Paroxysmal atrial flutter Surgical History Surgical History History of hip replacement History of left hip replacement History of right hip replacement Family History Family History Mother Liver cancer Sibling S/P CABG x 3 Father FH myocardial infarction male first degree age known Family history of cardiovascular disease S/P CABG x 4 Sibling Family history of cardiovascular disease Sibling Family history of cardiovascular disease Other Family history of arthritis Social History Social History Smoking status: Never smoker Tobacco type: smokeless tobacco Smokeless tobacco user: chewing tobacco Second hand tobacco smoke exposure: No Additional smoking assessment comments: 55-60 YEARS OF CHEWING TOBACCO Alcohol intake: former Drinks per week: 21 Substance use: never Substance use type: does not use Last use: hasn't been drinking since May Spiritual care concerns: No Exam Narrative: APPEARANCE: No acute distress, nontoxic, resting in bed EYES: EOMI HEENT: Normocephalic, atraumatic, OMM RESPIRATORY: No respiratory distress crackles in bilateral lung bases CARDIOVASCULAR: Regular rate and rhythm without murmurs rubs or gallops. ABDOMINAL: Soft, nontender, nondistended, no rebound or guarding MUSCULOSKELETAl: Moves all extremities. No clubbing, cyanosis 3+ edema of the bilateral lower extremities NEURO: Awake and alert. Following commands, speech normal, no focal deficits SKIN:: Warm, dry. No rashes lesions or abrasions PSYCHIATRIC: Normal affect/mood, Course Course Emergency Course: Reviewed re
[2022-05-18 15:09] LABS: Basophils Percent Auto 0.4 % (0.2-1.2); Immature Granulocyte Absolute 0.04 K/mm3 (0.00-0.031); Immature Granulocyte Percent A 0.5 % (0-0.5); Lymphocytes Absolute Auto 0.51 K/mm3 (0.9-3.2); Mean Corpuscular HGB Conc 33.3 g/dl (32-36); Mean Corpuscular Hemoglobin 32.4 pg (26-34); Mean Corpuscular Volume 97.3 fl (80-100); Mean Platelet Volume 9.4 fl (7.4-10.4); Monocytes Absolute Auto 0.7 K/mm3 (0.1-0.6); Monocytes Percent Auto 8.6 % (2.6-8.5); Neutrophils Absolute Auto 7.2 K/mm3 (1.3-6.7); Neutrophils Percent Auto 84.5 % (45.5-73.1); Platelet Count Result 149 k/mm3 (150-375); Red Blood Count 4.01 M/mm3 (4.6-6.20); Red Cell Distribution Width 13.9 % (11.5-14.5); White Blood Count 8.5 K/mm3 (4.5-10.0)
[2022-05-18 15:19] LABS: INR 1.3; Prothrombin Time 15.7 Seconds (11.1-14.7)
[2022-05-18 15:20] LABS: Lactic Acid Reflex 1.3 mmol/L (0.7-2.0); Partial Thromboplastin Time 32.9 SECONDS (22.3-36.8)
[2022-05-18 15:22] LABS: Alanine Aminotransferase 44 U/L (6-50); Alkaline Phosphatase 65 U/L (38-126); Anion Gap 7 mmol/L (8-16); Aspartate Amino Transferase 157 U/L (17-59); Bilirubin,Total 1.1 mg/dL (0.2-1.3); Blood Urea Nitrogen 21 mg/dL (9-20); Calcium 8.2 mg/dL (8.4-10.2); Carbon Dioxide 26 mmol/L (22-30); Chloride 101 mmol/L (98-107); Estimated CRCL calculation 37 ml/min; Estimated Glomerular Filt Rate 34; Glucose 123 mg/dL (65-110); Potassium 3.7 mmol/L (3.4-5.0); Sodium 134 mmol/L (137-145)
[2022-05-18 15:34] LABS: NT Pro B Type Natriuretic Pept 4000 pg/mL (5-100); Troponin I 0.192 ng/mL (0.000-0.034)
[2022-05-18 16:17] LABS: Add Urine Microscopic? YES; Appearance Urine Clear (Clear); Bilirubin Urine Negative (Negative); Blood Urine 3+ (Negative); Color Urine Yellow (Yellow); Glucose Urine UA Negative (Negative); Ketones Urine Negative (Negative); Leukocyte Esterase Ur Negative LEU/UL (Negative); Nitrate Urine Negative (Negative); Protein Urine 1+ mg/dL (Negative); Urobilinogen Urine 0.2 mg/dL (<2.0)
[2022-05-18 16:26] LABS: Mucus Urine Rare /lpf; Squamous Epithelial Cell Urine Rare /hpf (Few); WBC Urine 0-3 /hpf
[2022-05-18 17:47] LABS: Influenza A QL RT-PCR Negative (Negative); Influenza B QL RT-PCR Negative (Negative); RSV RNA, RT-PCR Negative (Negative); SARS-CoV-2 RNA PCR Negative
--- NOTE | 2022-05-18 19:20 | PC.NURSE ---
Patient report received from RAND Biggs. All questions answered and care of patient assumed.
--- NOTE | 2022-05-18 20:00 | PC.NURSE ---
Patient resting quietly in stretcher. Repositioned for comfort. Urinal provided. IV antibiotics infusing as ordered. Awaiting available inpatient bed assignment. Will continue to address needs as they arise.
[2022-05-18 21:28] LABS: Troponin I 0.139 ng/mL (0.000-0.034)
--- NOTE | 2022-05-18 22:13 | PM.IMHP ---
H&P: HPI History of Present Illness Date/Time: 05/18/22 21:45 Chief Complaint: Weakness and fever Narrative: 76-year-old male with past medical history of chronic kidney disease, diastolic CHF, paroxysmal atrial flutter, morbid obesity, obstructive sleep apnea with poor compliance with CPAP and hypothyroidism who presented to the ER with fever and weakness. Patient reports that he has had 3-4 days of cough with green sputum production. He has reported subjective fevers but did not measure his temperature at home. When arrived to the ER his temperature was 100?. He denies any nausea or vomiting but has had decreased oral intake for 2 days. He denies any recent ill contacts. He is vaccinated against COVID and influenza. His COVID influenza swabs in the ER were negative. He reports that he felt so ill today that he did not bother to even take any of his home medications. He does have obstructive sleep apnea but states that he does not like his CPAP as that has significant amount of leak. He states that he uses it each night but S in is the patient arrived to the medical floor he refused to wear his CPAP after Respiratory therapy had placed it. He denies any significant changes in urinary frequency or urgency. He reports he empties his bladder completely. He denies any chest pain. His dyspnea has been worse with exertion. He denies orthopnea. He denies rhinorrhea or sore throat. He denies changes in bowel habits. He reports that he has been having sputum production that appears greenish in color. His bilateral pitting edema of the lower extremities. He does not think his edema is changed much from baseline. He denies orthopnea or paroxysmal nocturnal dyspnea. He has chronic dyspnea on exertion that is slightly worse due to cough. Review of Systems Review of Systems: 12 systems were reviewed with pertinent positives and negatives per HPI. Except as documented in the HPI, all other systems were reviewed and are negative. [facility] Past Medical History Medical History (Updated 05/19/22 @ 08:13 by Hannah Casiano DO) Acute on chronic blood loss anemia Anemia Arthritis Asthma Chronic anticoagulation CKD (chronic kidney disease) stage 3, GFR 30-59 ml/min COPD (chronic obstructive pulmonary disease) Degenerative joint disease of low back Diastolic CHF EF >70%, Grade IV diastolic dysfunction Dyslipidemia Encounter for screening for malignant neoplasm of prostate Essential hypertension Gastric ulcer due to nonsteroidal antiinflammatory drug (NSAID) therapy Hypertension Hyponatremia Hypothyroidism Lumbar stenosis Moderate pulmonary hypertension RVSP 58 on echocardiogram June 2021 DEMETRI (obstructive sleep apnea) Paroxysmal atrial flutter Right-sided heart failure Right ventricular chamber moderately enlarged with mildly reduced right ventricular systolic function noted on echo June 2021, moderate tricuspid regurgitation Surgical History Surgical History (Updated 05/19/22 @ 07:57 by Hannah Casiano DO) History of left hip replacement History of right hip replacement Family History Family History (Updated 05/19/22 @ 08:00 by Hannah Casiano DO) Mother , At age 64 Liver cancer Sibling S/P CABG x 3 Heart disease Father , At age 82 S/P CABG x 4 Other Family history of arthritis Social History Social History (Updated 05/19/22 @ 08:03 by Hannah Casiano DO) Social History: The patient lives at home with his of 50 years. They have 3 biologic children and he has 1 step child. 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 He states that he may have had asbestos exposure. He is a lifelong nonsmoker. He he states that he used to drink about 6-12 beers a day but quit doing this many years ago. He does chew tobacco. Code status: Full code Surrogate decision maker: Smoking status: Never smoker Tobacco type: smokeless tobacco Smokeless tobacco user: chew
--- NOTE | 2022-05-18 22:23 | PC.NURSE ---
Patient level of care changed to Med Surg with Tele. New room assignment. Report called to Mellisa and patient transported via RN to room 347 via stretcher on environmental monitoring technician with all belongings.
[2022-05-18] MEDS: IPRATROPIUM BR 0.02% INH SOLN 0.5 MG/2.5 ML VIAL INHALATION (22:27)
[2022-05-18] MEDS: ALBUTEROL SULFATE NEB 2.5 MG/3 ML INH 5 MG INHALATION (22:28)
[2022-05-19] VITALS (29 sets, daily range): BP systolic 98–151; BP diastolic 57–90; PULSE 74–159; RESP 18–36; TEMP 36.6–39.9; O2SAT 92–98
[2022-05-19] MEDS: IPRATROPIUM BR 0.02% INH SOLN 0.5 MG/2.5 ML VIAL INHALATION ×4 (02:26→22:09)
[2022-05-19] MEDS: ALBUTEROL SULFATE NEB 2.5 MG/3 ML INH 5 MG INHALATION ×4 (02:26→22:09)
--- NOTE | 2022-05-19 02:44 | PCDIET ---
Pt admitted from ER via cart to room 347 with pneumonia, weakness, CHF A/O x3 FRAGOSO Wheezing.... States lives with spouse , did not take meds today. When asked why, pt stated I don't know Tele-SR Incontinent small amount diarrhea , drippling urine, missing urinal... Abd large round distended.. Much difficulty moving in bed, cannot scoot self up in bed.. Cant turn side to side without assist. Pt states he fell at home 05/18/22 bilateral knees with small abrasions.. Had aric wrap to left knee wrapped tightly causing lower leg swellingbelow aric . Removed aric wrap. Bilateral lower ext edema pitting +2.. Pt c/o pain when ankles touched. Neb per RT bipap ordered placed then pt refused to use after short period of time as per RT Fall precautions
[2022-05-19 05:54] LABS: Basophils Percent Auto 0.3 % (0.2-1.2); Hematocrit 37.8 % (42.0-52.0); Hemoglobin 12.6 g/dL (14.0-18.0); Immature Granulocyte Absolute 0.02 K/mm3 (0.00-0.031); Immature Granulocyte Percent A 0.3 % (0-0.5); Immature Platelet Fraction Pct 3.2 % (0.9-11.2); Lymphocytes Absolute Auto 0.36 K/mm3 (0.9-3.2); Lymphocytes Percent Auto 5.8 % (18.3-44.2); Mean Corpuscular HGB Conc 33.3 g/dl (32-36); Mean Corpuscular Hemoglobin 32.6 pg (26-34); Mean Corpuscular Volume 97.9 fl (80-100); Mean Platelet Volume 9.6 fl (7.4-10.4); Monocytes Absolute Auto 0.4 K/mm3 (0.1-0.6); Monocytes Percent Auto 6.4 % (2.6-8.5); Neutrophils Absolute Auto 5.5 K/mm3 (1.3-6.7); Neutrophils Percent Auto 87.2 % (45.5-73.1); Platelet Count Result 151 k/mm3 (150-375); Red Blood Count 3.86 M/mm3 (4.6-6.20); Red Cell Distribution Width 13.8 % (11.5-14.5); White Blood Count 6.3 K/mm3 (4.5-10.0)
[2022-05-19 06:04] LABS: Alanine Aminotransferase 47 U/L (6-50); Albumin Level 3.8 g/dL (3.5-5.1); Alkaline Phosphatase 63 U/L (38-126); Anion Gap 8 mmol/L (8-16); Aspartate Amino Transferase 160 U/L (17-59); Bilirubin,Total 0.8 mg/dL (0.2-1.3); Blood Urea Nitrogen 20 mg/dL (9-20); Calcium 8.1 mg/dL (8.4-10.2); Carbon Dioxide 26 mmol/L (22-30); Chloride 101 mmol/L (98-107); Estimated CRCL calculation 40 ml/min; Estimated Glomerular Filt Rate 39; Glucose 121 mg/dL (65-110); Potassium 3.7 mmol/L (3.4-5.0); Sodium 135 mmol/L (137-145)
--- NOTE | 2022-05-19 08:30 | PC.NURSE ---
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 Tele leads frequently off pt due to pt obesity and pt inadvertently getting tangled in wires with arms and urinal. Pt states fell home 05/17/22. Uses walker, cane home.. Abrasions knees. Extremely [place],, flat affect. States he dispenses own meds. Pt poor historian with both medical hx and meds. Very difficult to move, turn pt due to large abdomen and obesity. Fall precautions
[2022-05-19] MEDS: LEVOTHYROXINE SODIUM 75 MCG TABLET PO (08:53)
[2022-05-19] MEDS: FUROSEMIDE 40 MG TABLET PO (08:53)
[2022-05-19] MEDS: APIXABAN 5 MG TABLET PO (08:53)
[2022-05-19] MEDS: GABAPENTIN 300 MG CAPSULE 600 MG PO (08:54)
[2022-05-19] MEDS: METOPROLOL TARTRATE 50 MG TAB PO (08:59)
--- NOTE | 2022-05-19 10:34 | PM.IMPN ---
Progress Note: A&P Assessment and Plan (1) Hypoxia: Code(s): R09.02 - Hypoxemia Status: Acute Assessment and Plan: Worsening, check ABG, check CXR, cont pulse ox, supplemental O2, transfer to IMU, nebulizers Check D-dimer for possible PE, creatinine 1.7, will hold off on CTA as patient is already on Eliquis anyhow (2) Community acquired pneumonia: Qualifiers: Laterality: left Lung location: lower lobe of lung Qualified Code(s): J18.9 - Pneumonia, unspecified organism Code(s): J18.9 - Pneumonia, unspecified organism Status: Acute Assessment and Plan: Continue rocephin and azithromycin, follow-up blood cultures-NGTD, urine antigens pending Chest x-ray showed patchy airspace opacities in left lower lung zone, pneumonia versus atelectasis Update: Patient progressively got worse throughout the day, antibiotics were escalated to vancomycin, cefepime azithromycin (3) Elevated troponin: Code(s): R77.8 - Other specified abnormalities of plasma proteins Status: Acute Assessment and Plan: Do not suspect acute cardiac event, trend troponins, monitor telemetry (4) CKD (chronic kidney disease) stage 3, GFR 30-59 ml/min: Code(s): N18.3 - Chronic kidney disease, stage 3 (moderate) Status: Acute Assessment and Plan: Appears stable, continue to monitor Creatinine down to 1.7 from 1.9 on admission Baseline appears to be anywhere from 1.3-1.5 (5) Diastolic CHF: Qualifiers: Heart failure chronicity: chronic Qualified Code(s): I50.32 - Chronic diastolic (congestive) heart failure Code(s): I50.30 - Unspecified diastolic (congestive) heart failure Status: Acute Assessment and Plan: Continue home meds, appears euvolemic Update: Because patient got worse throughout the day, chest x-ray was repeated and showed worsening edema, Lasix was changed from 40 mg p.o. to 40 mg IV t.i.d. (6) DEMETRI (obstructive sleep apnea): Code(s): G47.33 - Obstructive sleep apnea (adult) (pediatric) Status: Acute Assessment and Plan: Noncompliance with CPAP noted (7) Hypothyroidism: Code(s): E03.9 - Hypothyroidism, unspecified Status: Acute Assessment and Plan: Continue home levothyroxine, check TSH Plan 05/19 1616 Med rec is still unavailable to complete at this time DVT prophylaxis with Eliquis GI prophylaxis not indicated Code status full code Subjective Date/time seen: 05/19/22 10:34 Interval history: Patient complaining of significant shortness of breath, states he feels much worse than when he came in. He is also complaining of some chest tightness and discomfort. He has a cough, no sore throat or runny nose. No fevers, chills, NVD. Review of Systems Review of Systems: 12 point review of systems was assessed and was negative except as noted in the HPI Exam Narrative: General: Acute resp distress, increased work of breathing, accessory muscle usage, audible wheezing HEENT: Atraumatic, normocephalic, mm dry CV: Tachycardia, S1, S2 Lungs: Very poor air entry, tight wheezes throughout the breath cycle, extensive accessory muscle usage Abdomen: Soft, nontender, nondistended Extremities: Normal to inspection, non pitting edema noted bilaterally Skin: No rashes noted, no lesions or wounds seen Psych: Anxious affect, tearful Objective Data Vital Signs Vital Signs: Vital Signs - 24 hr 05/18/22 14:50 05/18/22 16:35 05/18/22 16:35 Temperature 100.0 F H 98.5 F Pulse Rate 85 85 80 Respiratory Rate 39 H 34 H Blood Pressure 140/75 127/64 Pulse Oximetry 94 95 Oxygen Delivery Room Air 05/18/22 16:52 05/18/22 18:13 05/18/22 20:08 Temperature 98.5 F Pulse Rate 72 80 Respiratory Rate 18 15 Blood Pressure 114/56 L Pulse Oximetry 96 Oxygen Delivery 05/18/22 20:15 05/18/22 20:16 05/18/22 20:34 Temperature Pulse Rate 75 77 78 Respiratory Rate 22 H 24 H 18 B
[2022-05-19 15:42] LABS: Alveolar/Arterial O2 Gradient 165.1 mmHg; Base Excess ABG -0.7 mEq/l (+/-2.0); Fractional Inspired Oxygen 40 %; HCO3 ABG 22.8 mEq/l (22.0-26.0); Oxygen Content ABG 18.8 %vol (16.0-22.0); Oxygen Saturation ABG 96.3 % (95.0-100.0); Oxyhemoglobin 94.7 % THb (90.0-100.0); PCO2 ABG 34.4 mmHg (35.0-45.0); PO2 ABG 80.5 mmHg (80.0-100.0); PO2 FiO2 Ratio Arterial Blood 2.01 %; Total Hemoglobin 14.1 g/dL (12.0-18.0); pH ABG 7.439 (7.350-7.450)
[2022-05-19 15:44] LABS: Device NASAL CANNULA; Modified Allen's Test Pass; Site Drawn LEFT RADIAL
[2022-05-19] MEDS: HALOPERIDOL LACTATE 5 MG/ML VIAL IM (17:36)
[2022-05-19] MEDS: FUROSEMIDE INJ 40 MG/4 ML VIAL IV PUSH ×2 (17:39→19:47)
[2022-05-19 17:45] LABS: D Dimer 4.66 ug/mL (<0.48)
[2022-05-19] MEDS: MIDAZOLAM HCL (*CRX) 2 MG/2 ML VIAL IV PUSH (19:49)
[2022-05-19] MEDS: ADENOSINE IV SOLN 6 MG/2 ML VIAL 12 MG IV PUSH (19:57)
[2022-05-19] MEDS: ADENOSINE IV SOLN 6 MG/2 ML VIAL IV PUSH (19:57)
[2022-05-19] MEDS: METOPROLOL TARTRATE INJ 5 MG/5 ML VIAL IV PUSH (19:59)
[2022-05-19] MEDS: AMIODARONE 360 MG/D5W 200 ML 360 MG/200 ML BAG 33.33 MG IV CONT (20:00)
[2022-05-19 20:05] LABS: Basophils Percent Auto 0.2 % (0.2-1.2); Eosinophils Percent Auto 0.5 % (0-4.4); Hematocrit 39.5 % (42.0-52.0); Hemoglobin 13.3 g/dL (14.0-18.0); Immature Granulocyte Absolute 0.11 K/mm3 (0.00-0.031); Immature Granulocyte Percent A 2.5 % (0-0.5); Immature Platelet Fraction Pct 4.6 % (0.9-11.2); Lymphocytes Absolute Auto 0.44 K/mm3 (0.9-3.2); Mean Corpuscular HGB Conc 33.7 g/dl (32-36); Mean Corpuscular Hemoglobin 32.8 pg (26-34); Mean Corpuscular Volume 97.3 fl (80-100); Mean Platelet Volume 9.6 fl (7.4-10.4); Monocytes Absolute Auto 0.2 K/mm3 (0.1-0.6); Monocytes Percent Auto 3.4 % (2.6-8.5); Neutrophils Absolute Auto 3.7 K/mm3 (1.3-6.7); Neutrophils Percent Auto 83.4 % (45.5-73.1); Nucleated Red Blood Cells Perc 0.5 % (0.0-0.2); Platelet Count Result 140 k/mm3 (150-375); Red Blood Count 4.06 M/mm3 (4.6-6.20); Red Cell Distribution Width 13.7 % (11.5-14.5); White Blood Count 4.4 K/mm3 (4.5-10.0)
[2022-05-19 20:13] LABS: Lactic Acid Reflex 2.3 mmol/L (0.7-2.0)
[2022-05-19 20:14] LABS: Alanine Aminotransferase 52 U/L (6-50); Albumin Level 4.1 g/dL (3.5-5.1); Alkaline Phosphatase 66 U/L (38-126); Ammonia 29 umol/L (9-30); Anion Gap 8 mmol/L (8-16); Aspartate Amino Transferase 181 U/L (17-59); Blood Urea Nitrogen 25 mg/dL (9-20); Calcium 8.3 mg/dL (8.4-10.2); Carbon Dioxide 26 mmol/L (22-30); Chloride 96 mmol/L (98-107); Estimated CRCL calculation 36 ml/min; Estimated Glomerular Filt Rate 34; Glucose 143 mg/dL (65-110); Magnesium 2.2 mg/dL (1.6-2.3); Phosphorus 2.7 mg/dL (2.5-4.5); Sodium 130 mmol/L (137-145)
[2022-05-19 20:16] LABS: INR 1.5; Prothrombin Time 17.5 Seconds (11.1-14.7)
[2022-05-19 20:17] LABS: Partial Thromboplastin Time 34.8 SECONDS (22.3-36.8)
[2022-05-19] MEDS: ETOMIDATE 20 MG/10 ML AMPUL 30 MG IV PUSH (20:18)
[2022-05-19] MEDS: ROCURONIUM BROMIDE 50 MG/5 ML VIAL 60 MG IV PUSH (20:19)
--- NOTE | 2022-05-19 20:34 | ECG_ITS ---
Measurements Intervals [place] Rate: 99 P: 51 NM: 187 QRS: -79 QRSD: 115 T: 56 QT: 356 QTc: 457 Interpretive Statements SINUS RHYTHM WITH OCCASIONAL ECTOPIC PREMATURE COMPLEXES PATTERN CONSISTENT WITH PULMONARY DISEASE INCOMPLETE RIGHT BUNDLE BRANCH BLOCK LEFT ANTERIOR FASCICULAR BLOCK COMPARED TO ECG 05/18/2022 14:54:12 NO SIGNIFICANT CHANGE Electronically Signed On 05-20-2022 15:45:31 [employer] by Scooby Landaverde M.D.
[2022-05-19 20:35] LABS: Troponin I 0.118 ng/mL (0.000-0.034)
[2022-05-19 20:57] LABS: Base Excess ABG -2.9 mEq/l (+/-2.0); Carboxyhemoglobin 0.2 % THb (0-2.0); Fractional Inspired Oxygen 100 %; HCO3 ABG 24.3 mEq/l (22.0-26.0); Methemoglobin ABG 0.6 %THb (0-1.5); Oxygen Content ABG 19.7 %vol (16.0-22.0); Oxygen Saturation ABG 99.6 % (95.0-100.0); Oxyhemoglobin 98.2 % THb (90.0-100.0); PCO2 ABG 52.3 mmHg (35.0-45.0); PO2 ABG 276.7 mmHg (80.0-100.0); PO2 FiO2 Ratio Arterial Blood 2.77 %; Total Hemoglobin 13.8 g/dL (12.0-18.0)
[2022-05-19 21:02] LABS: Arterial Blood Gas PEEP 5 cmH2O; Arterial Blood Gas Tidal Volume 400 ml; Arterial Blood Gas Vent Mode CMV; Arterial Blood Gas Ventilator rate 18 /MIN; Device VENTILATOR; Modified Allen's Test Pass; Site Drawn RIGHT RADIAL; pH ABG 7.285 (7.350-7.450)
[2022-05-19] MEDS: FENTANYL 2,500MCG/NS250ML(*CRX 2,500 MCG/250 ML BAG 10 MCG IV CONT (21:07)
[2022-05-19] MEDS: MIDAZOLAM 100MG/NS 100ML(*CRX) 100 MG/100 ML BAG IV CONT (21:07)
--- NOTE | 2022-05-19 21:22 | PCRCNOTE ---
ET tube found at 28cm per MD order pull back 3cm. Tube placement 25@lip.
--- NOTE | 2022-05-19 22:23 | PM.CCN ---
Critical Care Event Note Summary Code activated: No Narrative: Rapid response was called at 19:37. I arrived is the room within a couple of minutes. The patient was in overt distress. He was complaining chest pain and was diaphoretic and hot to touch. Patient's heart rate was ranging between 160 and 220. The patient had an indeterminate rhythm but had history of paroxysmal atrial fibrillation. The patient also has a chronic left fascicular block making interpretation difficult. Patient was given 2 doses of adenosine jeremiahy will consult the patient's rate and underlying rhythm. It was seen did not slow the patient's heart rate. The patient was in extremis and it was decided to try synchronized cardioversion. The patient received 2 mg of IV Versed and underwent synchronized cardioversion. Patient's heart rate did not improve significantly any received 1 dose of IV Lopressor 5 mg. The patient's blood pressures were stable and heart rate had improved down to the 120s to 130s. The patient was having snoring respirations after Versed was administered but and was developing abdominal respirations in the severe accessory muscle use throughout the course of resuscitation efforts. Given his history of right-sided heart failure and diastolic dysfunction in the fact that the patient had missed some of his doses of Lasix at home and his cardiac arrhythmia and did give the patient a dose of IV Lasix initially of 40 mg. He also received 1 mg of magnesium sulfate. A nasal trumpet was placed in the patient was ventilated by assistance with bag-valve mask. The patient was subsequently transferred to the ICU and intubated. During the course of resuscitation it was noted the patient had frankly purulent material coming out of the nasal trumpet. The patient had initially been admitted to the medical floor on telemetry but in the afternoon the patient although vital signs were stable appeared to be decompensating clinically. The patient had refused wears BiPAP overnight. He was subsequently moved to the IMU in his antibiotic coverage was broadened to cefepime and vancomycin. Despite these changes in care the patient evidently developed worsening sepsis. He spiked a fever of 103.6 during resuscitation efforts. Given the patient's elevated temperature in after discussion with the histology technologist the patient was actually given fluid boluses and maintenance fluids were initiated. Patient did have an elevated D-dimer earlier in the day but was not a candidate for CTA due to his chronic kidney disease and creatinine of 1.7. The patient is on Eliquis at home and is reportedly compliant with Eliquis even though he had missed a dose prior to admission. However we did obtain a noncontrast CT of the chest to further delineate the patient's pulmonary pathology. CT was personally reviewed and stat read report confirmed patchy bilateral infiltrates with areas of consolidation noted in the lower lobes. 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 Marked dilatation of the right pulmonary artery suggesting pulmonary hypertension. Mediastinal lymph nodes which appear more prominent than previous exam and likely reactive in nature. Post intubation x-ray demonstrated the patient's ET tube was in the right mainstem bronchus. When respiratory went to evaluate the patient the patient's ET tube had been unintentionally advanced to 28 cm at the lip. Respiratory therapy had pulled the ET tube back to 25 cm at the lip however when the patient went for CT scan these ET tube was still at the level of the sophie. I gave order to pull the ET tube back is another 2 cm. Another chest x-ray was obtained after central line placement demonstrated ET tube approximately 3 cm from the sophie. Briefly during the resuscitation efforts amiodarone was hung. But after the patient was intubated and his respiratory status improved the patient conver
[2022-05-19 22:30] LABS: Add Urine Microscopic? YES; Appearance Urine Clear (Clear); Bilirubin Urine Negative (Negative); Blood Urine 2+ (Negative); Color Urine Light Yellow (Yellow); Glucose Urine UA Negative (Negative); Ketones Urine Negative (Negative); Leukocyte Esterase Ur Negative LEU/UL (Negative); Nitrate Urine Negative (Negative); Protein Urine Negative (Negative); Urobilinogen Urine 0.2 mg/dL (<2.0)
[2022-05-19 22:32] LABS: Mucus Urine Rare /lpf; WBC Urine 0-3 /hpf
--- NOTE | 2022-05-19 22:40 | WPDPROCEDUR ---
Procedures Intubation Intubation Date: 05/19/22 Intubation Time: 19:50 Sedative: etomidate Mg given: 30 Paralytic: rocuronium Mg given: 60 Laryngoscope: fiber optic video scope ET tube size: 8 Tube secured depth (cm): 24 Tube secured location: lips Tube placement confirmation: visualized tube passing through cords, equal breath sounds bilaterally, no breath sounds over epigastrium and confirmation by capnometry Patient tolerated procedure: well Additional comments: Chest x-ray post intubation demonstrated ET tube at the sophie. However when the patient's ET tube was re-evaluated some how the patient's ET tube had been advanced to 28 cm. The patient's ET tube was pulled back to 25 cm by Respiratory therapy. The patient is going for a CT of the chest at this time.
[2022-05-19] MEDS: SODIUM CHLORIDE 0.9% IV 1,000 ML 999 ML IV CONT (22:56)
[2022-05-19 23:00] LABS: Reflex Lactic Acid Yes or No Add Lactic
--- NOTE | 2022-05-19 23:37 | WPDPROCEDUR ---
Procedures Central Line Placement Right IJ: Central Line Date: 05/19/22 Central Line Time: 23:10 Discussed w/ the patient/family/POA,the placement of a central venous catheter, including its clinical necessity/indication & associated potential risks, benifits and alternatives.: Yes Consent: I have discussed with the patient and/or surrogate, the non-emergent placement of a central venous catheter, including its clinical necessity/indication and associated potential risks and complications. The patient and/or surrogate understand(s) and acknowledge(s) the need to proceed with central venous catheter insertion as an important element of the patient's clinical management. Time Out Performed: Yes Patient Position: other (Vascular position) Patient placed on monitor/pulse ox: Yes Provider Prep: mask, sterile gown, sterile gloves, Max. sterile barrier precautions, cap and hand hygiene with conventional soap/water or alcohol based hand rub Central line prep: 2% Chlorhexidine scrub Sterile US Technique with sterile gel/sterile probe covers: Yes Central line lumen inserted: triple [place]: 7 Length (cm): 16 Depth of Insertion (cm): 15 Post Procedure: sutured in place, good blood return, all ports aspirated, flushed, capped, transparent dressing, antimicrobial product and aseptic technique maintained throughout procedure Post procedure x-ray: tip of catheter in good position and no pneumothorax seen Patient tolerated procedure: well Additional comments: Chest x-ray personally reviewed. Radiologic interpretation pending. Less than 3 mL of blood loss. Attempted to use securement product but could not maintain complete hemostasis at line insertion site subsequently antibacterial disc was applied
[2022-05-20] VITALS (40 sets, daily range): BP systolic 93–150; BP diastolic 61–76; PULSE 59–93; RESP 17–38; TEMP 35.9–38.8; O2SAT 93–100
[2022-05-20] MEDS: FAMOTIDINE 20 MG/2 ML VIAL IV PUSH ×3 (00:31→22:03)
[2022-05-20] MEDS: MINERAL OIL/WHITE PETROLATUM OINTMENT 1 APPLIC EACH EYE ×3 (00:31→20:52)
[2022-05-20 00:39] LABS: Lactic Acid 1.1 mmol/L (0.7-2.0)
[2022-05-20] MEDS: IPRATROPIUM BR 0.02% INH SOLN 0.5 MG/2.5 ML VIAL INHALATION ×4 (02:15→20:05)
[2022-05-20] MEDS: ALBUTEROL SULFATE NEB 2.5 MG/3 ML INH 5 MG INHALATION (02:15)
--- NOTE | 2022-05-20 03:27 | PC.NURSE ---
This patient transferred to ICU 4 for intubation on 05/19/22 at 2004.
--- NOTE | 2022-05-20 03:28 | PC.NURSE ---
Patient not waking with sternal rub. Sedation placed on standby. 5 minutes later with oral care eyes open, pt shaking and pulling restraints, and coughing. Respirations 25. Sedation resumed.
[2022-05-20 04:14] LABS: Alveolar/Arterial O2 Gradient 103.2 mmHg; Base Excess ABG -1.4 mEq/l (+/-2.0); Carboxyhemoglobin 0.3 % THb (0-2.0); Fractional Inspired Oxygen 40 %; HCO3 ABG 23.1 mEq/l (22.0-26.0); Methemoglobin ABG 0.3 %THb (0-1.5); Oxygen Content ABG 17.5 %vol (16.0-22.0); Oxygen Saturation ABG 98.8 % (95.0-100.0); Oxyhemoglobin 97.3 % THb (90.0-100.0); PCO2 ABG 37.9 mmHg (35.0-45.0); PO2 ABG 138.4 mmHg (80.0-100.0); PO2 FiO2 Ratio Arterial Blood 3.46 %; Reduced Hemoglobin 2.1 %THb (0-5.0); Total Hemoglobin 12.6 g/dL (12.0-18.0); pH ABG 7.402 (7.350-7.450)
[2022-05-20 04:35] LABS: Arterial Blood Gas PEEP 5 cmH2O; Arterial Blood Gas Tidal Volume 400 ml; Arterial Blood Gas Vent Mode CMV; Arterial Blood Gas Ventilator rate 20 /MIN; Device VENTILATOR; Modified Allen's Test Pass; Site Drawn LEFT RADIAL
[2022-05-20] MEDS: LEVOTHYROXINE SODIUM 75 MCG TABLET PO (06:06)
[2022-05-20] MEDS: SODIUM CHLORIDE 0.9% IV 1,000 ML 100 ML IV CONT (06:14)
--- NOTE | 2022-05-20 07:33 | PCOTNOTE ---
Patient currently on mechanical ventilation in ICU. Discharging OT orders at this time. Can re-order when medically appropriate.
[2022-05-20] MEDS: METOPROLOL TARTRATE 50 MG TAB PO ×2 (08:39→20:52)
[2022-05-20] MEDS: FERROUS SULFATE 324 MG TABLET PO ×2 (08:39→16:48)
[2022-05-20] MEDS: APIXABAN 5 MG TABLET PO ×2 (08:39→16:48)
[2022-05-20 08:54] LABS: Glucose Point of Care 111 mg/dl (65-105)
--- NOTE | 2022-05-20 09:36 | PCPTNOTE ---
Patient currently on mechanical ventilation in ICU. Discharging PT orders at this time. Can re-order when medically appropriate.
--- NOTE | 2022-05-20 11:02 | WPDCNINT ---
Assessment and Plan Assessment and plan (1) Acute respiratory failure: Code(s): J96.00 - Acute respiratory failure, unspecified whether with hypoxia or hypercapnia Status: Acute Assessment and Plan: Acute Respiratory failure secondary to community-acquired pneumonia, congestive heart failure Continue full mechanical ventilation support to prevent hypoxemia/hypercarbia and end organ damage. ABG and vent settings reviewed Chest x-ray reviewed CT scan images reviewed and full report pending-shows bilateral lower lobe infiltrates0 Low tidal volume ventilation strategy to prevent volutrauma Bronchodilators Culture sent and pending Continue empiric vancomycin cefepime and azithromycin Hold diuretics due to worsening renal function Urine Legionella and pneumococcal antigen sent and pending Mycoplasma IgM antibody pending (2) Community acquired pneumonia: Qualifiers: Laterality: left Lung location: lower lobe of lung Qualified Code(s): J18.9 - Pneumonia, unspecified organism Code(s): J18.9 - Pneumonia, unspecified organism Status: Acute Assessment and Plan: S see above (3) Elevated troponin: Code(s): R77.8 - Other specified abnormalities of plasma proteins Status: Acute Assessment and Plan: Likely secondary to AFib with RVR, respiratory failure hypoxia Levels have remained flat Patient already anticoagulated Echo reviewed (4) Acute on chronic congestive heart failure: Qualifiers: Heart failure type: unspecified Qualified Code(s): I50.9 - Heart failure, unspecified Code(s): I50.9 - Heart failure, unspecified Status: Acute Assessment and Plan: Patient was last echo showed diastolic dysfunction, RV enlargement and failure, moderate TR and moderate pulmonary hypertension Patient likely has cor pulmonale At this time hold Lasix due to worsening renal function Patient is getting some gentle amount of IV fluids Echo 07/18 Summary ? 1. Left ventricular chamber dimension is normal. ? 2. Definity contrast administered improved wall motion interpretation. ? 3. Left ventricular systolic function is hyperdynamic, estimated at >70%. ? 4. There is mildly increased left ventricular wall thickness. ? 5. The left ventricular diastolic function is grade IV diastolic dysfunction. ? 6. E/e' 20 is elevated. ? 7. Right ventricular chamber dimension is moderately enlarged. ? 8. Right ventricular systolic function is? mildly reduced. ? 9. Left atrial chamber dimension is mildly enlarged. ? 10. There is mild aortic valve sclerosis. ? 11. The mitral valve has moderately calcified annulus. ? 12. There is moderate tricuspid valve regurgitation. ? 13. Moderate pulmonary hypertension, estimated pulmonary arterial syst lic pressure is 58 mmHg (5) Atrial fibrillation and flutter: Code(s): I48.91 - Unspecified atrial fibrillation; I48.92 - Unspecified atrial flutter Status: Chronic Assessment and Plan: Now converted to normal sinus rhythm On Eliquis Monitor (6) Hypothyroidism: Code(s): E03.9 - Hypothyroidism, unspecified Status: Acute Assessment and Plan: Continue levothyroxine (7) Acute kidney injury superimposed on chronic kidney disease: Code(s): N17.9 - Acute kidney failure, unspecified; N18.9 - Chronic kidney disease, unspecified Status: Acute Assessment and Plan: Patient creatinine has been between 1.4 - 1.7 Creatinine mildly increased 1.9 Since patient is now intubated I will hold diuretics and will give gentle amount of IV fluid Monitor urine output electrolytes and creatinine Plan DVT prophylaxis -Eliquis Stress ulcer prophylaxis -Pepcid Nutrition -start Tube Feeds Code Status - Full Code Total Critical Care Time - 35 minutes Due to a high probability of clinically significant, life threatening deterioration, the patient required my highest level of preparedness to intervene emergently and
[2022-05-20 11:24] LABS: Glucose Point of Care 119 mg/dl (65-105)
--- NOTE | 2022-05-20 11:55 | PM.CNCAR ---
Assessment and Plan Assessment and plan (1) Community acquired pneumonia: Qualifiers: Laterality: left Lung location: lower lobe of lung Qualified Code(s): J18.9 - Pneumonia, unspecified organism Code(s): J18.9 - Pneumonia, unspecified organism Status: Acute Assessment and Plan: Continue respiratory support, IV antibiotics. Wean mechanical support as tolerated. Patient remains critically ill with severe sepsis overall illness with acute respiratory failure. Continue aggressive management per primary service. Pulmonology consultation noted. (2) Acute respiratory failure: Code(s): J96.00 - Acute respiratory failure, unspecified whether with hypoxia or hypercapnia Status: Acute Assessment and Plan: As above, decompensation most likely primary respiratory due to pneumonia, severe sepsis. (3) Elevated troponin: Code(s): R77.8 - Other specified abnormalities of plasma proteins Status: Acute Assessment and Plan: Most likely secondary to acute hypoxic respiratory failure, renal insufficiency and intermittent tachyarrhythmia less likely acute coronary syndrome and/or plaque rupture. Review record indicates degree of chronic troponin elevation. Consideration for ischemic evaluation will be deferred to patient his recovered from his critical illness and to Dr. Mart. (4) Acute on chronic congestive heart failure: Qualifiers: Heart failure type: unspecified Qualified Code(s): I50.9 - Heart failure, unspecified Code(s): I50.9 - Heart failure, unspecified Status: Acute Assessment and Plan: Clinically it appears patient has degree of decompensated heart failure along with acute hypoxic respiratory failure in the setting of probable acute acquired pneumonia which resulted in significant tachyarrhythmias on intermittent basis essentially resolved after stabilization of his respiratory status. Diuretics as warranted and tolerated. Monitor renal function electrolytes closely. Repeat 2D echocardiogram. (5) Atrial fibrillation and flutter: Code(s): I48.91 - Unspecified atrial fibrillation; I48.92 - Unspecified atrial flutter Status: Chronic Assessment and Plan: Review telemetry reveals intermittent runs of nonsustained wide complex tachycardia probable aberrantly conducted SVT and possibly atrial flutter with one-to-one conduction which terminates abruptly without compensatory pause or PVC and given appearance more suggestive of supraventricular versus ventricular origin. Continue telemetry. Remains on metoprolol tartrate 50 mg q.12 hours. Will continue for now with recommendations to follow as appropriate. (6) Acute kidney injury superimposed on chronic kidney disease: Code(s): N17.9 - Acute kidney failure, unspecified; N18.9 - Chronic kidney disease, unspecified Status: Acute Assessment and Plan: As above. Continue to monitor closely. Minimize nephrotoxic agents as is feasible. (7) Chronic anticoagulation: Code(s): Z79.01 - [employer] (current) use of anticoagulants Status: Acute Assessment and Plan: Remains on Eliquis 5 mg b.i.d.. Monitor for bleeding. Follow H&H. (8) DEMETRI (obstructive sleep apnea): Code(s): G47.33 - Obstructive sleep apnea (adult) (pediatric) Status: Acute Assessment and Plan: History of noncompliance with CPAP and/or BiPAP. History of Present Illness History of Present Illness Consult date/time: Date of service: 05/20/22 11:55 Requesting physician: Hannah Casiano DO Consult reason: atrial fibrillation and congestive heart failure Reason For Visit: Community-acquired Pneumonia,Chronic Renal Insuffi Narrative: Patient is a 76-year-old white male followed by Dr. Mart for whom we are covering with a past medical history significant for chronic kidney disease, heart failure with preserved ejection fraction, history paroxysmal atrial fibrillation, mo
--- NOTE | 2022-05-20 12:32 | PM.CNPUL ---
Assessment and Plan Assessment and plan (1) Acute respiratory failure: Code(s): J96.00 - Acute respiratory failure, unspecified whether with hypoxia or hypercapnia Status: Acute Assessment and Plan: a 76-year-old man with multiple medical problems including severe obesity, obstructive sleep apnea on BiPAP support with reported poor compliance, history of left ventricular diastolic dysfunction with evidence of pulmonary hypertension on previous testing, chronic kidney disease presented with weakness and cough. Diagnostic studies have shown bilateral lower lobe consolidations, likely related to atelectasis and lower respiratory tract infection. Patient is currently hemodynamically stable in the intensive care unit and in normal sinus rhythm following rapid response last night. He has been covered with antibiotics for community-acquired pneumonia. Testing for acute viral illness negative so far. Plan: Agree with current antibiotic regimen. Will repeat testing for viral illness given patient's respiratory illness several days prior to his admission to the hospital. Screen for MRSA. Case was discussed with the hospitalist. (2) Hypoxia: Code(s): R09.02 - Hypoxemia Status: Acute (3) Community acquired pneumonia: Qualifiers: Laterality: left Lung location: lower lobe of lung Qualified Code(s): J18.9 - Pneumonia, unspecified organism Code(s): J18.9 - Pneumonia, unspecified organism Status: Acute (4) Diastolic CHF: Qualifiers: Heart failure chronicity: chronic Qualified Code(s): I50.32 - Chronic diastolic (congestive) heart failure Code(s): I50.30 - Unspecified diastolic (congestive) heart failure Status: Acute (5) DEMETRI (obstructive sleep apnea): Code(s): G47.33 - Obstructive sleep apnea (adult) (pediatric) Status: Acute (6) Atrial fibrillation and flutter: Code(s): I48.91 - Unspecified atrial fibrillation; I48.92 - Unspecified atrial flutter Status: Chronic (7) Chronic kidney disease, stage 3: Code(s): N18.30 - Chronic kidney disease, stage 3 unspecified Status: Acute History of Present Illness History of Present Illness Consult date: 05/20/22 Chief complaint: Community-acquired Pneumonia,Chronic Renal Insuffi Narrative: This 76-year-old man presented to the hospital with a 2 day history of profound weakness, mild cough with sputum production. The patient has multiple medical problems including severe obesity, severe left ventricular diastolic dysfunction with previous history of congestive heart failure, history of paroxysmal atrial fibrillation, severe obstructive sleep apnea with poor compliance with CPAP, chronic kidney disease, hypothyroidism. The patient is currently intubated and sedated in the intensive care unit. This report is based on information obtained after talking to patient's , and reviewing his medical records. The patient was in his usual state of health until approximately 4 days prior to this admission when he started to complain of fatigue, mild cough with sputum production. He had no fever chills hemoptysis chest pain or palpitations. He has had chronic lower extremity edema. Patient was diagnosed with severe sleep apnea with an AHI of 35.8 and subsequently was titrated to BiPAP approximately 6 months ago. Reportedly he has not been very compliant with his BiPAP. several days prior to his illness his had upper respiratory symptoms with congestion and cough. Patient was tested negative for viral disease. His initial chest imaging studies showed lower lobe infiltrates and the patient was started on antibiotics for possible community-acquired pneumonia. Yesterday the patient developed respiratory distress and rapid response was called. He was found to be tachycardic and was treated with adenosine, DC cardioversion and also received amiodarone. The patient was then intubated and was tr
[2022-05-20] MEDS: ALBUTEROL SULFATE NEB 2.5 MG/3 ML INH INHALATION ×2 (13:58→20:05)
[2022-05-20] MEDS: CENTRAL LINE FLUSH 10 ML IV PUSH ×3 (14:01→20:56)
[2022-05-20 14:42] LABS: Influenza A QL RT-PCR Negative (Negative); Influenza B QL RT-PCR Negative (Negative); SARS-CoV-2 RNA PCR Negative
[2022-05-20 17:22] LABS: Glucose Point of Care 105 mg/dl (65-105)
[2022-05-21] VITALS (41 sets, daily range): BP systolic 97–164; BP diastolic 61–90; PULSE 62–87; RESP 18–26; TEMP 36.9–38.6; O2SAT 95–100; BMI 40.2
[2022-05-21 00:41] LABS: Glucose Point of Care 113 mg/dl (65-105)
[2022-05-21] MEDS: IPRATROPIUM BR 0.02% INH SOLN 0.5 MG/2.5 ML VIAL INHALATION ×4 (01:44→20:30)
[2022-05-21] MEDS: ALBUTEROL SULFATE NEB 2.5 MG/3 ML INH INHALATION ×4 (01:44→20:30)
[2022-05-21 05:26] LABS: Alveolar/Arterial O2 Gradient 440.8 mmHg; Base Excess ABG -2.4 mEq/l (+/-2.0); Carboxyhemoglobin 0.2 % THb (0-2.0); Fractional Inspired Oxygen 80 %; HCO3 ABG 23.7 mEq/l (22.0-26.0); Methemoglobin ABG 0.2 %THb (0-1.5); Oxygen Content ABG 18.1 %vol (16.0-22.0); Oxygen Saturation ABG 95.2 % (95.0-100.0); Oxyhemoglobin 94.9 % THb (90.0-100.0); PCO2 ABG 46.1 mmHg (35.0-45.0); PO2 ABG 81.2 mmHg (80.0-100.0); PO2 FiO2 Ratio Arterial Blood 1.01 %; Reduced Hemoglobin 4.7 %THb (0-5.0); Total Hemoglobin 13.5 g/dL (12.0-18.0); pH ABG 7.329 (7.350-7.450)
[2022-05-21 05:27] LABS: Device VENTILATOR; Modified Allen's Test Pass; Site Drawn RIGHT RADIAL
[2022-05-21 05:28] LABS: Arterial Blood Gas PEEP 5 cmH2O; Arterial Blood Gas Tidal Volume 400 ml; Arterial Blood Gas Vent Mode CMV; Arterial Blood Gas Ventilator rate 20 /MIN
[2022-05-21] MEDS: CENTRAL LINE FLUSH 10 ML IV PUSH ×4 (05:53→20:06)
[2022-05-21 05:57] LABS: Hematocrit 35.2 % (42.0-52.0); Hemoglobin 11.8 g/dL (14.0-18.0); Mean Corpuscular HGB Conc 33.5 g/dl (32-36); Mean Corpuscular Hemoglobin 31.9 pg (26-34); Mean Corpuscular Volume 95.1 fl (80-100); Mean Platelet Volume 10.4 fl (7.4-10.4); Platelet Count Result 131 k/mm3 (150-375); Red Cell Distribution Width 13.8 % (11.5-14.5); White Blood Count 5.7 K/mm3 (4.5-10.0)
[2022-05-21 06:08] LABS: Alanine Aminotransferase 43 U/L (6-50); Albumin Level 3.3 g/dL (3.5-5.1); Alkaline Phosphatase 78 U/L (38-126); Anion Gap 8 mmol/L (8-16); Aspartate Amino Transferase 89 U/L (17-59); Bilirubin,Total 0.7 mg/dL (0.2-1.3); Blood Urea Nitrogen 29 mg/dL (9-20); Calcium 7.6 mg/dL (8.4-10.2); Carbon Dioxide 26 mmol/L (22-30); Chloride 98 mmol/L (98-107); Estimated CRCL calculation 40 ml/min; Estimated Glomerular Filt Rate 39; Glucose 140 mg/dL (65-110); Magnesium 2.6 mg/dL (1.6-2.3); Phosphorus 3.5 mg/dL (2.5-4.5); Potassium 3.8 mmol/L (3.4-5.0); Sodium 132 mmol/L (137-145)
[2022-05-21] MEDS: LEVOTHYROXINE SODIUM 75 MCG TABLET PO (07:04)
[2022-05-21] MEDS: PERFLUTREN LIPID MICROSPHERES 1.5 ML VIAL DILUTED TO 10 ML TOTAL VOLUME IV PUSH (08:00)
--- NOTE | 2022-05-21 09:11 | PM.PNPUL ---
Progress Note: A&P Assessment and Plan (1) Acute respiratory failure: Code(s): J96.00 - Acute respiratory failure, unspecified whether with hypoxia or hypercapnia Status: Acute Assessment and Plan: respiratory status essentially unchanged over the last 24 hours. The patient is for sedated on mechanical ventilation receiving tidal volume 450 peep of 5 and FiO2 of 30%. Today's chest x-ray showed a clearing of basal infiltrates, most likely related to atelectasis improvement. repeat testing for influenza RSV and COVID 19 all negative. Agree with current antibiotic regimen for lower respiratory tract infection. Case was discussed with Dr. Morataya. (2) Diastolic CHF: Qualifiers: Heart failure chronicity: chronic Qualified Code(s): I50.32 - Chronic diastolic (congestive) heart failure Code(s): I50.30 - Unspecified diastolic (congestive) heart failure Status: Acute (3) Acute on chronic congestive heart failure: Qualifiers: Heart failure type: unspecified Qualified Code(s): I50.9 - Heart failure, unspecified Code(s): I50.9 - Heart failure, unspecified Status: Acute (4) Atrial fibrillation and flutter: Code(s): I48.91 - Unspecified atrial fibrillation; I48.92 - Unspecified atrial flutter Status: Chronic (5) Acute kidney injury superimposed on chronic kidney disease: Code(s): N17.9 - Acute kidney failure, unspecified; N18.9 - Chronic kidney disease, unspecified Status: Acute (6) Obesity (BMI 30-39.9): Code(s): E66.9 - Obesity, unspecified Status: Acute (7) DEMETRI (obstructive sleep apnea): Code(s): G47.33 - Obstructive sleep apnea (adult) (pediatric) Status: Acute Subjective Date/time seen: 05/21/22 09:11 There has been no significant change in patient's respiratory status. Hemodynamically he is stable, fully sedated on mechanical ventilation. He has been on 3 antibiotics for possible lower respiratory tract infection. Repeat vital testing negative. Review of Systems Review of Systems: ROS unobtainable: Yes unobtainable due to endotracheal tube Exam Narrative: GENERAL APPEARANCE: Well developed, well nourished, Fully sedated on mechanical ventilation SKIN: Inspection of the skin reveals no rashes, ulcerations or petechiae. HEENT: Sclerae anicteric and conjunctivae pink and moist. NECK: could not assess whether the patient had supple neck. No palpable lymphadenopathy LUNGS: Auscultation of the lungs revealed normal breath sounds anteriorly, no wheezing CARDIAC: There was a regular rate and rhythm; 2/6 systolic murmur ABDOMEN: obese, bowel sounds present EXTREMITIES: No cyanosis, chronic stasis dermatitis changes lower extremities NEUROLOGIC: fully sedated on mechanical ventilation opening eyes to verbal commands Objective Data Vital Signs Vital Signs: Vital Signs - 24 hr 05/20/22 10:32 05/20/22 12:00 05/20/22 12:00 Temperature Pulse Rate 59 L 60 Respiratory Rate 18 Blood Pressure Pulse Oximetry 96 99 Oxygen Delivery Mechanical Ventilation Mechanical Ventilation Fraction of Inspired Oxygen 30 30 30 05/20/22 12:00 05/20/22 12:00 05/20/22 13:59 Temperature 36.8 C Pulse Rate 60 60 69 Respiratory Rate 18 22 H Blood Pressure 115/73 Pulse Oximetry 99 Oxygen Delivery Fraction of Inspired Oxygen 05/20/22 14:01 05/20/22 14:00 05/20/22 14:00 Temperature 37.3 C Pulse Rate 68 69 69 Respiratory Rate 23 H Blood Pressure 129/76 Pulse Oximetry 96 97 Oxygen Delivery Mechanical Ventilation Fraction of Inspired Oxygen 30 05/20/22 10:00 05/20/22 10:00 05/20/22 14:30 Temperature 36.4 C L Pulse Rate 60 60 80 Respiratory Rate 21 H 23 H Blood Pressure 114/73 Pulse Oximetry 95 Oxygen Delivery Fraction of Inspired Oxygen 05/20/22 16:40 05/20/22 16:41 05/20/22 16:46 Temperature 38.8 C H Pulse Rate 93 90 Respiratory Rate 21 H 17 B
[2022-05-21] MEDS: MINERAL OIL/WHITE PETROLATUM OINTMENT 1 APPLIC EACH EYE ×2 (09:17→20:06)
[2022-05-21] MEDS: FAMOTIDINE 20 MG/2 ML VIAL IV PUSH ×2 (09:18→20:05)
[2022-05-21] MEDS: APIXABAN 5 MG TABLET PO ×2 (09:18→18:11)
[2022-05-21] MEDS: FERROUS SULFATE 324 MG TABLET PO ×2 (09:19→18:11)
[2022-05-21] MEDS: METOPROLOL TARTRATE 50 MG TAB PO ×2 (09:19→20:05)
--- NOTE | 2022-05-21 09:56 | WPDINTPN ---
Progress Note: A&P Assessment and Plan (1) Acute respiratory failure: Code(s): J96.00 - Acute respiratory failure, unspecified whether with hypoxia or hypercapnia Status: Acute Assessment and Plan: Acute Respiratory failure secondary to community-acquired pneumonia, congestive heart failure BNP elevated CT chest 05/20 - Pulmonary opacities most consistent with pneumonia. Mediastinal and bilateral hilar lymphadenopathy. Low positioned endotracheal tube and nasogastric tube, correlate with tube function Chest x-ray - 2. Improving opacities in the lower lung zones which are minimally more prominent on the left and could represent atelectasis or pneumonia. 3. Cardiomegaly. Continue full mechanical ventilation support to prevent hypoxemia/hypercarbia and end organ damage. ABG and vent settings reviewed . Increase tidal volume to 450 Low tidal volume ventilation strategy to prevent volutrauma Bronchodilators Culture sent and pending Continue empiric vancomycin cefepime and azithromycin Diuretics held due to sepsis and worsening renal function Urine Legionella and pneumococcal antigen sent and pending Mycoplasma IgM antibody pending Will attempt a weaning trial today (2) Community acquired pneumonia: Qualifiers: Laterality: left Lung location: lower lobe of lung Qualified Code(s): J18.9 - Pneumonia, unspecified organism Code(s): J18.9 - Pneumonia, unspecified organism Status: Acute Assessment and Plan: See above (3) Elevated troponin: Code(s): R77.8 - Other specified abnormalities of plasma proteins Status: Acute Assessment and Plan: Likely secondary to AFib with RVR, respiratory failure hypoxia Levels have remained flat Patient already anticoagulated Echo reviewed (4) Acute on chronic congestive heart failure: Qualifiers: Heart failure type: unspecified Qualified Code(s): I50.9 - Heart failure, unspecified Code(s): I50.9 - Heart failure, unspecified Status: Acute Assessment and Plan: Patient was last echo showed diastolic dysfunction, RV enlargement and failure, moderate TR and moderate pulmonary hypertension Patient likely has cor pulmonale Lasix held due to worsening renal function Patient received gentle amount of IV fluids but now off Echo 07/18 Summary ? 1. Left ventricular chamber dimension is normal. ? 2. Definity contrast administered improved wall motion interpretation. ? 3. Left ventricular systolic function is hyperdynamic, estimated at >70%. ? 4. There is mildly increased left ventricular wall thickness. ? 5. The left ventricular diastolic function is grade IV diastolic dysfunction. ? 6. E/e' 20 is elevated. ? 7. Right ventricular chamber dimension is moderately enlarged. ? 8. Right ventricular systolic function is? mildly reduced. ? 9. Left atrial chamber dimension is mildly enlarged. ? 10. There is mild aortic valve sclerosis. ? 11. The mitral valve has moderately calcified annulus. ? 12. There is moderate tricuspid valve regurgitation. ? 13. Moderate pulmonary hypertension, estimated pulmonary arterial syst lic pressure is 58 mmHg (5) Atrial fibrillation and flutter: Code(s): I48.91 - Unspecified atrial fibrillation; I48.92 - Unspecified atrial flutter Status: Chronic Assessment and Plan: Now converted to normal sinus rhythm On Eliquis Monitor (6) Hypothyroidism: Code(s): E03.9 - Hypothyroidism, unspecified Status: Acute Assessment and Plan: Continue levothyroxine (7) Acute kidney injury superimposed on chronic kidney disease: Code(s): N17.9 - Acute kidney failure, unspecified; N18.9 - Chronic kidney disease, unspecified Status: Acute Assessment and Plan: Patient creatinine has been between 1.4 - 1.7 05/20 Creatinine mildly increased 1.9 and diuretics were held and patient was given conservative amount of IV fluid 05/21 creatinine improved 1.7 Monitor urine
[2022-05-21] MEDS: FENTANYL 2,500MCG/NS250ML(*CRX 2,500 MCG/250 ML BAG 7.5 MCG IV CONT (12:09)
[2022-05-21] MEDS: MIDAZOLAM 100MG/NS 100ML(*CRX) 100 MG/100 ML BAG IV CONT (12:09)
[2022-05-21 12:18] LABS: Glucose Point of Care 120 mg/dl (65-105)
--- NOTE | 2022-05-21 15:06 | ECHO_ITS ---
Patient Info Name: Seferino Cano Age: 76 years : 1945 Gender: Male Ht: 68 in Wt: 264 lbs BSA: 2.45 m2 HR: 67 bpm BP: 97 / 61 mmHg Heart Rhythm: Sinus Rhythm Technical Quality: Fair Exam Date: 05/21/2022 8:20 AM Exam Location: [facility] Patient Status: Inpatient Admit Date: 05/19/2022 Staff Ordering Physician: Scooby Landaverde MD Glass Designer: Yolie Hutchinson RDCS Attending Provider: Hannah Casiano DO Referring Physician: Akhil KOWALSKI; Exam Type: CA echo dop color flow w con Study Info Indications - h/o chf, elevated trop, aflutter Complete two-dimensional, color flow and Doppler transthoracic echocardiogram is performed with contrast to opacify the left ventricle and to improve the deliniation of the left ventricle endocardial borders. Contrast/Agitated Saline Contrast/Ag. Saline: Definity Amount: 3.00 ml Administered By: Yolie Hutchinson RDCS Existing IV Access: Yes IV Access Condition: patent with no signs of infiltration Summary 1. Technically difficult study with limited views. Definity contrast administered. 2. Left ventricular chamber dimension is normal. 3. Left ventricular systolic function is normal, estimated at 65-70%. 4. There is mildly increased left ventricular wall thickness. 5. The left ventricular diastolic function is grade II diastolic dysfunction. 6. E/e' 20.49 is moderately elevated. 7. Left atrial chamber dimension is mildly enlarged. 8. There is trace mitral valve regurgitation. 9. There is mild tricuspid valve regurgitation. 10. Mild pulmonary hypertension, estimated pulmonary arterial systolic pressure is 43 mmHg. Left Ventricle Left ventricular chamber dimension is normal. Left ventricular systolic function is normal, estimated at 65-70%. There is mildly increased left ventricular wall thickness. The left ventricular diastolic function is grade II diastolic dysfunction. E/e' 20.49 is moderately elevated. Technically difficult study with limited views. Definity contrast administered. Right Ventricle Right ventricular chamber dimension is normal. Right ventricular systolic function is mildly reduced. TAPSE 1.7. Left Atria Left atrial chamber dimension is mildly enlarged. Right Atria Right atrial chamber dimension is normal. Aortic Valve The aortic valve is not well visualized. There is no aortic valve stenosis. There is no aortic valve regurgitation. Pulmonic Valve The pulmonic valve is not well visualized. Mitral Valve The mitral valve has thickened leaflets. There is trace mitral valve regurgitation. The mitral valve annulus is moderately calcified. Tricuspid Valve The tricuspid valve leaflets are not well visualized. There is mild tricuspid valve regurgitation. Mild pulmonary hypertension, estimated pulmonary arterial systolic pressure is 43 mmHg. Pericardium/Pleural The pericardium appears normal. There is trivial pericardial effusion. Inferior Vena Cava Normal inferior vena cava with <50% collapse upon inspiration consistent with elevated right atrial pressure, 10 mmHg. Aorta The aortic root size at the sinus of Valsalva is normal. There is mild-moderate aortic atherosclerosis. Left Ventricular Outflow Tract Name Value Normal
--- NOTE | 2022-05-21 15:46 | PM.PNCARD ---
Progress Note: A&P Assessment and Plan (1) Atrial fibrillation and flutter: Code(s): I48.91 - Unspecified atrial fibrillation; I48.92 - Unspecified atrial flutter Status: Chronic Assessment and Plan: Review telemetry reveals intermittent runs of nonsustained wide complex tachycardia probable aberrantly conducted SVT and possibly atrial flutter with one-to-one conduction which terminates abruptly without compensatory pause or PVC and given appearance more suggestive of supraventricular versus ventricular origin. Continue telemetry. Remains on metoprolol tartrate 50 mg q.12 hours. Will continue for now with recommendations to follow as appropriate. (2) Acute on chronic congestive heart failure: Qualifiers: Heart failure type: unspecified Qualified Code(s): I50.9 - Heart failure, unspecified Code(s): I50.9 - Heart failure, unspecified Status: Acute Assessment and Plan: Initially patient had decompensated heart failure with acute hypoxic respiratory failure in the setting of probable community acquired pneumonia which resulted in significant tachyarrhythmias on intermittent basis essentially resolved after stabilization of his respiratory status. Diuretics as warranted and tolerated. Monitor renal function electrolytes closely. Stable. Monitor volume status. Echocardiogram pending. Will review when available recommendations to follow. (3) Community acquired pneumonia: Qualifiers: Laterality: left Lung location: lower lobe of lung Qualified Code(s): J18.9 - Pneumonia, unspecified organism Code(s): J18.9 - Pneumonia, unspecified organism Status: Acute Assessment and Plan: Continue respiratory support, IV antibiotics. Wean mechanical support as tolerated. Patient remains critically ill with severe sepsis overall illness with acute respiratory failure. Continue aggressive management per primary service. Pulmonology consultation noted. Patient remains febrile. (4) Acute respiratory failure: Code(s): J96.00 - Acute respiratory failure, unspecified whether with hypoxia or hypercapnia Status: Acute Assessment and Plan: As above, decompensation most likely primary respiratory due to pneumonia, severe sepsis. (5) Elevated troponin: Code(s): R77.8 - Other specified abnormalities of plasma proteins Status: Acute Assessment and Plan: Most likely secondary to acute hypoxic respiratory failure, renal insufficiency and intermittent tachyarrhythmia less likely acute coronary syndrome and/or plaque rupture. Review record indicates degree of chronic troponin elevation. Consideration for ischemic evaluation will be deferred to patient his recovered from his critical illness and to Dr. Mart. (6) Acute kidney injury superimposed on chronic kidney disease: Code(s): N17.9 - Acute kidney failure, unspecified; N18.9 - Chronic kidney disease, unspecified Status: Acute Assessment and Plan: As above. Continue to monitor closely. Minimize nephrotoxic agents as is feasible. 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 Monitor for bleeding. Follow H&H. (8) DEMETRI (obstructive sleep apnea): Code(s): G47.33 - Obstructive sleep apnea (adult) (pediatric) Status: Acute Assessment and Plan: History of noncompliance with CPAP and/or BiPAP. Subjective Date/time seen: Date of service: 05/21/22 15:46 Follow-up for CHF, atrial fibrillation Patient is hemodynamically stable. Remains intubated on mechanical ventilatory support. Weaning trials attempted initially. Maintaining sinus rhythm with frequent PVCs. He is febrile. Renal function stable. Patient unable to provide history due to intubation and sedation. Chest x-ray indicates improving lower lobe opacities. Review of Syst
[2022-05-21 18:09] LABS: Glucose Point of Care 131 mg/dl (65-105)
[2022-05-21 23:00] LABS: Vancomycin Trough 18.5 ug/mL (10.0-20.0)
[2022-05-21 23:42] LABS: Glucose Point of Care 111 mg/dl (65-105)
[2022-05-22] VITALS (30 sets, daily range): BP systolic 109–143; BP diastolic 57–75; PULSE 57–76; RESP 18–22; TEMP 36.8–37.8; O2SAT 96–100
[2022-05-22] MEDS: IPRATROPIUM BR 0.02% INH SOLN 0.5 MG/2.5 ML VIAL INHALATION ×4 (02:30→20:22)
[2022-05-22] MEDS: ALBUTEROL SULFATE NEB 2.5 MG/3 ML INH INHALATION ×4 (02:30→20:23)
[2022-05-22 05:48] LABS: Alveolar/Arterial O2 Gradient 77.6 mmHg; Arterial Blood Gas PEEP 5 cmH2O; Arterial Blood Gas Tidal Volume 450 ml; Arterial Blood Gas Vent Mode CMV; Arterial Blood Gas Ventilator rate 20 /MIN; Base Excess ABG -1.7 mEq/l (+/-2.0); Carboxyhemoglobin 0.3 % THb (0-2.0); Device VENTILATOR; Fractional Inspired Oxygen 30 %; HCO3 ABG 23.2 mEq/l (22.0-26.0); Methemoglobin ABG 0.3 %THb (0-1.5); Modified Allen's Test Unable to perform; Oxygen Content ABG 16.4 %vol (16.0-22.0); Oxygen Saturation ABG 96.7 % (95.0-100.0); Oxyhemoglobin 95.3 % THb (90.0-100.0); PO2 ABG 89.3 mmHg (80.0-100.0); PO2 FiO2 Ratio Arterial Blood 2.98 %; Reduced Hemoglobin 4.1 %THb (0-5.0); Site Drawn RIGHT RADIAL; Total Hemoglobin 12.2 g/dL (12.0-18.0); pH ABG 7.382 (7.350-7.450)
[2022-05-22] MEDS: CENTRAL LINE FLUSH 10 ML IV PUSH ×3 (05:48→16:45)
[2022-05-22] MEDS: LEVOTHYROXINE SODIUM 75 MCG TABLET PO (05:49)
[2022-05-22 05:58] LABS: Hematocrit 32.7 % (42.0-52.0); Hemoglobin 10.8 g/dL (14.0-18.0); Mean Corpuscular Hemoglobin 32.2 pg (26-34); Mean Corpuscular Volume 97.6 fl (80-100); Mean Platelet Volume 10.5 fl (7.4-10.4); Platelet Count Result 133 k/mm3 (150-375); Red Blood Count 3.35 M/mm3 (4.6-6.20); White Blood Count 5.8 K/mm3 (4.5-10.0)
[2022-05-22 05:59] LABS: Alanine Aminotransferase 39 U/L (6-50); Albumin Level 3.1 g/dL (3.5-5.1); Alkaline Phosphatase 103 U/L (38-126); Anion Gap 4 mmol/L (8-16); Aspartate Amino Transferase 58 U/L (17-59); Bilirubin,Total 0.6 mg/dL (0.2-1.3); Blood Urea Nitrogen 28 mg/dL (9-20); Calcium 7.7 mg/dL (8.4-10.2); Carbon Dioxide 26 mmol/L (22-30); Chloride 96 mmol/L (98-107); Estimated CRCL calculation 46 ml/min; Estimated Glomerular Filt Rate 45; Glucose 138 mg/dL (65-110); Magnesium 2.6 mg/dL (1.6-2.3); Phosphorus 2.8 mg/dL (2.5-4.5); Potassium 3.6 mmol/L (3.4-5.0); Sodium 126 mmol/L (137-145)
[2022-05-22] MEDS: APIXABAN 5 MG TABLET PO ×2 (08:27→16:45)
[2022-05-22] MEDS: FERROUS SULFATE 324 MG TABLET PO ×2 (08:27→16:45)
[2022-05-22] MEDS: FUROSEMIDE INJ 40 MG/4 ML VIAL 20 MG IV PUSH (08:27)
[2022-05-22] MEDS: MINERAL OIL/WHITE PETROLATUM OINTMENT 1 APPLIC EACH EYE ×2 (08:28→20:04)
[2022-05-22] MEDS: FAMOTIDINE 20 MG/2 ML VIAL IV PUSH ×2 (08:28→20:04)
[2022-05-22] MEDS: METOPROLOL TARTRATE 50 MG TAB PO (08:28)
--- NOTE | 2022-05-22 08:57 | WPDINTPN ---
Progress Note: A&P Assessment and Plan (1) Acute respiratory failure: Code(s): J96.00 - Acute respiratory failure, unspecified whether with hypoxia or hypercapnia Status: Acute Assessment and Plan: Acute Respiratory failure secondary to community-acquired pneumonia, congestive heart failure BNP elevated Patient was intubated on 05/19 Chest x-ray this morning: Probable mild pulmonary edema pattern with small left pleural effusion, ETT, NG tube and right IJ in place Continue full mechanical ventilation support to prevent hypoxemia/hypercarbia and end organ damage. ABG and vent settings reviewed, will increase PEEP to 8 Low tidal volume ventilation strategy to prevent volutrauma -continue Bronchodilators -05/20: MRSA screen is pending -05/20: Sputum culture growing yeast Continue empiric vancomycin cefepime and azithromycin (05/20) -will give low-dose diuretic today Urine Legionella and pneumococcal antigen sent and pending Mycoplasma IgM antibody pending Patient is sedated with fentanyl and Versed, will wean sedation and place patient on breathing trial and evaluate for extubation CT chest 05/20 - Pulmonary opacities most consistent with pneumonia. Mediastinal and bilateral hilar lymphadenopathy. Low positioned endotracheal tube and nasogastric tube, correlate with tube function (2) Community acquired pneumonia: Qualifiers: Laterality: left Lung location: lower lobe of lung Qualified Code(s): J18.9 - Pneumonia, unspecified organism Code(s): J18.9 - Pneumonia, unspecified organism Status: Acute Assessment and Plan: See above (3) Elevated troponin: Code(s): R77.8 - Other specified abnormalities of plasma proteins Status: Acute Assessment and Plan: Likely secondary to AFib with RVR, respiratory failure hypoxia Troponin levels plateaued Patient already anticoagulated Echo reviewed (4) Acute on chronic congestive heart failure: Qualifiers: Heart failure type: unspecified Qualified Code(s): I50.9 - Heart failure, unspecified Code(s): I50.9 - Heart failure, unspecified Status: Acute Assessment and Plan: Patient was last echo showed diastolic dysfunction, RV enlargement and failure, moderate TR and moderate pulmonary hypertension Patient likely has cor pulmonale Lasix held due to worsening renal function Patient received gentle amount of IV fluids but now off Echocardiogram 05/21/2022 showed EF of 65-70%, grade 2 diastolic dysfunction, left atrial chamber mildly enlarged, mild tricuspid regurg, trace mitral valve regurg, mild pulmonary hypertension RVSP of 43 mmHg Echo 07/18/2021 Summary ? 1. Left ventricular chamber dimension is normal. ? 2. Definity contrast administered improved wall motion interpretation. ? 3. Left ventricular systolic function is hyperdynamic, estimated at >70%. ? 4. There is mildly increased left ventricular wall thickness. ? 5. The left ventricular diastolic function is grade IV diastolic dysfunction. ? 6. E/e' 20 is elevated. ? 7. Right ventricular chamber dimension is moderately enlarged. ? 8. Right ventricular systolic function is? mildly reduced. ? 9. Left atrial chamber dimension is mildly enlarged. ? 10. There is mild aortic valve sclerosis. ? 11. The mitral valve has moderately calcified annulus. ? 12. There is moderate tricuspid valve regurgitation. ? 13. Moderate pulmonary hypertension, estimated pulmonary arterial syst lic pressure is 58 mmHg (5) Atrial fibrillation and flutter: Code(s): I48.91 - Unspecified atrial fibrillation; I48.92 - Unspecified atrial flutter Status: Chronic Assessment and Plan: Now converted to normal sinus rhythm On Eliquis Monitor (6) Hypothyroidism: Code(s): E03.9 - Hypothyroidism, unspecified Status: Acute Assessment and Plan: Continue levothyroxine (7) Acute kidney injury superimposed on chronic kidney disease: Code(s): N
--- NOTE | 2022-05-22 10:08 | PM.PNCARD ---
Progress Note: A&P Assessment and Plan (1) Atrial fibrillation and flutter: Code(s): I48.91 - Unspecified atrial fibrillation; I48.92 - Unspecified atrial flutter Status: Chronic Assessment and Plan: Review telemetry reveals intermittent runs of nonsustained wide complex tachycardia probable aberrantly conducted SVT and possibly atrial flutter with one-to-one conduction which terminates abruptly without compensatory pause or PVC and given appearance more suggestive of supraventricular versus ventricular origin. No recurrence of this arrhythmia since being transferred to IMU. Continue telemetry. Remains on metoprolol tartrate 50 mg q.12 hours. Will continue for now with recommendations to follow as appropriate. (2) Acute on chronic congestive heart failure: Qualifiers: Heart failure type: unspecified Qualified Code(s): I50.9 - Heart failure, unspecified Code(s): I50.9 - Heart failure, unspecified Status: Acute Assessment and Plan: Echocardiogram showed normal LVSF, EF 65 - 70%. He does have grade II diastolic dysfunction. Diuretics as warranted and tolerated. Monitor renal function electrolytes closely. Stable. Monitor volume status. (3) Community acquired pneumonia: Qualifiers: Laterality: left Lung location: lower lobe of lung Qualified Code(s): J18.9 - Pneumonia, unspecified organism Code(s): J18.9 - Pneumonia, unspecified organism Status: Acute Assessment and Plan: Continue respiratory support, IV antibiotics. Wean mechanical support as tolerated. Patient remains critically ill with severe sepsis overall illness with acute respiratory failure. Continue aggressive management per primary service. Pulmonology consultation noted. Patient remains febrile. (4) Acute respiratory failure: Code(s): J96.00 - Acute respiratory failure, unspecified whether with hypoxia or hypercapnia Status: Acute Assessment and Plan: As above, decompensation most likely primary respiratory due to pneumonia, severe sepsis. (5) Elevated troponin: Code(s): R77.8 - Other specified abnormalities of plasma proteins Status: Acute Assessment and Plan: Most likely secondary to acute hypoxic respiratory failure, renal insufficiency and intermittent tachyarrhythmia less likely acute coronary syndrome and/or plaque rupture. Review record indicates degree of chronic troponin elevation. Consideration for ischemic evaluation will be deferred to patient his recovered from his critical illness and to Dr. Mart. (6) Acute kidney injury superimposed on chronic kidney disease: Code(s): N17.9 - Acute kidney failure, unspecified; N18.9 - Chronic kidney disease, unspecified Status: Acute Assessment and Plan: As above. Continue to monitor closely. Minimize nephrotoxic agents as is feasible. (7) Chronic anticoagulation: Code(s): Z79.01 - [facility] (current) use of anticoagulants Status: Acute Assessment and Plan: Remains on Eliquis 5 mg b.i.d.. Monitor for bleeding. Follow H&H. (8) DEMETRI (obstructive sleep apnea): Code(s): G47.33 - Obstructive sleep apnea (adult) (pediatric) Status: Acute Assessment and Plan: History of noncompliance with CPAP and/or BiPAP. Subjective Date/time seen: 05/22/22 10:08 Cardiology follow up for atrial flutter, SVT Interval history: No recurrence of significant arrhythmias on telemetry last 24 hours. Does have occasional PVC's and bigeminy. Remains intubated and sedated in the ICU. Review of Systems Review of Systems: All systems reviewed & are unremarkable except as noted in HPI and below ROS unobtainable: Yes unobtainable due to endotracheal tube and unobtainable due to medical condition Constitutional: Constitutional: Reports as per HPI and Reports no additional constitutional complaints Eyes: Eyes: Reports as per HPI and Reports no additional eye compl
--- NOTE | 2022-05-22 10:38 | PCFNICU ---
ICU Rounding Note: Pt current nutrition is Vital 1.2 @ 50 ml/h providing 1320 kcals, 83 g protein, 892 ml free water. Flushes 30 ml q 4 h. Tolerating. Nutrition recommendation: Increase goal rate to Vital 1.2 @ 75 ML/h to meet protein energy needs. 1980 kcals, 123 g protein, 1338 ml free water. Last recorded weight is 122 kg. Bowel Motility: Last BM 05/19/22 Labs Reviewed: Alb 3.1, Na 126, BUN 28, Cre 1.5, Glu 131 Meds Noted: Eliquis, cefepime, Vanco, novolog, miralax, fentanyl, versed Skin: No issues Additional Notes: Lasix is being added. Monitoring tolerance, labs, weights, plan of care Following daily in ICU rounds. Reassess Tuesdays and Fridays.
[2022-05-22 11:37] LABS: Glucose Point of Care 139 mg/dl (65-105)
--- NOTE | 2022-05-22 13:09 | PM.PNPUL ---
Progress Note: A&P Assessment and Plan (1) Acute respiratory failure: Code(s): J96.00 - Acute respiratory failure, unspecified whether with hypoxia or hypercapnia Status: Acute Assessment and Plan: respiratory status unchanged over the last 24 hours. The patient is fully sedated on mechanical ventilation receiving tidal volume 450 peep of 8 and FiO2 of 30%. chest x-ray suggestive of mild pulmonary congestion. repeat testing for influenza RSV and COVID 19 all negative. I would discontinue vancomycin at this point and continue with the remaining antibiotics. (2) Diastolic CHF: Qualifiers: Heart failure chronicity: chronic Qualified Code(s): I50.32 - Chronic diastolic (congestive) heart failure Code(s): I50.30 - Unspecified diastolic (congestive) heart failure Status: Acute (3) Acute on chronic congestive heart failure: Qualifiers: Heart failure type: unspecified Qualified Code(s): I50.9 - Heart failure, unspecified Code(s): I50.9 - Heart failure, unspecified Status: Acute (4) Atrial fibrillation and flutter: Code(s): I48.91 - Unspecified atrial fibrillation; I48.92 - Unspecified atrial flutter Status: Chronic (5) Acute kidney injury superimposed on chronic kidney disease: Code(s): N17.9 - Acute kidney failure, unspecified; N18.9 - Chronic kidney disease, unspecified Status: Acute (6) Obesity (BMI 30-39.9): Code(s): E66.9 - Obesity, unspecified Status: Acute (7) DEMETRI (obstructive sleep apnea): Code(s): G47.33 - Obstructive sleep apnea (adult) (pediatric) Status: Acute Subjective Date/time seen: 05/22/22 13:09 Interval history: There has been no significant change in patient's clinical status. The patient remains fully sedated intubated on mechanical ventilation. on assist-control ventilation with low tidal volume, PEEP increased to 8, same FiO2. has small amount of bronchial secretions. His still on 3 antibiotics MRSA screening negative. Sputum culture also negative. Was given Lasix this a.m. Review of Systems Review of Systems: ROS unobtainable: Yes unobtainable due to endotracheal tube Exam Narrative: GENERAL APPEARANCE: Well developed, well nourished, Fully sedated on mechanical ventilation SKIN: Inspection of the skin reveals no rashes, ulcerations or petechiae. HEENT: Sclerae anicteric and conjunctivae pink and moist. NECK: could not assess whether the patient had supple neck. No palpable lymphadenopathy LUNGS: Auscultation of the lungs revealed rhonchi anteriorly, no wheezing CARDIAC: There was a regular rate and rhythm; 2/6 systolic murmur ABDOMEN: obese, bowel sounds present EXTREMITIES: No cyanosis, chronic stasis dermatitis changes lower extremities NEUROLOGIC: fully sedated on mechanical ventilation Objective Data Vital Signs Vital Signs: Vital Signs - 24 hr 05/21/22 13:27 05/21/22 13:25 05/21/22 14:00 Temperature Pulse Rate 75 70 74 Respiratory Rate 20 20 Blood Pressure 120/68 Pulse Oximetry 99 98 Oxygen Delivery Mechanical Ventilation Fraction of Inspired Oxygen 40 05/21/22 16:00 05/21/22 17:12 05/21/22 14:00 Temperature 38.1 C H Pulse Rate 73 76 74 Respiratory Rate 18 20 Blood Pressure 125/72 Pulse Oximetry 99 99 Oxygen Delivery Mechanical Ventilation Fraction of Inspired Oxygen 40 05/21/22 16:00 05/21/22 16:00 05/21/22 18:00 Temperature 37.6 C Pulse Rate 67 Respiratory Rate 20 Blood Pressure 129/67 Pulse Oximetry 100 Oxygen Delivery Mechanical Ventilation Fraction of Inspired Oxygen 30 30 05/21/22 14:00 05/21/22 16:00 05/21/22 18:00 Temperature Pulse Rate 71 73 71 Respiratory Rate Blood Pressure Pulse Oximetry Oxygen Delivery Fraction of Inspired Oxygen 05/21/22 20:05 05/21/22 20:30 05/21/22 20:20 Temperature Pulse Rate 74 63 63 Respiratory Rate 20 Blood Pressure
--- NOTE | 2022-05-22 13:12 | PM.PNCARD ---
Progress Note: A&P Assessment and Plan (1) Atrial fibrillation and flutter: Code(s): I48.91 - Unspecified atrial fibrillation; I48.92 - Unspecified atrial flutter Status: Chronic Assessment and Plan: Review telemetry reveals intermittent runs of nonsustained wide complex tachycardia probable aberrantly conducted SVT and possibly atrial flutter with one-to-one conduction which terminates abruptly without compensatory pause or PVC and given appearance more suggestive of supraventricular versus ventricular origin. No recurrence of this arrhythmia since being transferred to IMU. Continue telemetry. Remains on metoprolol tartrate 50 mg q.12 hours. Will continue for now with recommendations to follow as appropriate. (2) Acute on chronic congestive heart failure: Qualifiers: Heart failure type: unspecified Qualified Code(s): I50.9 - Heart failure, unspecified Code(s): I50.9 - Heart failure, unspecified Status: Acute Assessment and Plan: Echocardiogram showed normal LVSF, EF 65 - 70%. He does have grade II diastolic dysfunction. Diuretics as warranted and tolerated. Monitor renal function electrolytes closely. Stable. Monitor volume status. (3) Community acquired pneumonia: Qualifiers: Laterality: left Lung location: lower lobe of lung Qualified Code(s): J18.9 - Pneumonia, unspecified organism Code(s): J18.9 - Pneumonia, unspecified organism Status: Acute Assessment and Plan: Continue respiratory support, IV antibiotics. Wean mechanical support as tolerated. Patient remains critically ill with severe sepsis overall illness with acute respiratory failure. Continue aggressive management per primary service. Pulmonology consultation noted. Patient remains febrile. (4) Acute respiratory failure: Code(s): J96.00 - Acute respiratory failure, unspecified whether with hypoxia or hypercapnia Status: Acute Assessment and Plan: As above, decompensation most likely primary respiratory due to pneumonia, severe sepsis. (5) Elevated troponin: Code(s): R77.8 - Other specified abnormalities of plasma proteins Status: Acute Assessment and Plan: Most likely secondary to acute hypoxic respiratory failure, renal insufficiency and intermittent tachyarrhythmia less likely acute coronary syndrome and/or plaque rupture. Review record indicates degree of chronic troponin elevation. Consideration for ischemic evaluation will be deferred to patient his recovered from his critical illness and to Dr. Mart. (6) Acute kidney injury superimposed on chronic kidney disease: Code(s): N17.9 - Acute kidney failure, unspecified; N18.9 - Chronic kidney disease, unspecified Status: Acute Assessment and Plan: As above. Continue to monitor closely. Minimize nephrotoxic agents as is feasible. (7) Chronic anticoagulation: Code(s): Z79.01 - nursing home (current) use of anticoagulants Status: Acute Assessment and Plan: Remains on Eliquis 5 mg b.i.d.. Monitor for bleeding. Follow H&H. (8) DEMETRI (obstructive sleep apnea): Code(s): G47.33 - Obstructive sleep apnea (adult) (pediatric) Status: Acute Assessment and Plan: History of noncompliance with CPAP and/or BiPAP. Subjective Date/time seen: 05/22/22 13:12 Cardiology follow up for atrial flutter, SVT, CHF No major clinical changes overnight. Remains intubated and sedated in the ICU. No recurrence of arrhythmias. Review of Systems Review of Systems: All systems reviewed & are unremarkable except as noted in HPI and below ROS unobtainable: Yes unobtainable due to endotracheal tube and unobtainable due to medical condition Constitutional: Constitutional: Reports as per HPI and Reports no additional constitutional complaints Eyes: Eyes: Reports as per HPI and Reports no additional eye complaints ENT: Reports system reviewed and no addition
[2022-05-22 17:08] LABS: Glucose Point of Care 139 mg/dl (65-105)
[2022-05-22] MEDS: FENTANYL 2,500MCG/NS250ML(*CRX 2,500 MCG/250 ML BAG 10 MCG IV CONT (17:26)
[2022-05-22] MEDS: MIDAZOLAM 100MG/NS 100ML(*CRX) 100 MG/100 ML BAG IV CONT (17:27)
[2022-05-22] MEDS: SENNA/DOCUSATE SODIUM TABLET 1 TAB PO (20:04)
[2022-05-23] VITALS (34 sets, daily range): BP systolic 111–136; BP diastolic 60–73; PULSE 52–83; RESP 20–25; TEMP 36.9–37.2; O2SAT 94–98; BMI 40.8
[2022-05-23] MEDS: CENTRAL LINE FLUSH 10 ML IV PUSH ×5 (00:19→21:07)
[2022-05-23 00:32] LABS: Glucose Point of Care 124 mg/dl (65-105)
[2022-05-23] MEDS: ALBUTEROL SULFATE NEB 2.5 MG/3 ML INH INHALATION ×4 (01:55→20:48)
[2022-05-23] MEDS: IPRATROPIUM BR 0.02% INH SOLN 0.5 MG/2.5 ML VIAL INHALATION ×4 (01:55→20:43)
[2022-05-23 05:17] LABS: Alveolar/Arterial O2 Gradient 75.1 mmHg; Base Excess ABG -1.1 mEq/l (+/-2.0); Carboxyhemoglobin 0.1 % THb (0-2.0); Fractional Inspired Oxygen 30 %; HCO3 ABG 24.2 mEq/l (22.0-26.0); Methemoglobin ABG 0.2 %THb (0-1.5); Oxygen Content ABG 18.5 %vol (16.0-22.0); Oxygen Saturation ABG 96.5 % (95.0-100.0); Oxyhemoglobin 95.8 % THb (90.0-100.0); PCO2 ABG 42.6 mmHg (35.0-45.0); PO2 ABG 88.7 mmHg (80.0-100.0); PO2 FiO2 Ratio Arterial Blood 2.96 %; Reduced Hemoglobin 3.9 %THb (0-5.0); Total Hemoglobin 13.7 g/dL (12.0-18.0); pH ABG 7.372 (7.350-7.450)
[2022-05-23 05:18] LABS: Modified Allen's Test Pass; Site Drawn LEFT RADIAL
[2022-05-23 05:19] LABS: Device VENTILATOR
[2022-05-23 05:20] LABS: Arterial Blood Gas PEEP 8 cmH2O; Arterial Blood Gas Tidal Volume 450 ml; Arterial Blood Gas Vent Mode CMV; Arterial Blood Gas Ventilator rate 20 /MIN
[2022-05-23] MEDS: LEVOTHYROXINE SODIUM 75 MCG TABLET PO (05:30)
[2022-05-23 06:32] LABS: Glucose Point of Care 138 mg/dl (65-105)
[2022-05-23 06:47] LABS: Hematocrit 29.2 % (42.0-52.0); Mean Corpuscular HGB Conc 34.2 g/dl (32-36); Mean Corpuscular Hemoglobin 32.6 pg (26-34); Mean Corpuscular Volume 95.1 fl (80-100); Mean Platelet Volume 10.6 fl (7.4-10.4); Platelet Count Result 155 k/mm3 (150-375); Red Blood Count 3.07 M/mm3 (4.6-6.20); Red Cell Distribution Width 14.1 % (11.5-14.5); White Blood Count 5.8 K/mm3 (4.5-10.0)
[2022-05-23 06:53] LABS: Alanine Aminotransferase 36 U/L (6-50); Albumin Level 2.9 g/dL (3.5-5.1); Alkaline Phosphatase 141 U/L (38-126); Anion Gap 8 mmol/L (8-16); Aspartate Amino Transferase 53 U/L (17-59); Bilirubin,Total 0.4 mg/dL (0.2-1.3); Blood Urea Nitrogen 37 mg/dL (9-20); Calcium 7.7 mg/dL (8.4-10.2); Carbon Dioxide 26 mmol/L (22-30); Chloride 94 mmol/L (98-107); Estimated CRCL calculation 37 ml/min; Estimated Glomerular Filt Rate 34; Glucose 142 mg/dL (65-110); Magnesium 2.6 mg/dL (1.6-2.3); Phosphorus 3.9 mg/dL (2.5-4.5); Potassium 3.7 mmol/L (3.4-5.0); Sodium 128 mmol/L (137-145)
[2022-05-23] MEDS: FAMOTIDINE 20 MG/2 ML VIAL IV PUSH ×2 (08:02→20:28)
[2022-05-23] MEDS: APIXABAN 5 MG TABLET PO ×2 (08:02→17:22)
[2022-05-23] MEDS: METOPROLOL TARTRATE 50 MG TAB PO ×2 (08:02→20:27)
[2022-05-23] MEDS: MINERAL OIL/WHITE PETROLATUM OINTMENT 1 APPLIC EACH EYE ×2 (08:02→20:28)
[2022-05-23] MEDS: FERROUS SULFATE 324 MG TABLET PO ×2 (08:02→17:22)
--- NOTE | 2022-05-23 11:04 | PCNFU ---
Nutrition Follow-Up Complete: Inadequate intake from tube feeding related to mechanical ventilation as evidenced by goal rate providing 65% EER New Excessive fluid intake from enteral nutrition related to fluid status as evidenced by report, labs Goal: Meet estimated nutrition needs - Goal being met Pt current nutrition is Vital 1.2 @ 75 ml/h: 1980 kcals, 123 g protein, 1338 ml free water. Flushes 20 ml q 4 h. Total fluid 1518 ml/day. Nutrition recommendation: Modify tube feeding and rate: Vital HP 1.5 @ 60 ml/h: 1980 kcals, 115 g protein, 1103 ml free water. Flushes 30 ml q 4 h. Total free water: 1284 ml/day Last recorded weight is 122 kg. Bowel Motility: LBM +2 05/19/22 Labs Reviewed: Alb 2.9, Na 128, BUN 37, Cre 1.9 Meds Noted: Versed, fentanyl, Eliquis, Vanco, novolog, miralax Skin: No issues Additional Notes: Remains on vent. Kidney function precluding diuresis so recommend switching to more calorie dense formula to reduce fluid volume. Discussed with MD Monitoring tolerance, labs, weights, plan of care Following daily in ICU rounds. Reassess Tuesdays and Fridays
[2022-05-23] MEDS: MIDAZOLAM 100MG/NS 100ML(*CRX) 100 MG/100 ML BAG 6 MG IV CONT (11:16)
[2022-05-23 11:38] LABS: Glucose Point of Care 152 mg/dl (65-105)
--- NOTE | 2022-05-23 12:05 | P.CONNP_ITS ---
Assessment and Plan Assessment and plan (1) JASON (acute kidney injury): Code(s): N17.9 - Acute kidney failure, unspecified Status: Acute Assessment and Plan: * suspect multifactorial etiology * possible ATN from infection (pneumonia) * prerenal factors (poor oral intake prior to admission) * insensible losses (due to fevers) * arrhythmia issues * on/off use of diuretic therapy * check renal ultrasound * check urine electrolytes + urine eosinophils * check CPK * follow trend of repeat labs and UOP (2) Chronic kidney disease, stage 3: Code(s): N18.30 - Chronic kidney disease, stage 3 unspecified Status: Acute Assessment and Plan: * baseline creatinine runs around 1.4 - 1.8mg/dl since early 2021 * presumably due to HTN, vascular disease, and possibly DEMETRI (3) Acute respiratory failure: Code(s): J96.00 - Acute respiratory failure, unspecified whether with hypoxia or hypercapnia Status: Acute Assessment and Plan: * felt to be secondary to community-acquired pneumonia, congestive heart failure * likely complicated by DEMETRI and non-compliance with CPAP * intubated since 05/19/22 * continue ventilator support and bronchodilators * follow culture data * on antibiotics * Pulmonary following (4) Community acquired pneumonia: Qualifiers: Laterality: left Lung location: lower lobe of lung Qualified Code(s): J18.9 - Pneumonia, unspecified organism Code(s): J18.9 - Pneumonia, unspecified organism Status: Acute Assessment and Plan: * as evidenced by imaging to date * follow culture data * on antibiotics (5) Acute on chronic congestive heart failure: Qualifiers: Heart failure type: unspecified Qualified Code(s): I50.9 - Heart failure, unspecified Code(s): I50.9 - Heart failure, unspecified Status: Acute Assessment and Plan: * Cardiology following * Echo results noted -- diastolic dysfunction, RV enlargement and failure, moderate TR and moderate pulmonary hypertension * diuretics PRN * Cardiology following (6) Atrial fibrillation and flutter: Code(s): I48.91 - Unspecified atrial fibrillation; I48.92 - Unspecified atrial flutter Status: Chronic Assessment and Plan: * continue rate control strategy * on anticoagulation Will continue to follow. History of Present Illness Reason for Consult Consult date: 05/23/22 Reason for consult: acute renal failure (on chronic kidney disease) Chief Complaint Chief complaint: Community-acquired Pneumonia,Chronic Renal Insuffi History of Present Illness Narrative: The patient is a 76-year-old male with a past medical history as outlined below who initially presented to [facility] Emergency Room on 07/19/2021 with complaints of weakness, productive cough, fever, and chills. Most of the information that I have obtained is from review of the electronic medical record as well as discussion with the physicians/nurses involved in the patient's care as he is currently intubated and on mechanical ventilation. Apparently, 3-4 days prior to admission, the patient had a productive cough of greenish sputum. He also reported subjective fevers but never actually took his temperature at home. He also reported poor oral intake for the past 2 days prior to presentation as well. He does have lower extremity edema but this is a chronic issue and it does not appear to be any different on his presentation to the emergency room. He reported no orthopnea or paroxysmal
--- NOTE | 2022-05-23 12:05 | PM.CNNEP ---
Assessment and Plan Assessment and plan (1) JASON (acute kidney injury): Code(s): N17.9 - Acute kidney failure, unspecified Status: Acute Assessment and Plan: suspect multifactorial etiology possible ATN from infection (pneumonia) prerenal factors (poor oral intake prior to admission) insensible losses (due to fevers) arrhythmia issues on/off use of diuretic therapy check renal ultrasound check urine electrolytes + urine eosinophils check CPK follow trend of repeat labs and UOP (2) Chronic kidney disease, stage 3: Code(s): N18.30 - Chronic kidney disease, stage 3 unspecified Status: Acute Assessment and Plan: baseline creatinine runs around 1.4 - 1.8mg/dl since early 2021 presumably due to HTN, vascular disease, and possibly DEMETRI (3) Acute respiratory failure: Code(s): J96.00 - Acute respiratory failure, unspecified whether with hypoxia or hypercapnia Status: Acute Assessment and Plan: felt to be secondary to community-acquired pneumonia, congestive heart failure likely complicated by DEMETRI and non-compliance with CPAP intubated since 05/19/22 continue ventilator support and bronchodilators follow culture data on antibiotics Pulmonary following (4) Community acquired pneumonia: Qualifiers: Laterality: left Lung location: lower lobe of lung Qualified Code(s): J18.9 - Pneumonia, unspecified organism Code(s): J18.9 - Pneumonia, unspecified organism Status: Acute Assessment and Plan: as evidenced by imaging to date follow culture data on antibiotics (5) Acute on chronic congestive heart failure: Qualifiers: Heart failure type: unspecified Qualified Code(s): I50.9 - Heart failure, unspecified Code(s): I50.9 - Heart failure, unspecified Status: Acute Assessment and Plan: Cardiology following Echo results noted -- diastolic dysfunction, RV enlargement and failure, moderate TR and moderate pulmonary hypertension diuretics PRN Cardiology following (6) Atrial fibrillation and flutter: Code(s): I48.91 - Unspecified atrial fibrillation; I48.92 - Unspecified atrial flutter Status: Chronic Assessment and Plan: continue rate control strategy on anticoagulation Will continue to follow. History of Present Illness Reason for Consult Consult date: 05/23/22 Reason for consult: acute renal failure (on chronic kidney disease) Chief Complaint Chief complaint: Community-acquired Pneumonia,Chronic Renal Insuffi History of Present Illness Narrative: The patient is a 76-year-old male with a past medical history as outlined below who initially presented to [facility] Emergency Room on 07/19/2021 with complaints of weakness, productive cough, fever, and chills. Most of the information that I have obtained is from review of the electronic medical record as well as discussion with the physicians/nurses involved in the patient's care as he is currently intubated and on mechanical ventilation. Apparently, 3-4 days prior to admission, the patient had a productive cough of greenish sputum. He also reported subjective fevers but never actually took his temperature at home. He also reported poor oral intake for the past 2 days prior to presentation as well. He does have lower extremity edema but this is a chronic issue and it does not appear to be any different on his presentation to the emergency room. He reported no orthopnea or paroxysmal nocturnal dyspnea but does not have known chronic dyspnea on exertion that was somewhat worse secondary to the productive cough. Given these constellation of symptoms, he presented to [facility] Emergency room for further assessment. Workup and evaluation emergency room demonstrated the patient in no acute distress but he was febrile with a temperature of a 100?. Subsequent workup and evaluation demonstrated labs
--- NOTE | 2022-05-23 12:24 | PCFNICU ---
ICU Rounding Note: Pt current nutrition is Vital 1.2 @ goal rate 60 ml/h provides 1584 kcals, 99 g protein, 1070 ml free water. Flushes 30 ml q 4 h for total water 1200 ml/day. Propofol running at 13.44 ml/h for total 354 kcals. Nutrition recommendation: Continue same tube feeding order and flushes Last recorded weight is 122 kg. Bowel Motility: Liquid stool per [facility] Labs Reviewed: Hgb 9.1, Hct 29.3, Alb 3.1, Na 128, BUn 40 Meds Noted: propofol, protonix, zosyn, vanco Skin: Intact Additional Notes: Lactulose was discontinued because of diarrhea. Flushes decreased because of sodium level. Following daily in ICU rounds. Monitoring tolerance, labs, weights, plan of care Following daily in ICU rounds. Reassess Tuesdays and Fridays.
--- NOTE | 2022-05-23 12:25 | WPDINTPN ---
Progress Note: A&P Assessment and Plan (1) Acute respiratory failure: Code(s): J96.00 - Acute respiratory failure, unspecified whether with hypoxia or hypercapnia Status: Acute Assessment and Plan: Acute Respiratory failure secondary to community-acquired pneumonia, congestive heart failure BNP elevated Patient was intubated on 05/19 Chest x-ray this morning: Stable extensive pulmonary disease. Correlate for pulmonary edema versus pneumonia. Continue full mechanical ventilation support to prevent hypoxemia/hypercarbia and end organ damage. ABG and vent settings reviewed Low tidal volume ventilation strategy to prevent volutrauma -continue Bronchodilators -05/20: MRSA screen is negative -05/20: Sputum culture growing yeast Continue empiric vancomycin cefepime and azithromycin (05/20) -patient responded to diuretics given on 05/22, creatinine trending up, will hold diuretics today Urine Legionella and pneumococcal antigen sent and pending Mycoplasma IgM antibody pending Patient is sedated with fentanyl and Versed, will wean sedation and place patient on breathing trial CT chest 05/20 - Pulmonary opacities most consistent with pneumonia. Mediastinal and bilateral hilar lymphadenopathy. Low positioned endotracheal tube and nasogastric tube, correlate with tube function (2) Community acquired pneumonia: Qualifiers: Laterality: left Lung location: lower lobe of lung Qualified Code(s): J18.9 - Pneumonia, unspecified organism Code(s): J18.9 - Pneumonia, unspecified organism Status: Acute Assessment and Plan: See above (3) Elevated troponin: Code(s): R77.8 - Other specified abnormalities of plasma proteins Status: Acute Assessment and Plan: Likely secondary to AFib with RVR, respiratory failure hypoxia Troponin levels plateaued Patient already anticoagulated with apixaban Echo reviewed (4) Acute on chronic congestive heart failure: Qualifiers: Heart failure type: unspecified Qualified Code(s): I50.9 - Heart failure, unspecified Code(s): I50.9 - Heart failure, unspecified Status: Acute Assessment and Plan: Patient was last echo showed diastolic dysfunction, RV enlargement and failure, moderate TR and moderate pulmonary hypertension Patient likely has cor pulmonale Lasix held due to worsening renal function Patient received gentle amount of IV fluids but now off Echocardiogram 05/21/2022 showed EF of 65-70%, grade 2 diastolic dysfunction, left atrial chamber mildly enlarged, mild tricuspid regurg, trace mitral valve regurg, mild pulmonary hypertension RVSP of 43 mmHg Echo 07/18/2021 Summary ? 1. Left ventricular chamber dimension is normal. ? 2. Definity contrast administered improved wall motion interpretation. ? 3. Left ventricular systolic function is hyperdynamic, estimated at >70%. ? 4. There is mildly increased left ventricular wall thickness. ? 5. The left ventricular diastolic function is grade IV diastolic dysfunction. ? 6. E/e' 20 is elevated. ? 7. Right ventricular chamber dimension is moderately enlarged. ? 8. Right ventricular systolic function is? mildly reduced. ? 9. Left atrial chamber dimension is mildly enlarged. ? 10. There is mild aortic valve sclerosis. ? 11. The mitral valve has moderately calcified annulus. ? 12. There is moderate tricuspid valve regurgitation. ? 13. Moderate pulmonary hypertension, estimated pulmonary arterial syst lic pressure is 58 mmHg (5) Atrial fibrillation and flutter: Code(s): I48.91 - Unspecified atrial fibrillation; I48.92 - Unspecified atrial flutter Status: Chronic Assessment and Plan: Now converted to normal sinus rhythm On Eliquis Monitor (6) Hypothyroidism: Code(s): E03.9 - Hypothyroidism, unspecified Status: Acute Assessment and Plan: Continue levothyroxine (7) Acute kidney injury superimposed on chronic kidney disease: Code(s):
[2022-05-23 18:42] LABS: Glucose Point of Care 117 mg/dl (65-105)
[2022-05-23] MEDS: SENNA/DOCUSATE SODIUM TABLET 1 TAB PO (20:27)
[2022-05-23] MEDS: FENTANYL 2,500MCG/NS250ML(*CRX 2,500 MCG/250 ML BAG 10 MCG IV CONT (20:42)
[2022-05-24] VITALS (39 sets, daily range): BP systolic 113–163; BP diastolic 64–94; PULSE 68–78; RESP 14–24; TEMP 36.6–37.2; O2SAT 93–99
[2022-05-24 00:14] LABS: Glucose Point of Care 73 mg/dl (65-105)
[2022-05-24] MEDS: IPRATROPIUM BR 0.02% INH SOLN 0.5 MG/2.5 ML VIAL INHALATION ×4 (02:30→20:46)
[2022-05-24] MEDS: ALBUTEROL SULFATE NEB 2.5 MG/3 ML INH INHALATION ×4 (02:31→20:46)
[2022-05-24 04:57] LABS: Hematocrit 30.1 % (42.0-52.0); Mean Corpuscular HGB Conc 33.2 g/dl (32-36); Mean Corpuscular Hemoglobin 32.4 pg (26-34); Mean Corpuscular Volume 97.4 fl (80-100); Platelet Count Result 193 k/mm3 (150-375); Red Blood Count 3.09 M/mm3 (4.6-6.20); Red Cell Distribution Width 14.4 % (11.5-14.5); White Blood Count 5.8 K/mm3 (4.5-10.0)
[2022-05-24 05:10] LABS: Alanine Aminotransferase 34 U/L (6-50); Albumin Level 2.9 g/dL (3.5-5.1); Alkaline Phosphatase 155 U/L (38-126); Alveolar/Arterial O2 Gradient 82.9 mmHg; Anion Gap 3 mmol/L (8-16); Aspartate Amino Transferase 53 U/L (17-59); Base Excess ABG -0.5 mEq/l (+/-2.0); Bilirubin,Total 0.4 mg/dL (0.2-1.3); Blood Urea Nitrogen 50 mg/dL (9-20); Calcium 7.7 mg/dL (8.4-10.2); Carbon Dioxide 27 mmol/L (22-30); Carboxyhemoglobin 0.3 % THb (0-2.0); Chloride 96 mmol/L (98-107); Estimated CRCL calculation 28 ml/min; Estimated Glomerular Filt Rate 25; Fractional Inspired Oxygen 30 %; Glucose 120 mg/dL (65-110); HCO3 ABG 24.5 mEq/l (22.0-26.0); Magnesium 2.8 mg/dL (1.6-2.3); Methemoglobin ABG 0.2 %THb (0-1.5); Oxygen Content ABG 15.4 %vol (16.0-22.0); Oxyhemoglobin 94.7 % THb (90.0-100.0); PCO2 ABG 41.7 mmHg (35.0-45.0); PO2 FiO2 Ratio Arterial Blood 2.73 %; Phosphorus 4.8 mg/dL (2.5-4.5); Potassium 4.1 mmol/L (3.4-5.0); Reduced Hemoglobin 4.8 %THb (0-5.0); Sodium 126 mmol/L (137-145); Total Hemoglobin 11.5 g/dL (12.0-18.0); pH ABG 7.387 (7.350-7.450)
[2022-05-24 05:11] LABS: Arterial Blood Gas PEEP 8 cmH2O; Arterial Blood Gas Vent Mode CMV; Arterial Blood Gas Ventilator rate 20 /MIN; Device VENTILATOR; Modified Allen's Test Pass; Site Drawn LEFT RADIAL
[2022-05-24 05:12] LABS: Arterial Blood Gas Tidal Volume 450 ml
[2022-05-24] MEDS: CENTRAL LINE FLUSH 10 ML IV PUSH ×4 (05:36→22:16)
[2022-05-24] MEDS: LEVOTHYROXINE SODIUM 75 MCG TABLET PO (05:36)
[2022-05-24 05:40] LABS: Glucose Point of Care 158 mg/dl (65-105)
[2022-05-24 07:49] LABS: Creatine Kinase 58 U/L (55-170)
[2022-05-24] MEDS: APIXABAN 5 MG TABLET PO ×2 (08:03→17:23)
[2022-05-24] MEDS: FERROUS SULFATE 324 MG TABLET PO ×2 (08:03→17:23)
[2022-05-24] MEDS: METOPROLOL TARTRATE 50 MG TAB PO ×2 (08:04→20:00)
[2022-05-24] MEDS: MINERAL OIL/WHITE PETROLATUM OINTMENT 1 APPLIC EACH EYE ×2 (08:04→20:00)
[2022-05-24] MEDS: FAMOTIDINE 20 MG/2 ML VIAL IV PUSH (08:04)
--- NOTE | 2022-05-24 09:47 | WPDINTPN ---
Progress Note: A&P Assessment and Plan (1) Acute respiratory failure: Code(s): J96.00 - Acute respiratory failure, unspecified whether with hypoxia or hypercapnia Status: Acute Assessment and Plan: Acute Respiratory failure secondary to community-acquired pneumonia, congestive heart failure BNP elevated Patient was intubated on 05/19 Chest x-ray this morning: Stable pulmonary edema pattern with possible minimal left pleural effusion. Correlate clinically for pneumonia.. Continue full mechanical ventilation support to prevent hypoxemia/hypercarbia and end organ damage. ABG and vent settings reviewed Low tidal volume ventilation strategy to prevent volutrauma -continue Bronchodilators -05/20: MRSA screen is negative -05/20: Sputum culture growing yeast Continue empiric vancomycin cefepime and azithromycin (05/20) -patient responded to diuretics given on 05/22, creatinine trending up, will continue to hold diuretics Urine Legionella and pneumococcal antigen sent and pending Mycoplasma IgM antibody pending Patient is sedated with fentanyl and Versed, have asked the bedside RN to wean sedation to evaluate his mental status CT chest 05/20 - Pulmonary opacities most consistent with pneumonia. Mediastinal and bilateral hilar lymphadenopathy. Low positioned endotracheal tube and nasogastric tube, correlate with tube function (2) Community acquired pneumonia: Qualifiers: Laterality: left Lung location: lower lobe of lung Qualified Code(s): J18.9 - Pneumonia, unspecified organism Code(s): J18.9 - Pneumonia, unspecified organism Status: Acute Assessment and Plan: See above (3) Elevated troponin: Code(s): R77.8 - Other specified abnormalities of plasma proteins Status: Acute Assessment and Plan: Likely secondary to AFib with RVR, respiratory failure hypoxia Troponin levels plateaued Patient already anticoagulated with apixaban Echo reviewed (4) Acute on chronic congestive heart failure: Qualifiers: Heart failure type: unspecified Qualified Code(s): I50.9 - Heart failure, unspecified Code(s): I50.9 - Heart failure, unspecified Status: Acute Assessment and Plan: Patient was last echo showed diastolic dysfunction, RV enlargement and failure, moderate TR and moderate pulmonary hypertension Patient likely has cor pulmonale Lasix held due to worsening renal function Patient received gentle amount of IV fluids but now off Echocardiogram 05/21/2022 showed EF of 65-70%, grade 2 diastolic dysfunction, left atrial chamber mildly enlarged, mild tricuspid regurg, trace mitral valve regurg, mild pulmonary hypertension RVSP of 43 mmHg Echo 07/18/2021 Summary ? 1. Left ventricular chamber dimension is normal. ? 2. Definity contrast administered improved wall motion interpretation. ? 3. Left ventricular systolic function is hyperdynamic, estimated at >70%. ? 4. There is mildly increased left ventricular wall thickness. ? 5. The left ventricular diastolic function is grade IV diastolic dysfunction. ? 6. E/e' 20 is elevated. ? 7. Right ventricular chamber dimension is moderately enlarged. ? 8. Right ventricular systolic function is? mildly reduced. ? 9. Left atrial chamber dimension is mildly enlarged. ? 10. There is mild aortic valve sclerosis. ? 11. The mitral valve has moderately calcified annulus. ? 12. There is moderate tricuspid valve regurgitation. ? 13. Moderate pulmonary hypertension, estimated pulmonary arterial syst lic pressure is 58 mmHg (5) Atrial fibrillation and flutter: Code(s): I48.91 - Unspecified atrial fibrillation; I48.92 - Unspecified atrial flutter Status: Chronic Assessment and Plan: Now converted to normal sinus rhythm On Eliquis Monitor (6) Hypothyroidism: Code(s): E03.9 - Hypothyroidism, unspecified Status: Acute Assessment and Plan: Continue levothyroxine (7) Acute kidney injury superim
--- NOTE | 2022-05-24 10:32 | PM.PNNEP ---
Progress Note: A&P Assessment and Plan (1) JASON (acute kidney injury): Code(s): N17.9 - Acute kidney failure, unspecified Status: Acute Assessment and Plan: suspect multifactorial etiology possible ATN from infection (pneumonia) prerenal factors (poor oral intake prior to admission) insensible losses (due to fevers) arrhythmia issues on/off use of diuretic therapy follow-up on renal ultrasound, urine electrolytes + urine eosinophils CPK okay follow trend of repeat labs and UOP (2) Chronic kidney disease, stage 3: Code(s): N18.30 - Chronic kidney disease, stage 3 unspecified Status: Acute Assessment and Plan: baseline creatinine runs around 1.4 - 1.8mg/dl since early 2021 presumably due to HTN, vascular disease, and possibly DEMETRI (3) Acute respiratory failure: Code(s): J96.00 - Acute respiratory failure, unspecified whether with hypoxia or hypercapnia Status: Acute Assessment and Plan: felt to be secondary to community-acquired pneumonia, congestive heart failure likely complicated by DEMETRI and non-compliance with CPAP intubated since 05/19/22 continue ventilator support and bronchodilators follow culture data on antibiotics Pulmonary following (4) Community acquired pneumonia: Qualifiers: Laterality: left Lung location: lower lobe of lung Qualified Code(s): J18.9 - Pneumonia, unspecified organism Code(s): J18.9 - Pneumonia, unspecified organism Status: Acute Assessment and Plan: as evidenced by imaging to date follow culture data on antibiotics (5) Acute on chronic congestive heart failure: Qualifiers: Heart failure type: unspecified Qualified Code(s): I50.9 - Heart failure, unspecified Code(s): I50.9 - Heart failure, unspecified Status: Acute Assessment and Plan: Cardiology following Echo results noted -- diastolic dysfunction, RV enlargement and failure, moderate TR and moderate pulmonary hypertension diuresis on hold given rising creatinine however, if volume status continues to deteriorate, may have to push diuresis in spite of worsening renal dysfunction if diuresis fails, may need [employer] ARCHIT[employer]/dialysis/ultrafiltration Cardiology following (6) Atrial fibrillation and flutter: Code(s): I48.91 - Unspecified atrial fibrillation; I48.92 - Unspecified atrial flutter Status: Chronic Assessment and Plan: continue rate control strategy on anticoagulation Will continue to follow. Subjective Date/time seen: 05/24/22 10:32 Patient remains intubated/sedated and on mechanical ventilation; still making urine but renal function has worsened; remains hemodynamically stable without the need for vasopressor therapy; no other acute issues/events overnight or earlier this AM. Exam Narrative: General: Large Caucaisan male intubated and on mechanical ventilation Heart: normal S1 and S2; no rub Lungs: coarse with scattered crackles/rales Abdomen: soft, nontender, nondistended, positive bowel sounds Extremities: no cyanosis or clubbing; trace edema Skin: bilateral chronic venous stasis changes Objective Data Vital Signs Vital Signs: Vital Signs Temp Pulse Resp BP Pulse Ox O2 Del Method FiO2 05/24/22 10:10 76 20 05/24/22 08:38 98.6 F 73 14 117/71 98 05/24/22 08:00 98.6 F 75 20 117/71 95 05/24/22 08:00 30 05/24/22 08:00 Mechanical Ventilation 05/24/22 08:00 75 05/24/22 08:04 75 05/24/22 08:14 74 20 05/24/22 08:12 74 99 Mechanical Ventilation 30 05/24/22 08:02 75 23 H 05/24/22 07:00 74 20 05/24/22 07:00 74 20 05/24/22 06:00 74 20 05/24/22 05:00 74 20 05/24/22 06:00 74 20 05/24/22 05:00 74 20 05/24/22 06:00 98.6 F 74 20 124/70 95 05/24/22 06:00 74 05/24/22 05:15 75 98 Mechanical Ventilation
--- NOTE | 2022-05-24 10:32 | P.PNNP_ITS ---
Progress Note: A&P Assessment and Plan (1) JASON (acute kidney injury): Code(s): N17.9 - Acute kidney failure, unspecified Status: Acute Assessment and Plan: * suspect multifactorial etiology * possible ATN from infection (pneumonia) * prerenal factors (poor oral intake prior to admission) * insensible losses (due to fevers) * arrhythmia issues * on/off use of diuretic therapy * follow-up on renal ultrasound, urine electrolytes + urine eosinophils * CPK okay * follow trend of repeat labs and UOP (2) Chronic kidney disease, stage 3: Code(s): N18.30 - Chronic kidney disease, stage 3 unspecified Status: Acute Assessment and Plan: * baseline creatinine runs around 1.4 - 1.8mg/dl since early 2021 * presumably due to HTN, vascular disease, and possibly DEMETRI (3) Acute respiratory failure: Code(s): J96.00 - Acute respiratory failure, unspecified whether with hypoxia or hypercapnia Status: Acute Assessment and Plan: * felt to be secondary to community-acquired pneumonia, congestive heart failure * likely complicated by DEMETRI and non-compliance with CPAP * intubated since 05/19/22 * continue ventilator support and bronchodilators * follow culture data * on antibiotics * Pulmonary following (4) Community acquired pneumonia: Qualifiers: Laterality: left Lung location: lower lobe of lung Qualified Code(s): J18.9 - Pneumonia, unspecified organism Code(s): J18.9 - Pneumonia, unspecified organism Status: Acute Assessment and Plan: * as evidenced by imaging to date * follow culture data * on antibiotics (5) Acute on chronic congestive heart failure: Qualifiers: Heart failure type: unspecified Qualified Code(s): I50.9 - Heart failure, unspecified Code(s): I50.9 - Heart failure, unspecified Status: Acute Assessment and Plan: * Cardiology following * Echo results noted -- diastolic dysfunction, RV enlargement and failure, moderate TR and moderate pulmonary hypertension * diuresis on hold given rising creatinine * however, if volume status continues to deteriorate, may have to push diuresis in spite of worsening renal dysfunction * if diuresis fails, may need [employer]ER/dialysis/ultrafiltration * Cardiology following (6) Atrial fibrillation and flutter: Code(s): I48.91 - Unspecified atrial fibrillation; I48.92 - Unspecified atrial flutter Status: Chronic Assessment and Plan: * continue rate control strategy * on anticoagulation Will continue to follow. Subjective Date/time seen: 05/24/22 10:32 Patient remains intubated/sedated and on mechanical ventilation; still making urine but renal function has worsened; remains hemodynamically stable without the need for vasopressor therapy; no other acute issues/events overnight or earlier this AM. Exam Narrative: General: Large Caucaisan male intubated and on mechanical ventilation Heart: normal S1 and S2; no rub Lungs: coarse with scattered crackles/rales Abdomen: soft, nontender, nondistended, positive bowel sounds Extremities: no cyanosis or clubbing; trace edema Skin: bilateral chronic venous stasis changes Objective Data Vital Signs Vital Signs: Vital Signs Temp Pulse Resp BP Pulse Ox O2 Del Method FiO2 05/24/22 10:10 76 20 05/24/22 08:38 98.6 F 73 14 117/71 98
[2022-05-24] MEDS: PANTOPRAZOLE SODIUM IV 40 MG VIAL IV PUSH (10:41)
--- NOTE | 2022-05-24 10:42 | PCNFU ---
Nutrition Follow-Up Complete: Inadequate intake from tube feeding related to mechanical ventilation as evidenced by goal rate providing 65% EER New: Altered nutrition related lab values related to kidney function as evidenced by labs Goal: Meet estimated nutrition needs - Meeting goal via tube feeds Pt current nutrition is Vital 1.5 @ 50 ml/h: 1980 kcals, 115 g protein, 1103 ml free water. Flushes 30 ml q 4 h. Total water 1284. ml/d. Nutrition recommendation: Switch formula to Nepro @ 50 ml/h due to kidney function, elevated PO4. Provides 1980 kcals, 89 g protein, 799 ml free water. Flushes reduced per MD to 15 ml q 4 h. Total free water 890 ml/day. Order Prosource modular 1x per day for additional 20 g protein. Total protein 109 g /day Last recorded weight is 122 kg. Bowel Motility: +2 BM 05/23/22 Labs Reviewed:Hgb 10.0, Hct 30.1, Alb 2.9, Na 126, BUN 50, Cre 2.5, Glu 120, PO4 4.8 Meds Noted:Fentanyl, versed, protonix, Eliquis Skin: WNL Additional Notes: Discussed flushes and formula change with MD and RN. wants to come down on flushes to 15 ml q 4 h. Tube feeding changes to Nepro @ 50 ml/h with flushes 15 ml q 4 h. Monitoring tolerance, labs, weights, plan of care Following daily in ICU rounds. Reassess Tuesdays and Fridays
[2022-05-24 11:37] LABS: Glucose Point of Care 121 mg/dl (65-105)
[2022-05-24 14:40] LABS: Sodium Urine Random 9 meq/L
[2022-05-24 14:45] LABS: Creatinine Urine 54.1 mg/dL
[2022-05-24 14:52] LABS: Eosinophil Urine None Seen % (None Seen)
[2022-05-24] MEDS: MIDAZOLAM 100MG/NS 100ML(*CRX) 100 MG/100 ML BAG IV CONT (17:24)
--- NOTE | 2022-05-24 18:02 | PM.IMPN ---
Progress Note: A&P Assessment and Plan (1) Acute respiratory failure: Code(s): J96.00 - Acute respiratory failure, unspecified whether with hypoxia or hypercapnia Status: Acute Assessment and Plan: Acute Respiratory failure secondary to community-acquired pneumonia, congestive heart failure BNP elevated Patient was intubated on 05/19 Currently on full mechanical ventilation Per radio interference trouble shooter Continue empiric vancomycin cefepime and azithromycin (05/20) Urine Legionella and pneumococcal antigen sent and pending Mycoplasma IgM antibody pending CT chest 05/20 - Pulmonary opacities most consistent with pneumonia. Mediastinal and bilateral hilar lymphadenopathy. Low positioned endotracheal tube and nasogastric tube, correlate with tube function (2) Community acquired pneumonia: Qualifiers: Laterality: left Lung location: lower lobe of lung Qualified Code(s): J18.9 - Pneumonia, unspecified organism Code(s): J18.9 - Pneumonia, unspecified organism Status: Acute Assessment and Plan: Vancomycin cefepime and azithromycin (3) Elevated troponin: Code(s): R77.8 - Other specified abnormalities of plasma proteins Status: Acute Assessment and Plan: Likely secondary to AFib with RVR, respiratory failure hypoxia Troponin levels plateaued Patient already anticoagulated with apixaban Echo reviewed (4) Acute on chronic congestive heart failure: Qualifiers: Heart failure type: unspecified Qualified Code(s): I50.9 - Heart failure, unspecified Code(s): I50.9 - Heart failure, unspecified Status: Acute Assessment and Plan: Patient was last echo showed diastolic dysfunction, RV enlargement and failure, moderate TR and moderate pulmonary hypertension Patient likely has cor pulmonale Lasix held due to worsening renal function Patient received gentle amount of IV fluids but now off Echocardiogram 05/21/2022 showed EF of 65-70%, grade 2 diastolic dysfunction, left atrial chamber mildly enlarged, mild tricuspid regurg, trace mitral valve regurg, mild pulmonary hypertension RVSP of 43 mmHg Echo 07/18/2021 Summary ? 1. Left ventricular chamber dimension is normal. ? 2. Definity contrast administered improved wall motion interpretation. ? 3. Left ventricular systolic function is hyperdynamic, estimated at >70%. ? 4. There is mildly increased left ventricular wall thickness. ? 5. The left ventricular diastolic function is grade IV diastolic dysfunction. ? 6. E/e' 20 is elevated. ? 7. Right ventricular chamber dimension is moderately enlarged. ? 8. Right ventricular systolic function is? mildly reduced. ? 9. Left atrial chamber dimension is mildly enlarged. ? 10. There is mild aortic valve sclerosis. ? 11. The mitral valve has moderately calcified annulus. ? 12. There is moderate tricuspid valve regurgitation. ? 13. Moderate pulmonary hypertension, estimated pulmonary arterial syst lic pressure is 58 mmHg (5) Atrial fibrillation and flutter: Code(s): I48.91 - Unspecified atrial fibrillation; I48.92 - Unspecified atrial flutter Status: Chronic Assessment and Plan: Now converted to normal sinus rhythm On Eliquis Monitor (6) Hypothyroidism: Code(s): E03.9 - Hypothyroidism, unspecified Status: Acute Assessment and Plan: Continue levothyroxine (7) Acute kidney injury superimposed on chronic kidney disease: Code(s): N17.9 - Acute kidney failure, unspecified; N18.9 - Chronic kidney disease, unspecified Status: Acute Assessment and Plan: Patient creatinine has been between 1.4 - 1.7 05/20 Creatinine mildly increased 1.9 and diuretics were held and patient was given conservative amount of IV fluid 05/21 creatinine improved 1.7 -05/24: Creatinine is 2.50 -appreciate Nephrology evaluation and recommendation, ordered renal ultrasound urine lytes, urine eosinophils in CK level Monitor urine output electrolytes an
[2022-05-24 18:56] LABS: Glucose Point of Care 116 mg/dl (65-105)
[2022-05-24] MEDS: SENNA/DOCUSATE SODIUM TABLET 1 TAB PO (20:00)
[2022-05-24 20:40] LABS: Legionella pneumophila Ag Ur Not Detected (Not Detected)
[2022-05-24 23:00] LABS: Vancomycin Trough 36.1 ug/mL (10.0-20.0)
[2022-05-25] VITALS (40 sets, daily range): BP systolic 116–159; BP diastolic 60–86; PULSE 75–83; RESP 20–30; TEMP 36.9–37.3; O2SAT 92–100; BMI 41.1
[2022-05-25 00:14] LABS: Glucose Point of Care 94 mg/dl (65-105)
[2022-05-25] MEDS: ALBUTEROL SULFATE NEB 2.5 MG/3 ML INH INHALATION ×4 (02:24→19:44)
[2022-05-25] MEDS: IPRATROPIUM BR 0.02% INH SOLN 0.5 MG/2.5 ML VIAL INHALATION ×4 (02:25→19:44)
[2022-05-25 05:13] LABS: Alveolar/Arterial O2 Gradient 82.1 mmHg; Base Excess ABG -1.6 mEq/l (+/-2.0); Carboxyhemoglobin 0.3 % THb (0-2.0); Fractional Inspired Oxygen 30 %; HCO3 ABG 22.2 mEq/l (22.0-26.0); Methemoglobin ABG 0.6 %THb (0-1.5); Oxygen Content ABG 26.4 %vol (16.0-22.0); Oxyhemoglobin 95.8 % THb (90.0-100.0); PCO2 ABG 35.7 mmHg (35.0-45.0); PO2 ABG 89.9 mmHg (80.0-100.0); Reduced Hemoglobin 3.3 %THb (0-5.0); Total Hemoglobin 19.6 g/dL (12.0-18.0); pH ABG 7.411 (7.350-7.450)
[2022-05-25 05:14] LABS: Device VENTILATOR; Modified Allen's Test Unable to perform; Site Drawn RIGHT RADIAL
[2022-05-25 05:15] LABS: Arterial Blood Gas PEEP 8 cmH2O; Arterial Blood Gas Tidal Volume 450 ml; Arterial Blood Gas Vent Mode CMV; Arterial Blood Gas Ventilator rate 20 /MIN
[2022-05-25 05:35] LABS: Glucose Point of Care 122 mg/dl (65-105)
[2022-05-25] MEDS: CENTRAL LINE FLUSH 10 ML IV PUSH ×4 (05:35→21:43)
[2022-05-25] MEDS: LEVOTHYROXINE SODIUM 75 MCG TABLET PO (05:37)
[2022-05-25 05:46] LABS: Hemoglobin 10.6 g/dL (14.0-18.0); Mean Corpuscular HGB Conc 33.1 g/dl (32-36); Mean Corpuscular Hemoglobin 32.3 pg (26-34); Mean Corpuscular Volume 97.6 fl (80-100); Platelet Count Result 233 k/mm3 (150-375); Red Blood Count 3.28 M/mm3 (4.6-6.20); Red Cell Distribution Width 13.9 % (11.5-14.5); White Blood Count 6.5 K/mm3 (4.5-10.0)
[2022-05-25 06:20] LABS: Alanine Aminotransferase 34 U/L (6-50); Alkaline Phosphatase 175 U/L (38-126); Anion Gap 6 mmol/L (8-16); Aspartate Amino Transferase 49 U/L (17-59); Bilirubin,Total 0.4 mg/dL (0.2-1.3); Blood Urea Nitrogen 61 mg/dL (9-20); Calcium 8.1 mg/dL (8.4-10.2); Carbon Dioxide 25 mmol/L (22-30); Chloride 96 mmol/L (98-107); Estimated CRCL calculation 23 ml/min; Estimated Glomerular Filt Rate 20; Glucose 124 mg/dL (65-110); Magnesium 3.1 mg/dL (1.6-2.3); Phosphorus 5.8 mg/dL (2.5-4.5); Potassium 4.4 mmol/L (3.4-5.0); Sodium 127 mmol/L (137-145)
[2022-05-25] MEDS: SODIUM CHLORIDE 0.9% IV 1,000 ML 75 ML IV CONT (07:42)
[2022-05-25] MEDS: FENTANYL 2,500MCG/NS250ML(*CRX 2,500 MCG/250 ML BAG IV CONT (07:46)
[2022-05-25] MEDS: FERROUS SULFATE 324 MG TABLET PO ×2 (07:51→16:14)
[2022-05-25] MEDS: MINERAL OIL/WHITE PETROLATUM OINTMENT 1 APPLIC EACH EYE ×2 (07:52→20:04)
[2022-05-25] MEDS: METOPROLOL TARTRATE 50 MG TAB PO ×2 (08:01→20:04)
[2022-05-25] MEDS: PANTOPRAZOLE SODIUM IV 40 MG VIAL IV PUSH (08:02)
[2022-05-25] MEDS: APIXABAN 5 MG TABLET PO ×2 (08:02→16:14)
--- NOTE | 2022-05-25 09:36 | WPDINTPN ---
Progress Note: A&P Assessment and Plan (1) Acute respiratory failure: Code(s): J96.00 - Acute respiratory failure, unspecified whether with hypoxia or hypercapnia Status: Acute Assessment and Plan: Acute Respiratory failure secondary to community-acquired pneumonia, congestive heart failure BNP elevated Patient was intubated on 05/19 Chest x-ray this morning: Mild pulmonary edema pattern, essentially unchanged. . Continue full mechanical ventilation support to prevent hypoxemia/hypercarbia and end organ damage. ABG and vent settings reviewed Low tidal volume ventilation strategy to prevent volutrauma -continue Bronchodilators -05/20: MRSA screen is negative -05/20: Sputum culture growing yeast Continue empiric vancomycin cefepime and azithromycin (antibiotics to be discontinued today on 05/25/2022) -patient responded to diuretics given on 05/22, creatinine trending up, will continue to hold diuretics Urine Legionella and pneumococcal antigen sent and pending Mycoplasma IgM antibody pending Patient is sedated with fentanyl and Versed, have asked the bedside RN to wean sedation to evaluate his mental status CT chest 05/20 - Pulmonary opacities most consistent with pneumonia. Mediastinal and bilateral hilar lymphadenopathy. Low positioned endotracheal tube and nasogastric tube, correlate with tube function (2) Community acquired pneumonia: Qualifiers: Laterality: left Lung location: lower lobe of lung Qualified Code(s): J18.9 - Pneumonia, unspecified organism Code(s): J18.9 - Pneumonia, unspecified organism Status: Acute Assessment and Plan: See above (3) Elevated troponin: Code(s): R77.8 - Other specified abnormalities of plasma proteins Status: Acute Assessment and Plan: Likely secondary to AFib with RVR, respiratory failure hypoxia Troponin levels plateaued Patient already anticoagulated with apixaban Echo reviewed (4) Acute on chronic congestive heart failure: Qualifiers: Heart failure type: unspecified Qualified Code(s): I50.9 - Heart failure, unspecified Code(s): I50.9 - Heart failure, unspecified Status: Acute Assessment and Plan: Patient was last echo showed diastolic dysfunction, RV enlargement and failure, moderate TR and moderate pulmonary hypertension Patient likely has cor pulmonale Lasix held due to worsening renal function Patient received gentle amount of IV fluids but now off Echocardiogram 05/21/2022 showed EF of 65-70%, grade 2 diastolic dysfunction, left atrial chamber mildly enlarged, mild tricuspid regurg, trace mitral valve regurg, mild pulmonary hypertension RVSP of 43 mmHg Echo 07/18/2021 Summary ? 1. Left ventricular chamber dimension is normal. ? 2. Definity contrast administered improved wall motion interpretation. ? 3. Left ventricular systolic function is hyperdynamic, estimated at >70%. ? 4. There is mildly increased left ventricular wall thickness. ? 5. The left ventricular diastolic function is grade IV diastolic dysfunction. ? 6. E/e' 20 is elevated. ? 7. Right ventricular chamber dimension is moderately enlarged. ? 8. Right ventricular systolic function is? mildly reduced. ? 9. Left atrial chamber dimension is mildly enlarged. ? 10. There is mild aortic valve sclerosis. ? 11. The mitral valve has moderately calcified annulus. ? 12. There is moderate tricuspid valve regurgitation. ? 13. Moderate pulmonary hypertension, estimated pulmonary arterial syst lic pressure is 58 mmHg (5) Atrial fibrillation and flutter: Code(s): I48.91 - Unspecified atrial fibrillation; I48.92 - Unspecified atrial flutter Status: Chronic Assessment and Plan: Now converted to normal sinus rhythm On Eliquis Monitor (6) Hypothyroidism: Code(s): E03.9 - Hypothyroidism, unspecified Status: Acute Assessment and Plan: Continue levothyroxine (7) Acute kidney injury superimposed on chr
--- NOTE | 2022-05-25 10:52 | P.PNNP_ITS ---
Progress Note: A&P Assessment and Plan (1) JASON (acute kidney injury): Code(s): N17.9 - Acute kidney failure, unspecified Status: Acute Assessment and Plan: * suspect multifactorial etiology * possible ATN from infection (pneumonia) * prerenal factors (poor oral intake prior to admission) * insensible losses (due to fevers) * arrhythmia issues * on/off use of diuretic therapy * pulmonary HTN * evaluation to date: * renal ultrasound limited by body habitus - left renal atrophy noted * CPK okay * urine electrolytes prerenal (in spite of evidence of volume overload) * urine eosinophils negative * remains at risk for DIE OUT WORKER/dialysis * follow trend of repeat labs and UOP (2) Chronic kidney disease, stage 3: Code(s): N18.30 - Chronic kidney disease, stage 3 unspecified Status: Acute Assessment and Plan: * baseline creatinine runs around 1.4 - 1.8mg/dl since early 2021 * presumably due to HTN, vascular disease, and possibly DEMETRI (3) Acute respiratory failure: Code(s): J96.00 - Acute respiratory failure, unspecified whether with hypoxia or hypercapnia Status: Acute Assessment and Plan: * felt to be secondary to community-acquired pneumonia, congestive heart failure * likely complicated by DEMETRI and non-compliance with CPAP as well as pulmonary HTN * intubated since 05/19/22 * continue ventilator support and bronchodilators * follow culture data * on antibiotics (4) Community acquired pneumonia: Qualifiers: Laterality: left Lung location: lower lobe of lung Qualified Code(s): J18.9 - Pneumonia, unspecified organism Code(s): J18.9 - Pneumonia, unspecified organism Status: Acute Assessment and Plan: * as evidenced by imaging to date * follow culture data * on antibiotics (5) Acute on chronic congestive heart failure: Qualifiers: Heart failure type: unspecified Qualified Code(s): I50.9 - Heart failure, unspecified Code(s): I50.9 - Heart failure, unspecified Status: Acute Assessment and Plan: * Cardiology following * Echo results noted -- diastolic dysfunction, RV enlargement and failure, moderate TR and moderate pulmonary hypertension * diuresis on hold given rising creatinine * however, if volume status continues to deteriorate, may have to push diuresis in spite of worsening renal dysfunction * if diuresis fails, may need DIE OUT WORKER/dialysis/ultrafiltration * Cardiology following (6) Atrial fibrillation and flutter: Code(s): I48.91 - Unspecified atrial fibrillation; I48.92 - Unspecified atrial flutter Status: Chronic Assessment and Plan: * continue rate control strategy * on anticoagulation Discussed case with Dr. Duncan -- noted plans for family meeting to discuss goals of care. Will continue to follow. Subjective Date/time seen: 05/25/22 10:52 Patient remains intubated/sedated and on mechanical ventilation; continues to make urine despite rising creatinine/deteriorating kidney function; swelling/edema seems a bit worse in comparison to yesterday; remains hemodynamically stable at this time Exam Narrative: General: Large Caucaisan male intubated and on mechanical ventilation Heart: normal S1 and S2; no rub Lungs: coarse with scattered crackles/rales Abdomen: soft, nontender, nondistended, positive bowel sounds Extremities: no cyanosis or clubbing; 1+ edema Skin: bilateral chronic venous stasis changes
--- NOTE | 2022-05-25 10:52 | PM.PNNEP ---
Progress Note: A&P Assessment and Plan (1) JASON (acute kidney injury): Code(s): N17.9 - Acute kidney failure, unspecified Status: Acute Assessment and Plan: suspect multifactorial etiology possible ATN from infection (pneumonia) prerenal factors (poor oral intake prior to admission) insensible losses (due to fevers) arrhythmia issues on/off use of diuretic therapy pulmonary HTN evaluation to date: renal ultrasound limited by body habitus - left renal atrophy noted CPK okay urine electrolytes prerenal (in spite of evidence of volume overload) urine eosinophils negative remains at risk for BAG FILLER MACHINE OPERATOR/dialysis follow trend of repeat labs and UOP (2) Chronic kidney disease, stage 3: Code(s): N18.30 - Chronic kidney disease, stage 3 unspecified Status: Acute Assessment and Plan: baseline creatinine runs around 1.4 - 1.8mg/dl since early 2021 presumably due to HTN, vascular disease, and possibly DEMETRI (3) Acute respiratory failure: Code(s): J96.00 - Acute respiratory failure, unspecified whether with hypoxia or hypercapnia Status: Acute Assessment and Plan: felt to be secondary to community-acquired pneumonia, congestive heart failure likely complicated by DEMETRI and non-compliance with CPAP as well as pulmonary HTN intubated since 05/19/22 continue ventilator support and bronchodilators follow culture data on antibiotics (4) Community acquired pneumonia: Qualifiers: Laterality: left Lung location: lower lobe of lung Qualified Code(s): J18.9 - Pneumonia, unspecified organism Code(s): J18.9 - Pneumonia, unspecified organism Status: Acute Assessment and Plan: as evidenced by imaging to date follow culture data on antibiotics (5) Acute on chronic congestive heart failure: Qualifiers: Heart failure type: unspecified Qualified Code(s): I50.9 - Heart failure, unspecified Code(s): I50.9 - Heart failure, unspecified Status: Acute Assessment and Plan: Cardiology following Echo results noted -- diastolic dysfunction, RV enlargement and failure, moderate TR and moderate pulmonary hypertension diuresis on hold given rising creatinine however, if volume status continues to deteriorate, may have to push diuresis in spite of worsening renal dysfunction if diuresis fails, may need BAG FILLER MACHINE OPERATOR/dialysis/ultrafiltration Cardiology following (6) Atrial fibrillation and flutter: Code(s): I48.91 - Unspecified atrial fibrillation; I48.92 - Unspecified atrial flutter Status: Chronic Assessment and Plan: continue rate control strategy on anticoagulation Discussed case with Dr. Duncan -- noted plans for family meeting to discuss goals of care. Will continue to follow. Subjective Date/time seen: 05/25/22 10:52 Patient remains intubated/sedated and on mechanical ventilation; continues to make urine despite rising creatinine/deteriorating kidney function; swelling/edema seems a bit worse in comparison to yesterday; remains hemodynamically stable at this time Exam Narrative: General: Large Caucaisan male intubated and on mechanical ventilation Heart: normal S1 and S2; no rub Lungs: coarse with scattered crackles/rales Abdomen: soft, nontender, nondistended, positive bowel sounds Extremities: no cyanosis or clubbing; 1+ edema Skin: bilateral chronic venous stasis changes Objective Data Vital Signs Vital Signs: Vital Signs Temp Pulse Resp BP Pulse Ox O2 Del Method FiO2 05/25/22 10:32 79 93 Mechanical Ventilation 30 05/25/22 10:00 98.7 F 80 20 129/69 92 05/25/22 10:00 79 05/25/22 09:52 79 21 H 05/25/22 09:51 79 22 H 05/25/22 08:51 79 21 H 05/25/22 08:34 79 21 H 05/25/22 08:32 79 95 Mechanical Ventilation 30 05/25/22 08:00 98.6 F 79 21 H 133/83 95 05/25/22 08:01 75 05/25/22
--- NOTE | 2022-05-25 11:07 | PCNFU ---
Nutrition Follow-Up Complete: Inadequate intake from tube feeding related to mechanical ventilation as evidenced by goal rate providing 65% EER Goal:Meet estimated nutrition needs - Goal being met at 100% EER with current tube feeding orders Pt current nutrition is Nepro @ 50 ml/h: 1980 kcal, 89 g protein, 799 ml free water. Flushes 15 ml q 4 hours. Total water 890 ml/day. Prosource protein modular 1x per day. Total protein 109 g. Nutrition recommendation: Continue with current tube feeding orders and flushes. Agree with current orders. Last recorded weight is 122.6 kg. Bowel Motility: + 1 BM 05/25/22 Labs Reviewed: Hgb 10.6, Hct 32. Alb 3.0, Na 127, BUN 61, Cret 3.1, PO4 5.8 Meds Noted: Fentayl and versed are turned off for trial. Eliquis, novolog Skin: WNL Additional Notes: Remains on vent. Tolerating tube feeding well. Continue current tube feeding orders and monitoring. Monitoring tolerance, labs, weights, plan of care Following daily in ICU rounds. Reassess Tuesdays and Fridays
[2022-05-25] MEDS: ALBUMIN HUMAN 25% 25 GM/100 ML 100 ML IVPB ×2 (11:36→17:17)
[2022-05-25 11:41] LABS: Glucose Point of Care 124 mg/dl (65-105)
[2022-05-25 17:11] LABS: Glucose Point of Care 138 mg/dl (65-105)
[2022-05-25] MEDS: SENNA/DOCUSATE SODIUM TABLET 1 TAB PO (20:05)
[2022-05-25 21:07] LABS: Mycoplasma IgM Antibody Titer 34 U/mL (<770)
[2022-05-25 22:06] LABS: Vancomycin Random 32.4 ug/mL (10-20)
[2022-05-26] VITALS (31 sets, daily range): BP systolic 124–162; BP diastolic 70–108; PULSE 80–87; RESP 17–33; TEMP 37.3–38.6; O2SAT 94–100
[2022-05-26] MEDS: ALBUMIN HUMAN 25% 25 GM/100 ML 100 ML IVPB ×2 (00:10→05:31)
[2022-05-26 00:18] LABS: Glucose Point of Care 144 mg/dl (65-105)
[2022-05-26] MEDS: ALBUTEROL SULFATE NEB 2.5 MG/3 ML INH INHALATION ×5 (01:47→20:05)
[2022-05-26] MEDS: IPRATROPIUM BR 0.02% INH SOLN 0.5 MG/2.5 ML VIAL INHALATION ×4 (01:47→20:04)
[2022-05-26 04:46] LABS: Alveolar/Arterial O2 Gradient 73.3 mmHg; Carboxyhemoglobin 0.1 % THb (0-2.0); Fractional Inspired Oxygen 30 %; HCO3 ABG 20.6 mEq/l (22.0-26.0); Methemoglobin ABG 0.2 %THb (0-1.5); Oxygen Content ABG 16.7 %vol (16.0-22.0); Oxygen Saturation ABG 97.9 % (95.0-100.0); Oxyhemoglobin 96.7 % THb (90.0-100.0); PCO2 ABG 32.3 mmHg (35.0-45.0); PO2 ABG 102.7 mmHg (80.0-100.0); PO2 FiO2 Ratio Arterial Blood 3.42 %; Total Hemoglobin 12.2 g/dL (12.0-18.0); pH ABG 7.423 (7.350-7.450)
[2022-05-26 04:47] LABS: Device VENTILATOR; Modified Allen's Test Unable to perform; Site Drawn RIGHT RADIAL
[2022-05-26 04:48] LABS: Arterial Blood Gas PEEP 8 cmH2O; Arterial Blood Gas Tidal Volume 450 ml; Arterial Blood Gas Vent Mode CMV; Arterial Blood Gas Ventilator rate 20 /MIN
[2022-05-26 04:58] LABS: Hematocrit 28.2 % (42.0-52.0); Hemoglobin 9.5 g/dL (14.0-18.0); Mean Corpuscular HGB Conc 33.7 g/dl (32-36); Mean Corpuscular Hemoglobin 32.2 pg (26-34); Mean Corpuscular Volume 95.6 fl (80-100); Mean Platelet Volume 9.4 fl (7.4-10.4); Platelet Count Result 222 k/mm3 (150-375); Red Blood Count 2.95 M/mm3 (4.6-6.20); White Blood Count 6.8 K/mm3 (4.5-10.0)
[2022-05-26 05:11] LABS: Alanine Aminotransferase 41 U/L (6-50); Albumin Level 3.8 g/dL (3.5-5.1); Alkaline Phosphatase 202 U/L (38-126); Anion Gap 8 mmol/L (8-16); Aspartate Amino Transferase 75 U/L (17-59); Bilirubin,Total 0.6 mg/dL (0.2-1.3); Blood Urea Nitrogen 68 mg/dL (9-20); Calcium 8.9 mg/dL (8.4-10.2); Carbon Dioxide 25 mmol/L (22-30); Chloride 103 mmol/L (98-107); Estimated CRCL calculation 20 ml/min; Estimated Glomerular Filt Rate 17; Glucose 131 mg/dL (65-110); Magnesium 3.3 mg/dL (1.6-2.3); Phosphorus 5.2 mg/dL (2.5-4.5); Potassium 4.3 mmol/L (3.4-5.0); Sodium 136 mmol/L (137-145)
[2022-05-26] MEDS: CENTRAL LINE FLUSH 10 ML IV PUSH ×4 (05:31→21:36)
[2022-05-26] MEDS: LEVOTHYROXINE SODIUM 75 MCG TABLET PO (05:31)
[2022-05-26] MEDS: FERROUS SULFATE 324 MG TABLET PO ×2 (07:59→16:04)
[2022-05-26] MEDS: APIXABAN 5 MG TABLET PO ×2 (07:59→16:04)
[2022-05-26] MEDS: PANTOPRAZOLE SODIUM IV 40 MG VIAL IV PUSH (07:59)
[2022-05-26] MEDS: METOPROLOL TARTRATE 50 MG TAB PO ×2 (07:59→21:35)
[2022-05-26] MEDS: MINERAL OIL/WHITE PETROLATUM OINTMENT 1 APPLIC EACH EYE ×2 (08:00→21:35)
--- NOTE | 2022-05-26 10:52 | WPDINTPN ---
Progress Note: A&P Assessment and Plan (1) Acute respiratory failure: Code(s): J96.00 - Acute respiratory failure, unspecified whether with hypoxia or hypercapnia Status: Acute Assessment and Plan: Acute Respiratory failure secondary to community-acquired pneumonia, congestive heart failure BNP elevated Patient was intubated on 05/19 Chest x-ray this morning: Mild pulmonary edema pattern, essentially unchanged. . Continue full mechanical ventilation support to prevent hypoxemia/hypercarbia and end organ damage. ABG and vent settings reviewed Low tidal volume ventilation strategy to prevent volutrauma -continue Bronchodilators -05/20: MRSA screen is negative -05/20: Sputum culture growing yeast -status post 7 days of vancomycin, cefepime and azithromycin - creatinine continues to worsen, unable to give diuretics -patient may require dialysis, I discussed this with the , she stated he his wishes would not have been to be on dialysis or to get tracheostomy or PEG tube. -off all sedation Urine Legionella was not detected, - pneumococcal antigen is pending pending Mycoplasma IgM antibody is negative, IgG is elevated CT chest 05/20 - Pulmonary opacities most consistent with pneumonia. Mediastinal and bilateral hilar lymphadenopathy. Low positioned endotracheal tube and nasogastric tube, correlate with tube function (2) Community acquired pneumonia: Qualifiers: Laterality: left Lung location: lower lobe of lung Qualified Code(s): J18.9 - Pneumonia, unspecified organism Code(s): J18.9 - Pneumonia, unspecified organism Status: Acute Assessment and Plan: See above (3) Elevated troponin: Code(s): R77.8 - Other specified abnormalities of plasma proteins Status: Acute Assessment and Plan: Likely secondary to AFib with RVR, respiratory failure hypoxia Troponin levels plateaued Patient already anticoagulated with apixaban Echo reviewed (4) Acute on chronic congestive heart failure: Qualifiers: Heart failure type: unspecified Qualified Code(s): I50.9 - Heart failure, unspecified Code(s): I50.9 - Heart failure, unspecified Status: Acute Assessment and Plan: Patient was last echo showed diastolic dysfunction, RV enlargement and failure, moderate TR and moderate pulmonary hypertension Patient likely has cor pulmonale Lasix held due to worsening renal function Patient received gentle amount of IV fluids but now off Echocardiogram 05/21/2022 showed EF of 65-70%, grade 2 diastolic dysfunction, left atrial chamber mildly enlarged, mild tricuspid regurg, trace mitral valve regurg, mild pulmonary hypertension RVSP of 43 mmHg Echo 07/18/2021 Summary ? 1. Left ventricular chamber dimension is normal. ? 2. Definity contrast administered improved wall motion interpretation. ? 3. Left ventricular systolic function is hyperdynamic, estimated at >70%. ? 4. There is mildly increased left ventricular wall thickness. ? 5. The left ventricular diastolic function is grade IV diastolic dysfunction. ? 6. E/e' 20 is elevated. ? 7. Right ventricular chamber dimension is moderately enlarged. ? 8. Right ventricular systolic function is? mildly reduced. ? 9. Left atrial chamber dimension is mildly enlarged. ? 10. There is mild aortic valve sclerosis. ? 11. The mitral valve has moderately calcified annulus. ? 12. There is moderate tricuspid valve regurgitation. ? 13. Moderate pulmonary hypertension, estimated pulmonary arterial syst lic pressure is 58 mmHg (5) Atrial fibrillation and flutter: Code(s): I48.91 - Unspecified atrial fibrillation; I48.92 - Unspecified atrial flutter Status: Chronic Assessment and Plan: Now converted to normal sinus rhythm On Eliquis Monitor (6) Hypothyroidism: Code(s): E03.9 - Hypothyroidism, unspecified Status: Acute Assessment and Plan: Continue levothyroxine (7) Acute kidney injury casey
--- NOTE | 2022-05-26 11:40 | PM.PNNEP ---
Progress Note: A&P Assessment and Plan (1) JASON (acute kidney injury): Code(s): N17.9 - Acute kidney failure, unspecified Status: Acute Assessment and Plan: suspect multifactorial etiology possible ATN from infection (pneumonia) prerenal factors (poor oral intake prior to admission) insensible losses (due to fevers) arrhythmia issues on/off use of diuretic therapy pulmonary HTN evaluation to date: renal ultrasound limited by body habitus - left renal atrophy noted CPK okay urine electrolytes prerenal (in spite of evidence of volume overload) urine eosinophils negative remains at risk for HEALTH ADMINISTRATOR/dialysis follow trend of repeat labs and UOP (2) Chronic kidney disease, stage 3: Code(s): N18.30 - Chronic kidney disease, stage 3 unspecified Status: Acute Assessment and Plan: baseline creatinine runs around 1.4 - 1.8mg/dl since early 2021 presumably due to HTN, vascular disease, and possibly DEMETRI (3) Acute respiratory failure: Code(s): J96.00 - Acute respiratory failure, unspecified whether with hypoxia or hypercapnia Status: Acute Assessment and Plan: felt to be secondary to community-acquired pneumonia, congestive heart failure likely complicated by DEMETRI and non-compliance with CPAP as well as pulmonary HTN intubated since 05/19/22 continue ventilator support and bronchodilators follow culture data on antibiotics (4) Community acquired pneumonia: Qualifiers: Laterality: left Lung location: lower lobe of lung Qualified Code(s): J18.9 - Pneumonia, unspecified organism Code(s): J18.9 - Pneumonia, unspecified organism Status: Acute Assessment and Plan: as evidenced by imaging to date follow culture data on antibiotics (5) Acute on chronic congestive heart failure: Qualifiers: Heart failure type: unspecified Qualified Code(s): I50.9 - Heart failure, unspecified Code(s): I50.9 - Heart failure, unspecified Status: Acute Assessment and Plan: Cardiology following Echo results noted -- diastolic dysfunction, RV enlargement and failure, moderate TR and moderate pulmonary hypertension diuresis on hold given rising creatinine however, if volume status continues to deteriorate, may have to push diuresis in spite of worsening renal dysfunction if diuresis fails, may need HEALTH ADMINISTRATOR/dialysis/ultrafiltration Cardiology following (6) Atrial fibrillation and flutter: Code(s): I48.91 - Unspecified atrial fibrillation; I48.92 - Unspecified atrial flutter Status: Chronic Assessment and Plan: continue rate control strategy on anticoagulation Will continue to follow. Subjective Date/time seen: 05/26/22 11:40 No real significant change noted -- remains intubated and on mechanical ventilation; off sedation but not opening eyes or following any commands; still making urine but renal function continues to deteriorate; otherwise, remains hemodynamically stable. Exam Narrative: General: Large Caucaisan male intubated and on mechanical ventilation Heart: normal S1 and S2; no rub Lungs: coarse with scattered crackles/rales Abdomen: soft, nontender, nondistended, positive bowel sounds Extremities: no cyanosis or clubbing; 1+ edema Skin: bilateral chronic venous stasis changes noted Objective Data Vital Signs Vital Signs: Vital Signs Temp Pulse Resp BP Pulse Ox O2 Del Method FiO2 05/26/22 10:32 82 98 Mechanical Ventilation 30 05/26/22 10:00 99.4 F 82 17 139/77 94 05/26/22 10:00 82 05/26/22 08:00 83 05/26/22 08:00 99.3 F 82 22 H 151/78 H 96 05/26/22 08:00 30 05/26/22 08:00 83 22 H 96 Mechanical Ventilation 30 05/26/22 07:31 82 98 Mechanical Ventilation 30 05/26/22 07:30 82 28 H 05/26/22 06:00 99.2 F 81 25 H 140/81 97 05/26/22 06:00 81 05/26/22 05:01 82 98
--- NOTE | 2022-05-26 11:40 | P.PNNP_ITS ---
Progress Note: A&P Assessment and Plan (1) JASON (acute kidney injury): Code(s): N17.9 - Acute kidney failure, unspecified Status: Acute Assessment and Plan: * suspect multifactorial etiology * possible ATN from infection (pneumonia) * prerenal factors (poor oral intake prior to admission) * insensible losses (due to fevers) * arrhythmia issues * on/off use of diuretic therapy * pulmonary HTN * evaluation to date: * renal ultrasound limited by body habitus - left renal atrophy noted * CPK okay * urine electrolytes prerenal (in spite of evidence of volume overload) * urine eosinophils negative * remains at risk for PARK KEEPER/dialysis * follow trend of repeat labs and UOP (2) Chronic kidney disease, stage 3: Code(s): N18.30 - Chronic kidney disease, stage 3 unspecified Status: Acute Assessment and Plan: * baseline creatinine runs around 1.4 - 1.8mg/dl since early 2021 * presumably due to HTN, vascular disease, and possibly DEMETRI (3) Acute respiratory failure: Code(s): J96.00 - Acute respiratory failure, unspecified whether with hypoxia or hypercapnia Status: Acute Assessment and Plan: * felt to be secondary to community-acquired pneumonia, congestive heart failure * likely complicated by DEMETRI and non-compliance with CPAP as well as pulmonary HTN * intubated since 05/19/22 * continue ventilator support and bronchodilators * follow culture data * on antibiotics (4) Community acquired pneumonia: Qualifiers: Laterality: left Lung location: lower lobe of lung Qualified Code(s): J18.9 - Pneumonia, unspecified organism Code(s): J18.9 - Pneumonia, unspecified organism Status: Acute Assessment and Plan: * as evidenced by imaging to date * follow culture data * on antibiotics (5) Acute on chronic congestive heart failure: Qualifiers: Heart failure type: unspecified Qualified Code(s): I50.9 - Heart failure, unspecified Code(s): I50.9 - Heart failure, unspecified Status: Acute Assessment and Plan: * Cardiology following * Echo results noted -- diastolic dysfunction, RV enlargement and failure, moderate TR and moderate pulmonary hypertension * diuresis on hold given rising creatinine * however, if volume status continues to deteriorate, may have to push diuresis in spite of worsening renal dysfunction * if diuresis fails, may need PARK KEEPER/dialysis/ultrafiltration * Cardiology following (6) Atrial fibrillation and flutter: Code(s): I48.91 - Unspecified atrial fibrillation; I48.92 - Unspecified atrial flutter Status: Chronic Assessment and Plan: * continue rate control strategy * on anticoagulation Will continue to follow. Subjective Date/time seen: 05/26/22 11:40 No real significant change noted -- remains intubated and on mechanical ventilation; off sedation but not opening eyes or following any commands; still making urine but renal function continues to deteriorate; otherwise, remains hemodynamically stable. Exam Narrative: General: Large Caucaisan male intubated and on mechanical ventilation Heart: normal S1 and S2; no rub Lungs: coarse with scattered crackles/rales Abdomen: soft, nontender, nondistended, positive bowel sounds Extremities: no cyanosis or clubbing; 1+ edema Skin: bilateral chronic venous stasis changes noted Objective Data Vital Signs Vital Signs:
[2022-05-26 12:13] LABS: Glucose Point of Care 125 mg/dl (65-105)
[2022-05-26 17:16] LABS: Glucose Point of Care 141 mg/dl (65-105)
[2022-05-26] MEDS: dexmedeTOMIDine 400 MCG/100 ML 400 MCG/100 ML BAG 6.36 MCG IV CONT (17:38)
[2022-05-27] VITALS (35 sets, daily range): BP systolic 119–141; BP diastolic 74–92; PULSE 70–89; RESP 18–27; TEMP 35.9–37.6; O2SAT 94–99
[2022-05-27] MEDS: dexmedeTOMIDine 400 MCG/100 ML 400 MCG/100 ML BAG 12.72 MCG IV CONT ×2 (00:12→08:06)
[2022-05-27 00:13] LABS: Glucose Point of Care 131 mg/dl (65-105)
[2022-05-27] MEDS: IPRATROPIUM BR 0.02% INH SOLN 0.5 MG/2.5 ML VIAL INHALATION ×4 (02:05→20:10)
[2022-05-27] MEDS: ALBUTEROL SULFATE NEB 2.5 MG/3 ML INH INHALATION ×4 (02:05→20:10)
[2022-05-27 05:07] LABS: Alveolar/Arterial O2 Gradient 92.6 mmHg; Base Excess ABG 1.2 mEq/l (+/-2.0); Carboxyhemoglobin 0.3 % THb (0-2.0); Device VENTILATOR; Fractional Inspired Oxygen 30 %; HCO3 ABG 24.3 mEq/l (22.0-26.0); Methemoglobin ABG 0.2 %THb (0-1.5); Modified Allen's Test Unable to perform; Oxygen Content ABG 15.9 %vol (16.0-22.0); Oxygen Saturation ABG 96.9 % (95.0-100.0); Oxyhemoglobin 95.2 % THb (90.0-100.0); PCO2 ABG 33.2 mmHg (35.0-45.0); PO2 ABG 82.3 mmHg (80.0-100.0); PO2 FiO2 Ratio Arterial Blood 2.74 %; Reduced Hemoglobin 4.3 %THb (0-5.0); Site Drawn RIGHT RADIAL; Total Hemoglobin 11.8 g/dL (12.0-18.0); pH ABG 7.482 (7.350-7.450)
[2022-05-27 05:08] LABS: Arterial Blood Gas PEEP 8 cmH2O; Arterial Blood Gas Tidal Volume 450 ml; Arterial Blood Gas Vent Mode CMV; Arterial Blood Gas Ventilator rate 20 /MIN
[2022-05-27] MEDS: LEVOTHYROXINE SODIUM 75 MCG TABLET PO (05:23)
[2022-05-27] MEDS: CENTRAL LINE FLUSH 10 ML IV PUSH ×4 (05:23→20:41)
[2022-05-27 05:29] LABS: Hematocrit 30.4 % (42.0-52.0); Hemoglobin 9.8 g/dL (14.0-18.0); Mean Corpuscular HGB Conc 32.2 g/dl (32-36); Mean Corpuscular Hemoglobin 32.1 pg (26-34); Mean Corpuscular Volume 99.7 fl (80-100); Mean Platelet Volume 9.7 fl (7.4-10.4); Platelet Count Result 245 k/mm3 (150-375); Red Blood Count 3.05 M/mm3 (4.6-6.20); White Blood Count 7.7 K/mm3 (4.5-10.0)
[2022-05-27 05:58] LABS: Alanine Aminotransferase 58 U/L (6-50); Albumin Level 3.9 g/dL (3.5-5.1); Alkaline Phosphatase 230 U/L (38-126); Anion Gap 10 mmol/L (8-16); Aspartate Amino Transferase 82 U/L (17-59); Bilirubin,Total 0.9 mg/dL (0.2-1.3); Blood Urea Nitrogen 77 mg/dL (9-20); Calcium 9.4 mg/dL (8.4-10.2); Carbon Dioxide 24 mmol/L (22-30); Chloride 104 mmol/L (98-107); Estimated CRCL calculation 21 ml/min; Estimated Glomerular Filt Rate 18; Glucose 132 mg/dL (65-110); Magnesium 3.5 mg/dL (1.6-2.3); Phosphorus 5.6 mg/dL (2.5-4.5); Potassium 4.7 mmol/L (3.4-5.0); Sodium 138 mmol/L (137-145)
[2022-05-27 06:02] LABS: Estimated CRCL calculation 20 ml/min; Estimated Glomerular Filt Rate 16
[2022-05-27] MEDS: PANTOPRAZOLE SODIUM IV 40 MG VIAL IV PUSH (08:00)
[2022-05-27] MEDS: MINERAL OIL/WHITE PETROLATUM OINTMENT 1 APPLIC EACH EYE ×2 (08:00→20:41)
[2022-05-27] MEDS: METOPROLOL TARTRATE 50 MG TAB PO ×2 (08:01→20:40)
[2022-05-27] MEDS: APIXABAN 5 MG TABLET PO ×2 (08:01→16:21)
[2022-05-27] MEDS: FERROUS SULFATE 324 MG TABLET PO ×2 (08:01→16:21)
--- NOTE | 2022-05-27 09:01 | WPDINTPN ---
Progress Note: A&P Assessment and Plan (1) Acute respiratory failure: Code(s): J96.00 - Acute respiratory failure, unspecified whether with hypoxia or hypercapnia Status: Acute Assessment and Plan: Acute Respiratory failure secondary to community-acquired pneumonia, congestive heart failure BNP elevated Patient was intubated on 05/19 Chest x-ray this morning: Mild pulmonary edema pattern, essentially unchanged. . Continue full mechanical ventilation support to prevent hypoxemia/hypercarbia and end organ damage. ABG and vent settings reviewed Low tidal volume ventilation strategy to prevent volutrauma -continue Bronchodilators -05/20: MRSA screen is negative -05/20: Sputum culture growing yeast -status post 7 days of vancomycin, cefepime and azithromycin - creatinine is elevated, unable to give diuretics -patient may require dialysis, I discussed this with the , she stated he his wishes would not have been to be on dialysis or to get tracheostomy or PEG tube. Likely withdrawal of support on 05/28/2022 or 05/29/2022 -off all sedation, on low-dose Precedex Urine Legionella was not detected, - pneumococcal antigen is pending pending Mycoplasma IgM antibody is negative, IgG is elevated CT chest 05/20 - Pulmonary opacities most consistent with pneumonia. Mediastinal and bilateral hilar lymphadenopathy. Low positioned endotracheal tube and nasogastric tube, correlate with tube function (2) Community acquired pneumonia: Qualifiers: Laterality: left Lung location: lower lobe of lung Qualified Code(s): J18.9 - Pneumonia, unspecified organism Code(s): J18.9 - Pneumonia, unspecified organism Status: Acute Assessment and Plan: See above (3) Elevated troponin: Code(s): R77.8 - Other specified abnormalities of plasma proteins Status: Acute Assessment and Plan: Likely secondary to AFib with RVR, respiratory failure hypoxia Troponin levels plateaued Patient already anticoagulated with apixaban Echo reviewed (4) Acute on chronic congestive heart failure: Qualifiers: Heart failure type: unspecified Qualified Code(s): I50.9 - Heart failure, unspecified Code(s): I50.9 - Heart failure, unspecified Status: Acute Assessment and Plan: Patient was last echo showed diastolic dysfunction, RV enlargement and failure, moderate TR and moderate pulmonary hypertension Patient likely has cor pulmonale Lasix held due to worsening renal function Patient received gentle amount of IV fluids but now off Echocardiogram 05/21/2022 showed EF of 65-70%, grade 2 diastolic dysfunction, left atrial chamber mildly enlarged, mild tricuspid regurg, trace mitral valve regurg, mild pulmonary hypertension RVSP of 43 mmHg Echo 07/18/2021 Summary ? 1. Left ventricular chamber dimension is normal. ? 2. Definity contrast administered improved wall motion interpretation. ? 3. Left ventricular systolic function is hyperdynamic, estimated at >70%. ? 4. There is mildly increased left ventricular wall thickness. ? 5. The left ventricular diastolic function is grade IV diastolic dysfunction. ? 6. E/e' 20 is elevated. ? 7. Right ventricular chamber dimension is moderately enlarged. ? 8. Right ventricular systolic function is? mildly reduced. ? 9. Left atrial chamber dimension is mildly enlarged. ? 10. There is mild aortic valve sclerosis. ? 11. The mitral valve has moderately calcified annulus. ? 12. There is moderate tricuspid valve regurgitation. ? 13. Moderate pulmonary hypertension, estimated pulmonary arterial syst lic pressure is 58 mmHg (5) Atrial fibrillation and flutter: Code(s): I48.91 - Unspecified atrial fibrillation; I48.92 - Unspecified atrial flutter Status: Chronic Assessment and Plan: Now converted to normal sinus rhythm On Eliquis Monitor (6) Hypothyroidism: Code(s): E03.9 - Hypothyroidism, unspecified Status: Acute A
--- NOTE | 2022-05-27 11:24 | PM.PNNEP ---
Progress Note: A&P Assessment and Plan (1) JASON (acute kidney injury): Code(s): N17.9 - Acute kidney failure, unspecified Status: Acute Assessment and Plan: suspect multifactorial etiology possible ATN from infection (pneumonia) prerenal factors (poor oral intake prior to admission) insensible losses (due to fevers) arrhythmia issues on/off use of diuretic therapy pulmonary HTN evaluation to date: renal ultrasound limited by body habitus - left renal atrophy noted CPK okay urine electrolytes prerenal (in spite of evidence of volume overload) urine eosinophils negative remains at risk for CONVENTIONAL MACHINIST/dialysis follow trend of repeat labs and UOP (2) Chronic kidney disease, stage 3: Code(s): N18.30 - Chronic kidney disease, stage 3 unspecified Status: Acute Assessment and Plan: baseline creatinine runs around 1.4 - 1.8mg/dl since early 2021 presumably due to HTN, vascular disease, and possibly DEMETRI (3) Acute respiratory failure: Code(s): J96.00 - Acute respiratory failure, unspecified whether with hypoxia or hypercapnia Status: Acute Assessment and Plan: felt to be secondary to community-acquired pneumonia, congestive heart failure likely complicated by DEMETRI and non-compliance with CPAP as well as pulmonary HTN intubated since 05/19/22 continue ventilator support and bronchodilators follow culture data on antibiotics (4) Community acquired pneumonia: Qualifiers: Laterality: left Lung location: lower lobe of lung Qualified Code(s): J18.9 - Pneumonia, unspecified organism Code(s): J18.9 - Pneumonia, unspecified organism Status: Acute Assessment and Plan: as evidenced by imaging to date follow culture data on antibiotics (5) Acute on chronic congestive heart failure: Qualifiers: Heart failure type: unspecified Qualified Code(s): I50.9 - Heart failure, unspecified Code(s): I50.9 - Heart failure, unspecified Status: Acute Assessment and Plan: Cardiology following Echo results noted -- diastolic dysfunction, RV enlargement and failure, moderate TR and moderate pulmonary hypertension diuresis on hold given rising creatinine however, if volume status continues to deteriorate, may have to push diuresis in spite of worsening renal dysfunction if diuresis fails, may need CONVENTIONAL MACHINIST/dialysis/ultrafiltration Cardiology following (6) Atrial fibrillation and flutter: Code(s): I48.91 - Unspecified atrial fibrillation; I48.92 - Unspecified atrial flutter Status: Chronic Assessment and Plan: continue rate control strategy on anticoagulation Discussed case with Dr. Duncan -- based on family meeting, no plan for tracheostomy, PEG-tube placement or dialysis as patient would not have wanted these interventions; tentatively plan withdrawal of support tomorrow or day after. Will continue to follow. Subjective Date/time seen: 05/27/22 11:24 Remains intubated and full mechanical ventilatory support at the time of my visit; off sedation since 05/15/22; remains hemodynamically stable and reasonable urine output; creatinine seems to have stabilized as noted by AM labs; no other acute issues/events noted overnight or earlier this morning; results of family meeting yesterday noted. Exam Narrative: General: Large male intubated and on mechanical ventilation Heart: normal S1 and S2; no rub Lungs: coarse with scattered crackles/rales Abdomen: soft, nontender, nondistended, positive bowel sounds Extremities: no cyanosis or clubbing; 1+ edema Skin: bilateral chronic venous stasis changes apparent Objective Data Vital Signs Vital Signs: Vital Signs Temp Pulse Resp BP Pulse Ox O2 Del Method FiO2 05/27/22 11:21 73 98 Mechanical Ventilation 30 05/27/22 10:50 78 22 H 05/27/22 08:30 30 05/27/22 10:00 96.7 F L 78 21 H 141/8
--- NOTE | 2022-05-27 11:24 | P.PNNP_ITS ---
Progress Note: A&P Assessment and Plan (1) JASON (acute kidney injury): Code(s): N17.9 - Acute kidney failure, unspecified Status: Acute Assessment and Plan: * suspect multifactorial etiology * possible ATN from infection (pneumonia) * prerenal factors (poor oral intake prior to admission) * insensible losses (due to fevers) * arrhythmia issues * on/off use of diuretic therapy * pulmonary HTN * evaluation to date: * renal ultrasound limited by body habitus - left renal atrophy noted * CPK okay * urine electrolytes prerenal (in spite of evidence of volume overload) * urine eosinophils negative * remains at risk for CARDIAC CARE UNIT NURSE/dialysis * follow trend of repeat labs and UOP (2) Chronic kidney disease, stage 3: Code(s): N18.30 - Chronic kidney disease, stage 3 unspecified Status: Acute Assessment and Plan: * baseline creatinine runs around 1.4 - 1.8mg/dl since early 2021 * presumably due to HTN, vascular disease, and possibly DEMETRI (3) Acute respiratory failure: Code(s): J96.00 - Acute respiratory failure, unspecified whether with hypoxia or hypercapnia Status: Acute Assessment and Plan: * felt to be secondary to community-acquired pneumonia, congestive heart failure * likely complicated by DEMETRI and non-compliance with CPAP as well as pulmonary HTN * intubated since 05/19/22 * continue ventilator support and bronchodilators * follow culture data * on antibiotics (4) Community acquired pneumonia: Qualifiers: Laterality: left Lung location: lower lobe of lung Qualified Code(s): J18.9 - Pneumonia, unspecified organism Code(s): J18.9 - Pneumonia, unspecified organism Status: Acute Assessment and Plan: * as evidenced by imaging to date * follow culture data * on antibiotics (5) Acute on chronic congestive heart failure: Qualifiers: Heart failure type: unspecified Qualified Code(s): I50.9 - Heart failure, unspecified Code(s): I50.9 - Heart failure, unspecified Status: Acute Assessment and Plan: * Cardiology following * Echo results noted -- diastolic dysfunction, RV enlargement and failure, moderate TR and moderate pulmonary hypertension * diuresis on hold given rising creatinine * however, if volume status continues to deteriorate, may have to push diuresis in spite of worsening renal dysfunction * if diuresis fails, may need CARDIAC CARE UNIT NURSE/dialysis/ultrafiltration * Cardiology following (6) Atrial fibrillation and flutter: Code(s): I48.91 - Unspecified atrial fibrillation; I48.92 - Unspecified atrial flutter Status: Chronic Assessment and Plan: * continue rate control strategy * on anticoagulation Discussed case with Dr. Duncan -- based on family meeting, no plan for tracheostomy, PEG-tube placement or dialysis as patient would not have wanted these interventions; tentatively plan withdrawal of support tomorrow or day after. Will continue to follow. Subjective Date/time seen: 05/27/22 11:24 Remains intubated and full mechanical ventilatory support at the time of my visit; off sedation since 05/15/22; remains hemodynamically stable and reasonable urine output; creatinine seems to have stabilized as noted by AM labs; no other acute issues/events noted overnight or earlier this morning; results of family meeting yesterday noted. Exam Narrative: General: Large male intubated and on mechanical ventilation Heart: normal S1 and S2; no r
[2022-05-27 12:07] LABS: Glucose Point of Care 130 mg/dl (65-105)
--- NOTE | 2022-05-27 14:04 | PM.IMPN ---
Progress Note: A&P Assessment and Plan (1) Acute respiratory failure: Code(s): J96.00 - Acute respiratory failure, unspecified whether with hypoxia or hypercapnia Status: Acute Assessment and Plan: Acute Respiratory failure secondary to community-acquired pneumonia, congestive heart failure BNP elevated Patient was intubated on 05/19 Chest x-ray this morning: Mild pulmonary edema pattern, essentially unchanged. . Continue full mechanical ventilation support per religious studies professor -continue Bronchodilators -05/20: MRSA screen is negative -05/20: Sputum culture growing yeast -status post 7 days of vancomycin, cefepime and azithromycin - creatinine is elevated, unable to give diuretics May require dialysis. Urine Legionella was not detected, - pneumococcal antigen is pending pending Mycoplasma IgM antibody is negative, IgG is elevated CT chest 05/20 - Pulmonary opacities most consistent with pneumonia. Mediastinal and bilateral hilar lymphadenopathy. Low positioned endotracheal tube and nasogastric tube, correlate with tube function (2) Community acquired pneumonia: Qualifiers: Laterality: left Lung location: lower lobe of lung Qualified Code(s): J18.9 - Pneumonia, unspecified organism Code(s): J18.9 - Pneumonia, unspecified organism Status: Acute Assessment and Plan: See above (3) Elevated troponin: Code(s): R77.8 - Other specified abnormalities of plasma proteins Status: Acute Assessment and Plan: Likely secondary to AFib with RVR, respiratory failure hypoxia Troponin levels plateaued Patient already anticoagulated with apixaban Echo reviewed (4) Acute on chronic congestive heart failure: Qualifiers: Heart failure type: unspecified Qualified Code(s): I50.9 - Heart failure, unspecified Code(s): I50.9 - Heart failure, unspecified Status: Acute Assessment and Plan: Patient was last echo showed diastolic dysfunction, RV enlargement and failure, moderate TR and moderate pulmonary hypertension Patient likely has cor pulmonale Lasix held due to worsening renal function Patient received gentle amount of IV fluids but now off Echocardiogram 05/21/2022 showed EF of 65-70%, grade 2 diastolic dysfunction, left atrial chamber mildly enlarged, mild tricuspid regurg, trace mitral valve regurg, mild pulmonary hypertension RVSP of 43 mmHg Echo 07/18/2021 Summary ? 1. Left ventricular chamber dimension is normal. ? 2. Definity contrast administered improved wall motion interpretation. ? 3. Left ventricular systolic function is hyperdynamic, estimated at >70%. ? 4. There is mildly increased left ventricular wall thickness. ? 5. The left ventricular diastolic function is grade IV diastolic dysfunction. ? 6. E/e' 20 is elevated. ? 7. Right ventricular chamber dimension is moderately enlarged. ? 8. Right ventricular systolic function is? mildly reduced. ? 9. Left atrial chamber dimension is mildly enlarged. ? 10. There is mild aortic valve sclerosis. ? 11. The mitral valve has moderately calcified annulus. ? 12. There is moderate tricuspid valve regurgitation. ? 13. Moderate pulmonary hypertension, estimated pulmonary arterial syst lic pressure is 58 mmHg (5) Atrial fibrillation and flutter: Code(s): I48.91 - Unspecified atrial fibrillation; I48.92 - Unspecified atrial flutter Status: Chronic Assessment and Plan: Now converted to normal sinus rhythm On Eliquis Monitor (6) Hypothyroidism: Code(s): E03.9 - Hypothyroidism, unspecified Status: Acute Assessment and Plan: Continue levothyroxine (7) Acute kidney injury superimposed on chronic kidney disease: Code(s): N17.9 - Acute kidney failure, unspecified; N18.9 - Chronic kidney disease, unspecified Status: Acute Assessment and Plan: Patient creatinine has been between 1.4 - 1.7 05/20 Creatinine mildly increased 1.9 and diuretics were held
[2022-05-27 18:06] LABS: Glucose Point of Care 122 mg/dl (65-105)
[2022-05-27] MEDS: dexmedeTOMIDine 400 MCG/100 ML 400 MCG/100 ML BAG 9.54 MCG IV CONT (19:23)
[2022-05-27] MEDS: SENNA/DOCUSATE SODIUM TABLET 1 TAB PO (20:41)
[2022-05-28] VITALS (30 sets, daily range): BP systolic 118–138; BP diastolic 73–84; PULSE 85–93; RESP 18–24; TEMP 37.2–37.7; O2SAT 96–99
[2022-05-28 00:10] LABS: Glucose Point of Care 119 mg/dl (65-105)
[2022-05-28] MEDS: ALBUTEROL SULFATE NEB 2.5 MG/3 ML INH INHALATION ×3 (02:23→20:06)
[2022-05-28] MEDS: IPRATROPIUM BR 0.02% INH SOLN 0.5 MG/2.5 ML VIAL INHALATION ×3 (02:23→20:06)
[2022-05-28 05:04] LABS: Alveolar/Arterial O2 Gradient 96.2 mmHg; Base Excess ABG 2.2 mEq/l (+/-2.0); Carboxyhemoglobin 0.3 % THb (0-2.0); Fractional Inspired Oxygen 30 %; HCO3 ABG 25.4 mEq/l (22.0-26.0); Methemoglobin ABG 0.2 %THb (0-1.5); Oxygen Content ABG 14.5 %vol (16.0-22.0); Oxygen Saturation ABG 96.3 % (95.0-100.0); Oxyhemoglobin 94.3 % THb (90.0-100.0); PCO2 ABG 34.7 mmHg (35.0-45.0); PO2 ABG 76.9 mmHg (80.0-100.0); PO2 FiO2 Ratio Arterial Blood 2.56 %; Reduced Hemoglobin 5.2 %THb (0-5.0); Total Hemoglobin 10.9 g/dL (12.0-18.0); pH ABG 7.483 (7.350-7.450)
[2022-05-28 05:06] LABS: Arterial Blood Gas Vent Mode CMV; Arterial Blood Gas Ventilator rate 18 /MIN; Device VENTILATOR; Modified Allen's Test Pass; Site Drawn RIGHT RADIAL
[2022-05-28 05:07] LABS: Arterial Blood Gas PEEP 8 cmH2O; Arterial Blood Gas Tidal Volume 450 ml
[2022-05-28 05:41] LABS: Hematocrit 30.3 % (42.0-52.0); Hemoglobin 9.9 g/dL (14.0-18.0); Mean Corpuscular HGB Conc 32.7 g/dl (32-36); Mean Corpuscular Hemoglobin 31.7 pg (26-34); Mean Corpuscular Volume 97.1 fl (80-100); Mean Platelet Volume 9.8 fl (7.4-10.4); Platelet Count Result 280 k/mm3 (150-375); Red Blood Count 3.12 M/mm3 (4.6-6.20); Red Cell Distribution Width 13.9 % (11.5-14.5); White Blood Count 7.9 K/mm3 (4.5-10.0)
[2022-05-28] MEDS: LEVOTHYROXINE SODIUM 75 MCG TABLET PO (05:44)
[2022-05-28] MEDS: CENTRAL LINE FLUSH 10 ML IV PUSH ×4 (05:44→20:19)
[2022-05-28 05:53] LABS: Alanine Aminotransferase 68 U/L (6-50); Albumin Level 3.6 g/dL (3.5-5.1); Alkaline Phosphatase 299 U/L (38-126); Anion Gap 11 mmol/L (8-16); Aspartate Amino Transferase 95 U/L (17-59); Bilirubin,Total 0.6 mg/dL (0.2-1.3); Blood Urea Nitrogen 88 mg/dL (9-20); Calcium 9.1 mg/dL (8.4-10.2); Carbon Dioxide 24 mmol/L (22-30); Chloride 105 mmol/L (98-107); Estimated CRCL calculation 20 ml/min; Estimated Glomerular Filt Rate 16; Glucose 143 mg/dL (65-110); Magnesium 3.3 mg/dL (1.6-2.3); Phosphorus 6.1 mg/dL (2.5-4.5); Potassium 4.6 mmol/L (3.4-5.0); Sodium 140 mmol/L (137-145)
[2022-05-28] MEDS: dexmedeTOMIDine 400 MCG/100 ML 400 MCG/100 ML BAG 9.54 MCG IV CONT (06:23)
[2022-05-28] MEDS: FERROUS SULFATE 324 MG TABLET PO ×2 (08:26→16:22)
[2022-05-28] MEDS: PANTOPRAZOLE SODIUM IV 40 MG VIAL IV PUSH (08:26)
[2022-05-28] MEDS: APIXABAN 5 MG TABLET PO ×2 (08:26→16:22)
[2022-05-28] MEDS: METOPROLOL TARTRATE 50 MG TAB PO ×2 (08:26→20:18)
--- NOTE | 2022-05-28 10:42 | P.PNNP_ITS ---
Progress Note: A&P Assessment and Plan (1) JASON (acute kidney injury): Code(s): N17.9 - Acute kidney failure, unspecified Status: Acute Assessment and Plan: * suspect multifactorial etiology * possible ATN from infection (pneumonia) * prerenal factors (poor oral intake prior to admission) * insensible losses (due to fevers) * arrhythmia issues * on/off use/need of diuretic therapy * pulmonary HTN * evaluation to date: * renal ultrasound limited by body habitus - left renal atrophy noted * CPK okay * urine electrolytes prerenal (in spite of evidence of volume overload) * urine eosinophils negative * remains at risk for DISC INSPECTOR/dialysis -- however, per family, patient never wanted to intervention * follow trend of repeat labs and UOP (2) Chronic kidney disease, stage 3: Code(s): N18.30 - Chronic kidney disease, stage 3 unspecified Status: Acute Assessment and Plan: * baseline creatinine runs around 1.4 - 1.8mg/dl since early 2021 * presumably due to HTN, vascular disease, and possibly DEMETRI (3) Acute respiratory failure: Code(s): J96.00 - Acute respiratory failure, unspecified whether with hypoxia or hypercapnia Status: Acute Assessment and Plan: * felt to be secondary to community-acquired pneumonia, congestive heart failure * likely complicated by DEMETRI and non-compliance with CPAP as well as pulmonary HTN * intubated since 05/19/22 * continue ventilator support and bronchodilators * follow culture data * on antibiotics (4) Community acquired pneumonia: Qualifiers: Laterality: left Lung location: lower lobe of lung Qualified Code(s): J18.9 - Pneumonia, unspecified organism Code(s): J18.9 - Pneumonia, unspecified organism Status: Acute Assessment and Plan: * as evidenced by imaging to date * follow culture data * on antibiotics (5) Acute on chronic congestive heart failure: Qualifiers: Heart failure type: unspecified Qualified Code(s): I50.9 - Heart failure, unspecified Code(s): I50.9 - Heart failure, unspecified Status: Acute Assessment and Plan: * Cardiology following * Echo results noted -- diastolic dysfunction, RV enlargement and failure, moderate TR and moderate pulmonary hypertension * diuresis on hold given rising creatinine * however, if volume status continues to deteriorate, may have to push diuresis in spite of worsening renal dysfunction * if diuresis fails, may need DISC INSPECTOR/dialysis/ultrafiltration * Cardiology following (6) Atrial fibrillation and flutter: Code(s): I48.91 - Unspecified atrial fibrillation; I48.92 - Unspecified atrial flutter Status: Chronic Assessment and Plan: * continue rate control strategy * on anticoagulation Per family meeting o 05/26/22, patient would not want dialysis, PEG tube placement, or tracheostomy -- family considering withdrawing support. Discussed case with Dr. Duncan. Will continue to follow. Subjective Date/time seen: 05/28/22 10:42 Remains intubated and on mechanical ventilation but off sedation; more awake currently -- opening eyes, following simple commands and nodding answers to questions; remains hemodynamically stable with reasonably urine output; no apparent distress noted; no issues/events overnight or earlier this AM. Exam Narrative: General: Large male intubated and on mechanical ventilation Heart: normal S1 and S2; no rub Lungs: coarse breat
--- NOTE | 2022-05-28 10:42 | PM.PNNEP ---
Progress Note: A&P Assessment and Plan (1) JASON (acute kidney injury): Code(s): N17.9 - Acute kidney failure, unspecified Status: Acute Assessment and Plan: suspect multifactorial etiology possible ATN from infection (pneumonia) prerenal factors (poor oral intake prior to admission) insensible losses (due to fevers) arrhythmia issues on/off use/need of diuretic therapy pulmonary HTN evaluation to date: renal ultrasound limited by body habitus - left renal atrophy noted CPK okay urine electrolytes prerenal (in spite of evidence of volume overload) urine eosinophils negative remains at risk for AUTOCLAVE OPERATOR/dialysis -- however, per family, patient never wanted to intervention follow trend of repeat labs and UOP (2) Chronic kidney disease, stage 3: Code(s): N18.30 - Chronic kidney disease, stage 3 unspecified Status: Acute Assessment and Plan: baseline creatinine runs around 1.4 - 1.8mg/dl since early 2021 presumably due to HTN, vascular disease, and possibly DEMETRI (3) Acute respiratory failure: Code(s): J96.00 - Acute respiratory failure, unspecified whether with hypoxia or hypercapnia Status: Acute Assessment and Plan: felt to be secondary to community-acquired pneumonia, congestive heart failure likely complicated by DEMETRI and non-compliance with CPAP as well as pulmonary HTN intubated since 05/19/22 continue ventilator support and bronchodilators follow culture data on antibiotics (4) Community acquired pneumonia: Qualifiers: Laterality: left Lung location: lower lobe of lung Qualified Code(s): J18.9 - Pneumonia, unspecified organism Code(s): J18.9 - Pneumonia, unspecified organism Status: Acute Assessment and Plan: as evidenced by imaging to date follow culture data on antibiotics (5) Acute on chronic congestive heart failure: Qualifiers: Heart failure type: unspecified Qualified Code(s): I50.9 - Heart failure, unspecified Code(s): I50.9 - Heart failure, unspecified Status: Acute Assessment and Plan: Cardiology following Echo results noted -- diastolic dysfunction, RV enlargement and failure, moderate TR and moderate pulmonary hypertension diuresis on hold given rising creatinine however, if volume status continues to deteriorate, may have to push diuresis in spite of worsening renal dysfunction if diuresis fails, may need AUTOCLAVE OPERATOR/dialysis/ultrafiltration Cardiology following (6) Atrial fibrillation and flutter: Code(s): I48.91 - Unspecified atrial fibrillation; I48.92 - Unspecified atrial flutter Status: Chronic Assessment and Plan: continue rate control strategy on anticoagulation Per family meeting o 05/26/22, patient would not want dialysis, PEG tube placement, or tracheostomy -- family considering withdrawing support. Discussed case with Dr. Duncan. Will continue to follow. Subjective Date/time seen: 05/28/22 10:42 Remains intubated and on mechanical ventilation but off sedation; more awake currently -- opening eyes, following simple commands and nodding answers to questions; remains hemodynamically stable with reasonably urine output; no apparent distress noted; no issues/events overnight or earlier this AM. Exam Narrative: General: Large male intubated and on mechanical ventilation Heart: normal S1 and S2; no rub Lungs: coarse breath sounds; scattered rales noted Abdomen: soft, nontender, nondistended, positive bowel sounds Extremities: no cyanosis or clubbing; 1+ edema Skin: bilateral chronic venous stasis changes apparent Objective Data Vital Signs Vital Signs: Vital Signs Temp Pulse Resp BP Pulse Ox O2 Del Method FiO2 05/28/22 10:00 99.4 F 90 24 H 122/78 97 05/28/22 10:00 90 05/28/22 08:00 98 Mechanical Ventilation 30 05/28/22 08:00 30 05/28/22 08:00 99.4 F
--- NOTE | 2022-05-28 11:08 | PCNFU ---
Nutrition Follow-Up Complete: Inadequate intake from tube feeding related to mechanical ventilation as evidenced by goal rate providing 65% EER Goal:Meet estimated nutrition needs. Pt meeting and exceeding goal, tube feedings meeting 100% of needs Pt current nutrition is Nepro @ 50ml/[id number] kcal, 89 g protein, 799 ml free water. Flushes 15 ml q 4 hours. Total water 890 ml/day. Nutrition recommendation: Continue with current tube feeding orders and flushes. Agree with current orders. Last recorded weight is 119.9 kg - down from 122kg on 05/25. Bowel Motility: +BM 05/26 Labs Reviewed: Hgb:9.9, HCT:30.3, BUN:88, Cr:3.6, Glu:143, Phos:6.1 Meds Noted: eliquis, novolog, miralax, protonix Skin: no skin breakdown Additional Notes: Pt continues on mechanical ventilation. Nepro running at goal rate and meeting needs. Pt tolerating at this time. Agree with diet orders. Monitoring tolerance, labs, weights, plan of care Following daily in ICU rounds. Reassess Tuesdays and Fridays
--- NOTE | 2022-05-28 11:15 | P.PNINT_ITS ---
Progress Note: A&P Assessment and Plan (1) Acute respiratory failure: Code(s): J96.00 - Acute respiratory failure, unspecified whether with hypoxia or hypercapnia Status: Acute Assessment and Plan: Acute Respiratory failure secondary to community-acquired pneumonia, congestive heart failure BNP elevated Patient was intubated on 05/19 Chest x-ray this morning: Mild pulmonary edema pattern, essentially unchanged. . Continue full mechanical ventilation support to prevent hypoxemia/hypercarbia and end organ damage. ABG and vent settings reviewed Low tidal volume ventilation strategy to prevent volutrauma -continue Bronchodilators -05/20: MRSA screen is negative -05/20: Sputum culture growing yeast -status post 7 days of vancomycin, cefepime and azithromycin - creatinine is elevated, unable to give diuretics -patient may require dialysis, I discussed this with the , she stated he his wishes would not have been to be on dialysis or to get tracheostomy or PEG tube. -placed patient on ASV mode ventilation for better ventilator synchrony -off all sedation Urine Legionella was not detected, - pneumococcal antigen is pending pending Mycoplasma IgM antibody is negative, IgG is elevated CT chest 05/20 - Pulmonary opacities most consistent with pneumonia. Mediastinal and bilateral hilar lymphadenopathy. Low positioned endotracheal tube and azar ogastric tube, correlate with tube function (2) Community acquired pneumonia: Qualifiers: Laterality: left Lung location: lower lobe of lung Qualified Code(s): J18.9 - Pneumonia, unspecified organism Code(s): J18.9 - Pneumonia, unspecified organism Status: Acute Assessment and Plan: See above (3) Elevated troponin: Code(s): R77.8 - Other specified abnormalities of plasma proteins Status: Acute Assessment and Plan: Likely secondary to AFib with RVR, respiratory failure hypoxia Troponin levels plateaued Patient already anticoagulated with apixaban Echo reviewed (4) Acute on chronic congestive heart failure: Qualifiers: Heart failure type: unspecified Qualified Code(s): I50.9 - Heart failure, unspecified Code(s): I50.9 - Heart failure, unspecified Status: Acute Assessment and Plan: Patient was last echo showed diastolic dysfunction, RV enlargement and failure, moderate TR and moderate pulmonary hypertension Patient likely has cor pulmonale Lasix held due to worsening renal function Patient received gentle amount of IV fluids but now off Echocardiogram 05/21/2022 showed EF of 65-70%, grade 2 diastolic dysfunction, left atrial chamber mildly enlarged, mild tricuspid regurg, trace mitral valve regurg, mild pulmonary hypertension RVSP of 43 mmHg Echo 07/18/2021 Summary ? 1. Left ventricular chamber dimension is normal. ? 2. Definity contrast administered improved wall motion interpretation. ? 3. Left ventricular systolic function is hyperdynamic, estimated at >70%. ? 4. There is mildly increased left ventricular wall thickness. ? 5. The left ventricular diastolic function is grade IV diastolic dysfunction. ? 6. E/e' 20 is elevated. ? 7. Right ventricular chamber dimension is moderately enlarged. ? 8. Right ventricular systolic function is? mildly reduced. ? 9. Left atrial chamber dimension is mildly enlarged. ? 10. There is mild aortic valve sclerosis. ? 11. The mitral valve has moderately calcified annulus. ? 12. There is moderate tricuspid valve regurgitation. ? 13. Moderate pulmonary hypertension, estimated pulmonary arterial syst lic pressure is 58 mmH
[2022-05-28 11:49] LABS: Glucose Point of Care 118 mg/dl (65-105)
[2022-05-28 17:27] LABS: Glucose Point of Care 131 mg/dl (65-105)
--- NOTE | 2022-05-28 17:44 | PCRCNOTE ---
Window of time for administration has passed. See next scheduled administration.
[2022-05-28] MEDS: MINERAL OIL/WHITE PETROLATUM OINTMENT 1 APPLIC EACH EYE (20:18)
[2022-05-28 23:25] LABS: Glucose Point of Care 122 mg/dl (65-105)
[2022-05-29] VITALS (17 sets, daily range): BP systolic 130–143; BP diastolic 77–94; PULSE 85–93; RESP 18–26; TEMP 36.6–37.3; O2SAT 81–100
[2022-05-29] MEDS: ALBUTEROL SULFATE NEB 2.5 MG/3 ML INH INHALATION ×2 (02:10→09:34)
[2022-05-29] MEDS: IPRATROPIUM BR 0.02% INH SOLN 0.5 MG/2.5 ML VIAL INHALATION ×2 (02:10→09:34)
[2022-05-29 05:01] LABS: Estimated CRCL calculation 19 ml/min; Estimated Glomerular Filt Rate 16
[2022-05-29 05:39] LABS: Alveolar/Arterial O2 Gradient 87.2 mmHg; Base Excess ABG 1.1 mEq/l (+/-2.0); Carboxyhemoglobin 0.3 % THb (0-2.0); Fractional Inspired Oxygen 30 %; HCO3 ABG 24.3 mEq/l (22.0-26.0); Methemoglobin ABG 0.2 %THb (0-1.5); Oxygen Saturation ABG 97.2 % (95.0-100.0); Oxyhemoglobin 95.3 % THb (90.0-100.0); PCO2 ABG 33.8 mmHg (35.0-45.0); Reduced Hemoglobin 4.2 %THb (0-5.0); Total Hemoglobin 11.1 g/dL (12.0-18.0); pH ABG 7.475 (7.350-7.450)
[2022-05-29 05:40] LABS: Modified Allen's Test Pass; Site Drawn RIGHT RADIAL
[2022-05-29 05:41] LABS: Arterial Blood Gas PEEP 8 cmH2O; Arterial Blood Gas Tidal Volume 450 ml; Arterial Blood Gas Vent Mode CMV; Arterial Blood Gas Ventilator rate 18 /MIN; Device VENTILATOR
[2022-05-29] MEDS: LEVOTHYROXINE SODIUM 75 MCG TABLET PO (06:51)
[2022-05-29] MEDS: CENTRAL LINE FLUSH 10 ML IV PUSH ×2 (06:51→13:26)
[2022-05-29 06:59] LABS: Glucose Point of Care 132 mg/dl (65-105)
[2022-05-29 07:50] LABS: Alanine Aminotransferase 92 U/L (6-50); Albumin Level 3.7 g/dL (3.5-5.1); Alkaline Phosphatase 316 U/L (38-126); Anion Gap 10 mmol/L (8-16); Aspartate Amino Transferase 104 U/L (17-59); Bilirubin,Total 0.4 mg/dL (0.2-1.3); Blood Urea Nitrogen 93 mg/dL (9-20); Calcium 9.4 mg/dL (8.4-10.2); Carbon Dioxide 26 mmol/L (22-30); Chloride 104 mmol/L (98-107); Estimated CRCL calculation 19 ml/min; Estimated Glomerular Filt Rate 16; Glucose 125 mg/dL (65-110); Magnesium 3.1 mg/dL (1.6-2.3); Phosphorus 6.3 mg/dL (2.5-4.5); Potassium 3.9 mmol/L (3.4-5.0); Sodium 140 mmol/L (137-145)
[2022-05-29] MEDS: PANTOPRAZOLE SODIUM IV 40 MG VIAL IV PUSH (08:02)
[2022-05-29] MEDS: MINERAL OIL/WHITE PETROLATUM OINTMENT 1 APPLIC EACH EYE (08:02)
[2022-05-29] MEDS: APIXABAN 5 MG TABLET PO (08:02)
[2022-05-29] MEDS: FERROUS SULFATE 324 MG TABLET PO (08:02)
[2022-05-29] MEDS: METOPROLOL TARTRATE 50 MG TAB PO (08:02)
[2022-05-29 08:15] LABS: Basophils Absolute Auto 0.1 K/mm3 (0.0-0.1); Basophils Percent Auto 0.8 % (0.2-1.2); Eosinophils Absolute Auto 0.3 K/mm3 (0-0.3); Eosinophils Percent Auto 2.7 % (0-4.4); Immature Granulocyte Absolute 0.29 K/mm3 (0.00-0.031); Immature Granulocyte Percent A 3.1 % (0-0.5); Lymphocytes Absolute Auto 1.15 K/mm3 (0.9-3.2); Lymphocytes Percent Auto 12.2 % (18.3-44.2); Mean Corpuscular HGB Conc 32.3 g/dl (32-36); Mean Corpuscular Hemoglobin 32.3 pg (26-34); Monocytes Absolute Auto 0.9 K/mm3 (0.1-0.6); Monocytes Percent Auto 9.8 % (2.6-8.5); Neutrophils Absolute Auto 6.7 K/mm3 (1.3-6.7); Neutrophils Percent Auto 71.4 % (45.5-73.1); Platelet Count Result 291 k/mm3 (150-375); Red Cell Distribution Width 13.7 % (11.5-14.5); White Blood Count 9.4 K/mm3 (4.5-10.0)
--- NOTE | 2022-05-29 10:14 | P.PNNP_ITS ---
Progress Note: A&P Assessment and Plan (1) JASON (acute kidney injury): Code(s): N17.9 - Acute kidney failure, unspecified Status: Acute Assessment and Plan: * suspect multifactorial etiology * possible ATN from infection (pneumonia) * prerenal factors (poor oral intake prior to admission) * insensible losses (due to fevers) * arrhythmia issues * on/off use/need of diuretic therapy * pulmonary HTN * evaluation to date: * renal ultrasound limited by body habitus - left renal atrophy noted * CPK okay * urine electrolytes prerenal (in spite of evidence of volume overload) * urine eosinophils negative * remains at risk for PUBLISHING DIRECTOR/dialysis -- however, per family, patient never wanted to intervention * follow trend of repeat labs and UOP (2) Chronic kidney disease, stage 3: Code(s): N18.30 - Chronic kidney disease, stage 3 unspecified Status: Acute Assessment and Plan: * baseline creatinine runs around 1.4 - 1.8mg/dl since early 2021 * presumably due to HTN, vascular disease, and possibly DEEMTRI (3) Acute respiratory failure: Code(s): J96.00 - Acute respiratory failure, unspecified whether with hypoxia or hypercapnia Status: Acute Assessment and Plan: * felt to be secondary to community-acquired pneumonia, congestive heart failure * likely complicated by DEMETRI and non-compliance with CPAP as well as pulmonary HTN * intubated since 05/19/22 * continue ventilator support and bronchodilators * follow culture data * on antibiotics (4) Community acquired pneumonia: Qualifiers: Laterality: left Lung location: lower lobe of lung Qualified Code(s): J18.9 - Pneumonia, unspecified organism Code(s): J18.9 - Pneumonia, unspecified organism Status: Acute Assessment and Plan: * as evidenced by imaging to date * follow culture data * on antibiotics (5) Acute on chronic congestive heart failure: Qualifiers: Heart failure type: unspecified Qualified Code(s): I50.9 - Heart failure, unspecified Code(s): I50.9 - Heart failure, unspecified Status: Acute Assessment and Plan: * Cardiology following * Echo results noted -- diastolic dysfunction, RV enlargement and failure, moderate TR and moderate pulmonary hypertension * diuresis on hold given rising creatinine * however, if volume status continues to deteriorate, may have to push diuresis in spite of worsening renal dysfunction * if diuresis fails, may need PUBLISHING DIRECTOR/dialysis/ultrafiltration * Cardiology following (6) Atrial fibrillation and flutter: Code(s): I48.91 - Unspecified atrial fibrillation; I48.92 - Unspecified atrial flutter Status: Chronic Assessment and Plan: * continue rate control strategy * on anticoagulation Per family meeting o 05/26/22, patient would not want dialysis, PEG tube placement, or tracheostomy -- family considering withdrawing support. Will continue to follow. Subjective Date/time seen: 05/29/22 10:14 No real significant change noted -- remains hemodynamically stable with reasonably urine output; remains on mechanical ventilation but a bit more awake/alert (able to follow simple commands); renal function continues to deteriorate as noted by labs; no apparent distress noted. Exam Narrative: General: Large male intubated and on mechanical ventilation Heart: normal S1 and S2; no rub Lungs: coarse breath sounds; scattered rales noted Abdomen: soft, nontender, nond
--- NOTE | 2022-05-29 10:14 | PM.PNNEP ---
Progress Note: A&P Assessment and Plan (1) JASON (acute kidney injury): Code(s): N17.9 - Acute kidney failure, unspecified Status: Acute Assessment and Plan: suspect multifactorial etiology possible ATN from infection (pneumonia) prerenal factors (poor oral intake prior to admission) insensible losses (due to fevers) arrhythmia issues on/off use/need of diuretic therapy pulmonary HTN evaluation to date: renal ultrasound limited by body habitus - left renal atrophy noted CPK okay urine electrolytes prerenal (in spite of evidence of volume overload) urine eosinophils negative remains at risk for WEDDING TRANSPORTATION DRIVER/dialysis -- however, per family, patient never wanted to intervention follow trend of repeat labs and UOP (2) Chronic kidney disease, stage 3: Code(s): N18.30 - Chronic kidney disease, stage 3 unspecified Status: Acute Assessment and Plan: baseline creatinine runs around 1.4 - 1.8mg/dl since early 2021 presumably due to HTN, vascular disease, and possibly DEMETRI (3) Acute respiratory failure: Code(s): J96.00 - Acute respiratory failure, unspecified whether with hypoxia or hypercapnia Status: Acute Assessment and Plan: felt to be secondary to community-acquired pneumonia, congestive heart failure likely complicated by DEMETRI and non-compliance with CPAP as well as pulmonary HTN intubated since 05/19/22 continue ventilator support and bronchodilators follow culture data on antibiotics (4) Community acquired pneumonia: Qualifiers: Laterality: left Lung location: lower lobe of lung Qualified Code(s): J18.9 - Pneumonia, unspecified organism Code(s): J18.9 - Pneumonia, unspecified organism Status: Acute Assessment and Plan: as evidenced by imaging to date follow culture data on antibiotics (5) Acute on chronic congestive heart failure: Qualifiers: Heart failure type: unspecified Qualified Code(s): I50.9 - Heart failure, unspecified Code(s): I50.9 - Heart failure, unspecified Status: Acute Assessment and Plan: Cardiology following Echo results noted -- diastolic dysfunction, RV enlargement and failure, moderate TR and moderate pulmonary hypertension diuresis on hold given rising creatinine however, if volume status continues to deteriorate, may have to push diuresis in spite of worsening renal dysfunction if diuresis fails, may need WEDDING TRANSPORTATION DRIVER/dialysis/ultrafiltration Cardiology following (6) Atrial fibrillation and flutter: Code(s): I48.91 - Unspecified atrial fibrillation; I48.92 - Unspecified atrial flutter Status: Chronic Assessment and Plan: continue rate control strategy on anticoagulation Per family meeting o 05/26/22, patient would not want dialysis, PEG tube placement, or tracheostomy -- family considering withdrawing support. Will continue to follow. Subjective Date/time seen: 05/29/22 10:14 No real significant change noted -- remains hemodynamically stable with reasonably urine output; remains on mechanical ventilation but a bit more awake/alert (able to follow simple commands); renal function continues to deteriorate as noted by labs; no apparent distress noted. Exam Narrative: General: Large male intubated and on mechanical ventilation Heart: normal S1 and S2; no rub Lungs: coarse breath sounds; scattered rales noted Abdomen: soft, nontender, nondistended, positive bowel sounds Extremities: no cyanosis or clubbing; 1+ edema Skin: bilateral chronic venous stasis changes noted Objective Data Vital Signs Vital Signs: Vital Signs Temp Pulse Resp BP Pulse Ox O2 Del Method FiO2 05/29/22 08:00 100 Mechanical Ventilation 30 05/29/22 08:00 30 05/29/22 08:00 91 05/29/22 09:39 89 100 Mechanical Ventilation 30 05/29/22 09:34 89 20 05/29/22 08:02 91 05/29/22 08:00 98.
[2022-05-29] MEDS: POLYMYXIN EACH EYE (11:15)
[2022-05-29] MEDS: NEOMYCIN EACH EYE (11:15)
[2022-05-29] MEDS: GRAMICIDIN EACH EYE (11:15)
[2022-05-29 11:29] LABS: Glucose Point of Care 124 mg/dl (65-105)
--- NOTE | 2022-05-29 11:54 | PCNFU ---
Nutrition Follow-Up Complete: Inadequate intake from tube feeding related to mechanical ventilation as evidenced by goal rate providing 65% EER goal: Meet estimated nutrition needs patient is progressing towards goal. We will continue with current goal. Pt current nutrition is Nepro at 50 ml/hr. Last recorded weight is 120.6 kg. Bowel Motility:+BM reported 1/2 Labs Reviewed:P04 6.3,BUN 93, Cr 3.7,Glu 125 Meds Noted:Eliquis, NovoLog, miralax, Protonix Skin: WNL Additional Notes: Patient remains on mechanical vent. Tolerating tube feedings of Nepro at 50 ml/hr at 1980 kcals/89 gms protein/799 ml water. Flush 15 ml q 4 hours. Protein Modular of Prosource TF once daily providing an additional 80 kcals and 20 gms protein. Current nutrition: 2000 kcals/109 gms protein/799 ml water. Flush providing 890 ml water daily. Agree with diet orders. Monitoring tolerance, labs, weights, plan of care Following daily in ICU rounds. Reassess Tuesdays and Fridays
--- NOTE | 2022-05-29 12:06 | WPDINTPN ---
Progress Note: A&P Assessment and Plan (1) Acute respiratory failure: Code(s): J96.00 - Acute respiratory failure, unspecified whether with hypoxia or hypercapnia Status: Acute Assessment and Plan: Acute Respiratory failure secondary to community-acquired pneumonia, congestive heart failure BNP elevated Patient was intubated on 05/19 Chest x-ray this morning: Mild pulmonary edema pattern, essentially unchanged. . Continue full mechanical ventilation support to prevent hypoxemia/hypercarbia and end organ damage. ABG and vent settings reviewed Low tidal volume ventilation strategy to prevent volutrauma -continue Bronchodilators -05/20: MRSA screen is negative -05/20: Sputum culture growing yeast -status post 7 days of vancomycin, cefepime and azithromycin - creatinine is elevated, unable to give diuretics -patient may require dialysis, I discussed this with the , she stated he his wishes would not have been to be on dialysis or to get tracheostomy or PEG tube. -05/28: patient tolerated ASV mode of ventilation -off all sedation -will place patient on ASV mode again today Urine Legionella was not detected, - pneumococcal antigen is pending pending Mycoplasma IgM antibody is negative, IgG is elevated CT chest 05/20 - Pulmonary opacities most consistent with pneumonia. Mediastinal and bilateral hilar lymphadenopathy. Low positioned endotracheal tube and nasogastric tube, correlate with tube function (2) Community acquired pneumonia: Qualifiers: Laterality: left Lung location: lower lobe of lung Qualified Code(s): J18.9 - Pneumonia, unspecified organism Code(s): J18.9 - Pneumonia, unspecified organism Status: Acute Assessment and Plan: See above (3) Elevated troponin: Code(s): R77.8 - Other specified abnormalities of plasma proteins Status: Acute Assessment and Plan: Likely secondary to AFib with RVR, respiratory failure hypoxia Troponin levels plateaued Patient already anticoagulated with apixaban Echo reviewed (4) Acute on chronic congestive heart failure: Qualifiers: Heart failure type: unspecified Qualified Code(s): I50.9 - Heart failure, unspecified Code(s): I50.9 - Heart failure, unspecified Status: Acute Assessment and Plan: Patient was last echo showed diastolic dysfunction, RV enlargement and failure, moderate TR and moderate pulmonary hypertension Patient likely has cor pulmonale Lasix held due to worsening renal function Patient received gentle amount of IV fluids but now off Echocardiogram 05/21/2022 showed EF of 65-70%, grade 2 diastolic dysfunction, left atrial chamber mildly enlarged, mild tricuspid regurg, trace mitral valve regurg, mild pulmonary hypertension RVSP of 43 mmHg Echo 07/18/2021 Summary ? 1. Left ventricular chamber dimension is normal. ? 2. Definity contrast administered improved wall motion interpretation. ? 3. Left ventricular systolic function is hyperdynamic, estimated at >70%. ? 4. There is mildly increased left ventricular wall thickness. ? 5. The left ventricular diastolic function is grade IV diastolic dysfunction. ? 6. E/e' 20 is elevated. ? 7. Right ventricular chamber dimension is moderately enlarged. ? 8. Right ventricular systolic function is? mildly reduced. ? 9. Left atrial chamber dimension is mildly enlarged. ? 10. There is mild aortic valve sclerosis. ? 11. The mitral valve has moderately calcified annulus. ? 12. There is moderate tricuspid valve regurgitation. ? 13. Moderate pulmonary hypertension, estimated pulmonary arterial syst lic pressure is 58 mmHg (5) Atrial fibrillation and flutter: Code(s): I48.91 - Unspecified atrial fibrillation; I48.92 - Unspecified atrial flutter Status: Chronic Assessment and Plan: Now converted to normal sinus rhythm On Eliquis Monitor (6) Hypothyroidism: Code(s): E03.9 - Hypothyroidism, unspecified Sta
[2022-05-29] MEDS: MORPHINE SULFATE INJ (*CRX) 10 MG/ML AMP 5 MG IV PUSH ×2 (14:52→15:08)
[2022-05-29] MEDS: LORazepam INJ (*CRX) 2 MG/ML VIAL IV PUSH ×3 (14:52→22:41)
[2022-05-29] MEDS: MORPHINE SULFATE (*CRX) 2 MG/ML INJ IV PUSH (22:41)
[2022-05-30 00:37] LABS: Pneumococcal Antigen Urine Not Detected (Not Detected)
--- NOTE | 2022-05-30 02:37 | PC.NURSE ---
Transfer patient received from ICU 4
[2022-05-30 02:42] VITALS: BP 148/77; PULSE 92; RESP 18; TEMP 36.9; O2SAT 85
[2022-05-30] MEDS: MORPHINE SULFATE (*CRX) 2 MG/ML INJ IV PUSH ×2 (08:44→12:31)
[2022-05-30 10:28] VITALS: BP 157/77; PULSE 98; RESP 20; TEMP 36.6; O2SAT 90
[2022-05-30] MEDS: LORazepam INJ (*CRX) 2 MG/ML VIAL IV PUSH (13:14)
[2022-05-30 17:17] LABS: Chloride Rand Ur <20 mmol/L (32-290); Creatinine Random Urine 51 mg/dL (20-320)
--- NOTE | 2022-05-30 18:26 | PM.DS ---
DS: Admitting Diagnosis Discharge Date 05/30/22 Admitting Diagnosis Weakness and fever DS: Discharge Diagnosis Discharge Diagnosis (1) Acute respiratory failure: Code(s): J96.00 - Acute respiratory failure, unspecified whether with hypoxia or hypercapnia Status: Acute Assessment and Plan: Acute Respiratory failure secondary to community-acquired pneumonia, congestive heart failure BNP elevated Patient was intubated on 05/19 Chest x-ray this morning: Mild pulmonary edema pattern, essentially unchanged. . Continue full mechanical ventilation support per lead cashier -continue Bronchodilators -05/20: MRSA screen is negative -05/20: Sputum culture growing yeast -status post 7 days of vancomycin, cefepime and azithromycin - creatinine is elevated, unable to give diuretics May require dialysis. Urine Legionella was not detected, - pneumococcal antigen is pending pending Mycoplasma IgM antibody is negative, IgG is elevated CT chest 05/20 - Pulmonary opacities most consistent with pneumonia. Mediastinal and bilateral hilar lymphadenopathy. Low positioned endotracheal tube and nasogastric tube, correlate with tube function (2) Community acquired pneumonia: Qualifiers: Laterality: left Lung location: lower lobe of lung Qualified Code(s): J18.9 - Pneumonia, unspecified organism Code(s): J18.9 - Pneumonia, unspecified organism Status: Acute Assessment and Plan: See above (3) Elevated troponin: Code(s): R77.8 - Other specified abnormalities of plasma proteins Status: Acute Assessment and Plan: Likely secondary to AFib with RVR, respiratory failure hypoxia Troponin levels plateaued Patient already anticoagulated with apixaban Echo reviewed (4) Acute on chronic congestive heart failure: Qualifiers: Heart failure type: unspecified Qualified Code(s): I50.9 - Heart failure, unspecified Code(s): I50.9 - Heart failure, unspecified Status: Acute Assessment and Plan: Patient was last echo showed diastolic dysfunction, RV enlargement and failure, moderate TR and moderate pulmonary hypertension Patient likely has cor pulmonale Lasix held due to worsening renal function Patient received gentle amount of IV fluids but now off Echocardiogram 05/21/2022 showed EF of 65-70%, grade 2 diastolic dysfunction, left atrial chamber mildly enlarged, mild tricuspid regurg, trace mitral valve regurg, mild pulmonary hypertension RVSP of 43 mmHg Echo 07/18/2021 Summary ? 1. Left ventricular chamber dimension is normal. ? 2. Definity contrast administered improved wall motion interpretation. ? 3. Left ventricular systolic function is hyperdynamic, estimated at >70%. ? 4. There is mildly increased left ventricular wall thickness. ? 5. The left ventricular diastolic function is grade IV diastolic dysfunction. ? 6. E/e' 20 is elevated. ? 7. Right ventricular chamber dimension is moderately enlarged. ? 8. Right ventricular systolic function is? mildly reduced. ? 9. Left atrial chamber dimension is mildly enlarged. ? 10. There is mild aortic valve sclerosis. ? 11. The mitral valve has moderately calcified annulus. ? 12. There is moderate tricuspid valve regurgitation. ? 13. Moderate pulmonary hypertension, estimated pulmonary arterial syst lic pressure is 58 mmHg (5) Atrial fibrillation and flutter: Code(s): I48.91 - Unspecified atrial fibrillation; I48.92 - Unspecified atrial flutter Status: Chronic Assessment and Plan: Now converted to normal sinus rhythm On Eliquis Monitor (6) Hypothyroidism: Code(s): E03.9 - Hypothyroidism, unspecified Status: Acute Assessment and Plan: Continue levothyroxine (7) Acute kidney injury superimposed on chronic kidney disease: Code(s): N17.9 - Acute kidney failure, unspecified; N18.9 - Chronic kidney disease, unspecified Status: Acute Assessment and Plan: Patient c
== END 2022-05-30 15:45 | disposition hospice, inpatient (51) | DRG 208 ==
LOC: ANHED 20:38 → ANHIMU 21:02 → ANH3MED 23:05 → ANHIMU 05-19 15:03 → ANHICU 05-20 01:59 → ANH3MEDSUR 05-31 09:23 → ANHICU 05-31 09:23
PROVIDERS: Internal Medicine; Internal Medicine Pulmonary Disease; Student in an Organized Health Care Education/Training Program; Admitting Provider Internal Medicine; Emergency Provider Emergency Medicine; PCP Internal Medicine; Visit Provider Family Medicine
DX: J18.9 Pneumonia, unspecified organism (principal); I50.33 Acute on chronic diastolic (congestive) heart failure; J96.01 Acute respiratory failure with hypoxia; J96.02 Acute respiratory failure with hypercapnia; N17.0 Acute kidney failure with tubular necrosis; I13.0 Hypertensive heart and chronic kidney disease with heart failure and stage 1 through stage 4 chronic kidney disease, or unspecified chronic kidney disease; E87.1 Hypo-osmolality and hyponatremia; I47.1 Supraventricular tachycardia; I48.92 Unspecified atrial flutter; Z68.41 Body mass index [BMI] 40.0-44.9, adult; J44.0 Chronic obstructive pulmonary disease with (acute) lower respiratory infection; B37.89 Other sites of candidiasis; I48.0 Paroxysmal atrial fibrillation; Z20.822 Contact with and (suspected) exposure to COVID-19; D64.9 Anemia, unspecified; I49.3 Ventricular premature depolarization; N18.30 Chronic kidney disease, stage 3 unspecified; E03.9 Hypothyroidism, unspecified; G47.33 Obstructive sleep apnea (adult) (pediatric); M19.90 Unspecified osteoarthritis, unspecified site; E78.5 Hyperlipidemia, unspecified; Z96.643 Presence of artificial hip joint, bilateral; E66.01 Morbid (severe) obesity due to excess calories; M48.061 Spinal stenosis, lumbar region without neurogenic claudication; Z79.01 Long term (current) use of anticoagulants; Z91.198 Patient's noncompliance with other medical treatment and regimen for other reason
CPT/HCPCS: 36415; 36600; 70450; 71045; 71250; 74019; 76775; 80053; 80202; 81001; 82140; 82375; 82436; 82550; 82565; 82570; 82805; 82948; 83050; 83605; 83735; 83880; 84100; 84133; 84145; 84300; 84443; 84484; 85025; 85027; 85055; 85380; 85610; 85730; 85999; 86738; 87040; 87070; 87081; 87205; 87449; 87502; 87637; 87899; 93005; 94002; 94003; 94640; 94660; 96365; 96366; 96367; 97161; 99285; A9270; C1751; C8929; C9113; G0378; J0131; J0153; J0282; J0456; J0692; J0696; J1630; J1940; J2060; J2250; J2270; J3010; J3370; J3475; J7030; J7050; J7060; P9047; Q9957; U0003; U0005

== ENCOUNTER 2022-05-30 15:46 | HOS | payer OTHER, MEDICARE, SELFPAY ==
[2022-05-30 17:08] VITALS: BP 152/81; PULSE 92; RESP 20; TEMP 36.6; O2SAT 92
--- NOTE | 2022-05-30 17:29 | PM.IMHP ---
H&P: HPI History of Present Illness Date/Time: 05/30/22 17:29 Chief Complaint: Uncontrolled dyspnea Narrative: This unfortunate 76-year-old gentleman a history of COPD sleep apnea and diastolic congestive heart failure presented the emergency department May 18 with fever cough and shortness of breath. Chest x-ray confirmed acute community-acquired pneumonia and pulmonary vascular congestion. He was treated broad-spectrum antibiotics but continued to deteriorate and was transferred to intensive care unit intubated on May 19, 2022. He completed 7 day course of vancomycin cefepime azithromycin as well as diuresis but did not improved. In fact and worsening renal failure. He was placed on comfort care measures only on May 29, 2022 and extubated on May 30, 2022. He was admitted inpatient hospice service for control of dyspnea. Review of Systems Review of Systems: ROS unobtainable: Yes unobtainable due to medical condition PMFSH Past Medical History Medical History Acute on chronic blood loss anemia Anemia Arthritis Asthma Chronic anticoagulation CKD (chronic kidney disease) stage 3, GFR 30-59 ml/min COPD (chronic obstructive pulmonary disease) Degenerative joint disease of low back Diastolic CHF EF >70%, Grade IV diastolic dysfunction Dyslipidemia Encounter for screening for malignant neoplasm of prostate Essential hypertension Gastric ulcer due to nonsteroidal antiinflammatory drug (NSAID) therapy Hypertension Hyponatremia Hypothyroidism Lumbar stenosis Moderate pulmonary hypertension RVSP 58 on echocardiogram June 2021 DEMETRI (obstructive sleep apnea) Paroxysmal atrial flutter Right-sided heart failure Right ventricular chamber moderately enlarged with mildly reduced right ventricular systolic function noted on echo June 2021, moderate tricuspid regurgitation Surgical History Surgical History History of left hip replacement History of right hip replacement Family History Family History Mother , At age 64 Liver cancer Sibling S/P CABG x 3 Heart disease Father , At age 82 S/P CABG x 4 Other Family history of arthritis Social History Social History Social History: The patient lives at home with his of 50 years. They have 3 biologic children and he has 1 step child. 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 He is a lifelong nonsmoker. He formerly drank about 6-12 beers a day but quit doing this many years ago. He does chew tobacco. Code status: DNR Surrogate decision maker: Smoking status: Never smoker Tobacco type: smokeless tobacco Smokeless tobacco user: chewing tobacco Second hand tobacco smoke exposure: No Additional smoking assessment comments: 55-60 YEARS OF CHEWING TOBACCO Alcohol intake: former Drinks per week: 21 Substance use: never Substance use type: does not use Last use: hasn't been drinking since May Lack of Transportation: No Lack of Food: Never True Current Housing: I Have Housing Concerned About Future Housing: No Difficulty Paying Gas/Electric Bills: No Difficulty Paying for Meds: No Currently Unemployed: No Education: High School Diploma/GED Difficulty w/ Childcare or Family Care: No Spiritual care concerns: No Meds Home Medications and Allergies Home Medications Medication Instructions Recorded Confirmed Type No Home Medications 05/30/22 05/30/22 History Allergies Allergy/AdvReac Type Severity Reaction Status Date / Time Iodinated Contrast Media Allergy Unknown itching Verified 05/30/22 17:02 tramadol Allergy Unknown Itching Verified 05/30/22 17:02 (moderate to severe) Vital Si
[2022-05-30] MEDS: HYDROmorphone HCL/PF (*CRX) 50 MG in SODIUM CHLORIDE 0.9% IV 95 ML IV CONT (17:45)
[2022-05-30] MEDS: GLYCOPYRROLATE INJ (*SP) 0.2 MG/ML VIAL 0.1 MG IV PUSH (17:48)
[2022-05-30 20:45] VITALS: BP 149/88; PULSE 92; RESP 20; TEMP 36.7; O2SAT 87
[2022-05-30 22:06] VITALS: O2SAT 87
[2022-05-30] MEDS: ARTIFICIAL TEARS OPHTH SOLN 15 ML BOTTLE 1 DROP EACH EYE (22:56)
[2022-05-31 08:00] VITALS: BP 144/72; PULSE 61; RESP 24; TEMP 36.4; O2SAT 89
[2022-05-31] MEDS: GLYCOPYRROLATE INJ (*SP) 0.2 MG/ML VIAL 0.1 MG IV PUSH ×2 (08:52→16:09)
[2022-05-31] MEDS: ARTIFICIAL TEARS OPHTH SOLN 15 ML BOTTLE 1 DROP EACH EYE (09:00)
[2022-05-31 16:09] VITALS: PULSE 64; RESP 12
[2022-05-31] MEDS: HYDROmorphone HCL/PF (*CRX) 50 MG in SODIUM CHLORIDE 0.9% IV 95 ML IV CONT (16:09)
--- NOTE | 2022-05-31 17:00 | PM.IMPN ---
Progress Note: A&P Assessment and Plan (1) Palliative care encounter: Code(s): Z51.5 - Encounter for palliative care Status: Acute Assessment and Plan: Meet inpatient hospice criteria due to requiring continuous IV hydromorphone for control dyspnea Remainder palliative regimen as ordered (2) Acute respiratory failure: Code(s): J96.00 - Acute respiratory failure, unspecified whether with hypoxia or hypercapnia Status: Acute (3) Acute kidney injury superimposed on chronic kidney disease: Code(s): N17.9 - Acute kidney failure, unspecified; N18.9 - Chronic kidney disease, unspecified Status: Acute (4) Community acquired pneumonia: Qualifiers: Laterality: left Lung location: lower lobe of lung Qualified Code(s): J18.9 - Pneumonia, unspecified organism Code(s): J18.9 - Pneumonia, unspecified organism Status: Acute (5) Diastolic CHF: Qualifiers: Heart failure chronicity: chronic Qualified Code(s): I50.32 - Chronic diastolic (congestive) heart failure Code(s): I50.30 - Unspecified diastolic (congestive) heart failure Status: Acute (6) DEMETRI (obstructive sleep apnea): Code(s): G47.33 - Obstructive sleep apnea (adult) (pediatric) Status: Acute (7) Atrial fibrillation and flutter: Code(s): I48.91 - Unspecified atrial fibrillation; I48.92 - Unspecified atrial flutter Status: Chronic Subjective Date/time seen: 05/31/22 17:00 Interval history: Comfortable since initiation of hydromorphone drip. Review of Systems Review of Systems: ROS unobtainable: Yes unobtainable due to medical condition Exam Narrative: Elderly morbidly obese gentleman is resting in his hospital bed and unresponsive to both verbal and tactile stimuli Neck without JVD Chest with bilateral coarse crackles, tachypneic Heart regular rate Abdomen protuberant but soft hypoactive bowel sounds Extremities without edema Musculoskeletal without focal deformity to visual inspection No logic cranial nerves symmetric to visual inspection Objective Data Vital Signs Vital Signs: Vital Signs - 24 hr 05/30/22 17:08 05/30/22 20:45 05/30/22 22:06 Temperature 97.8 F 98.1 F Pulse Rate 92 92 Respiratory Rate 20 20 Blood Pressure 152/81 H 149/88 H Pulse Oximetry 92 87 L 87 L Oxygen Delivery Room Air 05/31/22 08:00 05/31/22 16:09 05/31/22 16:09 Temperature 97.6 F Pulse Rate 61 64 64 Respiratory Rate 24 H 12 12 Blood Pressure 144/72 H Pulse Oximetry 89 L Oxygen Delivery Intake/Output Intake/Output: Intake & Output 05/28/22 05/29/22 05/30/22 05/31/22 23:59 23:59 23:59 23:59 Intake Total 36 Output Total 600 Balance -564 Meds/Results Medications: Active Medications Generic Name Dose Route Start Last Admin Trade Name Freq PRN Reason Stop Dose Admin Acetaminophen 650 mg 05/30/22 17:04 Acetaminophen 650 Mg Suppository RECTAL Q6H PRN Fever Artificial Tears 1 drop 05/31/22 16:20 Artificial Tears Ophth Soln 15 Ml Bottle EACH EYE Q12HR PRN Dry Eye(s) Bisacodyl 10 mg 05/30/22 17:05 Bisacodyl 10 Mg Suppository RECTAL DAILY PRN Constipation Diazepam 5 mg 05/30/22 17:08 Diazepam Inj (*Crx) 10 Mg/2 Ml Syringe IV PUSH Q4H PRN ANXIETY/SOB Glycopyrrolate 0.1 mg 05/30/22 17:05 05/31/22 16:09 Glycopyrrolate Inj (*Sp) 0.2 Mg/Ml Vial IV PUSH 0.1 mg Q4H PRN Administration secretions Hydromorphone HCl 1 mg 05/30/22 17:07 Hydromorphone Hcl Inj (*Crx) 1 Mg/Ml Syr IV PUSH Q2H PRN Pain/SOB Hydromorphone HCl 50 mg/ 100 mls @ 1 mls/hr 05/30/22 17:30 05/31/22 16:09 Sodium Chloride IV CONT 0.5 mg/hr .Q24H MARY 1 mls/hr Administration 0.5 MG/HR Prochlorperazine Edisylate 10 mg 05/30/22 17:05 Prochlorperazine Edisylate 10 Mg/2 Ml Vial IV PUSH Q6H PRN Nausea And Vomiting
--- NOTE | 2022-06-07 12:27 | PM.DDS ---
Discharge Summary Date and Time Date of : 05/31/22 Time of : 19:15 Provider Pronounced By: Kandi Pham RN Probable Cause of Probable Cause of : Respiratory failure due to pneumonia with acute kidney failure Summary Hospital Course: Admitted to inpatient hospice for symptom control. Medications were titrated to comfort. Mr. Cano peacefully. Additional Data Confirmation of as documented by pronouncing clinician: Pupillary Reflex, Palpable Pulses, Response to Stimuli, Heart Tones and Breath Sounds Name of Provider Notified: Dr. Boo Mendieta Time Provider Notified: 19:53 Provider Requests Autopsy: No Organic Preparation Analyst Notified: Yes Date [facility] Notified of : 05/31/22 Time [facility] Notified of : 19:44
== END 2022-05-31 19:15 | disposition expired | DRG 951 ==
PROVIDERS: Admitting Provider Internal Medicine; PCP Internal Medicine; Visit Provider Internal Medicine
DX: Z51.5 Encounter for palliative care (principal); J96.00 Acute respiratory failure, unspecified whether with hypoxia or hypercapnia; J18.9 Pneumonia, unspecified organism; N17.9 Acute kidney failure, unspecified; I13.0 Hypertensive heart and chronic kidney disease with heart failure and stage 1 through stage 4 chronic kidney disease, or unspecified chronic kidney disease; I50.32 Chronic diastolic (congestive) heart failure; I48.92 Unspecified atrial flutter; N18.30 Chronic kidney disease, stage 3 unspecified; G47.33 Obstructive sleep apnea (adult) (pediatric); I48.91 Unspecified atrial fibrillation; J44.9 Chronic obstructive pulmonary disease, unspecified; D64.9 Anemia, unspecified; M19.90 Unspecified osteoarthritis, unspecified site; E78.5 Hyperlipidemia, unspecified; M48.061 Spinal stenosis, lumbar region without neurogenic claudication; Z96.643 Presence of artificial hip joint, bilateral; E03.9 Hypothyroidism, unspecified; Z66 Do not resuscitate; F17.220 Nicotine dependence, chewing tobacco, uncomplicated; Z79.01 Long term (current) use of anticoagulants
CPT/HCPCS: A9270; J1170